=== PATIENT | female | born 1965 | race Caucasian/White ===

== ENCOUNTER 2018-01-28 11:54 | Emergency (ER) | payer MEDICAID, SELFPAY ==
[2018-01-28 11:55] VITALS: BP 141/81; PULSE 81; RESP 17; TEMP 36.4; O2SAT 95; BMI 31.7
--- NOTE | 2018-01-28 11:58 | EKG12_ITS ---
Test Reason : CP Blood Pressure : / mmHG Vent. Rate : 081 BPM Atrial Rate : 081 BPM P-R Int : 140 ms QRS Dur : 084 ms QT Int : 384 ms P-R-T Axes : -14 011 029 degrees QTc Int : 446 ms Normal sinus rhythm Normal ECG Confirmed by PAULINE GONZALEZ, MARY ([id number]), communications editor BUCK ALVARADO ([id number]) on 01/31/2018 1:57:01 PM Referred By: RIC Confirmed By:MARY CARPENTER MD
--- NOTE | 2018-01-28 11:58 | RAD_ITS ---
STUDY: X-RAY CHEST REASON FOR EXAM: Female, 52 years old. PT HAD SPINAL INJECTION THIS AM. NOW HAVING CHEST PAIN TECHNIQUE: Single AP portable view of the chest. COMPARISON: None. FINDINGS: The lungs are dark from overpenetration, limiting evaluation. Lungs are underexpanded and appear clear. There is no demonstrated pleural abnormality. Normal size heart. Normal mediastinum and uriel. Normal visualized pulmonary arteries. Normal visualized aortic arch and descending thoracic aorta. Normal visualized thoracic spine. Normal visualized ribs, clavicles, and shoulders. There is no demonstrated abnormality of the visualized soft tissue structures of the upper abdomen. RAD/Chest 1 View (Portable) IMPRESSION: No acute disease is demonstrated. Electronically Signed: Jackie Lee MD at 12:23 EDT , Service support ,
--- NOTE | 2018-01-28 11:59 | NURSING ---
NO OLD EKGS
[2018-01-28 12:02] VITALS: O2SAT 98
[2018-01-28 12:16] LABS: Absolute Lymphocyte Count 1.84 X10^3/ul (0.83-4.51); Absolute Neutrophil Count 4.6 X10^3/uL (2.0-7.7); Basophil# 0.01 X10^3/uL; Basophil% 0.1 % (0-1); Eosinophil# 0.14 X10^3/uL; Hematocrit 40.2 % (37-47); Hemoglobin 13.5 g/dl (12.0-15.0); Lymphocyte # 1.84 X10^3/ul (4.0); Lymphocyte % 26.4 % (19-41); Mean Corp Hgb Conc 33.6 g/gl (32-36); Mean Corpuscular Volume 83.2 fL (81-99); Mean Platelet Vol. 9.4 fl (6.2-12.0); Monocyte# 0.39 X10^3/uL; Monocyte% 5.6 % (0-10); Neutrophil # 4.56 X10^3/uL (2.7-7.7); Neutrophil % 65.5 % (47-70); Platelet Count 228 K/mm3 (150-450); RBC Distribution Width CV 14.3 % (11.6-14.6); Red Blood Count 4.83 M/mm3 (4.2-5.4)
[2018-01-28 12:19] LABS: POSITIVE COUNT NO; POSITIVE DIFFERENTIAL NO; POSITIVE MORPHOLOGY NO
[2018-01-28 12:29] LABS: Anion Gap 8 (5-15); BUN 13 mg/dL (7-18); BUN/Creat Ratio 20.4 RATIO (10-20); Calcium,Total 8.7 mg/dL (8.5-10.1); Chloride 104 mmol/L (98-107); Creatinine, Serum 0.64 mg/dL (0.55-1.02); EST Glomerular Filtration Rate 104 mL/min (>60); Est Glom Filt Rate - Afr Amer 125 mL/min (>60); Estimated Creatinine Clearance 91.47 ml/min; Glucose 245 mg/dL (74-106); Sodium Level 139 mmol/L (136-145)
[2018-01-28 12:54] VITALS: BP 114/77; PULSE 72; RESP 11; O2SAT 97
--- NOTE | 2018-01-28 13:15 | EKG12_ITS ---
Test Reason : REPEAT Blood Pressure : / mmHG Vent. Rate : 071 BPM Atrial Rate : 071 BPM P-R Int : 148 ms QRS Dur : 086 ms QT Int : 404 ms P-R-T Axes : 004 000 024 degrees QTc Int : 439 ms Normal sinus rhythm Normal ECG Confirmed by MARY CARPENTER MD ([id number]), features editor BUCK ALVARADO ([id number]) on 01/31/2018 1:56:46 PM Referred By: MARCO ANTONIO Confirmed By:MARY CARPENTER MD
[2018-01-28] MEDS: Aspirin 81 MG TAB.CHEW 162 MG PO (13:41)
[2018-01-28 14:00] VITALS: BP 119/65; PULSE 81; RESP 19; O2SAT 98
--- NOTE | 2018-01-28 14:54 | ED.VISSUMM ---
- ER Visit Summary Date of Service: 01/28/18 Chief Complaint: Chest pain History of Present Illness: The patient is a 52 F who presents with chest pain. She was a pain management today. She had an epidural injection. Afterward she developed severe chest tightness. She states that she felt a little short of breath and nauseated as well. No vomiting. No diaphoresis. No history of prior similar symptoms. She is diabetic but has no history of coronary artery disease. She denies hypertension although she is on hydralazine. She is not a smoker. Her sister of congestive heart failure but did not have coronary disease she never had an MD or stents. They are uncertain of why she had CHF. She does not have a history of exertional symptoms. She was given Toradol after injection but did not have any improvement so was sent to the emergency department. Physical Examination: Vital vitals stable and within normal limits Moist mucous membranes Heart regular rate and rhythm Lungs are clear Patient has anterior chest wall tenderness Abdomen soft 2+ radial pulses extremities nontender without edema Alert Test Results: EKG shows normal sinus rhythm at a rate of 81 with no acute ischemic changes. Repeat EKG unchanged. Chest x-ray shows no acute process. Laboratory studies unremarkable with normal troponin and normal repeat troponin. Emergency Department Course and Treatment: My clinical suspicion for acute cardiac ischemia is low. Her presentation is atypical. Her symptoms began after an epidural injection. She has reproducible pain. She has negative troponins ?2 and 2 normal EKGs. She was treated with Toradol and aspirin and on reevaluation report symptomatic improvement. Her heart score is 3 which places her in a low risk category. TONY is I. The patient and family are comfortable with the plan for close outpatient follow-up and do understand to return for new or worsening or recurrent symptoms. They state that they only live 5 minutes away from the hospital should she develop recurrent symptoms. Patient discharged home. Treatment Plan: [] Disposition: Discharge Impression: Chest pain This note was generated with [employer] dictation software. It may contain incorrect words, spelling, and punctuation that were not noted in review of the chart prior to signing ED Disposition - Plan for ED Patient: Chief Complaint: Chest Pain Referrals: Kim Salas, [facility] [Primary Care Provider] -
--- NOTE | 2018-01-28 14:59 | ED.DEP ---
ED Disposition - Plan for ED Patient: Chief Complaint: Chest Pain Instructions: ED Chest Pain Atypical Unkn Cause Referrals: Kim Salas NP-C [Primary Care Provider] -
[2018-01-28 15:16] VITALS: BP 116/85; PULSE 72; RESP 16; RESP 18; O2SAT 96
== END 2018-01-28 15:16 | disposition home or self-care (01) ==
PROVIDERS: Emergency Provider Emergency Medicine; PCP Nurse Practitioner Family
DX: R07.89 Other chest pain (principal); R06.00 Dyspnea, unspecified; R11.0 Nausea; E11.9 Type 2 diabetes mellitus without complications; Z79.84 Long term (current) use of oral hypoglycemic drugs; Z79.4 Long term (current) use of insulin; Z79.899 Other long term (current) drug therapy
CPT/HCPCS: 71045; 80048; 84484; 85025; 93005; 99284; A4216

== ENCOUNTER → 2018-05-21 12:51 | Outpatient (CLI) | payer MEDICAID, SELFPAY ==
[2018-05-21 13:22] LABS: Amphetamine Urine VISTA NEGATIVE (<1000 ng/mL); Barbiturate Urine VISTA NEGATIVE (< 200 ng/mL); Benzodiazepine Urine VISTA NEGATIVE (< 200 ng/mL); Cocaine Urine VISTA NEGATIVE (< 300 ng/mL); Ecstacy Urine VISTA NEGATIVE (< 500 ng/mL); Methadone Urine VISTA NEGATIVE (< 300 ng/mL); PCP Urine VISTA NEGATIVE (< 25 ng/mL); THC Urine VISTA NEGATIVE (< 50 ng/mL); Vista UDS pH Range 5
== END ==
PROVIDERS: PCP Nurse Practitioner Family; Visit Provider Anesthesiology Pain Medicine
DX: F11.20 Opioid dependence, uncomplicated (principal)
CPT/HCPCS: 80307

== ENCOUNTER → 2018-12-08 13:46 | Outpatient (CLI) | payer MEDICAID, SELFPAY ==
[2018-12-08 14:42] LABS: Amphetamine Urine VISTA NEGATIVE (<1000 ng/mL); Barbiturate Urine VISTA NEGATIVE (< 200 ng/mL); Benzodiazepine Urine VISTA NEGATIVE (< 200 ng/mL); Cocaine Urine VISTA NEGATIVE (< 300 ng/mL); Ecstacy Urine VISTA NEGATIVE (< 500 ng/mL); Methadone Urine VISTA NEGATIVE (< 300 ng/mL); PCP Urine VISTA NEGATIVE (< 25 ng/mL); THC Urine VISTA NEGATIVE (< 50 ng/mL); Vista UDS pH Range 5
== END ==
PROVIDERS: PCP Nurse Practitioner Family; Referring Provider Anesthesiology Pain Medicine; Visit Provider Anesthesiology Pain Medicine
DX: F11.20 Opioid dependence, uncomplicated (principal)
CPT/HCPCS: 80307

== ENCOUNTER → 2020-01-26 10:14 | Outpatient (CLI) | payer MEDICARE, MEDICAID, SELFPAY ==
[2020-01-26 13:08] LABS: Amphetamine Urine VISTA NEGATIVE (<1000 ng/mL); Barbiturate Urine VISTA NEGATIVE (< 200 ng/mL); Benzodiazepine Urine VISTA NEGATIVE (< 200 ng/mL); Cocaine Urine VISTA NEGATIVE (< 300 ng/mL); Ecstacy Urine VISTA NEGATIVE (< 500 ng/mL); Methadone Urine VISTA NEGATIVE (< 300 ng/mL); PCP Urine VISTA NEGATIVE (< 25 ng/mL); THC Urine VISTA NEGATIVE (< 50 ng/mL); Vista UDS pH Range 5
== END ==
PROVIDERS: PCP Nurse Practitioner Family; Referring Provider Anesthesiology Pain Medicine; Visit Provider Anesthesiology Pain Medicine
DX: F11.20 Opioid dependence, uncomplicated (principal)
CPT/HCPCS: 80307

== ENCOUNTER → 2020-09-15 10:13 | Outpatient (CLI) | payer MEDICARE, MEDICAID, SELFPAY ==
[2020-09-15 11:27] LABS: Amphetamine Urine VISTA NEGATIVE (<1000 ng/mL); Barbiturate Urine VISTA NEGATIVE (< 200 ng/mL); Benzodiazepine Urine VISTA NEGATIVE (< 200 ng/mL); Cocaine Urine VISTA NEGATIVE (< 300 ng/mL); Ecstacy Urine VISTA NEGATIVE (< 500 ng/mL); Methadone Urine VISTA NEGATIVE (< 300 ng/mL); PCP Urine VISTA NEGATIVE (< 25 ng/mL); THC Urine VISTA NEGATIVE (< 50 ng/mL); Vista UDS pH Range 5
== END ==
PROVIDERS: PCP Nurse Practitioner Family; Visit Provider Anesthesiology Pain Medicine
DX: F11.20 Opioid dependence, uncomplicated (principal)
CPT/HCPCS: 80307

== ENCOUNTER → 2021-08-02 07:10 | Outpatient (REF) | payer MEDICARE, MEDICAID, SELFPAY ==
[2021-08-02 08:21] LABS: Basophil# 0.04 X10^3/uL; Basophil% 0.7 % (0-1); Eosinophil# 0.12 X10^3/uL; Hematocrit 31.3 % (37-47); Hemoglobin 9.4 g/dL (12.0-15.0); Lymphocyte % 21.4 % (19-41); Mean Corpuscular Volume 80.1 fL (81-99); Mean Platelet Vol. 9.3 fl (6.2-12.0); Monocyte% 9.9 % (0-10); NRBC Flagged by Analyzer 0 % (0-5); Neutrophil # 3.99 X10^3/uL (2.7-7.7); Neutrophil % 65.5 % (47-70); Platelet Count 353 K/mm3 (150-450); RBC Distribution Width CV 16.8 % (11.6-14.6); RBC Distribution Width SD 48.5 fl (35.1-43.9); Red Blood Count 3.91 M/mm3 (4.2-5.4); White Blood Count 6.1 K/mm3 (4.4-11.0)
[2021-08-02 08:34] LABS: ALB/GLOB Ratio 0.5 RATIO (0.9-2.4); AST(SGOT) 16 U/L (15-37); Alanine Aminotransfer ALT/SGPT 11 U/L (13-56); Albumin, Serum 2.4 g/dL (3.2-5.0); Alkaline Phosphatase 79 U/L (45-117); Anion Gap 6 (5-15); BUN 15 mg/dL (7-18); Calcium,Total 8.8 mg/dL (8.5-10.1); Chloride 104 mmol/L (98-107); Creatinine, Serum 1.07 mg/dL (0.55-1.02); EST Glomerular Filtration Rate 56 mL/min (>60); Est Glom Filt Rate - Afr Amer 68 mL/min (>60); Glucose 142 mg/dL (74-106); Potassium 3.8 mmol/L (3.5-5.1); Protein, Total 7.4 g/dL (6.4-8.2); Sodium Level 137 mmol/L (136-145)
== END ==
LOC: OLS.SANC 07:10
PROVIDERS: PCP Nurse Practitioner Family; Visit Provider Internal Medicine
DX: E11.9 Type 2 diabetes mellitus without complications (principal); I10 Essential (primary) hypertension
CPT/HCPCS: 36415; 80053; 85025

== ENCOUNTER → 2021-08-04 05:00 | Outpatient (REF) | payer MEDICARE, MEDICAID, SELFPAY ==
[2021-08-04 08:04] LABS: Absolute Lymphocyte Count 1.27 X10^3/uL (0.83-4.51); Absolute Neutrophil Count 2.6 X10^3/uL (2.0-7.7); Basophil# 0.03 X10^3/uL; Basophil% 0.7 % (0-1); Eosinophils% 4.4 % (0-5); Hematocrit 29.6 % (37-47); Hemoglobin 8.9 g/dL (12.0-15.0); Lymphocyte # 1.27 X10^3/ul (0.83-4.51); Lymphocyte % 27.8 % (19-41); Mean Corp Hgb Conc 30.1 g/dL (32-36); Mean Corpuscular Hgb 24.6 pg (27.0-32.0); Mean Corpuscular Volume 81.8 fL (81-99); Mean Platelet Vol. 9.3 fl (6.2-12.0); Monocyte# 0.43 X10^3/uL; Monocyte% 9.4 % (0-10); NRBC Flagged by Analyzer 0 % (0-5); Neutrophil % 56.8 % (47-70); Platelet Count 246 K/mm3 (150-450); RBC Distribution Width CV 17.2 % (11.6-14.6); RBC Distribution Width SD 51.1 fl (35.1-43.9); Red Blood Count 3.62 M/mm3 (4.2-5.4); White Blood Count 4.6 K/mm3 (4.4-11.0)
[2021-08-04 08:18] LABS: Anion Gap 5 (5-15); BUN 19 mg/dL (7-18); BUN/Creat Ratio 17.1 RATIO (10-20); Calcium,Total 8.5 mg/dL (8.5-10.1); Chloride 104 mmol/L (98-107); Creatinine, Serum 1.11 mg/dL (0.55-1.02); EST Glomerular Filtration Rate 54 mL/min (>60); Est Glom Filt Rate - Afr Amer 65 mL/min (>60); Glucose 135 mg/dL (74-106); Potassium 3.8 mmol/L (3.5-5.1); Sodium Level 140 mmol/L (136-145)
== END ==
LOC: OLS.SANC 05:00
PROVIDERS: PCP Nurse Practitioner Family; Visit Provider Internal Medicine
DX: E11.9 Type 2 diabetes mellitus without complications (principal); I10 Essential (primary) hypertension; E78.5 Hyperlipidemia, unspecified
CPT/HCPCS: 36415; 80048; 85025

== ENCOUNTER → 2021-08-07 08:10 | Outpatient (REF) | payer MEDICARE, MEDICAID, SELFPAY ==
[2021-08-07 09:40] LABS: Absolute Lymphocyte Count 1.44 X10^3/uL (0.83-4.51); Absolute Neutrophil Count 3.5 X10^3/uL (2.0-7.7); Basophil# 0.04 X10^3/uL; Basophil% 0.7 % (0-1); Eosinophil# 0.41 X10^3/uL; Hematocrit 29.3 % (37-47); Hemoglobin 9.1 g/dL (12.0-15.0); Lymphocyte # 1.44 X10^3/ul (0.83-4.51); Lymphocyte % 24.6 % (19-41); Mean Corp Hgb Conc 31.1 g/dL (32-36); Mean Corpuscular Hgb 24.9 pg (27.0-32.0); Mean Corpuscular Volume 80.3 fL (81-99); Mean Platelet Vol. 9.4 fl (6.2-12.0); Monocyte# 0.45 X10^3/uL; Monocyte% 7.7 % (0-10); NRBC Flagged by Analyzer 0 % (0-5); Neutrophil # 3.48 X10^3/uL (2.7-7.7); Neutrophil % 59.5 % (47-70); Platelet Count 194 K/mm3 (150-450); RBC Distribution Width CV 17.2 % (11.6-14.6); RBC Distribution Width SD 50.6 fl (35.1-43.9); Red Blood Count 3.65 M/mm3 (4.2-5.4); White Blood Count 5.9 K/mm3 (4.4-11.0)
[2021-08-07 09:51] LABS: Anion Gap 5 (5-15); BUN 19 mg/dL (7-18); BUN/Creat Ratio 14.7 RATIO (10-20); Calcium,Total 8.5 mg/dL (8.5-10.1); Chloride 105 mmol/L (98-107); Creatinine, Serum 1.29 mg/dL (0.55-1.02); EST Glomerular Filtration Rate 45 mL/min (>60); Est Glom Filt Rate - Afr Amer 55 mL/min (>60); Glucose 187 mg/dL (74-106); Potassium 3.8 mmol/L (3.5-5.1); Sodium Level 139 mmol/L (136-145)
== END ==
LOC: OLS.SANC 08:10
PROVIDERS: PCP Nurse Practitioner Family; Visit Provider Internal Medicine
DX: E11.9 Type 2 diabetes mellitus without complications (principal); E03.9 Hypothyroidism, unspecified
CPT/HCPCS: 80048; 85025

== ENCOUNTER → 2021-08-14 05:00 | Outpatient (REF) | payer MEDICARE, MEDICAID, SELFPAY ==
[2021-08-14 08:15] LABS: Absolute Lymphocyte Count 1.11 X10^3/uL (0.83-4.51); Absolute Neutrophil Count 2.6 X10^3/uL (2.0-7.7); Basophil# 0.02 X10^3/uL; Basophil% 0.5 % (0-1); Eosinophil# 0.29 X10^3/uL; Eosinophils% 6.6 % (0-5); Hematocrit 31.8 % (37-47); Hemoglobin 9.9 g/dL (12.0-15.0); Lymphocyte # 1.11 X10^3/ul (0.83-4.51); Lymphocyte % 25.2 % (19-41); Mean Corp Hgb Conc 31.1 g/dL (32-36); Mean Corpuscular Hgb 24.8 pg (27.0-32.0); Mean Corpuscular Volume 79.7 fL (81-99); Monocyte# 0.38 X10^3/uL; Monocyte% 8.6 % (0-10); NRBC Flagged by Analyzer 0 % (0-5); Neutrophil # 2.56 X10^3/uL (2.7-7.7); Neutrophil % 58.2 % (47-70); POSITIVE COUNT YES; RBC Distribution Width CV 17.2 % (11.6-14.6); RBC Distribution Width SD 49.2 fl (35.1-43.9); Red Blood Count 3.99 M/mm3 (4.2-5.4); White Blood Count 4.4 K/mm3 (4.4-11.0)
[2021-08-14 08:22] LABS: Differential Indicated SCAN CRITERIA MET
[2021-08-14 08:30] LABS: Anion Gap 5 (5-15); BUN 16 mg/dL (7-18); BUN/Creat Ratio 15.5 RATIO (10-20); Calcium,Total 8.9 mg/dL (8.5-10.1); Chloride 104 mmol/L (98-107); Creatinine, Serum 1.03 mg/dL (0.55-1.02); EST Glomerular Filtration Rate 59 mL/min (>60); Est Glom Filt Rate - Afr Amer 71 mL/min (>60); Glucose 148 mg/dL (74-106); Sodium Level 139 mmol/L (136-145)
[2021-08-14 08:53] LABS: Platelet Estimate ADEQUATE (ADEQ)
== END ==
LOC: OLS.SANC 05:00
PROVIDERS: PCP Nurse Practitioner Family; Visit Provider Internal Medicine
DX: A41.9 Sepsis, unspecified organism (principal); E11.8 Type 2 diabetes mellitus with unspecified complications; I10 Essential (primary) hypertension
CPT/HCPCS: 36415; 80048; 85025

== ENCOUNTER → 2021-08-21 05:00 | Outpatient (REF) | payer MEDICARE, MEDICAID, SELFPAY ==
[2021-08-21 10:22] LABS: Absolute Lymphocyte Count 1.45 X10^3/uL (0.83-4.51); Absolute Neutrophil Count 3.2 X10^3/uL (2.0-7.7); Basophil# 0.03 X10^3/uL; Basophil% 0.6 % (0-1); Eosinophil# 0.21 X10^3/uL; Eosinophils% 3.9 % (0-5); Hematocrit 31.7 % (37-47); Lymphocyte # 1.45 X10^3/ul (0.83-4.51); Lymphocyte % 26.7 % (19-41); Mean Corp Hgb Conc 31.5 g/dL (32-36); Mean Corpuscular Hgb 25.7 pg (27.0-32.0); Mean Corpuscular Volume 81.5 fL (81-99); Mean Platelet Vol. 9.7 fl (6.2-12.0); Monocyte# 0.48 X10^3/uL; Monocyte% 8.8 % (0-10); NRBC Flagged by Analyzer 0 % (0-5); Neutrophil % 58.7 % (47-70); Platelet Count 246 K/mm3 (150-450); RBC Distribution Width CV 17.7 % (11.6-14.6); RBC Distribution Width SD 51.2 fl (35.1-43.9); Red Blood Count 3.89 M/mm3 (4.2-5.4); White Blood Count 5.4 K/mm3 (4.4-11.0)
[2021-08-21 10:49] LABS: Anion Gap 5 (5-15); BUN 18 mg/dL (7-18); BUN/Creat Ratio 16.8 RATIO (10-20); Calcium,Total 9.1 mg/dL (8.5-10.1); Chloride 106 mmol/L (98-107); Creatinine, Serum 1.07 mg/dL (0.55-1.02); EST Glomerular Filtration Rate 56 mL/min (>60); Est Glom Filt Rate - Afr Amer 68 mL/min (>60); Glucose 73 mg/dL (74-106); Potassium 3.9 mmol/L (3.5-5.1); Sodium Level 141 mmol/L (136-145)
== END ==
LOC: OLS.SANC 05:00
PROVIDERS: PCP Nurse Practitioner Family; Visit Provider Internal Medicine
DX: E11.9 Type 2 diabetes mellitus without complications (principal); E87.6 Hypokalemia
CPT/HCPCS: 36415; 80048; 85025

== ENCOUNTER → 2021-08-28 04:00 | Outpatient (REF) | payer MEDICARE, MEDICAID, SELFPAY ==
[2021-08-28 07:59] LABS: Absolute Lymphocyte Count 1.34 X10^3/uL (0.83-4.51); Absolute Neutrophil Count 2.5 X10^3/uL (2.0-7.7); Basophil# 0.02 X10^3/uL; Basophil% 0.4 % (0-1); Eosinophil# 0.24 X10^3/uL; Eosinophils% 5.3 % (0-5); Hematocrit 30.2 % (37-47); Hemoglobin 9.5 g/dL (12.0-15.0); Lymphocyte # 1.34 X10^3/ul (0.83-4.51); Lymphocyte % 29.3 % (19-41); Mean Corp Hgb Conc 31.5 g/dL (32-36); Mean Corpuscular Volume 82.5 fL (81-99); Mean Platelet Vol. 9.5 fl (6.2-12.0); Monocyte# 0.47 X10^3/uL; Monocyte% 10.3 % (0-10); NRBC Flagged by Analyzer 0 % (0-5); Neutrophil # 2.48 X10^3/uL (2.7-7.7); Neutrophil % 54.3 % (47-70); Platelet Count 196 K/mm3 (150-450); RBC Distribution Width CV 17.8 % (11.6-14.6); RBC Distribution Width SD 53.3 fl (35.1-43.9); Red Blood Count 3.66 M/mm3 (4.2-5.4); White Blood Count 4.6 K/mm3 (4.4-11.0)
[2021-08-28 08:23] LABS: Anion Gap 2 (5-15); BUN 26 mg/dL (7-18); BUN/Creat Ratio 23.6 RATIO (10-20); Calcium,Total 8.8 mg/dL (8.5-10.1); Chloride 106 mmol/L (98-107); EST Glomerular Filtration Rate 54 mL/min (>60); Est Glom Filt Rate - Afr Amer 66 mL/min (>60); Glucose 124 mg/dL (74-106); Potassium 4.5 mmol/L (3.5-5.1); Sodium Level 139 mmol/L (136-145)
== END ==
LOC: OLS.SANC 04:00
PROVIDERS: PCP Nurse Practitioner Family; Referring Provider Internal Medicine; Visit Provider Internal Medicine
DX: D64.9 Anemia, unspecified (principal); E11.9 Type 2 diabetes mellitus without complications; I10 Essential (primary) hypertension; E78.5 Hyperlipidemia, unspecified; E03.9 Hypothyroidism, unspecified; A41.9 Sepsis, unspecified organism; Z79.899 Other long term (current) drug therapy
CPT/HCPCS: 36415; 80048; 85025

== ENCOUNTER 2022-01-02 10:03 | Inpatient (IN) | payer MEDICARE, MEDICAID, SELFPAY ==
[2022-01-02 10:04] VITALS: BP 163/72; PULSE 90; RESP 20; TEMP 36.8; O2SAT 97; BMI 26.1
--- NOTE | 2022-01-02 10:24 | CT_ITS ---
STUDY: CT BRAIN WITHOUT CONTRAST REASON FOR EXAM: Female, 56 years old. fall RADIATION DOSAGE (If Supplied By Facility): CTDIvol = ( 44.99 ) mGy, DLP = ( 796.11 ) mGycm TECHNIQUE: Transaxial CT imaging of the brain was performed without administration of intravenous contrast material. Individualized dose optimization techniques were used for this CT. COMPARISON: No relevant priors. FINDINGS: Normal soft tissue structures. Normal calvarium. Normal size ventricles and extra-axial spaces for the patient''s age. Normal white matter tracts of the cerebral hemispheres. Normal basal ganglia and thalami. Normal variant perivascular space in the right basal ganglia region. Normal brainstem. Normal cerebellum. There is no intracranial hemorrhage. There are no findings of an acute ischemic infarction. Normal visualized paranasal sinuses. CT/Brain/Head without Contrast IMPRESSION: No acute intracranial hemorrhage or mass affect. Electronically Signed: Skyler Lu MD (Brooks) at 11:45 EDT ,
--- NOTE | 2022-01-02 10:25 | CT_ITS ---
STUDY: CT ABDOMEN AND PELVIS WITHOUT CONTRAST REASON FOR EXAM: Female, 56 years old. Fall 2 days ago, right hip pain RADIATION DOSAGE (If Supplied By Facility): CTDIvol = ( 20.10 ) mGy, DLP = ( 1367.32 ) mGycm TECHNIQUE: Transaxial images were obtained from the dome of the diaphragm to the symphysis pubis without oral contrast, and without intravenous contrast. Sagittal and coronal images were reconstructed. Individualized dose optimization techniques were used for this CT. COMPARISON: None. FINDINGS: The visualized lung bases are unremarkable. The visualized portions of the heart are within normal limits. Normal liver. Normal gallbladder and extrahepatic biliary system. There is mild splenomegaly. Normal pancreas. Normal bilateral adrenal glands. Normal right kidney. Normal left kidney. Normal visualized stomach. Normal small intestine. Fecal residue throughout the colon without colon wall thickening The appendix is visualized and appears normal. Slight amount of fascial thickening/fluid in the right lower quadrant (image 133 series 5). There is also minimal fluid in left paracolic gutter on image 103 series 5. Slight fluid in the dependent portion of pelvis. Normal abdominal aorta. Normal inferior vena cava. Normal retroperitoneum. Normal urinary bladder. Normal abdominal wall. Degenerative changes of the lumbar spine. The pelvis is intact. Neurostimulator device noted. Bilateral hips are normally aligned. Circumferential narrowing of the bilateral hips with marginal spur formation. No hip or proximal femur fracture seen. CT/Abdomen/Pelvis without Cont IMPRESSION: 1. No bowel obstruction. No hydronephrosis or urinary tract calcifications. 2. Slight amount of fluid in the bilateral paracolic gutters. 3. No demonstrated hip fracture. 4. Mild splenomegaly. Electronically Signed: Skyler Lu MD (Brooks) at 11:53 EDT ,
--- NOTE | 2022-01-02 10:27 | RAD_ITS ---
STUDY: X-RAY - RIGHT FOOT CLINICAL: Female, 56 years old. Infection of the foot, diabetes TECHNIQUE: 3 view(s) of the foot. COMPARISON: None. FINDINGS: Hind and midfoot surgical hardware. Diffuse osteopenia. Degenerative changes of the tibiotalar joint. No demonstrated fracture. Normal metatarsophalangeal joint of the great toe. Normal tibial and fibular sesamoid bones. Normal interphalangeal joint of the great toe. Normal phalanges of the great toe. Normal second through fifth metatarsophalangeal joints. Normal interphalangeal joints and phalanges of the lesser toes. Soft tissue swelling with superficial ulcer of the mid plantar foot. RAD/Foot min 3 Views IMPRESSION: 1. Plantar soft tissue swelling/lesser. No silviano bony destruction. 2. Operative changes. Electronically Signed: Skyler Lu MD (Brooks) at 11:50 EDT ,
--- NOTE | 2022-01-02 10:27 | EX.ED.DYSGE1 ---
HPI History of Present Illness Chief Complaint: Fall Informant: patient and family Onset/Context/Timing Onset: Days Narrative Narrative: Patient reportedly fell 2 days ago while on vacation with her son's family. She states she fell and landed on her right side. Her son was able to help her to the car and her daughter picked her up yesterday. Patient is complaining of pain to her right hip and left foot from the fall. She also reports striking her head. She did not lose consciousness. She states she has been checking her blood sugars. She last took her diabetes medication last evening. Her blood sugars have been running well but EMS notes today they were reading high. Patient does have a chronic wound on the bottom of her right foot that she has been seeing wound care in [facility]. [facility] Medical History Depression Diabetes HTN (hypertension) Home Medications Levemir FlexTouch U-100 Insuln 85 units SUBCUT QHS 01/28/18 [History Last Taken Unknown] albuterol sulfate [Proair Hfa] 2 puff Q4H PRN PRN 01/28/18 [History Last Taken Unknown] hydralazine 25 mg PO DAILY 01/28/18 [History Last Taken Unknown] ibuprofen [Ibu] 600 mg Q6H PRN PRN 01/28/18 [History Last Taken Unknown] metformin 1,000 mg DAILY 01/28/18 [History Last Taken Unknown] oxycodone-acetaminophen 1 tab BID PRN 01/28/18 [History Last Taken Unknown] pregabalin [Lyrica] 100 mg DAILY 01/28/18 [History Last Taken Unknown] hydroxyzine HCl 25 mg PO QHS 01/02/22 [History Last Taken Unknown] insulin lispro [Humalog Dameon KwikPen U-100] 50 unit SUBCUT TID 01/02/22 [History Last Taken Unknown] sertraline 200 mg PO DAILY 01/02/22 [History Last Taken Unknown] trazodone 150 mg PO QHS 01/02/22 [History Last Taken Unknown] Allergy/AdvReac Type Severity Reaction Status Date / Time morphine AdvReac Vomiting Verified 01/02/22 10:09 Social History Smoking Status: Never smoker ROS ROS ED Constitutional Constitutional ED: Denies chills or fever(s) Eyes Eyes: Denies change in vision ENT ENT ED: Denies sore throat Cardiovascular Cardiovascular: Denies chest pain Respiratory/Chest Respiratory/Chest: Denies cough or dyspnea Gastrointestinal Gastrointestinal: Reports abdominal pain; Denies diarrhea, nausea or vomiting Genitourinary Genitourinary ED: Denies dysuria Musculoskeletal Musculoskeletal: Reports arthralgias; Denies back pain Integumentary Reports other Details: Right foot wound ; Denies rash Neurologic Neurologic: Reports weakness; Denies headache(s) Allergic/Immunologic Allergic/Immunologic ED: Denies urticaria EXAM Physical Exam Const Vital Signs: 01/02/22 10:04 01/02/22 10:09 01/02/22 12:34 Temperature 98.3 F Temperature Source Oral Pulse Rate 90 89 Respiratory Rate 20 H 20 H Respiratory Effort Normal Non-Labored Blood Pressure 163/72 H 146/61 H Blood Pressure Mean 102 89 Pulse Ox 97 93 Oxygen Delivery Method Room Air Room Air Positive well nourished and well developed General Appearance ED: well developed HEENT Reports moist mucous membranes Eyes PERRL and EOMs intact bilaterally Neck supple Chest Wall inspection of chest normal and palpation of chest normal Resp normal respiratory effort and clear to auscultation bilaterally Cardio regular rate and regular rhythm GI Palpation: soft and tender suprapubic Extremity Extremity Narrative: Tenderness to the right hip. Mild tenderness to the left foot with edema. Open ulcerated lesion on the plantar surface of the right foot approximately 1.5 cm in diameter. Serosanguineous drainage. No surrounding cellulitis. Neuro oriented x3 Sensorium / Orientation: alert MDM MDM MDM Narrative Medical decision making narrative: Patient given fentanyl for pain along with IV fluids. Lab work obtained. X-rays of the bilateral feet along with head CT and CT abdomen pelvis obtained. I specifically asked for CT scan to include right hip. Lab Data Attestation: I reviewed the patient's lab results. Labs: Laboratory Results - last 24 hr 01/02/22 01/02/22 11:01 11:01 WBC 9.2 RBC 3.33 L Hgb 9.6 L Hct 28.4 L MCV 85.3 MCH 28.8 MCHC 33.8 RDW Std Deviation 43.2 RDW Coeff of Gabriela 13.8 Plt Count 177 MPV 11.0 Immature Gran % (Auto) 1.100 H Neut % (Auto) 83.6 H Lymph % (Auto) 5.1 L Bartholomew % (Auto) 9.9 Eos % (Auto) 0.1 Baso % (Auto) 0.2 Absolute Neuts (auto) 7.7 Absolute Lymphs (auto) 0.47 L Nucleated RBC % 0 Sodium 128 L Potassium 4.6 Chloride 99 Carbon Dioxide 14.0 L Anion Gap 15 BUN 25 H Creatinine 1.32 H Estim Creat Clear Calc 44.02 Est GFR (MDRD) Af Amer 53 L Est GFR (MDRD) Non-Af 44 L BUN/Creatinine Ratio 18.9 Glucose 388 H Calcium 8.4 L Total Bilirubin 1.00 Direct Bilirubin 0.15 AST 33 ALT 18 Alkaline Phosphatase 103 Total Protein 6.3 L Albumin 2.0 L Globulin 4.3 H Radiography Diagnostic Testing: Clinical Impression(s) from Imaging Studies Brain CT 01/02/22 10:24 IMPRESSION: No acute intracranial hemorrhage or mass affect. Electronically Signed: Skyler Lu MD (Brooks) at 11:45 EDT , Abdomen/Pelvis CT 01/02/22 10:25 IMPRESSION: 1. No bowel obstruction. No hydronephrosis or urinary tract calcifications. 2. Slight amount of fluid in the bilateral paracolic gutters. 3. No demonstrated hip fracture. 4. Mild splenomegaly. Electronically Signed: Skyler Lu MD (Brooks) at 11:53 EDT , Foot X-Ray 01/02/22 10:27 IMPRESSION: 1. Plantar soft tissue swelling/lesser. No silviano bony destruction. 2. Operative changes. Electronically Signed: Skyler Lu MD (Brooks) at 11:50 EDT , Foot X-Ray 01/02/22 11:30 IMPRESSION: No demonstrated fracture. Operative changes. Diffuse soft tissue swelling. Electronically Signed: Skyler Lu MD (Brooks) at 11:49 EDT , Treatment and Re-Evaluation Narrative: X-rays of the feet reveal chronic changes with no acute fracture per my interpretation. Radiologist interpretation reviewed. CT scan of the abdomen pelvis reveals slight fluid in the pericolic gutters but no evidence of fracture. Head CT unremarkable. Lab work significant for glucose of 388. Bicarb is low at 14. Anion gap is normal. Sodium reads low at 128, corrected sodium for glucose is 132. Patient is being given another liter IV fluid bolus. If blood sugar remains elevated following this she may be given insulin. Patient has generalized weakness and is unable to ambulate at this time. I will speak with hospitalist regarding admission for physical therapy and further treatment. Discharge Plan Triage Chief Complaint: Fall ED Provider: Lucy Azar Dx/Rx/DC Orders Clinical Impression: Generalized weakness, Fall, Hyperglycemia, Dehydration Prescriptions: No Action oxycodone-acetaminophen 1 TABLET tablet 1 tab BID PRN (Reason: Pain) RF: 0 ibuprofen [IBU] 600 MG tablet 600 mg Q6H PRN PRN (Reason: Pain) RF: 0 albuterol sulfate [ProAir HFA] 1 PUFF inhaler 2 puff Q4H PRN PRN (Reason: Sob &/Or Wheezing) RF: 0 metformin 500 MG tablet 1,000 mg DAILY RF: 0 pregabalin [Lyrica] 100 MG capsule 100 mg DAILY RF: 0 Levemir FlexTouch U-100 Insuln 100 UNITS/ML insulin pen 85 units subcut QHS RF: 0 hydralazine 25 MG tablet 25 mg PO DAILY RF: 0 trazodone 150 mg Tablet 150 mg PO QHS RF: 0 hydroxyzine HCl 25 mg Tablet 25 mg PO QHS RF: 0 insulin lispro [Humalog Dameon KwikPen U-100] 100 unit/mL Insulin Pen, Half-Unit 50 unit SUBCUT TID RF: 0 sertraline 200 mg Capsule 200 mg PO DAILY RF: 0 Primary Care Provider: Kim Salas ANALYTICAL SCIENCES DIRECTOR Referrals: Kim Salas NP, ANALYTICAL SCIENCES DIRECTOR-C [Primary Care Provider] - Disposition Disposition: Acute Care Hospital [facility]
[2022-01-02] MEDS: 0.9% Normal Saline 1,000 ML 150 ML IV (10:56)
[2022-01-02] MEDS: fentaNYL 100 MCG/2 ML Ampul 25 MCG IV (10:56)
[2022-01-02 11:21] LABS: Absolute Lymphocyte Count 0.47 X10^3/uL (0.83-4.51); Absolute Neutrophil Count 7.7 X10^3/uL (2.0-7.7); Basophil# 0.02 X10^3/uL; Basophil% 0.2 % (0-1); Eosinophil# 0.01 X10^3/uL; Eosinophils% 0.1 % (0-5); Hematocrit 28.4 % (37-47); Hemoglobin 9.6 g/dL (12.0-15.0); Lymphocyte # 0.47 X10^3/ul (0.83-4.51); Lymphocyte % 5.1 % (19-41); Mean Corp Hgb Conc 33.8 g/dL (32-36); Mean Corpuscular Hgb 28.8 pg (27.0-32.0); Mean Corpuscular Volume 85.3 fL (81-99); Monocyte# 0.91 X10^3/uL; Monocyte% 9.9 % (0-10); NRBC Flagged by Analyzer 0 % (0-5); Neutrophil % 83.6 % (47-70); POSITIVE DIFFERENTIAL YES; POSITIVE MORPHOLOGY YES; Platelet Count 177 K/mm3 (150-450); RBC Distribution Width CV 13.8 % (11.6-14.6); RBC Distribution Width SD 43.2 fl (35.1-43.9); Red Blood Count 3.33 M/mm3 (4.2-5.4); White Blood Count 9.2 K/mm3 (4.4-11.0)
--- NOTE | 2022-01-02 11:30 | RAD_ITS ---
STUDY: X-RAY - LEFT FOOT CLINICAL: Female, 56 years old. Injury, left foot pain TECHNIQUE: 3 view(s) of the foot. COMPARISON: None. FINDINGS: Hindfoot arthrodesis. Calcaneal spur. Diffuse osteopenia. Fusion hardware of the first metatarsal. Normal metatarsophalangeal joint of the great toe. Normal tibial and fibular sesamoid bones. Normal interphalangeal joint of the great toe. Normal phalanges of the great toe. Normal second through fifth metatarsophalangeal joints. Normal interphalangeal joints and phalanges of the lesser toes. Diffuse soft tissue swelling of the forefoot. RAD/Foot min 3 Views IMPRESSION: No demonstrated fracture. Operative changes. Diffuse soft tissue swelling. Electronically Signed: Skyler Lu MD (Brooks) at 11:49 EDT ,
[2022-01-02 11:33] LABS: Differential Indicated SCAN CRITERIA MET
[2022-01-02 12:02] LABS: AST(SGOT) 33 U/L (15-37); Alanine Aminotransfer ALT/SGPT 18 U/L (13-56); Alkaline Phosphatase 103 U/L (45-117); Anion Gap 15 (5-15); BUN 25 mg/dL (7-18); BUN/Creat Ratio 18.9 RATIO (10-20); Bilirubin, Direct 0.15 mg/dL (0.00-0.30); Calcium,Total 8.4 mg/dL (8.5-10.1); Chloride 99 mmol/L (98-107); Creatinine, Serum 1.32 mg/dL (0.55-1.02); EST Glomerular Filtration Rate 44 mL/min (>60); Est Glom Filt Rate - Afr Amer 53 mL/min (>60); Estimated Creatinine Clearance 44.02 ml/min; Globulin 4.3 g/dL (2.2-4.2); Glucose 388 mg/dL (74-106); Potassium 4.6 mmol/L (3.5-5.1); Protein, Total 6.3 g/dL (6.4-8.2); Sodium Level 128 mmol/L (136-145)
[2022-01-02 12:34] VITALS: BP 146/61; PULSE 89; RESP 20; O2SAT 93
[2022-01-02] MEDS: 0.9% Normal Saline 1,000 ML 999 ML IV (12:34)
[2022-01-02 13:44] VITALS: BP 154/59; PULSE 88; RESP 15; TEMP 37
[2022-01-02 14:25] VITALS: BMI 27.8
[2022-01-02 14:30] VITALS: BP 127/58; PULSE 90; RESP 18; TEMP 36.9; O2SAT 96
--- NOTE | 2022-01-02 14:48 | PCM.HP.STD ---
HPI - General General Date of Admission: 01/02/22 Date of Service: 01/02/22 Chief Complaint: Generalized debility HPI Narrative NORAH CRAIG, is a 56 F who presents the emergency room at [facility] after being brought in by family due to generalized debility. Patient states she does ambulate with a walker, triage notes state however that the patient is wheelchair-bound. Patient fell approximately 2 days ago while visiting a family member [place] and she has been unable to ambulate since that time. Patient is poorly controlled diabetic, she states her last A1c was 13.1. Family states that her diabetes is always been poorly controlled. X-rays were performed in the emergency room, right foot x-ray showed plantar soft tissue swelling, there was no bony destruction noted, there was noted to be previous operative changes in the right foot. X-rays of the left foot showed no demonstrated fracture, there are operative changes also noted along with diffuse soft tissue swelling. Abdominal and pelvic CT was performed due to complaints of hip discomfort, no demonstrated hip fracture was noted, no acute intracranial hemorrhage or mass-effect was noted on the patient's brain CT. Lab was performed, lab was remarkable for creatinine of 1.32, sodium was 128, glucose was 388, UA was not performed in the emergency room. Patient and patient's family requested admission due to acute debility, patient's family recommended short-term placement in a fci facility if possible, patient has been at the [facility] in [facility] before for inpatient rehab. Patient states that she has no objections going back there if needed. Patient will be placed into observation status on [facility], she will be seen by PT and OT, patient has an ulceration to the plantar surface of her right foot-she will need to be seen by podiatry and wound care nurse. I have elected not to place patient on IV fluids at this time, I have ordered a UA, I have placed the patient on lisinopril for blood pressure control-it appears that the patient was taking hydralazine 25 mg 1/day, this is not appropriate dosage so I have elected to take her off the hydralazine and place her on lisinopril. [facility] Medical History Depression Diabetes HTN (hypertension) Neuropathy Seizures Home Medications Levemir FlexTouch U-100 Insuln 85 units SUBCUT QHS 01/28/18 [History Last Taken Unknown] albuterol sulfate [Proair Hfa] 2 puff Q4H PRN PRN 01/28/18 [History Last Taken Unknown] hydralazine 25 mg PO DAILY 01/28/18 [History Last Taken Unknown] ibuprofen [Ibu] 600 mg Q6H PRN PRN 01/28/18 [History Last Taken Unknown] metformin 1,000 mg DAILY 01/28/18 [History Last Taken Unknown] oxycodone-acetaminophen 1 tab BID PRN 01/28/18 [History Last Taken Unknown] pregabalin [Lyrica] 100 mg DAILY 01/28/18 [History Last Taken Unknown] hydroxyzine HCl 25 mg PO QHS 01/02/22 [History Last Taken Unknown] insulin lispro [Humalog Dameon KwikPen U-100] 50 unit SUBCUT TID 01/02/22 [History Last Taken Unknown] sertraline 200 mg PO DAILY 01/02/22 [History Last Taken Unknown] trazodone 150 mg PO QHS 01/02/22 [History Last Taken Unknown] Allergy/AdvReac Type Severity Reaction Status Date / Time morphine AdvReac Vomiting Verified 01/02/22 10:09 Social History Smoking Status: Never smoker ROS Constitutional Constitutional: Denies anorexia, change in weight, fever(s), night sweats or weakness Eyes Eyes: Denies blurry vision, change in vision, discharge from eye(s) or eye pain Cardiovascular Cardiovascular: Denies chest pain, claudication, dyspnea on exertion, edema, lightheadedness or palpitations Respiratory/Chest Respiratory/Chest: Denies cough, hemoptysis, productive cough, shortness of breath at rest or shortness of breath with exertion Gastrointestinal Gastrointestinal: Denies abdominal pain, constipation, diarrhea, hematemesis, hematochezia, melena, nausea or vomiting Genitourinary Genitourinary: Denies dysuria, hematuria, urinary frequency, urinary hesitancy, urinary incontinence or urinary urgency Musculoskeletal Musculoskeletal: Reports other Details: Patient complains of bilateral foot pain-worse on the left, patient also complains of right hip discomfort when ambulating ; Denies back pain, joint pain, joint stiffness, joint swelling, myalgias or neck pain Neurologic Neurologic: Reports numbness and other Details: Patient complains of neuropathy in her feet due to type 2 diabetes ; Denies abnormal gait, abnormal speech, dizziness, focal weakness, headache(s), loss of vision, other visual disturbances, paresthesias, syncope or tingling Psychiatric Psychiatric: Denies anxiety, cognitive impairment, depression, irritability, mood swings or suicidal ideation Endocrine Endocrinology: Denies change in body appearance, cold intolerance, excessive sweating, heat intolerance, polydipsia or polyuria Hematologic/Lymphatic Hematologic/Lymphatic: Denies none, anemia, easy bleeding, easy bruising or lymphadenopathy Allergic/Immunologic Allergic/Immunologic: Denies rhinitis, urticaria, eczemia or asthma Vital Signs Vital Signs Vital Signs: 01/02/22 10:04 01/02/22 10:09 01/02/22 12:34 Temperature 98.3 F Temperature Source Oral Pulse Rate 90 89 Respiratory Rate 20 H 20 H Respiratory Effort Normal Non-Labored Blood Pressure 163/72 H 146/61 H Blood Pressure Mean 102 89 Blood Pressure Source Blood Pressure Position Blood Pressure Location Pulse Ox 97 93 Oxygen Delivery Method Room Air Room Air 01/02/22 13:44 01/02/22 14:30 Temperature 98.6 F 98.4 F Temperature Source Temporal Oral Pulse Rate 88 90 Respiratory Rate 15 18 Respiratory Effort Blood Pressure 154/59 H 127/58 H Blood Pressure Mean 90 81 Blood Pressure Source Monitor Blood Pressure Position Semi-Fowlers Blood Pressure Location Left Arm Pulse Ox 96 Oxygen Delivery Method Room Air Weight Weight: 78.063 kg Body Mass Index (BMI) 27.8 Physical Exam Const alert, oriented x3 and no apparent distress Constitutional Narrative: Patient appears older than her stated age General Appearance: cooperative, well kempt and well developed Orientation / Consciousness: awake, oriented to person, oriented to place and oriented to time HEENT normocephalic, head/scalp atraumatic, hearing grossly normal bilaterally and moist oral mucous membranes Eyes PERRL, EOMs intact bilaterally and conjunctivae normal Neck nuchal rigidity, supple, no JVD, thyroid normal and no carotid bruits General: trachea midline Resp normal respiratory effort and clear to auscultation bilaterally Auscultation: Negative for rales, rhonchi or wheezes Cardio regular rate, regular rhythm, S1 normal heart sound, S2 normal heart sound, no rub and no gallops Cardio Narrative: There is a 1/6 systolic murmur noted at the apex GI normal to inspection, nondistended, normoactive bowel sounds, soft to palpation, non-tender and non-distended Extremity Extremity Narrative: Patient has generalized edema of both lower legs, there is an eschar covered ulceration on the plantar surface of her right foot Skin Skin Narrative: Patient has an eschar covered ulceration on the plantar surface of her right foot-this is approximately 2 to 3 cm in diameter, no discharge was noted from the area General Skin Exam: no breakdown Neuro oriented x3, CN's II-XII intact bilaterally, no focal motor deficits and no sensory deficits noted Sensorium / Orientation: awake and alert Speech: speech normal Psych affect normal Results Lab / Micro Data Result Diagrams: 01/02/22 11:01 01/02/22 11:01 Labs: Laboratory Results - last 24 hr 01/02/22 11:01: WBC 9.2, RBC 3.33 L, Hgb 9.6 L, Hct 28.4 L, MCV 85.3, MCH 28.8, MCHC 33.8, RDW Std Deviation 43.2, RDW Coeff of Gabriela 13.8, Plt Count 177, MPV 11.0, Immature Gran % (Auto) 1.100 H, Neut % (Auto) 83.6 H, Lymph % (Auto) 5.1 L, [place] % (Auto) 9.9, Eos % (Auto) 0.1, Baso % (Auto) 0.2, Absolute Neuts (auto) 7.7, Absolute Lymphs (auto) 0.47 L, Nucleated RBC % 0 01/02/22 11:01: Sodium 128 L, Potassium 4.6, Chloride 99, Carbon Dioxide 14.0 L, Anion Gap 15, BUN 25 H, Creatinine 1.32 H, Estim Creat Clear Calc 44.02, Est GFR (MDRD) Af Amer 53 L, Est GFR (MDRD) Non-Af 44 L, BUN/Creatinine Ratio 18.9, Glucose 388 H, Calcium 8.4 L, Total Bilirubin 1.00, Direct Bilirubin 0.15, AST 33, ALT 18, Alkaline Phosphatase 103, Total Protein 6.3 L, Albumin 2.0 L, Globulin 4.3 H Radiology Impression Brain CT 01/02/22 10:24 IMPRESSION: No acute intracranial hemorrhage or mass affect. Electronically Signed: Skyler Lu MD (Brooks) at 11:45 EDT , Abdomen/Pelvis CT 01/02/22 10:25 IMPRESSION: 1. No bowel obstruction. No hydronephrosis or urinary tract calcifications. 2. Slight amount of fluid in the bilateral paracolic gutters. 3. No demonstrated hip fracture. 4. Mild splenomegaly. Electronically Signed: Skyler Lu MD (Brooks) at 11:53 EDT , Foot X-Ray 01/02/22 10:27 IMPRESSION: 1. Plantar soft tissue swelling/lesser. No silviano bony destruction. 2. Operative changes. Electronically Signed: Skyler Lu MD (Brooks) at 11:50 EDT , Foot X-Ray 01/02/22 11:30 IMPRESSION: No demonstrated fracture. Operative changes. Diffuse soft tissue swelling. Electronically Signed: Skyler Lu MD (Brooks) at 11:49 EDT , Assessment & Plan Assessment/Plan (1) Generalized weakness: PLAN: 1. Generalized debility-patient will be placed on observation status on MedSurg 3, she will be seen by PT and OT, she will most likely need placement in a fci facility for short-term rehab services, again the patient requests the [facility] in 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 Nutritional services will see patient. #4 diabetic neuropathy of the feet-complicates care, recovery, and prognosis #5 essential hypertension-patient will be placed on lisinopril, for some reason patient is not taking an MARCOS or an ARB and she has type 2 diabetes, I have ordered a UA to check for protein. #6 chronic depression-patient is on Zoloft and trazodone #7 chronic kidney disease stage IIIb-secondary to type 2 diabetes, complicates care, prognosis, and recovery Charges/Coding Visit Charges OBSV E&M: 75943 Initial observation care L3
[2022-01-02] MEDS: Acetaminophen 325 MG Tablet 650 MG PO (15:08)
[2022-01-02] MEDS: oxyCODONE 5 MG Tablet PO ×2 (15:09→23:14)
--- NOTE | 2022-01-02 15:10 | PCM.CONS.GEN ---
Assessment & Plan Assessment/Plan (1) Ulcer of right foot with necrosis of muscle: (2) Diabetes mellitus with diabetic polyneuropathy: (3) Other specified peripheral vascular diseases: (4) Localized edema: (5) Delayed wound healing: (6) Malnutrition: PLAN: I reviewed and discussed her case today. Debridement was performed today as noted in the clinical panel to all of the ulcer sites. Verbal consent was obtained for subcutaneous excisional debridement with a 10 blade scalpel. The pre and postdebridement measurements are as noted. This was performed to excise devitalized, fibrous, biofilm and slough. Hemostasis was controlled with direct pressure. Anesthetic was not required due to her neuropathy status. She tolerated this well. The following work up and care recommendations were made: Dressing: Change daily with Aquacel Ag, 4 x 4 gauze, Kerlix Wash: Soap and water Tissue growth optimization: There are more advanced debridement and chronic applications in which I recommend considering in the outpatient setting such as advanced placental derived wound healing products and Versajet versus ultrasound debridement to facilitate healing stimulation. Offload: Maintain nonweightbearing status to right lower extremity which she is doing with a wheelchair at this time and she is anticipated be able to use when she is transferred to the senior living. Vascular: She has palpable DP pulses. She has nonpalpable PT pulses, atrophic skin with lack of hair, and history of nonhealing ulcer. She does not recall any recent vascular studies performed and I recommend obtaining noninvasive vascular study. Edema: Ernesto wrap applied right lower extremity Infection: She is reassured no local signs of infection are noted. To monitor for development. Pain: She does not have pain due to her neuropathic status Diagnostic data: I reviewed her labs and it appears she does not have leukocytosis. Her foot x-rays were reviewed without soft tissue emphysema foreign body or osseous destruction adjacent to the ulcer site. Prior evidence of reconstruction of the foot was performed with hardware intact without evidence of loosening or failure. Given her history of fall on the right lower extremity, swelling, and neuropathic status I will also order ankle x-ray to rule out injury. Host factors: Her comorbidities are noted. Her A1c is over 13% which does not indicate she would likely be able to heal an ulcer. I recommend she works with her primary care physician, an capsule inspector and kitchen steward. I also recommend she performs routine movement breaks even if she is in a seated position to facilitate improved health. Nutritional supplementation, Ahsan was ordered to also optimize wound healing. She is already established with a wound center provider in [place]. I recommend she follows up after discharge. If she is unable to follow-up with her prior provider and wishes to follow-up locally, I recommend she follows up with the wound healing center. I answered all the patient's questions. Thank you for the consultation. Please do not hesitate to call if you have any questions. Anca Wilde DPM, [facility] [phone] HPI Consult Data Date of Consult: 01/02/22 HPI Narrative Reason for Consultation: Right foot ulcer HPI Narrative: NORAH CRAIG, is a 56 F with multiple comorbidities was admitted for inability recent fall. She was seen bedside for chronic right foot ulcer with which she reports has been on site of about 2 years ago. She reports it is draining and has been larger in the past. She relates she goes to the [facility] when she offloads with a wheelchair and occasional cast and has serial debridements. Her A1c is over 13% and she relates she is gone for nutrition counseling in the past and is trying to get set up with a new capsule inspector for better management. She denies odor or redness of the foot. She denies recent trauma. She is neuropathic and denies pain. She denies fever, chill, nausea, vomiting. She cannot report if she has claudication because she does not routinely ambulate. [facility] Medical History (Updated 01/02/22 @ 15:[address] Anca Wilde DPM) Depression Diabetes HTN (hypertension) Neuropathy Home Medications Levemir FlexTouch U-100 Insuln 85 units SUBCUT QHS 01/28/18 [History Last Taken Unknown] albuterol sulfate [Proair Hfa] 2 puff Q4H PRN PRN 01/28/18 [History Last Taken Unknown] hydralazine 25 mg PO DAILY 01/28/18 [History Last Taken Unknown] ibuprofen [Ibu] 600 mg Q6H PRN PRN 01/28/18 [History Last Taken Unknown] metformin 1,000 mg DAILY 01/28/18 [History Last Taken Unknown] oxycodone-acetaminophen 1 tab BID PRN 01/28/18 [History Last Taken Unknown] pregabalin [Lyrica] 100 mg DAILY 01/28/18 [History Last Taken Unknown] hydroxyzine HCl 25 mg PO QHS 01/02/22 [History Last Taken Unknown] insulin lispro [Humalog Dameon KwikPen U-100] 50 unit SUBCUT TID 01/02/22 [History Last Taken Unknown] sertraline 200 mg PO DAILY 01/02/22 [History Last Taken Unknown] trazodone 150 mg PO QHS 01/02/22 [History Last Taken Unknown] Allergy/AdvReac Type Severity Reaction Status Date / Time morphine AdvReac Vomiting Verified 01/02/22 10:09 Social History Smoking Status: Never smoker ROS Constitutional Constitutional: Reports fatigue; Denies chills or fever(s) Cardiovascular Cardiovascular: Denies abdominal pain, chest pain, claudication, nausea or vomiting Respiratory/Chest Respiratory/Chest: Denies cough or dyspnea Gastrointestinal Gastrointestinal: Denies constipation or diarrhea Musculoskeletal Musculoskeletal: Reports numbness and other Details: sciatica Integumentary Integumentary: Reports skin ulcer and skin swelling Neurologic Neurologic: Reports abnormal gait and paresthesias Hematologic/Lymphatic Hematologic/Lymphatic: Denies easy bleeding or easy bruising Physical Exam Const alert and oriented x3 General Appearance: cooperative HEENT normocephalic Extremity Extremity Narrative: No calf tenderness Diminished pulses bilateral PT and 2 out of 4 strong bilateral DP. Capillary fill time is less than 3 seconds to all digits bilateral foot Muscle wasting noted Plantigrade bilateral foot No pain to palpate tendon, joint or bone structures of bilateral foot or ankle Compartments are soft No skin tenting Foot pain or laxity with manipulation of the midfoot, subtalar joint or ankle No bogginess or fluctuance on palpation of the right foot General Extremity: edema and no tenderness to palpation of joints or extremities; Negative for cyanosis Skin Skin Narrative: no purulence, no streaking, no odor, no infection. There is a skin discontinuity to the plantar lateral right foot that measures 1.3 x 1.7 x 1.3 cm predebridement and 1.6 x 2.0 x 1.3 cm postdebridement. There is exposed plantar fascial tissue upon debridement this is bleeding and healthy. There is no probing to bone or joint or necrotic tissue or purulence. There is no adjacent undermining. The adjacent skin is hairless and atrophic to bilateral foot and legs. Her skin is atrophic to legs and feet bilateral General Skin Exam: Negative for erythema Neuro Neuro Narrative: lack of normal epicritic sensation via light touch is consistent with neuropathy status Psych cooperative and affect normal Lab / Micro Data Result Diagrams: 01/02/22 11:01 01/02/22 11:01 Labs: Laboratory Results - last 24 hr 01/02/22 11:01: WBC 9.2, RBC 3.33 L, Hgb 9.6 L, Hct 28.4 L, MCV 85.3, MCH 28.8, MCHC 33.8, RDW Std Deviation 43.2, RDW Coeff of Gabriela 13.8, Plt Count 177, MPV 11.0, Immature Gran % (Auto) 1.100 H, Neut % (Auto) 83.6 H, Lymph % (Auto) 5.1 L, [place] % (Auto) 9.9, Eos % (Auto) 0.1, Baso % (Auto) 0.2, Absolute Neuts (auto) 7.7, Absolute Lymphs (auto) 0.47 L, Nucleated RBC % 0 01/02/22 11:01: Sodium 128 L, Potassium 4.6, Chloride 99, Carbon Dioxide 14.0 L, Anion Gap 15, BUN 25 H, Creatinine 1.32 H, Estim Creat Clear Calc 44.02, Est GFR (MDRD) Af Amer 53 L, Est GFR (MDRD) Non-Af 44 L, BUN/Creatinine Ratio 18.9, Glucose 388 H, Calcium 8.4 L, Total Bilirubin 1.00, Direct Bilirubin 0.15, AST 33, ALT 18, Alkaline Phosphatase 103, Total Protein 6.3 L, Albumin 2.0 L, Globulin 4.3 H Radiology Impression Brain CT 01/02/22 10:24 IMPRESSION: No acute intracranial hemorrhage or mass affect. Electronically Signed: Skyler Lu MD (Brooks) at 11:45 EDT Reading Location ID and State: [facility] / [place] , Service support , Abdomen/Pelvis CT 01/02/22 10:25 IMPRESSION: 1. No bowel obstruction. No hydronephrosis or urinary tract calcifications. 2. Slight amount of fluid in the bilateral paracolic gutters. 3. No demonstrated hip fracture. 4. Mild splenomegaly. Electronically Signed: Skyler Lu MD (Brooks) at 11:53 EDT , Foot X-Ray 01/02/22 10:27 IMPRESSION: 1. Plantar soft tissue swelling/lesser. No silviano bony destruction. 2. Operative changes. Electronically Signed: Skyler Lu MD (Brooks) at 11:50 EDT , Foot X-Ray 01/02/22 11:30 IMPRESSION: No demonstrated fracture. Operative changes. Diffuse soft tissue swelling. Electronically Signed: Skyler Lu MD (Brooks) at 11:49 EDT ,
[2022-01-02] MEDS: 0.9% Saline Lock 10 ML Syringe IV (15:12)
[2022-01-02] MEDS: Lisinopril 20 MG Tablet PO (15:12)
[2022-01-02] MEDS: Insulin Lispro 100 UNIT/ML INSULN.PEN 50 UNIT SC (15:27)
--- NOTE | 2022-01-02 15:32 | NURSING ---
pt agrees to call staff the next time she feels like she needs to void so urine specimen can be obtained.
[2022-01-02 15:41] LABS: Bedside Glucose 464 mg/dL (74-106)
--- NOTE | 2022-01-02 15:42 | WOUNDNOTE ---
wound photo: right plantar foot
[2022-01-02 15:57] LABS: M R Staph aureus DNA By PCR Negative (Negative); Probe Check PASS; Specimen Processing Control PASS; Staph aureus DNA By PCR POSITIVE (Negative)
--- NOTE | 2022-01-02 16:04 | ART_ITS ---
Reason For Study: Ulcer Procedure A bilateral lower extremity continuous wave Doppler with analog waveform analysis,segmental pressures,and ankle brachial indexes without exercise. Left Segmental Pressures Left brachial= 107mmHg. Left posterior tibial artery = 108mmHg. Left dorsalis pedis artery = 108mmHg. Left digit = 75 mmHg. Right Segmental Pressures Right posterior tibial artery = 112mmHg. Right dorsalis pedis artery = 107mmHg. Right digit = 81 mmHg. Indices The right ankle brachial index by the posterior tibial artery is 1.05. The right ankle brachial index by the dorsalis pedis is 1.00. The right digital-brachial index is 0.76. The left ankle brachial index by the posterior tibial artery is 1.01. The left ankle brachial index by the dorsalis pedis is 1.01. The left digital-brachial index is 0.70. VL/Lower Ext Art Exam w/o Exercis Interpretation Summary Triphasic Doppler waveforms are noted at ankle level bilaterally. Pulse-volume recordings appear satisfactory bilaterally. Resting ankle-brachial indices are normal bilaterally . Digital-brachial indices are normal bilaterally. There is no evidence of significant arterial occlusive disease in the lower ext remities bilaterally. Ordering Physician: Anca Wilde Referring Physician: Kim Salas Performed By: Margy Pickering RDCS/RVT
--- NOTE | 2022-01-02 16:40 | RAD_ITS ---
EXAM: XR RIGHT ANKLE COMPLETE, 3 OR MORE VIEWS CLINICAL INDICATION: fall TECHNIQUE: Frontal, lateral and oblique views of the right ankle. This report was created using [employer] report generation technology. COMPARISON: None. FINDINGS: BONES/JOINTS: Surgical screws and plates in place resulting in fusion at the subtalar joints, calcaneocuboid joints and medial midtarsal joint. Plantar calcaneal spur. No acute fracture. No subluxation. Normal alignment. No sclerotic or destructive changes observed. SOFT TISSUES: Diffuse soft tissue swelling is noted. RAD/Ankle min 3 Views IMPRESSION: 1. Extensive postoperative changes of the ankle joints. 2. Soft tissue swelling. Electronically Signed: Viral Strauss MD at 16:55 EDT ,
[2022-01-02 16:48] LABS: Glucose 580 mg/dL (74-106)
[2022-01-02] MEDS: Juven (unflavored) Packet 1 PACKET PO (17:27)
[2022-01-02 18:41] LABS: Bedside Glucose 426 mg/dL (74-106)
[2022-01-02] MEDS: Ibuprofen 400 MG Tablet PO (20:03)
[2022-01-02 20:07] VITALS: BP 134/56; PULSE 92; RESP 18; TEMP 36.7; O2SAT 93
[2022-01-02] MEDS: Insulin Lispro 100 UNIT/ML INSULN.PEN 20 UNIT SC (20:09)
[2022-01-02] MEDS: hydrOXYzine PAM 25 MG Capsule PO (21:00)
[2022-01-02] MEDS: traZODone 50 MG Tablet 150 MG PO (21:00)
[2022-01-02] MEDS: Insulin Lispro 100 UNIT/ML INSULN.PEN SC (21:01)
[2022-01-02] MEDS: Insulin Glargine-YFGN 100 UNIT/ML Pen 95 UNIT SC (21:02)
[2022-01-02 21:11] LABS: Bedside Glucose 414 mg/dL (74-106)
--- NOTE | 2022-01-02 21:58 | NURSING ---
PT RESTING QUIETLY IN BED, EYES CLOSED, RESP EASY
--- NOTE | 2022-01-02 23:39 | NURSING ---
PT BLADDER SCANNED FOR 417ML - STRAIGHT CATHED FRO 425ML DARK YELLOW URINE. PT TOLERATED WELL.
[2022-01-02 23:42] LABS: Mucous, Urine 0 SEEN /hpf (<or=2+)
[2022-01-02 23:46] LABS: Color, Urine Yellow (Yellow); Glucose, Dipstick 1000 mg/dl (Normal); Leukocyte Esterase-Dipstick 25 /ul (Negative); Nitrite-Dipstick Negative (Negative); Occult Blood-Urine 250 /ul (Negative); Protein-Dipstick 100 mg/dl (Negative); Specific Gravity, Urine 1.015 (1.002-1.030); Urine Bilirubin Dipstick Negative (Negative); Urine Clarity Sl. Cloudy (Clear); Urine Urobilinogen Normal (Normal)
[2022-01-02 23:57] LABS: Bacteria 3+ /hpf (None Seen); Ketone-Dipstick 150 mg/dl (Negative); Red Blood Cells-Urine 50-100 SEEN /hpf (0-5); Squamous Epithelial Cells - UA 0-5 SEEN /hpf (5-10); White Blood Cells 0-5 SEEN /hpf (0-5); Yeast-Urine 2+ /hpf (None Seen)
[2022-01-03] VITALS (21 sets, daily range): BP systolic 77–131; BP diastolic 44–59; PULSE 86–115; RESP 15–22; TEMP 36.6–37.1; O2SAT 89–97
--- NOTE | 2022-01-03 00:01 | NURSING ---
URINALYSIS RESULTED - D JACKIE NOTIFIED OF CRITICAL KETONES
[2022-01-03] MEDS: Ibuprofen 400 MG Tablet PO (04:19)
[2022-01-03] MEDS: Nystatin Powder 15gm Bottle 1 APPLIC TOPICAL ×3 (04:20→22:42)
--- NOTE | 2022-01-03 04:26 | NURSING ---
PT PLACED ON O2 2L NC
[2022-01-03] MEDS: oxyCODONE 5 MG Tablet PO (06:20)
[2022-01-03] MEDS: Acetaminophen 325 MG Tablet 650 MG PO ×2 (06:20→15:12)
[2022-01-03 06:52] LABS: Anion Gap 9 (5-15); BUN 36 mg/dL (7-18); Calcium,Total 8.7 mg/dL (8.5-10.1); Chloride 102 mmol/L (98-107); Creatinine, Serum 1.64 mg/dL (0.55-1.02); EST Glomerular Filtration Rate 34 mL/min (>60); Est Glom Filt Rate - Afr Amer 41 mL/min (>60); Estimated Creatinine Clearance 35.43 ml/min; Glucose 302 mg/dL (74-106); Sodium Level 136 mmol/L (136-145)
--- NOTE | 2022-01-03 07:10 | PN.HOSP_ITS ---
Subjective Subjective Patient has chronic neuropathy, right leg worse than left. She has right plantar go more than 2 years, ulcer for long time neuropathy ulcer. She fell down 2 days ago in [place] on her right buttock and hip. Complain of right hip pain. CT abdomen pelvis is negative for any acute fracture of the hip but does not include all neck of femur therefore x-ray ordered Objective Data Objective Data Vital Signs: Vital Signs Temp Pulse Resp BP Pulse Ox 97.9 F 115 H 18 128/55 H 89 01/03/22 04:00 01/03/22 04:00 01/03/22 04:00 01/03/22 04:00 01/03/22 04:00 Oxygen Delivery Method Room Air Weight: 172 lb 2.896 oz Body Mass Index (BMI) 27.8 Intake & Output: Intake and Output for Last 24 Hours 01/01/22 01/02/22 01/03/22 23:59 23:59 23:59 Intake Total 1267.5 / 1507.5 360 / 360 Output Total 925 / 925 Balance 1267.5 / 582.5 -565 / -565 Lab / Micro Data Result Diagrams: 01/02/22 11:01 01/03/22 05:04 Labs: Laboratory Results - last 24 hr 01/02/22 11:01: WBC 9.2, RBC 3.33 L, Hgb 9.6 L, Hct 28.4 L, MCV 85.3, MCH 28.8, MCHC 33.8, RDW Std Deviation 43.2, RDW Coeff of Gabriela 13.8, Plt Count 177, MPV 11.0, Immature Gran % (Auto) 1.100 H, Neut % (Auto) 83.6 H, Lymph % (Auto) 5.1 L , Garza % (Auto) 9.9, Eos % (Auto) 0.1, Baso % (Auto) 0.2, Absolute Neuts (auto) 7.7, Absolute Lymphs (auto) 0.47 L, Nucleated RBC % 0 01/02/22 11:01: Sodium 128 L, Potassium 4.6, Chloride 99, Carbon Dioxide 14.0 L, Anion Gap 15, BUN 25 H, Creatinine 1.32 H, Estim Creat Clear Calc 44.02, Est GFR (MDRD) Af Amer 53 L, Est GFR (MDRD) Non-Af 44 L, BUN/Creatinine Ratio 18.9, Glucose 388 H, Calcium 8.4 L, Total Bilirubin 1.00, Direct Bilirubin 0.15, AST 33, ALT 18, Alkaline Phosphatase 103, Total Protein 6.3 L, Albumin 2.0 L, Globulin 4.3 H 01/02/22 14:35: S.aureus Protein A PCR POSITIVE H, MRSA (PCR) Negative 01/02/22 15:21: POC Glucose 464 H* 01/02/22 15:50: Glucose 580 H* 01/02/22 18:37: POC Glucose 426 H 01/02/22 20:59: POC Glucose 414 H 01/02/22 23:20: Urine Color Yellow, Urine Clarity Sl. Cloudy, Urine pH 6.0, Ur Specific [place] 1.015, Urine Protein 100 H, Urine Glucose (UA) 1000 H, Urine Ketones 150 A*, Urine Occult Blood 250 H, Urine Nitrite Negative, Urine Bilirubin Negative, Urine Urobilinogen Normal, Ur Leukocyte Esterase 25 H, Urine RBC 50-100 SEEN, Urine WBC 0-5 SEEN, Ur Squamous Epith Cells 0-5 SEEN, Urine Bacteria 3+, Urine Mucus 0 SEEN, Urine Yeast 2+ 01/03/22 05:04: Sodium 136, Potassium 3.0 L, Chloride 102, Carbon Dioxide 25.0, Anion Gap 9, BUN 36 H, Creatinine 1.64 H, Estim Creat Clear Calc 35.43, Est GFR (MDRD) Af Amer 41 L, Est GFR (MDRD) Non-Af 34 L, BUN/Creatinine Ratio 22.0 H, Glucose 302 H, Calcium 8.7 Radiography Diagnostic Testing: Radiology Impression Brain CT 01/02/22 10:24 IMPRESSION: No acute intracranial hemorrhage or mass affect. Electronically Signed: Skyler Lu MD (Brooks) at 11:45 EDT Reading Location ID and State: [facility] / [place] , Service support , Abdomen/Pelvis CT 01/02/22 10:25 IMPRESSION: 1. No bowel obstruction. No hydronephrosis or urinary tract calcifications. 2. Slight amount of fluid in the bilateral paracolic gutters. 3. No demonstrated hip fracture. 4. Mild splenomegaly. Electronically Signed: Skyler Lu MD (Brooks) at 11:53 EDT , Foot X-Ray 01/02/22 10:27 IMPRESSION: 1. Plantar soft tissue swelling/lesser. No silviano bony destruction. 2. Operative changes. Electronically Signed: Skyler Lu MD (Brooks) at 11:50 EDT , Foot X-Ray 01/02/22 11:30 IMPRESSION: No demonstrated fracture. Operative changes. Diffuse soft tissue swelling. Ankle X-Ray 01/02/22 16:40 IMPRESSION: 1. Extensive postoperative changes of the ankle joints. 2. Soft tissue swelling. Physical Exam Narrative General: Alert, Oriented x3, Cooperative looks malnourished. HEENT: Atraumatic, PERRLA, EOMI, Normocephalic Oral: No Gingival or Mucosal Lesions/ Ulcerations Neck: Supple, No JVD, Negative Carotid Bruits Lungs: Air entry diminished in bilateral lung bases. No crepitation/rhonchi Cardiovascular: Regular rate, Regular Rhythm, Normal S1, Normal S2, No murmurs Abdomen: Bowel Sounds Present, Soft, Non Tender, Non-Distended : No renal angle tenderness. No suprapubic tenderness. Extremities: Bilateral leg edema, Capillary Refill Less than 3 Seconds Skin: 2 to 3 cm ulcer on the right plantar surface status post debridement. Covered with Ernesto wrap bandage. Musculoskeletal: Debilitated. No Tenderness to Palpation of Joints or Extremities Neurological: Decreased sensation of right below-knee, loss of position sense in right leg and foot. Cranial nerves II-XII grossly intact, DTR 2+/4 muscle strength 4/5, less than left hip knee and ankle joints as compared to right Psych/Mental Status: Flat affect. Assessment & Plan Assessment/Plan (1) Generalized weakness: PLAN: 56-year-old female admitted for generalized debility, fall 2 days ago, plantar ulcer covered with discharge with uncontrolled diabetes mellitus type 2. Patient is usually wheelchair-bound but did not ambulate after fall. 1. Generalized debility-on observation. PT and OT ordered. 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 Foot x-ray does not show soft tissue emphysema, foreign body, osseous destruction adjacent to the ulcer site. Prior hardware intact without loosening or failure. Local debridement was performed by patient. Field Artillery Operations Specialist note reviewed. Palpable DP pulses. Nonpalpable, SITE AUDITOR pulses with atrophic skin, suggestive of distal peripheral artery disease. Lower extremity duplex arterial exam ordered. #3 uncontrolled type 2 diabetes-probably secondary to patient noncompliance, blood sugars will be monitored, sliding scale insulin will be used if needed, patient will remain on her home insulin dosage, I have elected to stop her metformin-I do not believe this is contributing anything to her blood sugar control. Nutritional services will see patient. 01/03: A1c 13%. Suggest uncontrolled diabetes mellitus for long time. She states she is not taking insulin when she went for [place]. Insulin dosage adjusted. 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 She does not have position sense of right great toe. Rest admission #5 essential hypertension-patient will be placed on lisinopril, for some reason patient is not taking an ERNESTO or an ARB and she has type 2 diabetes, I have ordered a UA to check for protein. #6 chronic depression-patient is on Zoloft and trazodone #7 chronic kidney disease stage IIIb-secondary to type 2 diabetes, complicates care, prognosis, and recovery Total time of the visit including total time spent in counseling or coordination of care, (more than 50% of the total time, spent in obtaining medical information from nurses and other ancillary care providers,explaining to the patient about labs, imaging, diagnosis and management), review of business objects consultant note, review of labs and imaging is 40 minutes. Charges/Coding Visit Charges OBSV E&M: 86020 Subsequent observation care L3
[2022-01-03 08:06] LABS: Bedside Glucose 295 mg/dL (74-106)
[2022-01-03] MEDS: Juven (unflavored) Packet 1 PACKET PO ×2 (08:14→17:08)
[2022-01-03] MEDS: Insulin Lispro 100 UNIT/ML INSULN.PEN 60 UNIT SC (08:15)
[2022-01-03] MEDS: Insulin Lispro 100 UNIT/ML INSULN.PEN SC ×2 (08:16→11:25)
[2022-01-03] MEDS: Lactated Ringers 1,000 ML 100 ML IV (08:25)
[2022-01-03] MEDS: Potassium Chloride Oral Tablet 20 MEQ 40 MEQ PO ×2 (08:25→11:27)
--- NOTE | 2022-01-03 08:40 | RAD_ITS ---
STUDY: X-RAY - PELVIS AND RIGHT HIP REASON FOR EXAM: Female, 56 years old. Pain of the right hip. TECHNIQUE: Floor views of the pelvis and hip. COMPARISON: None. FINDINGS: There is a non-specific bowel gas pattern. Stimulator projecting over the left pelvis. Phleboliths. Mild arthrosis of the right sacroiliac joint. Normal bilateral superior and inferior pubic rami. Moderate arthrosis of the symphysis pubis. Normal bilateral ischial tuberosities. Mild arthrosis of both hips. RAD/HIP, UNI W/ Pelvis 2-3 Views IMPRESSION: Mild osteoarthritic changes. No acute abnormality or erosive changes. Electronically Signed: Terry Hunter MD at 10:17 EDT ,
--- NOTE | 2022-01-03 10:08 | CASEMGMT ---
MASHA MESSINA Assessment: Face to Face with pt for initial transition planning/care coordination assessment. RN SIDDHARTH introduced self and role at [facility], pt voices understanding and consents to assessment. Pt is A/O x4 and answers all questions appropriately at this time. Pt lying in bed in no distress. Student nurse at bedside. Care providers, pharmacy, and demographics verified/updated. Admitting Dx: Fall, weakness, hyperglycemia PCP:Kim Salas NP Specialists:[facility] Preferred [facility]: [facility] Insurance: [facility] Dual Prescription Benefit: yes LW/HPOA: Pt denies having a LW/DPOA and denies need for info regarding AD. LNOK: Dhiraj Woods, sig other; Nidhi Dodson, dtr Living Arrangements: Pt lives with sig other in a single story house with a ramp to enter on one entrance. Pt reports she needs assist with ADL's from her dtr, specifically bathing. Pt states she has been w/c bound since her surgery 2 yrs ago. Pt denies concerns at home. Pt fell on vacation in [place]. Transportation: Pt sig other transports her to medical appts. Pt denies concerns with transportation. DME/HHC/SNF: Pt has a BGM with supplies as well as insulin and supplies. Pt reports she checks her blood sugar 5x/day before and after meals. Pt also has a FWW, shower chair and w/c. Pt reports she has had HHC in the past but is unsure of the name of the company. Pt has been to [facility] and [facility]. Pt states she would like to go back to the [facility]. She denies need for list of facilities. Notified JANELL Magallon. Pt designates her sig other or dtr as person to discuss dc planning with if needed. Pt states no further concerns/needs. CM to follow. Advised pt to ask CM if any further question/concerns/needs arise, voices understanding. Pt Goal: SNF Plan: SNF
--- NOTE | 2022-01-03 10:28 | CASEMGMT ---
MASHA CM in to discuss BOUCHER form with patient. RN CM explained BOUCHER form, patient voiced understanding. Pt signed form and filed in chart. Pt provided with a copy of signed BOUCHER form. Patient had no further questions or concerns at this time.
[2022-01-03 10:41] LABS: Bedside Glucose 208 mg/dL (74-106)
--- NOTE | 2022-01-03 10:47 | NURSING ---
pt in bed after breakfast and shivering now. pt afebrile at this time and bs checked and was 208/. pt just reports being cold will monitor.
[2022-01-03] MEDS: Pregabalin 50 MG Capsule 100 MG PO (11:24)
[2022-01-03] MEDS: Sertraline 100 MG Tablet 200 MG PO (11:24)
--- NOTE | 2022-01-03 11:25 | CASEMGMT ---
Addendum entered by Guerline Magallon 01/03/22 11:44: No PT/OT evaluations are completed yet. JANELL placed a call to [facility] and spoke with Sharon. Berta states they have beds available, willing to review referral. Fax number [phone]. JANELL faxed referral to Sharon. Original Note: Social Work Note SW updated that pt is requesting [facility] at discharge. SW to fax referral once PT/OT evaluations are completed. Plan: SNF pending acceptance and pre-cert Guerline Magallon PRINTING PLATE CLERK, CIRCULATING NURSE
--- NOTE | 2022-01-03 12:01 | CHAPLAIN ---
Type of Pastoral Visit _x__ Initial Visit ___ Follow-up Visit ___ On-call Visit ___ General Patient Visit ___ Spiritual Assessment ___ Family Conference ___ Bereavement ___ Rapid Response ___ Code Blue ___ Other (describe below) Pastoral Care Referral From _x__ Patient ___ Family ___ Nurse ___ Physician ___ Billet Worker ___ Mobile Electronics Installer ___ Other (describe below) Sacrament/Intervention _x__ Active listening ___ Anointing ___ Faith ___ Bereavement ___ Communion ___ Yanci exploration ___ ___ Life review _x__ Prayer ___ Reconciliation ___ Sacrament of Sick _x__ Supportive presence ___ Wedding ___ Other (describe below) Pastoral Comments patient expresses being tired and just need new feet; SO is at bedside with pt; pt says a prayer would be fine
--- NOTE | 2022-01-03 12:12 | WOUNDNOTE ---
wound photo: right plantar foot
--- NOTE | 2022-01-03 14:26 | NURSING ---
in to see pt as primary Rn states pt drowsy. OT checked for 299. vs checked. noted to be 85/53 after recheck. first checked on left arm while HOB elevated 67/41. pt states does feel slightly dizziness but response appropriately. hob lowered. Bp rechecked remains 75/43. Dr. Mcmahon sent coretext.
[2022-01-03 14:35] LABS: Bedside Glucose 299 mg/dL (74-106)
[2022-01-03] MEDS: Lactated Ringers 1,000 ML 999 ML IV ×2 (14:45→17:06)
--- NOTE | 2022-01-03 14:58 | CASEMGMT ---
Social Work Note SW received message from Sharon at [facility] stating they can accept pt and will need PT/OT evaluations to submit for pre-cert. JANELL reviewed chart. OT attempted to see pt but was told to see pt tomorrow as pt currently has low BP. JANELL placed a call to Sharon at [facility] and updated her that OT attempted to see pt today but was not able to. JANELL informed Sharon that this worker will fax PT/OT when available. Sharon states understanding. Plan: [facility] pending pre-cert Guerline Magallon CERTIFIED PEDORTHOTIST, APPLIED EXERCISE PHYSIOLOGIST
--- NOTE | 2022-01-03 15:09 | NURSING ---
Dr Mcmahon had been in to assess patient. bolus currently running
[2022-01-03 15:45] LABS: Lactic Acid 0.6 mmol/L (0.4-1.9)
--- NOTE | 2022-01-03 16:16 | PCM.RX.CS ---
Consult Type of Consult: New start Suspected Infection: Skin/Soft tissue Labs: Sodium 136 mmol/L (136-145) 01/03/22 05:04 Potassium 3.0 mmol/L (3.5-5.1) L 01/03/22 05:04 Chloride 102 mmol/L (98-107) 01/03/22 05:04 Carbon Dioxide 25.0 mmol/L (21.0-32.0) 01/03/22 05:04 Anion Gap 9 (5-15) 01/03/22 05:04 BUN 36 mg/dL (7-18) H 01/03/22 05:04 Creatinine 1.64 mg/dL (0.55-1.02) H 01/03/22 05:04 Est GFR (MDRD) Af Amer 41 mL/min (>60) L 01/03/22 05:04 Est GFR (MDRD) Non-Af 34 mL/min (>60) L 01/03/22 05:04 BUN/Creatinine Ratio 22.0 RATIO (10-20) H 01/03/22 05:04 Glucose 302 mg/dL (74-106) H 01/03/22 05:04 Microbiology: Microbiology 01/02/22 14:35 Wound - Right Foot Gram Stain - Final 01/02/22 14:35 Wound - Right Foot Wound Culture - Preliminary Staphylococcus aureus Streptococcus agalactiae (B) Goal Trough: 15-20 mcg/mL Pharmacy Plan for Drug Dosing: NEW START IV VANCOMYCIN Consulting Physician:Dr. Mcmahon Indication: wound infection/ sepsis Goal Trough: 15-20 SrCr: 1.64 CrCl: 35 mL/min Comments: Initial dose of 1250mg IV x1 ordered and administered 01/03/22 @1524 Vancomcyin Dose: 1000mg IV Q24h to start 01/04/22 @1500 Pending Level: 01/05/21 @1430, prior to 3rd total dose per protocol Pharmacy Service will continue to monitor and adjust dosing as required.
[2022-01-03] MEDS: Midodrine HCl 5 MG Tablet 10 MG PO (17:06)
[2022-01-03] MEDS: Insulin Lispro 100 UNIT/ML INSULN.PEN 10 UNIT SC (17:07)
[2022-01-03 17:40] LABS: Bedside Glucose 305 mg/dL (74-106)
--- NOTE | 2022-01-03 18:45 | NURSING ---
pt placed on step down monitor as nursing measure for closer monitoring of vitals/tele/cspo2
--- NOTE | 2022-01-03 19:06 | NURSING ---
lab and cps in for abg and cbc.
[2022-01-03 19:07] LABS: Hematocrit 24.4 % (37-47); Mean Corp Hgb Conc 32.8 g/dL (32-36); Mean Corpuscular Hgb 28.6 pg (27.0-32.0); Mean Corpuscular Volume 87.1 fL (81-99); Mean Platelet Vol. 10.8 fl (6.2-12.0); POSITIVE COUNT YES; POSITIVE DIFFERENTIAL YES; POSITIVE MORPHOLOGY YES; Platelet Count 129 K/mm3 (150-450); RBC Distribution Width CV 14.1 % (11.6-14.6); RBC Distribution Width SD 44.9 fl (35.1-43.9); White Blood Count 5.8 K/mm3 (4.4-11.0)
[2022-01-03 19:16] LABS: Allen Test Positive; Base Excess -2 mmol/L (-2 to +2); Blood Gas Specimen Type ART; O2 Delivery Device Cannula; PO2 58 mmHG (75-100); SITE R Radial; SO2 89 % (95-99); Total Carbon Dioxide 24 mmol/L; pCO2 39.4 mmHg (35-45); pH 7.37 (7.35-7.45)
[2022-01-03 19:43] LABS: Differential Indicated MANUAL DIFF
[2022-01-03 20:11] LABS: Bedside Glucose 262 mg/dL (74-106)
[2022-01-03 20:17] LABS: Eosinophil 1 % (0-5); Lymphocyte 8 % (19-41); Monocyte 8 % (0-10); Neutrophil-Band 21 % (0-5); Neutrophil-Segmented 62 % (47-70); Total Cells Counted 100 (MANUAL DIFF)
[2022-01-03 20:18] LABS: Platelet Estimate SLT DEC (ADEQ)
[2022-01-03 20:19] LABS: Red Cell Morphology NORM C+C NORMAL (NORM C&C)
[2022-01-03 20:21] LABS: Absolute Lymphocyte Count 0.46 X10^3/uL (0.83-4.51); Absolute Neutrophil Count 4.8 X10^3/uL (2.0-7.7)
[2022-01-03] MEDS: Lactated Ringers 1,000 ML 125 ML IV (21:02)
[2022-01-03] MEDS: 0.9% Saline Lock 10 ML Syringe IV (21:02)
[2022-01-03] MEDS: Insulin Glargine-YFGN 100 UNIT/ML Pen 90 UNIT SC (22:44)
[2022-01-03 22:51] LABS: Bedside Glucose 251 mg/dL (74-106)
[2022-01-04] VITALS (16 sets, daily range): BP systolic 95–134; BP diastolic 51–64; PULSE 85–107; RESP 12–16; TEMP 36.3–37.3; O2SAT 93–98
[2022-01-04 03:56] LABS: Bedside Glucose 237 mg/dL (74-106)
[2022-01-04] MEDS: Lactated Ringers 1,000 ML 125 ML IV (04:56)
[2022-01-04] MEDS: Nystatin Powder 15gm Bottle 1 APPLIC TOPICAL ×3 (05:00→23:00)
[2022-01-04 05:22] LABS: Hematocrit 25.7 % (37-47); Hemoglobin 8.1 g/dL (12.0-15.0); Mean Corp Hgb Conc 31.5 g/dL (32-36); Mean Corpuscular Hgb 27.9 pg (27.0-32.0); Mean Corpuscular Volume 88.6 fL (81-99); Mean Platelet Vol. 10.9 fl (6.2-12.0); POSITIVE COUNT YES; POSITIVE DIFFERENTIAL YES; POSITIVE MORPHOLOGY YES; Platelet Count 129 K/mm3 (150-450); RBC Distribution Width CV 14.2 % (11.6-14.6); RBC Distribution Width SD 46.2 fl (35.1-43.9); White Blood Count 5.7 K/mm3 (4.4-11.0)
[2022-01-04 05:38] LABS: Differential Indicated MANUAL DIFF
[2022-01-04 05:48] LABS: Anion Gap 6 (5-15); BUN 56 mg/dL (7-18); BUN/Creat Ratio 22.3 RATIO (10-20); Calcium,Total 8.1 mg/dL (8.5-10.1); Chloride 106 mmol/L (98-107); Creatinine, Serum 2.51 mg/dL (0.55-1.02); EST Glomerular Filtration Rate 21 mL/min (>60); Est Glom Filt Rate - Afr Amer 25 mL/min (>60); Estimated Creatinine Clearance 23.15 ml/min; Glucose 238 mg/dL (74-106); Potassium 4.1 mmol/L (3.5-5.1); Sodium Level 137 mmol/L (136-145)
[2022-01-04 05:50] LABS: Basophil 1 % (0-1); Eosinophil 3 % (0-5); Lymphocyte 4 % (19-41); Metamyelocyte 3 % (0-1); Monocyte 5 % (0-10); Neutrophil-Band 7 % (0-5); Neutrophil-Segmented 77 % (47-70); Total Cells Counted 100 (MANUAL DIFF)
[2022-01-04 05:51] LABS: Neutrophil # 4.98 X10^3/uL (2.7-7.7)
[2022-01-04 05:52] LABS: Absolute Lymphocyte Count 0.23 X10^3/uL (0.83-4.51); Lymphocyte # 0.23 X10^3/ul (0.83-4.51)
[2022-01-04 05:55] LABS: Platelet Estimate SLT DEC (ADEQ); Red Cell Morphology NORM C+C NORMAL (NORM C&C)
--- NOTE | 2022-01-04 07:45 | PN.HOSP_ITS ---
Subjective Subjective Patient blood pressure got better. Increase in creatinine and BUN. No tachycardia. Patient still feels very weak and fatigue. Denies dizziness, lightheadedness. Objective Data Objective Data Vital Signs: Vital Signs Temp Pulse Resp BP Pulse Ox 98.6 F 87 14 103/62 95 01/04/22 05:04 01/04/22 06:13 01/04/22 06:13 01/04/22 06:13 01/04/22 07:26 Oxygen Flow Rate (L/min) 4 Oxygen Delivery Method Nasal Cannula Weight: 172 lb 2.896 oz Body Mass Index (BMI) 27.8 Intake & Output: Intake and Output for Last 24 Hours 01/02/22 01/03/22 01/04/22 23:59 23:59 23:59 Intake Total 1267.5 / 1507.5 3863.33 / 3863.33 1037.5 / 1037.5 Output Total 1325 / 1325 125 / 125 Balance 1267.5 / 582.5 2538.33 / 2538.33 912.5 / 912.5 Lab / Micro Data Result Diagrams: 01/04/22 04:43 01/04/22 04:43 Labs: Laboratory Results - last 24 hr 01/03/22 08:02: POC Glucose 295 H 01/03/22 10:35: POC Glucose 208 H 01/03/22 14:21: POC Glucose 299 H 01/03/22 15:05: Lactic Acid 0.6 01/03/22 16:36: POC Glucose 305 H 01/03/22 18:57: WBC 5.8, RBC 2.80 L, Hgb 8.0 L, Hct 24.4 L, MCV 87.1, MCH 28.6, MCHC 32.8, RDW Std Deviation 44.9 H, RDW Coeff of Gabriela 14.1, Plt Count 129 L, MPV 10.8, Neut % (Auto) Not Reportable, Absolute Neuts (auto) 4.8, Absolute Lymphs (auto) 0.46 L, Total Counted 100, Neutrophils % (Manual) 62, Band Neutrophils % 21 H, Lymphocytes % (Manual) 8 L, Monocytes % (Manual) 8, Eosinophils % (Manual) 1, Diff Path Review January, Platelet Estimate SLT DEC, RBC Morphology NORM C+C 01/03/22 20:01: POC Glucose 262 H 01/03/22 22:41: POC Glucose 251 H 01/04/22 03:52: POC Glucose 237 H 01/04/22 04:43: WBC 5.7, RBC 2.90 L, Hgb 8.1 L, Hct 25.7 L, MCV 88.6, MCH 27.9, MCHC 31.5 L, RDW Std Deviation 46.2 H, RDW Coeff of Gabriela 14.2, Plt Count 129 L, MPV 10.9, Neut % (Auto) Not Reportable, Absolute Neuts (auto) 5.0, Absolute Lymphs (auto) 0.23 L, Total Counted 100, Neutrophils % (Manual) 77 H, Band Neutrophils % 7 H, Lymphocytes % (Manual) 4 L, Monocytes % (Manual) 5, Eosinophils % (Manual) 3, Basophils % (Manual) 1, Metamyelocytes % 3 H, Diff Path Review January, Platelet Estimate SLT DEC, RBC Morphology NORM C+C 01/04/22 04:43: Sodium 137, Potassium 4.1, Chloride 106, Carbon Dioxide 25.0, Anion Gap 6, BUN 56 H, Creatinine 2.51 H, Estim Creat Clear Calc 23.15, Est GFR (MDRD) Af Amer 25 L, Est GFR (MDRD) Non-Af 21 L, BUN/Creatinine Ratio 22.3 H, Glucose 238 H, Calcium 8.1 L Micro: Microbiology 01/03/22 15:05 Blood Culture (Wb) - Left Forearm Bacteria Detection (PCR) - Preliminary Streptococcus agalactiae (B) 01/03/22 15:05 Blood Culture (Wb) - Left Forearm Blood Culture - Preliminary 01/03/22 15:15 Blood Culture (Wb) - Left Hand Blood Culture - Preliminary 01/02/22 14:35 Wound - Right Foot Gram Stain - Final 01/02/22 14:35 Wound - Right Foot Wound Culture - Preliminary Staphylococcus aureus Streptococcus agalactiae (B) ABG Data ABG results: ABG 01/03/22 19:13 Specimen Type ART Sample Site R Radial pH 7.37 Bicarbonate Actual 23.0 Total CO2 24 Base Excess -2 O2 Saturation 89 L ABG pCO2 39.4 ABG pO2 58 L Camilo Test Positive O2 Delivery Device Cannula Liter Flow 2.0 Radiography Diagnostic Testing: Radiology Impression Hip/Pelvis X-Ray 01/03/22 08:40 IMPRESSION: Mild osteoarthritic changes. No acute abnormality or erosive changes. Electronically Signed: Terry Hunter MD at 10:17 EDT , Physical Exam Narrative General: Alert, Oriented x3, fatigue, moderate degree of malnourished. HEENT: Atraumatic, PERRLA, EOMI, Normocephalic Oral: No Gingival or Mucosal Lesions/ Ulcerations Neck: Supple, No JVD, Negative Carotid Bruits Lungs: Air entry diminished in bilateral lung bases. No crepitation/rhonchi Cardiovascular: Regular rate, Regular Rhythm, Normal S1, Normal S2, No murmurs Abdomen: Bowel Sounds Present, Soft, Non Tender, Non-Distended : No renal angle tenderness. No suprapubic tenderness. Extremities: Bilateral leg edema, Capillary Refill Less than 3 Seconds Skin: 2 - 3 cm ulcer on the right plantar surface status post debridement. Covered with Ernesto wrap bandage. Musculoskeletal: Debilitated. No Tenderness to Palpation of Joints or Extremities Neurological: Decreased sensation of right below-knee, loss of position sense in right leg and foot. Cranial nerves II-XII grossly intact, DTR 2+/4 muscle strength 4/5, less than left hip knee and ankle joints as compared to right Psych/Mental Status: Flat affect. Assessment & Plan Assessment/Plan (1) Generalized weakness: PLAN: 56-year-old female admitted for generalized debility, fall 2 days ago, plantar ulcer covered with discharge with uncontrolled diabetes mellitus type 2. Patient is usually wheelchair-bound but did not ambulate after fall. 1. Generalized debility with hypotension on 01/03/2022- 01/03: Hypotension with DAMIÁN on CKD stage IIIb most likely patient has diabetic neuropathy. DAMIÁN probably due to hypotension. BUN/creatinine increased. Medications adjusted. Vancomycin and Lyrica discontinued. Sertraline dose decreased. Nephrology consulted. Serum TSH and cortisol ordered. Patient started on midodrine 10 mg 3 times daily. UA positive for glucosuria, proteinuria and ketones. WBC 0-5 cells, RBC 5200, LE 25. on observation. PT and OT ordered. #2 neuropathic ulceration with infection, strep group B and possible MSSA at right plantar surface with necrosis of muscle 01/03: Patient evaluated by ceramic coater machine. Foot x-ray does not show soft tissue emphysema, foreign body, osseous destruction adjacent to the ulcer site. Prior hardware intact without loosening or failure. Local debridement was performed by patient. Medical Laboratory Manager note reviewed. Palpable DP pulses. Nonpalpable, BASEBALL UMPIRE FOR LITTLE LEAGUE pulses with atrophic skin, suggestive of distal peripheral artery disease. Lower extremity duplex arterial exam ordered. 01/04: Patient was started on vancomycin and Zosyn yesterday when she had hypotension. Lactic acid was normal. Patient did not had fever, leukocytosis, hypoxia or other signs of organ dysfunction except DAMIÁN on CKD which most probably because of hypotension. Exact cause of hypotension unclear but patient does not meet criteria for sepsis. I think patient might have hypotension from autonomic diabetic neuropathy. ID is consulted. #3 uncontrolled type 2 diabetes-probably secondary to patient noncompliance, blood sugars will be monitored, sliding scale insulin will be used if needed, patient will remain on her home insulin dosage, I have elected to stop her m etformin-I do not believe this is contributing anything to her blood sugar control. Nutritional services will see patient. 01/03: A1c 13%. Suggest uncontrolled diabetes mellitus for long time. She s tates she is not taking insulin when she went for [place]. Insulin dosage adjusted. 01/04: Lantus and Humalog insulin adjusted. 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 She does not have position sense of right great toe. Rest admission #5 essential hypertension-patient will be placed on lisinopril, for some reason patient is not taking an ERNESTO or an ARB and she has type 2 diabetes, I have ordered a UA to check for protein. #6 chronic depression-patient is on Zoloft and trazodone Total time of the visit including total time spent in counseling or coordination of care, (more than 50% of the total time, spent in obtaining medical information from nurses and other ancillary care providers,explaining to the patient about labs, imaging, diagnosis and management), review of product development consultant note, review of labs and imaging is 40 minutes. Charges/Coding Visit Charges Inpatient E&M: 71204 Subs Hosp L3
[2022-01-04] MEDS: Insulin Lispro 100 UNIT/ML INSULN.PEN 30 UNIT SC (08:11)
[2022-01-04] MEDS: Insulin Lispro 100 UNIT/ML INSULN.PEN SC ×2 (08:11→23:01)
[2022-01-04] MEDS: Juven (unflavored) Packet 1 PACKET PO ×2 (08:11→16:10)
[2022-01-04] MEDS: Midodrine HCl 5 MG Tablet 10 MG PO ×3 (08:12→16:10)
[2022-01-04] MEDS: Sertraline 100 MG Tablet PO (08:12)
[2022-01-04] MEDS: Doxycycline 100 MG CAPSULE PO ×2 (08:12→23:11)
[2022-01-04] MEDS: Acetaminophen 325 MG Tablet 650 MG PO ×2 (08:19→23:18)
[2022-01-04 08:21] LABS: Bedside Glucose 204 mg/dL (74-106)
--- NOTE | 2022-01-04 08:50 | RAD_ITS ---
STUDY: X-RAY CHEST REASON FOR EXAM: Female, 56 years old. Pulmonary Congestion TECHNIQUE: AP COMPARISON: 01/28/2018 FINDINGS: EKG leads project over the chest. Airspace disease in the left lung base obscuring the left hemidiaphragm. There is no demonstrated pleural abnormality. Normal size heart. Normal mediastinum and uriel. Normal visualized pulmonary arteries. There is atherosclerotic tortuosity of the aortic arch and descending thoracic aorta. No acute bony process. There is no demonstrated abnormality of the visualized soft tissue structures of the upper abdomen. RAD/Chest 1 View (Portable) IMPRESSION: Left lower lobe infiltrate suggesting pneumonia or atelectasis. Electronically Signed: Skyler Lu MD (Brooks) at 9:15 EDT ,
[2022-01-04 09:37] LABS: Thyroid Stim Hormone (TSH) 0.86 uIU/mL (0.358-3.74)
[2022-01-04] MEDS: oxyCODONE 5 MG Tablet PO ×2 (10:08→23:19)
--- NOTE | 2022-01-04 10:14 | CASEMGMT ---
Social Work Note SW in to speak with pt. SW updated pt that [facility] is able to accept pt, just need to wait for pre-cert. Pt states understanding. SW to fax PT/OT when evaluatoins are completed. Plan: [facility] pending pre-cert. Guerline Magallon COST CONTROLLER, FIELD TRAFFIC INVESTIGATOR
[2022-01-04 11:56] LABS: Bedside Glucose 122 mg/dL (74-106)
[2022-01-04 13:27] LABS: Pathologist Review Reviewed
[2022-01-04 13:30] LABS: Pathologist Review Reviewed
--- NOTE | 2022-01-04 14:15 | US_ITS ---
INDICATION: DAMIÁN EXAMINATION: US Kidney(s) complete (eg, kidneys and bladder) TECHNIQUE: Arrieta scale and color doppler images were obtained of the kidneys. COMPARISON: None. FINDINGS: RIGHT KIDNEY: Measures 12.2 cm in length.. There is no hydronephrosis. No shadowing calculus, focal lesion or perinephric collection is demonstrated. LEFT KIDNEY: Measures 11.6 cm in length.. There is no hydronephrosis. No shadowing calculus, focal lesion or perinephric collection is demonstrated. URINARY BLADDER: MUSE catheter in place. US/Kidney and Bladder IMPRESSION: Negative renal ultrasound. Electronically Signed: Bert Jordan MD at 18:00 EDT ,
--- NOTE | 2022-01-04 14:27 | CASEMGMT ---
Social Work PT and OT evals faxed to [facility] with request that precert be started at this time for admission to SNF. Plan: [facility], pending SOLO Desai
--- NOTE | 2022-01-04 14:49 | PCM.CONS.GEN ---
Assessment & Plan Assessment/Plan (1) Diabetes mellitus with diabetic polyneuropathy: (2) Ulcer of right foot with necrosis of muscle: PLAN: MRSA and GBS R foot infected DM ulcer - now complicated by DAMIÁN. Bedside I&D done by podiatry. Will order renal u/s, narrow abx to doxy/unasyn and adjust for GFR. Unvaccinated for covid, she agrees to get first dose here. Will follow, thank you. Plan on po abx at discharge. HPI Consult Data Date of Consult: 01/04/22 HPI Narrative HPI Narrative: NORAH CRAIG, is a 56 F with DM neuropathy, presented with worsening R foot ulcer, present about 2 years, worsened after fall. No fever, no new pain or drainage. Came to ED, admitted on vanc/zosyn, now on doxy/zosyn. Feeling ok but sleepy. No n/v/d. Unvaccinated for covid. Full ROS performed and neg except as noted above. [facility] Medical History Depression Diabetes HTN (hypertension) Neuropathy Home Medications Levemir FlexTouch U-100 Insuln 85 units SUBCUT QHS 01/28/18 [History Last Taken Unknown] albuterol sulfate [Proair Hfa] 2 puff Q4H PRN PRN 01/28/18 [History Last Taken Unknown] hydralazine 25 mg PO DAILY 01/28/18 [History Last Taken Unknown] ibuprofen [Ibu] 600 mg Q6H PRN PRN 01/28/18 [History Last Taken Unknown] metformin 1,000 mg DAILY 01/28/18 [History Last Taken Unknown] oxycodone-acetaminophen 1 tab BID PRN 01/28/18 [History Last Taken Unknown] pregabalin [Lyrica] 100 mg DAILY 01/28/18 [History Last Taken Unknown] hydroxyzine HCl 25 mg PO QHS 01/02/22 [History Last Taken Unknown] insulin lispro [Humalog Dameon KwikPen U-100] 50 unit SUBCUT TID 01/02/22 [History Last Taken Unknown] sertraline 200 mg PO DAILY 01/02/22 [History Last Taken Unknown] trazodone 150 mg PO QHS 01/02/22 [History Last Taken Unknown] Allergy/AdvReac Type Severity Reaction Status Date / Time morphine AdvReac Vomiting Verified 01/02/22 10:09 Social History Smoking Status: Never smoker Physical Exam Const alert and no apparent distress General Appearance: cooperative and lethargic Exam Limitations: no limitations HEENT normocephalic and head/scalp atraumatic Eyes PERRL and EOMs intact bilaterally Neck supple and No nodes Resp normal air movement and clear to auscultation bilaterally Cardio regular rate and regular rhythm GI soft to palpation, non-tender and non-distended Extremity General Extremity: edema Skin Skin Narrative: reviewed photo R foot Neuro CN's II-XII intact bilaterally Lab / Micro Data Result Diagrams: 01/04/22 04:43 01/04/22 04:43 Labs: Laboratory Results - last 24 hr 01/03/22 15:05: Lactic Acid 0.6 01/03/22 16:36: POC Glucose 305 H 01/03/22 18:57: WBC 5.8, RBC 2.80 L, Hgb 8.0 L, Hct 24.4 L, MCV 87.1, MCH 28.6, MCHC 32.8, RDW Std Deviation 44.9 H, RDW Coeff of Gabriela 14.1, Plt Count 129 L, MPV 10.8, Neut % (Auto) Not Reportable, Absolute Neuts (auto) 4.8, Absolute Lymphs (auto) 0.46 L, Total Counted 100, Neutrophils % (Manual) 62, Band Neutrophils % 21 H, Lymphocytes % (Manual) 8 L, Monocytes % (Manual) 8, Eosinophils % (Manual) 1, Diff Path Review Reviewed, Platelet Estimate SLT DEC, RBC Morphology NORM C+C 01/03/22 20:01: POC Glucose 262 H 01/03/22 22:41: POC Glucose 251 H 01/04/22 03:52: POC Glucose 237 H 01/04/22 04:43: WBC 5.7, RBC 2.90 L, Hgb 8.1 L, Hct 25.7 L, MCV 88.6, MCH 27.9, MCHC 31.5 L, RDW Std Deviation 46.2 H, RDW Coeff of Gabriela 14.2, Plt Count 129 L, MPV 10.9, Neut % (Auto) Not Reportable, Absolute Neuts (auto) 5.0, Absolute Lymphs (auto) 0.23 L, Total Counted 100, Neutrophils % (Manual) 77 H, Band Neutrophils % 7 H, Lymphocytes % (Manual) 4 L, Monocytes % (Manual) 5, Eosinophils % (Manual) 3, Basophils % (Manual) 1, Metamyelocytes % 3 H, Diff Path Review Reviewed, Platelet Estimate SLT DEC, RBC Morphology NORM C+C 01/04/22 04:43: Sodium 137, Potassium 4.1, Chloride 106, Carbon Dioxide 25.0, Anion Gap 6, BUN 56 H, Creatinine 2.51 H, Estim Creat Clear Calc 23.15, Est GFR (MDRD) Af Amer 25 L, Est GFR (MDRD) Non-Af 21 L, BUN/Creatinine Ratio 22.3 H, Glucose 238 H, Calcium 8.1 L 01/04/22 08:04: POC Glucose 204 H 01/04/22 08:50: TSH 0.86 01/04/22 08:50: Cortisol 23.50 H 01/04/22 11:46: POC Glucose 122 H Micro: Microbiology 01/02/22 23:20 Urine, Catheterized Urine Culture - Preliminary Yeast Like Organism Beta hemolytic organism 01/03/22 15:15 Blood Culture (Wb) - Left Hand Blood Culture - Preliminary Beta streptococcus 01/03/22 15:05 Blood Culture (Wb) - Left Forearm Bacteria Detection (PCR) - Final Streptococcus agalactiae (B) 01/03/22 15:05 Blood Culture (Wb) - Left Forearm Blood Culture - Preliminary 01/02/22 14:35 Wound - Right Foot Gram Stain - Final 01/02/22 14:35 Wound - Right Foot Wound Culture - Final Staphylococcus aureus Streptococcus agalactiae (B) ABG Data ABG results: ABG 01/03/22 19:13 Specimen Type ART Sample Site R Radial pH 7.37 Bicarbonate Actual 23.0 Total CO2 24 Base Excess -2 O2 Saturation 89 L ABG pCO2 39.4 ABG pO2 58 L Camilo Test Positive O2 Delivery Device Cannula Liter Flow 2.0 Radiology Impression Chest X-Ray 01/04/22 08:50 IMPRESSION: Left lower lobe infiltrate suggesting pneumonia or atelectasis. Electronically Signed: Skyler Lu MD ([place]) at 9:15 EDT ,
[2022-01-04 16:21] LABS: Bedside Glucose 121 mg/dL (74-106)
--- NOTE | 2022-01-04 16:29 | CON.PCM.RE_ITS ---
Assessment & Plan Assessment/Plan (1) DAMIÁN (acute kidney injury): PLAN: Admission creatinine was 1.3, doubled overnight. Blood pressure was on the lower side, now better. She has right foot infection, strep bacteremia. Urine is somewhat cola colored. Urine analysis shows hematuria and proteinuria. We will check a serum C3 level since she could have postinfectious glomerulonephritis in the setting of strep bacteremia. We will check urine lites. Renal ultrasound has been ordered and is pending. CT abdomen without any hydronephrosis. HPI Consult Data Date of Consult: 01/04/22 HPI Narrative HPI Narrative: NORAH CRAIG, is a 56 F who presents to the hospital with right foot infection, bacteremia. Nephrology consulted for acute renal failure. 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 History of poorly controlled diabetes. Admission creatinine was 1.3, almost doubled overnight. She has an external catheter, urine is somewhat dark brown looking. Denies any voiding issues. [facility] Medical History Depression Diabetes HTN (hypertension) Neuropathy Home Medications Levemir FlexTouch U-100 Insuln 85 units SUBCUT QHS 01/28/18 [History Last Taken Unknown] albuterol sulfate [Proair Hfa] 2 puff Q4H PRN PRN 01/28/18 [History Last Taken Unknown] hydralazine 25 mg PO DAILY 01/28/18 [History Last Taken Unknown] ibuprofen [Ibu] 600 mg Q6H PRN PRN 01/28/18 [History Last Taken Unknown] metformin 1,000 mg DAILY 01/28/18 [History Last Taken Unknown] oxycodone-acetaminophen 1 tab BID PRN 01/28/18 [History Last Taken Unknown] pregabalin [Lyrica] 100 mg DAILY 01/28/18 [History Last Taken Unknown] hydroxyzine HCl 25 mg PO QHS 01/02/22 [History Last Taken Unknown] insulin lispro [Humalog Dameon KwikPen U-100] 50 unit SUBCUT TID 01/02/22 [History Last Taken Unknown] sertraline 200 mg PO DAILY 01/02/22 [History Last Taken Unknown] trazodone 150 mg PO QHS 01/02/22 [History Last Taken Unknown] Allergy/AdvReac Type Severity Reaction Status Date / Time morphine AdvReac Vomiting Verified 01/02/22 10:09 Social History Smoking Status: Never smoker ROS ROS Narrative Negative except above Physical Exam Narrative Alert awake oriented x 3 no obvious distress no pallor no icterus no JVD s1s2 no murmurs lungs clear abdomen soft no organomegaly no edema no cyanosis Lab / Micro Data Result Diagrams: 01/04/22 04:43 01/04/22 04:43 Labs: Laboratory Results - last 24 hr 01/03/22 16:36: POC Glucose 305 H 01/03/22 18:57: WBC 5.8, RBC 2.80 L, Hgb 8.0 L, Hct 24.4 L, MCV 87.1, MCH 28.6, MCHC 32.8, RDW Std Deviation 44.9 H, RDW Coeff of Gabriela 14.1, Plt Count 129 L, MPV 10.8, Neut % (Auto) Not Reportable, Absolute Neuts (auto) 4.8, Absolute Lymphs (auto) 0.46 L, Total Counted 100, Neutrophils % (Manual) 62, Band Neutrophils % 21 H, Lymphocytes % (Manual) 8 L, Monocytes % (Manual) 8, Eosinophils % (Manual) 1, Diff Path Review Reviewed, Platelet Estimate SLT DEC, RBC Morphology NORM C+C 01/03/22 20:01: POC Glucose 262 H 01/03/22 22:41: POC Glucose 251 H 01/04/22 03:52: POC Glucose 237 H 01/04/22 04:43: WBC 5.7, RBC 2.90 L, Hgb 8.1 L, Hct 25.7 L, MCV 88.6, MCH 27.9, MCHC 31.5 L, RDW Std Deviation 46.2 H, RDW Coeff of Gabriela 14.2, Plt Count 129 L, MPV 10.9, Neut % (Auto) Not Reportable, Absolute Neuts (auto) 5.0, Absolute Lymphs (auto) 0.23 L, Total Counted 100, Neutrophils % (Manual) 77 H, Band Neutrophils % 7 H, Lymphocytes % (Manual) 4 L, Monocytes % (Manual) 5, Eosinophils % (Manual) 3, Basophils % (Manual) 1, Metamyelocytes % 3 H, Diff Path Review Reviewed, Platelet Estimate SLT DEC, RBC Morphology NORM C+C 01/04/22 04:43: Sodium 137, Potassium 4.1, Chloride 106, Carbon Dioxide 25.0, Anion Gap 6, BUN 56 H, Creatinine 2.51 H, Estim Creat Clear Calc 23.15, Est GFR (MDRD) Af Amer 25 L, Est GFR (MDRD) Non-Af 21 L, BUN/Creatinine Ratio 22.3 H, Glucose 238 H, Calcium 8.1 L 01/04/22 08:04: POC Glucose 204 H 01/04/22 08:50: TSH 0.86 01/04/22 08:50: Cortisol 23.50 H 01/04/22 11:46: POC Glucose 122 H 01/04/22 16:04: POC Glucose 121 H Micro: Microbiology 01/02/22 23:20 Urine, Catheterized Urine Culture - Preliminary Yeast Like Organism Beta hemolytic organism 01/03/22 15:15 Blood Culture (Wb) - Left Hand Blood Culture - Preliminary Beta streptococcus 01/03/22 15:05 Blood Culture (Wb) - Left Forearm Bacteria Detection (PCR) - Final Streptococcus agalactiae (B) 01/03/22 15:05 Blood Culture (Wb) - Left Forearm Blood Culture - Preliminary 01/02/22 14:35 Wound - Right Foot Gram Stain - Final 01/02/22 14:35 Wound - Right Foot Wound Culture - Final Staphylococcus aureus Streptococcus agalactiae (B) ABG Data ABG results: ABG 01/03/22 19:13 Specimen Type ART Sample Site R Radial pH 7.37 Bicarbonate Actual 23.0 Total CO2 24 Base Excess -2 O2 Saturation 89 L ABG pCO2 39.4 ABG pO2 58 L Camilo Test Positive O2 Delivery Device Cannula Liter Flow 2.0 Radiology Impression Chest X-Ray 01/04/22 08:50 IMPRESSION: Left lower lobe infiltrate suggesting pneumonia or atelectasis. Electronically Signed: Skyler Lu MD ([place]) at 9:15 EDT ,
[2022-01-04] MEDS: Insulin Glargine-YFGN 100 UNIT/ML Pen SC (23:09)
[2022-01-04] MEDS: 0.9% Saline Lock 10 ML Syringe IV (23:11)
[2022-01-04] MEDS: traZODone 50 MG Tablet PO (23:18)
[2022-01-05] VITALS (7 sets, daily range): BP systolic 115–145; BP diastolic 59–79; PULSE 74–81; RESP 13–20; TEMP 36.6–36.9; O2SAT 94–98
[2022-01-05 06:01] LABS: Bedside Glucose 203 mg/dL (74-106)
[2022-01-05] MEDS: Nystatin Powder 15gm Bottle 1 APPLIC TOPICAL ×3 (06:15→21:42)
[2022-01-05 06:28] LABS: Absolute Lymphocyte Count 0.77 X10^3/uL (0.83-4.51); Absolute Neutrophil Count 5.1 X10^3/uL (2.0-7.7); Basophil# 0.02 X10^3/uL; Basophil% 0.3 % (0-1); Eosinophil# 0.13 X10^3/uL; Eosinophils% 1.8 % (0-5); Lymphocyte # 0.77 X10^3/ul (0.83-4.51); Lymphocyte % 10.9 % (19-41); Mean Corpuscular Hgb 27.8 pg (27.0-32.0); Mean Corpuscular Volume 86.8 fL (81-99); Mean Platelet Vol. 11.3 fl (6.2-12.0); Monocyte# 0.81 X10^3/uL; Monocyte% 11.5 % (0-10); NRBC Flagged by Analyzer 0 % (0-5); Neutrophil # 5.05 X10^3/uL (2.7-7.7); Neutrophil % 71.8 % (47-70); POSITIVE MORPHOLOGY YES; Platelet Count 169 K/mm3 (150-450); RBC Distribution Width CV 14.6 % (11.6-14.6); RBC Distribution Width SD 46.7 fl (35.1-43.9); Red Blood Count 2.88 M/mm3 (4.2-5.4)
[2022-01-05 06:42] LABS: Differential Indicated SCAN CRITERIA MET
[2022-01-05 06:58] LABS: Anion Gap 6 (5-15); BUN 68 mg/dL (7-18); BUN/Creat Ratio 27.1 RATIO (10-20); Calcium,Total 8.6 mg/dL (8.5-10.1); Chloride 108 mmol/L (98-107); Creatinine, Serum 2.51 mg/dL (0.55-1.02); EST Glomerular Filtration Rate 21 mL/min (>60); Est Glom Filt Rate - Afr Amer 25 mL/min (>60); Estimated Creatinine Clearance 23.15 ml/min; Glucose 106 mg/dL (74-106); Potassium 3.8 mmol/L (3.5-5.1); Sodium Level 140 mmol/L (136-145)
[2022-01-05] MEDS: Acetaminophen 325 MG Tablet 650 MG PO ×3 (07:06→19:38)
[2022-01-05] MEDS: oxyCODONE 5 MG Tablet PO ×3 (07:07→19:38)
[2022-01-05 07:10] LABS: CPK Total, Creatine Kinase 7 U/L (26-192)
[2022-01-05 07:14] LABS: Differential Comment SCANNED
[2022-01-05] MEDS: Juven (unflavored) Packet 1 PACKET PO ×2 (08:18→16:51)
[2022-01-05] MEDS: Midodrine HCl 5 MG Tablet 10 MG PO ×3 (08:19→16:51)
--- NOTE | 2022-01-05 08:23 | PCM.PN.HOSP ---
Objective Data Objective Data Vital Signs: Vital Signs Temp Pulse Resp BP Pulse Ox 97.8 F 79 13 132/63 H 95 01/05/22 07:21 01/05/22 07:21 01/05/22 07:21 01/05/22 07:21 01/05/22 07:21 Oxygen Flow Rate (L/min) 2 Oxygen Delivery Method Nasal Cannula Weight: 172 lb 2.896 oz Body Mass Index (BMI) 27.8 Intake & Output: Intake and Output for Last 24 Hours 01/03/22 01/04/22 01/05/22 23:59 23:59 23:59 Intake Total 3863.33 / 3863.33 2299.58 / 2299.58 112 / 112 Output Total 1325 / 1325 575 / 1025 650 / 650 Balance 2538.33 / 2538.33 1724.58 / 1274.58 -538 / -538 Lab / Micro Data Result Diagrams: 01/05/22 05:00 01/05/22 05:00 Labs: Laboratory Results - last 24 hr 01/03/22 18:57: Diff Path Review Reviewed 01/04/22 04:43: Diff Path Review Reviewed 01/04/22 08:50: TSH 0.86 01/04/22 08:50: Cortisol 23.50 H 01/04/22 11:46: POC Glucose 122 H 01/04/22 16:04: POC Glucose 121 H 01/04/22 22:45: POC Glucose 203 H 01/05/22 05:00: WBC 7.0, RBC 2.88 L, Hgb 8.0 L, Hct 25.0 L, MCV 86.8, MCH 27.8, MCHC 32.0, RDW Std Deviation 46.7 H, RDW Coeff of Gabriela 14.6, Plt Count 169, MPV 11.3, Immature Gran % (Auto) 3.700 H, Neut % (Auto) 71.8 H, Lymph % (Auto) 10.9 L, [place] % (Auto) 11.5 H, Eos % (Auto) 1.8, Baso % (Auto) 0.3, Absolute Neuts (auto) 5.1, Absolute Lymphs (auto) 0.77 L, Nucleated RBC % 0, Differential Comment SCANNED 01/05/22 05:00: Sodium 140, Potassium 3.8, Chloride 108 H, Carbon Dioxide 26.0, Anion Gap 6, BUN 68 H, Creatinine 2.51 H, Estim Creat Clear Calc 23.15, Est GFR (MDRD) Af Amer 25 L, Est GFR (MDRD) Non-Af 21 L, BUN/Creatinine Ratio 27.1 H, Glucose 106, Calcium 8.6 01/05/22 05:00: Total Creatine Kinase 7 L Micro: Microbiology 01/03/22 15:15 Blood Culture (Wb) - Left Hand Blood Culture - Final Streptococcus agalactiae (B) 01/03/22 15:05 Blood Culture (Wb) - Left Forearm Bacteria Detection (PCR) - Final Streptococcus agalactiae (B) 01/03/22 15:05 Blood Culture (Wb) - Left Forearm Blood Culture - Preliminary Streptococcus agalactiae (B) 01/02/22 23:20 Urine, Catheterized Urine Culture - Preliminary Yeast Like Organism Beta hemolytic organism 01/02/22 14:35 Wound - Right Foot Gram Stain - Final 01/02/22 14:35 Wound - Right Foot Wound Culture - Final Staphylococcus aureus Streptococcus agalactiae (B) Radiography Diagnostic Testing: Radiology Impression Extremity Arterial Study 01/02/22 16:04 Interpretation Summary Triphasic Doppler waveforms are noted at ankle level bilaterally. Pulse-volume recordings appear satisfactory bilaterally. Resting ankle-brachial indices are normal bilaterally. Digital-brachial indices are normal bilaterally. There is no evidence of significant arterial occlusive disease in the lower extremities bilaterally. Ordering Physician: Anca Wilde Referring Physician: Kim Salas Performed By: Margy Pickering RDCS/RVT Chest X-Ray 01/04/22 08:50 IMPRESSION: Left lower lobe infiltrate suggesting pneumonia or atelectasis. Renal Ultrasound 01/04/22 14:15 IMPRESSION: Negative renal ultrasound. Physical Exam Narrative General: Alert, Oriented x3, fatigue, moderate degree of malnourished. HEENT: Atraumatic, PERRLA, EOMI, Normocephalic Oral: No Gingival or Mucosal Lesions/ Ulcerations Neck: Supple, No JVD, Negative Carotid Bruits Lungs: Air entry diminished in bilateral lung bases. Crepitation seems chronic over left lung base. Atelectasis Cardiovascular: Regular rate, Regular Rhythm, Normal S1, Normal S2, No murmurs Abdomen: Bowel Sounds Present, Soft, Non Tender, Non-Distended : No renal angle tenderness. No suprapubic tenderness. Extremities: Mild Bilateral leg edema, Capillary Refill Less than 3 Seconds Skin: 2 - 3 cm ulcer on the right plantar surface status post debridement. Covered with Ernesto wrap bandage. Musculoskeletal: Debilitated. No Tenderness to Palpation of Joints or Extremities Neurological: Decreased sensation of right below-knee, loss of position sense in right leg and foot. Cranial nerves II-XII grossly intact, DTR 2+/4 muscle strength 4/5, less than left hip knee and ankle joints as compared to right Psych/Mental Status: Flat affect. Assessment & Plan Assessment/Plan (1) Generalized weakness: PLAN: 56-year-old female admitted for generalized debility, fall 2 days ago, plantar ulcer covered with discharge with uncontrolled diabetes mellitus type 2. Patient is usually wheelchair-bound but did not ambulate after fall. 1. Generalized debility with hypotension on 01/03/2022- 01/03: Hypotension with DAMIÁN on CKD stage IIIb most likely patient has diabetic neuropathy. DAMIÁN probably due to hypotension. BUN/creatinine increased. Medications adjusted. Vancomycin and Lyrica discontinued. Sertraline dose decreased. Nephrology consulted. Serum TSH and cortisol ordered. Patient started on midodrine 10 mg 3 times daily. UA positive for glucosuria, proteinuria and ketones. WBC 0-5 cells, RBC 5200, LE 25. on observation. PT and OT ordered. 01/04: Creatinine is the same as yesterday 2.51. Discussed with the cold roll operator. Urine is cola colored. TSH normal. Cortisol level elevated at 23.5.Urine culture yeastlike organism more than 100,000 colonies, beta-hemolytic organism less than 1000 therefore possible postobstructive was glomerulonephritis. Renal and bladder ultrasound reported negative. No hydronephrosis, calculus focal lesion or perinephric collection. Right kidney 12.2 cm. Left kidney 11.6 cm #2 Sepsis due to neuropathic ulceration with infection, strep group B and possible MSSA at right plantar surface with necrosis of muscle, present on admission 01/03: Patient evaluated by business functional analyst. Foot x-ray does not show soft tissue emphysema, foreign body, osseous destruction adjacent to the ulcer site. Prior hardware intact without loosening or failure. Local debridement was performed by patient. Heading And Priming Tool Setter note reviewed. Palpable DP pulses. Nonpalpable, MEDICAL PRACTITIONERS pulses with atrophic skin, suggestive of distal peripheral artery disease. Lower extremity duplex shows triphasic waveform on MEDICAL PRACTITIONERS and DPA and distal brachial indices normal bilaterally. 01/04: Patient was started on vancomycin and Zosyn yesterday when she had hypotension. Lactic acid was normal. Patient did not had fever, leukocytosis, hypoxia or other signs of organ dysfunction except DAMIÁN on CKD. Blood cultures was ordered. Possibility of sepsis. ID is consulted. 01/05: MSSA and GBS right foot infected diabetic ulcer: Blood culture shows aerobic and anaerobic bottles positive for gram-positive cocci, group B strep. Wound culture positive of MSSA and strep group B. As patient had blood culture and tissue and blood culture positive of microorganism therefore sepsis diagnosis confirmed. ID consult reviewed and appreciated. #3 uncontrolled type 2 diabetes-probably secondary to patient noncompliance, blood sugars will be monitored, sliding scale insulin will be used if needed, patient will remain on her home insulin dosage, I have elected to stop her metformin-I do not believe this is contributing anything to her blood sugar control. Nutritional services will see patient. 01/03: A1c 13%. Suggest uncontrolled diabetes mellitus for long time. She states she is not taking insulin when she went for [place]. Insulin dosage adjusted. 01/04: Lantus and Humalog insulin adjusted. 01/05: Patient blood glucose varies between 120-203. 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 She does not have position sense of right great toe. Rest admission Patient also has atelectasis of left lung base. Incentive spirometry advised #5 essential hypertension-patient will be placed on lisinopril, for some reason patient is not taking an ERNESTO or an ARB and she has type 2 diabetes, I have ordered a UA to check for protein. #6 chronic depression-patient is on Zoloft and trazodone Total time of the visit including total time spent in counseling or coordination of care, (more than 50% of the total time, spent in obtaining medical information from nurses and other ancillary care providers,explaining to the patient about labs, imaging, diagnosis and management), review of education sales consultant note, review of labs and imaging is 40 minutes. Charges/Coding Visit Charges Inpatient E&M: 87681 Subs Hosp L3
[2022-01-05] MEDS: 0.9% Saline Lock 10 ML Syringe IV (08:31)
[2022-01-05] MEDS: Sertraline 100 MG Tablet PO (08:31)
[2022-01-05] MEDS: Doxycycline 100 MG CAPSULE PO ×2 (08:31→21:44)
--- NOTE | 2022-01-05 08:44 | NURSING ---
This RN is aware of vitals that were taken this morning by Faith Jimenez RN.
[2022-01-05 08:51] LABS: Bedside Glucose 114 mg/dL (74-106)
--- NOTE | 2022-01-05 10:11 | CASEMGMT ---
Addendum entered by Guerline Magallon 01/05/22 14:22: SW received call from Sharon at [facility] stating pre-cert was obtained. JANELL updated Sharon that pt is now not medically ready for discharge today. Sharon states that pt's pre-cert is good through the weekend, can admit over the weekend if medically cleared. Pt will also need a COVID test on day of discharge. JANELL updated physician. SW in to speak with pt. SW updated pt that pre-cert was obtained for [facility] and it is good for the weekend. SW updated pt that if she is medically cleared for discharge this weekend she can discharge to SNF. Pt states understanding. Patient was provided a list of SNF providers including quality and resource use data and consistent with the patient?s preferred geographic region, medical needs, and insurance network. SW placed Green Sheet, transportation forms, COVID tool on pt's chart. Pt will need COVID test on day of discharge. [facility]. Pre-cert is good through the weekend. Pt can discharge Saturday or Saturday to SNF if medically cleared. Guerline BURRELL, ETHANOL QUALITY LEADER Original Note: Social Work Note SW placed a call to [facility] and spoke with Sharon. Sharon confirms she received PT/OT and pre-cert has been submitted. Sharon states she will call this worker when pre-cert is obtained. Plan: [facility] pending pre-cert Guerline BURRELL, ETHANOL QUALITY LEADER
[2022-01-05 11:55] LABS: Bedside Glucose 165 mg/dL (74-106)
--- NOTE | 2022-01-05 12:12 | PN.RENAL_ITS ---
Subjective Subjective no new complaints. Urine output charted as 200 cc. Objective Data Objective Data Vital Signs: Vital Signs Temp Pulse Resp BP Pulse Ox 97.8 F 79 13 132/63 H 95 01/05/22 07:21 01/05/22 07:21 01/05/22 07:21 01/05/22 07:21 01/05/22 07:21 Oxygen Flow Rate (L/min) 2 Oxygen Delivery Method Nasal Cannula Weight: 78.1 kg Body Mass Index (BMI) 27.8 Intake & Output: Intake and Output for Last 24 Hours 01/03/22 01/04/22 01/05/22 23:59 23:59 23:59 Intake Total 3863.33 / 3863.33 2299.58 / 2299.58 250.5 / 250.5 Output Total 1325 / 1325 575 / 1025 650 / 650 Balance 2538.33 / 2538.33 1724.58 / 1274.58 -399.5 / -399.5 Lab / Micro Data Result Diagrams: 01/05/22 05:00 01/05/22 05:00 Labs: Laboratory Results - last 24 hr 01/03/22 18:57: Diff Path Review Reviewed 01/04/22 04:43: Diff Path Review Reviewed 01/04/22 16:04: POC Glucose 121 H 01/04/22 22:45: POC Glucose 203 H 01/05/22 05:00: WBC 7.0, RBC 2.88 L, Hgb 8.0 L, Hct 25.0 L, MCV 86.8, MCH 27.8, MCHC 32.0, RDW Std Deviation 46.7 H, RDW Coeff of Gabriela 14.6, Plt Count 169, MPV 11.3, Immature Gran % (Auto) 3.700 H, Neut % (Auto) 71.8 H, Lymph % (Auto) 10.9 L, [place] % (Auto) 11.5 H, Eos % (Auto) 1.8, Baso % (Auto) 0.3, Absolute Neuts (auto) 5.1, Absolute Lymphs (auto) 0.77 L, Nucleated RBC % 0, Differential Comment SCANNED 01/05/22 05:00: Sodium 140, Potassium 3.8, Chloride 108 H, Carbon Dioxide 26.0, Anion Gap 6, BUN 68 H, Creatinine 2.51 H, Estim Creat Clear Calc 23.15, Est GFR (MDRD) Af Amer 25 L, Est GFR (MDRD) Non-Af 21 L, BUN/Creatinine Ratio 27.1 H, Glucose 106, Calcium 8.6 01/05/22 05:00: Total Creatine Kinase 7 L 01/05/22 08:15: POC Glucose 114 H 01/05/22 11:22: POC Glucose 165 H Micro: Microbiology 01/03/22 15:15 Blood Culture (Wb) - Left Hand Blood Culture - Final Streptococcus agalactiae (B) 01/03/22 15:05 Blood Culture (Wb) - Left Forearm Bacteria Detection (PCR) - Final Streptococcus agalactiae (B) 01/03/22 15:05 Blood Culture (Wb) - Left Forearm Blood Culture - Preliminary Streptococcus agalactiae (B) 01/02/22 23:20 Urine, Catheterized Urine Culture - Preliminary Yeast Like Organism Beta hemolytic organism 01/02/22 14:35 Wound - Right Foot Gram Stain - Final 01/02/22 14:35 Wound - Right Foot Wound Culture - Final Staphylococcus aureus Streptococcus agalactiae (B) Radiography Diagnostic Testing: Radiology Impression Extremity Arterial Study 01/02/22 16:04 Interpretation Summary Triphasic Doppler waveforms are noted at ankle level bilaterally. Pulse-volume recordings appear satisfactory bilaterally. Resting ankle-brachial indices are normal bilaterally. Digital-brachial indices are normal bilaterally. There is no evidence of significant arterial occlusive disease in the lower extremities bilaterally. Ordering Physician: Anca Wilde Referring Physician: Kim Salas Performed By: Margy Pickering RDJOB/RVT Renal Ultrasound 01/04/22 14:15 IMPRESSION: Negative renal ultrasound. Electronically Signed: Bert Jordan MD at 18:00 EDT , Physical Exam Narrative Alert awake oriented x 3 no obvious distress no pallor no icterus no JVD s1s2 no murmurs lungs clear abdomen soft no organomegaly no edema no cyanosis Assessment & Plan Assessment/Plan (1) DAMIÁN (acute kidney injury): PLAN: Admission creatinine was 1.3, doubled overnight. Blood pressure was on the lower side, now better. She has right foot infection, strep bacteremia. Urine is somewhat cola colored. Urine analysis shows hematuria and proteinuria. Renal ultrasound without any hydronephrosis C3 levels are pending Urinalysis with hematuria and proteinuria CPK levels are normal Will give some more fluids today She was on vancomycin but is no longer on it Discussed with hospitalist Strep bacteremia. Infectious diseases following.
[2022-01-05] MEDS: Insulin Lispro 100 UNIT/ML INSULN.PEN SC (13:27)
[2022-01-05] MEDS: 0.9% Normal Saline 1,000 ML 100 ML IV ×2 (13:35→22:14)
--- NOTE | 2022-01-05 13:52 | PCM.PN.ID ---
Physical Exam Narrative Feeling better, making urine, no fever, no n/v. Const alert and no apparent distress General Appearance: cooperative Resp normal air movement and clear to auscultation bilaterally Cardio regular rate and regular rhythm GI soft to palpation, non-tender and non-distended Skin Skin Narrative: foot wrapped ID ID: Route of nutrition/ use of supplements: [] Nutritional Intake: [] IV Site: [] [place] Catheter: [] Assessment & Plan Assessment/Plan (1) Diabetes mellitus with diabetic polyneuropathy: (2) Ulcer of right foot with necrosis of muscle: PLAN: MRSA and GBS R foot infected DM ulcer - now complicated by DAMIÁN. Bedside I&D done by podiatry. Cr stable today. Vaccinated for covid. On doxy/unasyn. Plan on 5 more days po augmentin at discharge (if CrCl less than 30, would do 500mg bid dose) Will follow
--- NOTE | 2022-01-05 14:27 | CASEMGMT ---
Social Work Note Phone and Fax number for [place] [facility] if pt discharges this weekend. and ask for [address] [facility] nurse Guerline Magallon DIAGNOSTIC CARDIAC SONOGRAPHER, DISPUTE SPECIALIST
[2022-01-05 17:00] LABS: Bedside Glucose 100 mg/dL (74-106)
[2022-01-05 22:11] LABS: Bedside Glucose 106 mg/dL (74-106)
[2022-01-06 02:02] VITALS: BP 125/67; PULSE 77; RESP 15; TEMP 36.8; O2SAT 95
[2022-01-06] MEDS: Acetaminophen 325 MG Tablet 650 MG PO ×2 (04:39→10:45)
[2022-01-06] MEDS: oxyCODONE 5 MG Tablet PO ×2 (04:39→10:44)
[2022-01-06] MEDS: Nystatin Powder 15gm Bottle 1 APPLIC TOPICAL ×3 (04:40→22:11)
[2022-01-06] MEDS: 0.9% Normal Saline 1,000 ML 100 ML IV ×2 (06:23→17:10)
[2022-01-06 07:28] VITALS: O2SAT 95
--- NOTE | 2022-01-06 07:35 | PCM.PN.HOSP ---
Subjective Subjective Follow-up for bacteremia, sepsis and DAMIÁN on CKD Patient states he feels fatigued. Mild nosebleeding which is stopped. Urine is clear. On IV fluid normal saline. Objective Data Objective Data Vital Signs: Vital Signs Temp Pulse Resp BP Pulse Ox 98.2 F 77 15 125/67 H 95 01/06/22 02:02 01/06/22 02:02 01/06/22 02:02 01/06/22 02:02 01/06/22 07:28 Oxygen Flow Rate (L/min) 2 Oxygen Delivery Method Nasal Cannula Weight: 172 lb 2.896 oz Body Mass Index (BMI) 27.8 Intake & Output: Intake and Output for Last 24 Hours 01/04/22 01/05/22 01/06/22 23:59 23:59 23:59 Intake Total 2299.58 / 2299.58 1535.5 / 1535.5 2277 / 2277 Output Total 575 / 1025 1150 / 1150 485 / 485 Balance 1724.58 / 1274.58 385.5 / 385.5 1792 / 1792 Lab / Micro Data Result Diagrams: 01/06/22 08:04 01/06/22 08:04 Labs: Laboratory Results - last 24 hr 01/05/22 08:15: POC Glucose 114 H 01/05/22 11:22: POC Glucose 165 H 01/05/22 16:48: POC Glucose 100 01/05/22 21:42: POC Glucose 106 Micro: Microbiology 01/03/22 15:05 Blood Culture (Wb) - Left Forearm Bacteria Detection (PCR) - Final Streptococcus agalactiae (B) 01/03/22 15:05 Blood Culture (Wb) - Left Forearm Blood Culture - Final Streptococcus agalactiae (B) 01/02/22 23:20 Urine, Catheterized Urine Culture - Preliminary Yeast, not [place] albicans Beta hemolytic organism 01/03/22 15:15 Blood Culture (Wb) - Left Hand Blood Culture - Final Streptococcus agalactiae (B) 01/02/22 14:35 Wound - Right Foot Gram Stain - Final 01/02/22 14:35 Wound - Right Foot Wound Culture - Final Staphylococcus aureus Streptococcus agalactiae (B) Physical Exam Narrative General: Alert, Oriented x3, fatigue, moderate degree of malnourished. HEENT: Atraumatic, PERRLA, EOMI, Normocephalic Oral: No Gingival or Mucosal Lesions/ Ulcerations Neck: Supple, No JVD, Negative Carotid Bruits Lungs: Air entry diminished in bilateral lung bases. Crepitation seems chronic over left lung base. Atelectasis Cardiovascular: Regular rate, Regular Rhythm, Normal S1, Normal S2, No murmurs Abdomen: Bowel Sounds Present, Soft, Non Tender, Non-Distended : No renal angle tenderness. No suprapubic tenderness. Extremities: Mild Bilateral leg edema, Capillary Refill Less than 3 Seconds Skin: 2 - 3 cm ulcer on the right plantar surface status post debridement. Covered with Ernesto wrap bandage. Musculoskeletal: Debilitated. No Tenderness to Palpation of Joints or Extremities Neurological: Decreased sensation of right below-knee, loss of position sense in right leg and foot. Cranial nerves II-XII grossly intact, DTR 2+/4 muscle strength 4/5, less than left hip knee and ankle joints as compared to right Psych/Mental Status: Flat affect. Assessment & Plan Assessment/Plan (1) Generalized weakness: PLAN: 56-year-old female admitted for generalized debility, fall 2 days ago, plantar ulcer covered with discharge with uncontrolled diabetes mellitus type 2. Patient is usually wheelchair-bound but did not ambulate after fall. 1. Generalized debility with hypotension on 01/03/2022- 01/03: Hypotension with DAMIÁN on CKD stage IIIb most likely patient has diabetic neuropathy. DAMIÁN probably due to hypotension. BUN/creatinine increased. Medications adjusted. Vancomycin and Lyrica discontinued. Sertraline dose decreased. Nephrology consulted. Serum TSH and cortisol ordered. Patient started on midodrine 10 mg 3 times daily. UA positive for glucosuria, proteinuria and ketones. WBC 0-5 cells, RBC 5200, LE 25. on observation. PT and OT ordered. 01/04: Creatinine is the same as yesterday 2.51. Discussed with the cabin cleaning supervisor. Urine is cola colored. TSH normal. Cortisol level elevated at 23.5.Urine culture yeastlike organism more than 100,000 colonies, beta-hemolytic organism less than 1000 therefore possible postobstructive was glomerulonephritis. Renal and bladder ultrasound reported negative. No hydronephrosis, calculus focal lesion or perinephric collection. Right kidney 12.2 cm. Left kidney 11.6 cm 01/05: Mild improvement in creatinine. BUN high. Patient had 1 dose of vancomycin 1250 mg on 01/03. Blood pressure is normal since 01/04 afternoon. Urine is clear now overall seems improving. Minor epistaxis, controlled spontaneously. #2 Sepsis due to neuropathic ulceration with infection, strep group B and possible MSSA at right plantar surface with necrosis of muscle, present on admission 01/03: Patient evaluated by tower director. Foot x-ray does not show soft tissue emphysema, foreign body, osseous destruction adjacent to the ulcer site. Prior hardware intact without loosening or failure. Local debridement was performed by patient. Automobile Engine Assembler note reviewed. Palpable DP pulses. Nonpalpable, WATER PURIFIER pulses with atrophic skin, suggestive of distal peripheral artery disease. Lower extremity duplex shows triphasic waveform on WATER PURIFIER and DPA and distal brachial indices normal bilaterally. 01/04: Patient was started on vancomycin and Zosyn yesterday when she had hypotension. Lactic acid was normal. Patient did not had fever, leukocytosis, hypoxia or other signs of organ dysfunction except DAMIÁN on CKD. Blood cultures was ordered. Possibility of sepsis. ID is consulted. 01/05: MSSA and GBS right foot infected diabetic ulcer: Blood culture shows aerobic and anaerobic bottles positive for gram-positive cocci, group B strep. Wound culture positive of MSSA and strep group B. As patient had blood culture and tissue and blood culture positive of microorganism therefore sepsis diagnosis confirmed. ID consult reviewed and appreciated. 01/06: On IV antibiotics. ID follow-up appreciated. Plan for 5 more days p.o. Augmentin at discharge, if creatinine is less than 30 then 500 mg twice daily #3 uncontrolled type 2 diabetes-probably secondary to patient noncompliance, blood sugars will be monitored, sliding scale insulin will be used if needed, patient will remain on her home insulin dosage, I have elected to stop her metformin-I do not believe this is contributing anything to her blood sugar control. Nutritional services will see patient. 01/03: A1c 13%. Suggest uncontrolled diabetes mellitus for long time. She states she is not taking insulin when she went for [place]. Insulin dosage adjusted. 01/04: Lantus and Humalog insulin adjusted. 01/05: Patient blood glucose varies between 120-203. 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 She does not have position sense of right great toe. Rest admission Patient also has atelectasis of left lung base. Incentive spirometry advised #5 essential hypertension-patient will be placed on lisinopril, for some reason patient is not taking an ERNESTO or an ARB and she has type 2 diabetes, I have ordered a UA to check for protein. #6 chronic depression-patient is on Zoloft and trazodone Total time of the visit including total time spent in counseling or coordination of care, (more than 50% of the total time, spent in obtaining medical information from nurses and other ancillary care providers,explaining to the patient about labs, imaging, diagnosis and management), review of quality compliance consultant note, review of labs and imaging is 40 minutes. Charges/Coding Visit Charges Inpatient E&M: 01744 Subs Hosp L2
[2022-01-06 08:15] VITALS: BP 139/63; PULSE 79; RESP 18; TEMP 36.7; O2SAT 96
[2022-01-06] MEDS: Juven (unflavored) Packet 1 PACKET PO ×2 (08:26→17:10)
[2022-01-06] MEDS: Midodrine HCl 5 MG Tablet 10 MG PO ×3 (08:26→17:10)
[2022-01-06 08:28] LABS: Basophil# 0.04 X10^3/uL; Eosinophil# 0.15 X10^3/uL; Hematocrit 28.3 % (37-47); Hemoglobin 9.1 g/dL (12.0-15.0); Mean Corp Hgb Conc 32.2 g/dL (32-36); Mean Corpuscular Hgb 28.9 pg (27.0-32.0); Mean Corpuscular Volume 89.8 fL (81-99); Mean Platelet Vol. 10.5 fl (6.2-12.0); Monocyte# 0.65 X10^3/uL; NRBC Flagged by Analyzer 0 % (0-5); POSITIVE COUNT YES; POSITIVE MORPHOLOGY YES; Platelet Count 250 K/mm3 (150-450); RBC Distribution Width CV 14.7 % (11.6-14.6); Red Blood Count 3.15 M/mm3 (4.2-5.4)
[2022-01-06 08:34] LABS: Differential Indicated SCAN CRITERIA MET
[2022-01-06 08:56] LABS: Anion Gap 5 (5-15); BUN 73 mg/dL (7-18); BUN/Creat Ratio 32.6 RATIO (10-20); Calcium,Total 8.6 mg/dL (8.5-10.1); Chloride 112 mmol/L (98-107); Creatinine, Serum 2.24 mg/dL (0.55-1.02); EST Glomerular Filtration Rate 24 mL/min (>60); Est Glom Filt Rate - Afr Amer 29 mL/min (>60); Estimated Creatinine Clearance 25.94 ml/min; Glucose 87 mg/dL (74-106); Sodium Level 142 mmol/L (136-145)
[2022-01-06 09:06] LABS: Lymphocyte 7 % (19-41); Monocyte 1 % (0-10); Myelocyte 3 % (0-0); Neutrophil-Segmented 89 % (47-70); Total Cells Counted 100 (MANUAL DIFF)
[2022-01-06 09:10] LABS: Scan Smear per Review Criteria MANUAL DIFF
[2022-01-06 09:13] LABS: Absolute Neutrophil Count 9.8 X10^3/uL (2.0-7.7)
[2022-01-06 09:14] LABS: Absolute Lymphocyte Count 0.77 X10^3/uL (0.83-4.51); Lymphocyte # 0.77 X10^3/ul (0.83-4.51)
[2022-01-06 10:11] LABS: Bedside Glucose 101 mg/dL (74-106)
[2022-01-06] MEDS: Doxycycline 100 MG CAPSULE PO ×2 (10:26→22:10)
[2022-01-06] MEDS: Sertraline 100 MG Tablet PO (10:26)
[2022-01-06 11:24] LABS: Complement C3 118 mg/dL (82-167)
--- NOTE | 2022-01-06 11:32 | PCM.PN.REN ---
Subjective Subjective Following for DAMIÁN. The patient continues to feel tired. She has nausea without vomiting. The patient has poor appetite. There is no chest pain, but she complains of some shortness of breath. Objective Data Objective Data Vital Signs: Vital Signs Temp Pulse Resp BP Pulse Ox 98.1 F 79 18 139/63 H 96 01/06/22 08:15 01/06/22 08:15 01/06/22 08:15 01/06/22 08:15 01/06/22 08:15 Oxygen Flow Rate (L/min) 1 Oxygen Delivery Method Nasal Cannula Weight: 78.1 kg Body Mass Index (BMI) 27.8 Intake & Output: Intake and Output for Last 24 Hours 01/04/22 01/05/22 01/06/22 23:59 23:59 23:59 Intake Total 2299.58 / 2299.58 1535.5 / 1535.5 2389 / 2389 Output Total 575 / 1025 1150 / 1150 485 / 485 Balance 1724.58 / 1274.58 385.5 / 385.5 1904 / 1904 Lab / Micro Data Result Diagrams: 01/06/22 08:04 01/06/22 08:04 Labs: Laboratory Results - last 24 hr 01/05/22 05:00: Complement C3 118 01/05/22 11:22: POC Glucose 165 H 01/05/22 16:48: POC Glucose 100 01/05/22 21:42: POC Glucose 106 01/06/22 08:04: WBC 11.0, RBC 3.15 L, Hgb 9.1 L, Hct 28.3 L, MCV 89.8, MCH 28.9, MCHC 32.2, RDW Std Deviation 48.0 H, RDW Coeff of Gabriela 14.7 H, Plt Count 250, MPV 10.5, Immature Gran % (Auto) DENTAL APPLIANCE MECHANIC, Neut % (Auto) DENTAL APPLIANCE MECHANIC, Lymph % (Auto) DENTAL APPLIANCE MECHANIC, [place] % (Auto) DENTAL APPLIANCE MECHANIC, Eos % (Auto) DENTAL APPLIANCE MECHANIC, Baso % (Auto) DENTAL APPLIANCE MECHANIC, Absolute Neuts (auto) 9.8 H, Absolute Lymphs (auto) 0.77 L, Total Counted 100, Neutrophils % (Manual) 89 H, Lymphocytes % (Manual) 7 L, Monocytes % (Manual) 1, Myelocytes % 3 H, Nucleated RBC % 0, Diff Path Review January01/06/22 08:04: Sodium 142, Potassium 4.0, Chloride 112 H, Carbon Dioxide 25.0, Anion Gap 5, BUN 73 H, Creatinine 2.24 H, Estim Creat Clear Calc 25.94, Est GFR (MDRD) Af Amer 29 L, Est GFR (MDRD) Non-Af 24 L, BUN/Creatinine Ratio 32.6 H, Glucose 87, Calcium 8.6 01/06/22 08:22: POC Glucose 101 Micro: Microbiology 01/02/22 23:20 Urine, Catheterized Urine Culture - Final Yeast, not Phil[place] albicans Streptococcus agalactiae (B) 01/03/22 15:05 Blood Culture (Wb) - Left Forearm Bacteria Detection (PCR) - Final Streptococcus agalactiae (B) 01/03/22 15:05 Blood Culture (Wb) - Left Forearm Blood Culture - Final Streptococcus agalactiae (B) 01/03/22 15:15 Blood Culture (Wb) - Left Hand Blood Culture - Final Streptococcus agalactiae (B) 01/02/22 14:35 Wound - Right Foot Gram Stain - Final 01/02/22 14:35 Wound - Right Foot Wound Culture - Final Staphylococcus aureus Streptococcus agalactiae (B) Physical Exam Narrative General: Alert and oriented x 3, some distress from nausea. Skin: no pallor no icterus CVS: Normal s1s2, no murmurs, no JVD Lungs: Clear to auscultation bilaterally Abdomen: Soft, nontender, no guarding or rebound, no organomegaly Extremity: No edema, no cyanosis Assessment & Plan Assessment/Plan (1) DAMIÁN (acute kidney injury): PLAN: -The patient has baseline serum creatinine of around 1.10 mg/dL. -DAMIÁN is either due to prerenal azotemia, ATN or infection related glomerulonephritis. -Renal ultrasound without any hydronephrosis -C3 levels are pending. Would expect C3 to be low in the setting of infection related GN. -So far, serum creatinine has peaked at 2.51 mg/dL in the past 2 days. Serum creatinine is better today at 2.24 mg/dL. -Will continue IV fluid for now since the patient's oral intake is poor. -There is no need for hemodialysis. -Recheck renal function again tomorrow. The current medications are reviewed and are appropriately dosed for her estimated GFR. Strep bacteremia. Infectious diseases following. (2) HTN (hypertension): PLAN: - The patient had been on lisinopril which is now appropriately on hold because of DAMIÁN. -In fact, the patient is hypotensive at times. She is on midodrine. (3) Ulcer of right foot with necrosis of muscle: PLAN: - Infection by MRSA and group B strep. -Status post incision and drainage by podiatry. -Continue antimicrobial as directed by infectious disease service. (4) Diabetes mellitus with diabetic polyneuropathy: PLAN: - Glycemic control as per hospital medicine service.
[2022-01-06 12:01] LABS: Bedside Glucose 109 mg/dL (74-106)
[2022-01-06 17:11] LABS: Bedside Glucose 81 mg/dL (74-106)
[2022-01-06 17:14] VITALS: BP 175/78; PULSE 81; RESP 18; TEMP 36.6; O2SAT 97
[2022-01-06 21:53] VITALS: BP 165/71; PULSE 82; RESP 18; TEMP 36.8; O2SAT 98
[2022-01-06 22:05] LABS: Bedside Glucose 101 mg/dL (74-106)
[2022-01-07 01:59] LABS: Platelet Estimate ADEQUATE (ADEQ)
[2022-01-07 02:00] LABS: Red Cell Morphology NORM C+C NORMAL (NORM C&C)
[2022-01-07 04:17] VITALS: BP 165/79; PULSE 87; RESP 18; TEMP 37.1; O2SAT 97
[2022-01-07] MEDS: Nystatin Powder 15gm Bottle 1 APPLIC TOPICAL (04:21)
[2022-01-07] MEDS: 0.9% Normal Saline 1,000 ML 100 ML IV (04:21)
[2022-01-07 06:16] LABS: Hematocrit 28.4 % (37-47); Hemoglobin 8.7 g/dL (12.0-15.0); Mean Corp Hgb Conc 30.6 g/dL (32-36); Mean Corpuscular Hgb 27.4 pg (27.0-32.0); Mean Corpuscular Volume 89.6 fL (81-99); Mean Platelet Vol. 9.9 fl (6.2-12.0); POSITIVE COUNT YES; POSITIVE MORPHOLOGY YES; Platelet Count 302 K/mm3 (150-450); RBC Distribution Width CV 14.4 % (11.6-14.6); RBC Distribution Width SD 47.5 fl (35.1-43.9); Red Blood Count 3.17 M/mm3 (4.2-5.4); White Blood Count 11.4 K/mm3 (4.4-11.0)
[2022-01-07 06:18] LABS: Differential Indicated MANUAL DIFF
[2022-01-07 06:45] LABS: Anion Gap 10 (5-15); BUN 62 mg/dL (7-18); BUN/Creat Ratio 31.2 RATIO (10-20); Calcium,Total 8.2 mg/dL (8.5-10.1); Chloride 111 mmol/L (98-107); Creatinine, Serum 1.99 mg/dL (0.55-1.02); EST Glomerular Filtration Rate 27 mL/min (>60); Est Glom Filt Rate - Afr Amer 33 mL/min (>60); Glucose 112 mg/dL (74-106); Potassium 3.9 mmol/L (3.5-5.1); Sodium Level 142 mmol/L (136-145)
[2022-01-07 06:54] LABS: Basophil 1 % (0-1); Lymphocyte 3 % (19-41); Metamyelocyte 1 % (0-1); Monocyte 5 % (0-10); Neutrophil-Band 2 % (0-5); Neutrophil-Segmented 88 % (47-70); Total Cells Counted 100 (MANUAL DIFF)
[2022-01-07 06:55] LABS: Absolute Lymphocyte Count 0.34 X10^3/uL (0.83-4.51); Absolute Neutrophil Count 10.3 X10^3/uL (2.0-7.7); Lymphocyte # 0.34 X10^3/ul (0.83-4.51); Neutrophil # 10.34 X10^3/uL (2.7-7.7)
[2022-01-07 06:56] LABS: Platelet Estimate ADEQUATE (ADEQ); Red Cell Morphology NORM C+C NORMAL (NORM C&C)
--- NOTE | 2022-01-07 07:28 | TREXTCAR_ITS ---
Diet 01/02/22 14:15 Diet: Consistent Carb - Calorie Controlled Food consistency:: Regular Liquid Consistency:: Regular/Thin Dietary Modifications:: Cardiac / Heart Healthy Diet Comments: 1-2 oz extra lean meat/protein Q meal How many daily calories?: 1800 calorie Routine Orders/Code Status Suppository Type: Dulcolax 10mg Suppository Frequency: Daily PRN Routine Lab Work: BMP (in 2 days and follow up with Dr Sierra) Wound(s) right heel: Wound Type: Neuropathic/Diabetic Foot Ulcer round scabs on right lateral hip area: Wound Type: scabbed right plantar foot: Wound Type: Neuropathic/Diabetic Foot Ulcer Dressing Change: AntiMicrobial (Aquacel AG, etc) Therapies Weight Bearing: Weight bearing as tolerated (on right heel) Physical Therapy: Eval and Treat Occupational Therapy: Eval and Treat Speech Therapy: Eval and Treat Problem/Diagnosis (1) DAMIÁN (acute kidney injury): Status: Acute (2) HTN (hypertension): Status: Chronic (3) Ulcer of right foot with necrosis of muscle: Status: Acute (4) Diabetes mellitus with diabetic polyneuropathy: Status: Acute Allergies/Procedures Done in Hospital Allergies morphine Adverse Reaction (Verified 01/02/22 10:09) Vomiting Type of Care/Length of Stay Estimated LOS: Convalescent Care Less Than 30 days Type of Care Needed: Skilled Rehab Potential: Good Prognosis: Good Additional Orders/Day of Discharge Day of Discharge: 01/07/22 Dietary and Speech Recommendations Dietitian Recommendations/Changes: 1800 calorie/consistent-carbohydrate; cardiac diet--will add 1-2 oz protein Q meal. Continue Ahsan BID for wound healing. Diet instruction as patient willing. Discharge Plan Admission Admit Date/Time: 01/03/22 16:08 Primary Reason for Your Visit: Sepsis abd bacteremia due to foot ulcer, DAMIÁN ON CKD Attending Provider: Martin Mcmahon Primary Care Provider: Kim Salas NP Consulting Providers: Anca Wilde ; Isabela Sierra ; Blas Haile Instructions Additional Instructions / Restrictions: Change right foot dressing daily with Aquacel Ag, 4 x 4 gauze, Kerlix and Ernesto wrap. Wash with antibacterial soap and water with dressing changes. Maintain a nonweightbearing status of right lower extremity. Take nutritional supplementation to promote wound healing and work towards improving hemoglobin A1c. Discharge Orders/Prescriptions Prescriptions: New Ahsan (with collagen) 7-7-1.5 gram Powder In Packet 1 packet PO BIDCM Qty: 0 RF: 0 sennosides-docusate sodium [Stool Softener-Stimulant Laxat] 8.6-50 mg Tablet 2 tab PO BID Qty: 0 RF: 0 nystatin [Nyamyc] 100,000 unit/gram Powder 1 applic topical TID Qty: 0 RF: 0 psyllium husk [Fiber (psyllium husk)] 0.4 gram capsule 0.4 g PO BID Qty: 30 RF: 0 oxycodone 5 mg Tablet 5 mg PO Q6H PRN PRN (Reason: Pain Score 6-10) 2 Days Qty: 7 RF: 0 trazodone 50 mg Tablet 50 mg PO QHS PRN (Reason: Insomnia) Qty: 0 RF: 0 sertraline 100 mg Tablet 100 mg PO DAILY Qty: 0 RF: 0 insulin lispro [Humalog KwikPen Insulin] 100 unit/mL Insulin Pen See Protocol unit subcut ACHS Qty: 0 RF: 0 amoxicillin-pot clavulanate [Augmentin] 500-125 mg tablet 1 tab PO BID Qty: 10 RF: 0 insulin lispro [Humalog KwikPen Insulin] 100 unit/mL Insulin Pen 30 unit subcut 0800,1200,1700 Qty: 0 RF: 0 Continued albuterol sulfate [ProAir HFA] 1 PUFF inhaler 2 puff Q4H PRN PRN (Reason: Sob &/Or Wheezing) RF: 0 hydroxyzine HCl 25 mg Tablet 25 mg PO QHS RF: 0 hydralazine 25 MG tablet 25 mg PO DAILY Qty: 0 RF: 0 Changed pregabalin [Lyrica] 100 MG capsule 100 mg PO DAILY Qty: 0 RF: 0 Levemir FlexTouch U-100 Insuln 100 UNITS/ML insulin pen 90 unit subcut QHS Qty: 0 RF: 0 insulin lispro [Humalog Dameon KwikPen U-100] 100 unit/mL Insulin Pen, Half- Unit 30 unit SUBCUT TID Qty: 0 RF: 0 Held metformin 500 MG tablet 1,000 mg DAILY RF: 0 Hold Instructions: Hold for 1 week until creatinine clearance is persistently more than 30 mill per minute Discontinued oxycodone-acetaminophen 1 TABLET tablet 1 tab BID PRN (Reason: Pain) RF: 0 ibuprofen [IBU] 600 MG tablet 600 mg Q6H PRN PRN (Reason: Pain) RF: 0 trazodone 150 mg Tablet 150 mg PO QHS RF: 0 sertraline 200 mg Capsule 200 mg PO DAILY RF: 0 Referrals / Follow Up: Isabela Sierra MD [STAFF PHYSICIAN] - In 1 Week ( For acute continuous CKD) Anca Wilde DPM [STAFF PHYSICIAN] - Within 2 Weeks (Follow-up with your wound healing center provider at [facility]. If you are unable to follow- up, you are also more than welcome to follow-up at [facility]; call [phone]) Blas Haile MD [STAFF PHYSICIAN] - Within 1 Month (As needed for foot ulcer) Kim Salas NP, [facility] CAPITALIST-C [Primary Care Provider] - Within 2 Weeks Disposition Disposition (needs filled in before D/C Order can be placed): Senior Living Facility
[2022-01-07] MEDS: oxyCODONE 5 MG Tablet PO (08:11)
[2022-01-07] MEDS: Juven (unflavored) Packet 1 PACKET PO (08:13)
[2022-01-07] MEDS: Acetaminophen 325 MG Tablet 650 MG PO (08:13)
[2022-01-07 08:14] VITALS: O2SAT 91
[2022-01-07 08:36] LABS: Bedside Glucose 133 mg/dL (74-106)
[2022-01-07] MEDS: Senna/Docusate Sodium 1 Tablet 2 TABLET PO (10:10)
[2022-01-07] MEDS: Doxycycline 100 MG CAPSULE PO (10:10)
[2022-01-07] MEDS: Sertraline 100 MG Tablet PO (10:10)
[2022-01-07] MEDS: Bisacodyl 5 MG Tablet PO (10:10)
[2022-01-07 10:15] VITALS: BP 165/74; PULSE 90; RESP 18; TEMP 36.8; O2SAT 94
--- NOTE | 2022-01-07 10:49 | DS.PCM_ITS ---
Providers Date of Admission: 01/03/22 Date of Discharge: 01/07/22 Primary Care Physician: OLGA Mckeon Consultations 01/02/22 14:34 Consult: Onc/Wound/mammalogy teacher Routine Comment: Reason for Consult:: Right foot wound Consult: Podiatry Routine Consulting Provider: Anca Wilde Reason for Consult: foot wound. diabetic patient EMERGENT Consult: No MD Notified: Yes Date Notified: 01/02/22 Time Notified: 14:34 Method of Notification: Text 01/04/22 07:43 Consult: Nephrology Routine Consulting Provider: Isabela Sierra Reason for Consult: DAMIÁN ON CKD stage 3b EMERGENT Consult: No MD Notified: Yes Date Notified: 01/04/22 Time Notified: 07:43 Method of Notification: Verbal 01/04/22 07:51 Consult: Infectious Disease Routine Consulting Provider: Blas Haile Reason for Consult: Diabetic neuropathic ulcer, strep gr B, Staph EMERGENT Consult: No MD Notified: Yes Date Notified: 01/04/22 Time Notified: 07:51 Method of Notification: Text Reason For Visit: DEBILITY Diagnosis Discharge Diagnosis (1) DAMIÁN (acute kidney injury): Status: Acute Code(s): N17.9 - Acute kidney failure, unspecified (2) HTN (hypertension): Status: Chronic Code(s): I10 - Essential (primary) hypertension (3) Ulcer of right foot with necrosis of muscle: Status: Acute Code(s): L97.513 - Non-pressure chronic ulcer of other part of right foot with necrosis of muscle (4) Diabetes mellitus with diabetic polyneuropathy: Status: Acute Code(s): E11.42 - Type 2 diabetes mellitus with diabetic polyneuropathy (5) Sepsis: Status: Acute Code(s): A41.9 - Sepsis, unspecified organism Medications at Discharge Home Medications albuterol sulfate [ProAir HFA] 2 puff Q4H PRN PRN 01/28/18 metformin 1,000 mg DAILY 01/28/18 hydroxyzine HCl 25 mg PO QHS 01/02/22 Levemir FlexTouch U-100 Insuln 90 unit SUBCUT QHS #0 ml 01/07/22 amoxicillin-pot clavulanate [Augmentin] 1 tab PO BID #10 tab 01/07/22 qinis-[id number]-[id number]-bq-gaj [Ahsan (with collagen)] 1 packet PO BIDCM #0 ea 01/07/22 hydralazine 25 mg PO DAILY #0 tab 01/07/22 insulin lispro [Humalog Dameon KwikPen U-100] 30 unit SUBCUT TID #0 ml 01/07/22 insulin lispro [Humalog KwikPen Insulin] 30 unit SUBCUT 0800,1200,1700 #0 ml 01/07/22 insulin lispro [Humalog KwikPen Insulin] See Protocol SUBCUT ACHS #0 ml 01/07/22 nystatin [Nyamyc] 1 applic TOPICAL TID #0 g 01/07/22 oxycodone 5 mg PO Q6H PRN PRN 2 Days #7 tab 01/07/22 pregabalin [Lyrica] 100 mg PO DAILY #0 cap 01/07/22 psyllium husk [Fiber (psyllium husk)] 0.4 g PO BID #30 cap 01/07/22 sennosides-docusate sodium [Stool Softener-Stimulant Laxat] 2 tab PO BID #0 tab 01/07/22 sertraline 100 mg PO DAILY #0 tab 01/07/22 trazodone 50 mg PO QHS PRN #0 tab 01/07/22 Hospital Course Summary of Care Provided Hospital Course: 56-year-old female admitted for generalized debility, fall 2 days ago, plantar ulcer covered with discharge with uncontrolled diabetes mellitus type 2. Patient is usually wheelchair-bound but did not ambulate after fall. 1. Generalized debility with hypotension on 01/03/2022 with DAMIÁN on CKD stage IIIb 01/03: Hypotension with DAMIÁN on CKD stage IIIb most likely patient has diabetic neuropathy. DAMIÁN probably due to hypotension. BUN/creatinine increased. Medications adjusted. Vancomycin and Lyrica discontinued. Sertraline dose decreased. Nephrology consulted. Serum TSH and cortisol ordered. Patient started on midodrine 10 mg 3 times daily. UA positive for glucosuria, proteinuria and ketones. WBC 0-5 cells, RBC 5200, LE 25. on observation. 01/04: Creatinine is the same as yesterday 2.51. Discussed with the professor of german. Urine is cola colored. TSH normal. Cortisol level elevated at 23.5.Urine culture yeastlike organism more than 100,000 colonies, beta-hemolytic organism less than 1000 therefore possible postobstructive was glomerulonephritis. Renal and bladder ultrasound reported negative. No hydronephrosis, calculus focal lesion or perinephric collection. Right kidney 12.2 cm. Left kidney 11.6 cm 01/05: Mild improvement in creatinine. BUN high. Patient had 1 dose of vancomycin 1250 mg on 01/03. Blood pressure is normal since 01/04 afternoon. Urine is clear now overall seems improving. Minor epistaxis, controlled spontaneously. 01/07: Blood pressure on the higher side, 165/74. Midodrine and IV fluid discontinued. Patient is stable for discharge. C3 is normal therefore poststreptococcal nephritis possibility low. #2 Sepsis due to neuropathic ulceration with infection, strep group B and possible MSSA at right plantar surface with necrosis of muscle, present on admission 01/03: Patient evaluated by content designer. Foot x-ray does not show soft tissue emphysema, foreign body, osseous destruction adjacent to the ulcer site. Prior hardware intact without loosening or failure. Local debridement was performed by patient. Replanting Machine Crewman note reviewed. Palpable DP pulses. Nonpalpable, STUDENT NURSE pulses with atrophic skin, suggestive of distal peripheral artery disease. Lower extremity duplex shows triphasic waveform on STUDENT NURSE and DPA and distal brachial indices normal bilaterally. Patient was started on vancomycin and Zosyn, had 1 dose of vancomycin as she had hypotension. Lactic acid was normal. Patient did not had fever, leukocytosis, hypoxia or other signs of organ dysfunction except DAMIÁN on CKD. Blood cultures was ordered. Possibility of sepsis. ID is consulted. Vancomycin discontinued after 1 dose. Patient on doxycycline and IV Unasyn. Blood culture shows aerobic and anaerobic bottles positive for , group B strep. Wound culture positive of MSSA and strep group B. As patient had blood culture and tissue and blood culture positive of microorganism therefore sepsis diagnosis confirmed. ID consult reviewed and appreciated. 01/07: Patient is discharged on Augmentin 500 mg twice daily at discharge as per creatinine clearance for 5 days. #3 uncontrolled type 2 diabetes-probably secondary to patient noncompliance, blood sugars will be monitored, sliding scale insulin will be used if needed, patient will remain on her home insulin dosage, I have elected to stop her metformin-I do not believe this is contributing anything to her blood sugar control. Nutritional services will see patient. 01/03: A1c 13%. Suggest uncontrolled diabetes mellitus for long time. She states she is not taking insulin when she went for [place]. Insulin dosage adjusted. 01/04: Lantus and Humalog insulin adjusted. 01/05: Patient blood glucose varies between 120-203. 01/07: Patient had fluctuation in the glucose. Insulin dose adjusted #4 diabetic peripheral Polyneuropathy of the feet-complicates care, recovery, and prognosis: Left leg worse than the right leg. She does not have position sense of right great toe. Rest admission Patient also has atelectasis of left lung base. Incentive spirometry advised #5 essential hypertension-patient will be placed on lisinopril, for some reason patient is not taking an ERNESTO or an ARB and she has type 2 diabetes, I have ordered a UA to check for protein. #6 chronic depression-patient is on Zoloft and trazodone Discharge medication reconciliation done. Discharge follow-up instructions completed. Discharge process discussed with the patient and all questions were answered to patient's satisfaction. Discharged to SNF. Scripts printed. Total time spent, exact 35 minutes on discharge meds reconciliation, examination, coordination of care with nurses and ancillary staff, review of imaging and blood test and discussion with the patient on follow-up instruct ions. Physical Exam Narrative Seen and examined. Patient is mild fatigue otherwise improving. Symptoms are improved. General: Alert, Oriented x3, moderate degree of malnourished. HEENT: Atraumatic, PERRLA, EOMI, Normocephalic Oral: No Gingival or Mucosal Lesions/ Ulcerations Neck: Supple, No JVD, Negative Carotid Bruits Lungs: Air entry diminished in bilateral lung bases. Crepitation seems chronic over left lung base. Left lung base atelectasis Cardiovascular: Regular rate, Regular Rhythm, Normal S1, Normal S2, No murmurs Abdomen: Bowel Sounds Present, Soft, Non Tender, Non-Distended : Urine is clear in [place] cath. No renal angle tenderness. No suprapubic tenderness. Extremities: Mild Bilateral leg edema, Capillary Refill Less than 3 Seconds Skin: 2 - 3 cm ulcer on the right plantar surface status post debridement. Covered with Ernesto wrap bandage. Musculoskeletal: Debilitated. No Tenderness to Palpation of Joints or Extremities Neurological: Decreased sensation of right below-knee, loss of position sense in right leg and foot. Cranial nerves II-XII grossly intact, DTR 2+/4 muscle strength 4/5, less than left hip knee and ankle joints as compared to right Psych/Mental Status: Flat affect. Weight / BMI Weight Weight: 172 lb 2.896 oz Body Mass Index (BMI) 27.8 ABG / Lab / Microbiology Data Result Diagrams: 01/07/22 05:15 01/07/22 05:15 Laboratory: Laboratory Results - last 24 hr 01/05/22 05:00: Complement C3 118 01/06/22 08:04: WBC 11.0, RBC 3.15 L, Hgb 9.1 L, Hct 28.3 L, MCV 89.8, MCH 28.9, MCHC 32.2, RDW Std Deviation 48.0 H, RDW Coeff of Gabriela 14.7 H, Plt Count 250, MPV 10.5, Immature Gran % (Auto) DRYWALL TAPER HELPER, Neut % (Auto) DRYWALL TAPER HELPER, Lymph % (Auto) DRYWALL TAPER HELPER, [place] % (Auto) DRYWALL TAPER HELPER, Eos % (Auto) DRYWALL TAPER HELPER, Baso % (Auto) DRYWALL TAPER HELPER, Absolute Neuts (auto) 9.8 H, Absolute Lymphs (auto) 0.77 L, Total Counted 100, Neutrophils % (Manual) 89 H, Lymphocytes % (Manual) 7 L, Monocytes % (Manual) 1, Myelocytes % 3 H, Nucleated RBC % 0, Diff Path Review January, Platelet Estimate ADEQUATE, RBC Morphology NORM C+C 01/06/22 08:04: Sodium 142, Potassium 4.0, Chloride 112 H, Carbon Dioxide 25.0, Anion Gap 5, BUN 73 H, Creatinine 2.24 H, Estim Creat Clear Calc 25.94, Est GFR (MDRD) Af Amer 29 L, Est GFR (MDRD) Non-Af 24 L, BUN/Creatinine Ratio 32.6 H, Glucose 87, Calcium 8.6 01/06/22 08:22: POC Glucose 101 01/06/22 11:41: POC Glucose 109 H 01/06/22 17:01: POC Glucose 81 01/06/22 21:57: POC Glucose 101 01/07/22 05:15: WBC 11.4 H, RBC 3.17 L, Hgb 8.7 L, Hct 28.4 L, MCV 89.6, MCH 27.4, MCHC 30.6 L, RDW Std Deviation 47.5 H, RDW Coeff of Gabriela 14.4, Plt Count 302, MPV 9.9, Neut % (Auto) Not Reportable, Absolute Neuts (auto) 10.3 H, Absolute Lymphs (auto) 0.34 L, Total Counted 100, Neutrophils % (Manual) 88 H, Band Neutrophils % 2, Lymphocytes % (Manual) 3 L, Monocytes % (Manual) 5, Basophils % (Manual) 1, Metamyelocytes % 1, Diff Path Review May , Platelet Estimate ADEQUATE, RBC Morphology NORM C+C 01/07/22 05:15: Sodium 142, Potassium 3.9, Chloride 111 H, Carbon Dioxide 21.0, Anion Gap 10, BUN 62 H, Creatinine 1.99 H, Estim Creat Clear Calc 29.20, Est GFR (MDRD) Af Amer 33 L, Est GFR (MDRD) Non-Af 27 L, BUN/Creatinine Ratio 31.2 H, Glucose 112 H, Calcium 8.2 L Microbiology: Microbiology 01/02/22 23:20 Urine, Catheterized Urine Culture - Final Yeast, not [place] albicans Streptococcus agalactiae (B) 01/03/22 15:05 Blood Culture (Wb) - Left Forearm Bacteria Detection (PCR) - Final Streptococcus agalactiae (B) 01/03/22 15:05 Blood Culture (Wb) - Left Forearm Blood Culture - Final Streptococcus agalactiae (B) 01/03/22 15:15 Blood Culture (Wb) - Left Hand Blood Culture - Final Streptococcus agalactiae (B) 01/02/22 14:35 Wound - Right Foot Gram Stain - Final 01/02/22 14:35 Wound - Right Foot Wound Culture - Final Staphylococcus aureus Streptococcus agalactiae (B) Meaningful Use Info Meaningful Use Diagnoses (Choose all that apply): None applicable Discharge Plan Admission Admit Date/Time: 01/03/22 16:08 Primary Reason for Your Visit: Sepsis abd bacteremia due to foot ulcer, DAMIÁN ON CKD Attending Provider: Martin Mcmahon Primary Care Provider: Kim Salas NP Consulting Providers: Anca Wilde ; Isabela Sierra ; Blas Haile Instructions Additional Instructions / Restrictions: Change right foot dressing daily with Aquacel Ag, 4 x 4 gauze, Kerlix and Ernesto wrap. Wash with antibacterial soap and water with dressing changes. Maintain a nonweightbearing status of right lower extremity. Take nutritional supplementation to promote wound healing and work towards improving hemoglobin A1c. Discharge Orders/Prescriptions Prescriptions: New Ahsan (with collagen) 7-7-1.5 gram Powder In Packet 1 packet PO BIDCM Qty: 0 RF: 0 sennosides-docusate sodium [Stool Softener-Stimulant Laxat] 8.6-50 mg Tablet 2 tab PO BID Qty: 0 RF: 0 nystatin [Nyamyc] 100,000 unit/gram Powder 1 applic topical TID Qty: 0 RF: 0 psyllium husk [Fiber (psyllium husk)] 0.4 gram capsule 0.4 g PO BID Qty: 30 RF: 0 oxycodone 5 mg Tablet 5 mg PO Q6H PRN PRN (Reason: Pain Score 6-10) 2 Days Qty: 7 RF: 0 trazodone 50 mg Tablet 50 mg PO QHS PRN (Reason: Insomnia) Qty: 0 RF: 0 sertraline 100 mg Tablet 100 mg PO DAILY Qty: 0 RF: 0 insulin lispro [Humalog KwikPen Insulin] 100 unit/mL Insulin Pen See Protocol unit subcut ACHS Qty: 0 RF: 0 amoxicillin-pot clavulanate [Augmentin] 500-125 mg tablet 1 tab PO BID Qty: 10 RF: 0 insulin lispro [Humalog KwikPen Insulin] 100 unit/mL Insulin Pen 30 unit subcut 0800,1200,1700 Qty: 0 RF: 0 Continued albuterol sulfate [ProAir HFA] 1 PUFF inhaler 2 puff Q4H PRN PRN (Reason: Sob &/Or Wheezing) RF: 0 hydroxyzine HCl 25 mg Tablet 25 mg PO QHS RF: 0 hydralazine 25 MG tablet 25 mg PO DAILY Qty: 0 RF: 0 Changed pregabalin [Lyrica] 100 MG capsule 100 mg PO DAILY Qty: 0 RF: 0 Levemir FlexTouch U-100 Insuln 100 UNITS/ML insulin pen 90 unit subcut QHS Qty: 0 RF: 0 insulin lispro [Humalog Dameon KwikPen U-100] 100 unit/mL Insulin Pen, Half- Unit 30 unit SUBCUT TID Qty: 0 RF: 0 Held metformin 500 MG tablet 1,000 mg DAILY RF: 0 Hold Instructions: Hold for 1 week until creatinine clearance is persistently more than 30 mill per minute Discontinued oxycodone-acetaminophen 1 TABLET tablet 1 tab BID PRN (Reason: Pain) RF: 0 ibuprofen [IBU] 600 MG tablet 600 mg Q6H PRN PRN (Reason: Pain) RF: 0 trazodone 150 mg Tablet 150 mg PO QHS RF: 0 sertraline 200 mg Capsule 200 mg PO DAILY RF: 0 Referrals / Follow Up: Isabela Sierra MD [STAFF PHYSICIAN] - In 1 Week ( For acute continuous CKD) Anca Wilde DPM [STAFF PHYSICIAN] - Within 2 Weeks (Follow-up with your wound healing center provider at [facility]. If you are unable to follow- up, you are also more than welcome to follow-up at the [facility]; call [phone]) Blas Haile MD [STAFF PHYSICIAN] - Within 1 Month (As needed for foot ulcer) Kim Salas NP, DRYWALL TAPER HELPER-C [Primary Care Provider] - Within 2 Weeks Disposition Disposition (needs filled in before D/C Order can be placed): [facility] Charges/Coding Visit Charges Inpatient E&M: 03442 Disch Hosp
--- NOTE | 2022-01-07 11:09 | PCM.PN.REN ---
Subjective Subjective Following for DAMIÁN. Patient denies chest pain, shortness of breath, or nausea. Objective Data Objective Data Vital Signs: Vital Signs Temp Pulse Resp BP Pulse Ox 98.3 F 90 18 165/74 H 94 01/07/22 10:15 01/07/22 10:15 01/07/22 10:15 01/07/22 10:15 01/07/22 10:15 Oxygen Flow Rate (L/min) 2 Oxygen Delivery Method Room Air Weight: 78.1 kg Body Mass Index (BMI) 27.8 Intake & Output: Intake and Output for Last 24 Hours 01/05/22 01/06/22 01/07/22 23:59 23:59 23:59 Intake Total 1535.5 / 1535.5 4399.33 / 4399.33 701.67 / 701.67 Output Total 1150 / 1150 1785 / 1785 750 / 750 Balance 385.5 / 385.5 2614.33 / 2614.33 -48.33 / -48.33 Lab / Micro Data Result Diagrams: 01/07/22 05:15 01/07/22 05:15 Labs: Laboratory Results - last 24 hr 01/05/22 05:00: Complement C3 118 01/06/22 08:04: Platelet Estimate ADEQUATE, RBC Morphology NORM C+C 01/06/22 11:41: POC Glucose 109 H 01/06/22 17:01: POC Glucose 81 01/06/22 21:57: POC Glucose 101 01/07/22 05:15: WBC 11.4 H, RBC 3.17 L, Hgb 8.7 L, Hct 28.4 L, MCV 89.6, MCH 27.4, MCHC 30.6 L, RDW Std Deviation 47.5 H, RDW Coeff of Gabriela 14.4, Plt Count 302, MPV 9.9, Neut % (Auto) Not Reportable, Absolute Neuts (auto) 10.3 H, Absolute Lymphs (auto) 0.34 L, Total Counted 100, Neutrophils % (Manual) 88 H, Band Neutrophils % 2, Lymphocytes % (Manual) 3 L, Monocytes % (Manual) 5, Basophils % (Manual) 1, Metamyelocytes % 1, Diff Path Review January, Platelet Estimate ADEQUATE, RBC Morphology NORM C+C 01/07/22 05:15: Sodium 142, Potassium 3.9, Chloride 111 H, Carbon Dioxide 21.0, Anion Gap 10, BUN 62 H, Creatinine 1.99 H, Estim Creat Clear Calc 29.20, Est GFR (MDRD) Af Amer 33 L, Est GFR (MDRD) Non-Af 27 L, BUN/Creatinine Ratio 31.2 H, Glucose 112 H, Calcium 8.2 L 01/07/22 08:05: POC Glucose 133 H Micro: Microbiology 01/07/22 09:22 Nasal Secretion SARS-CoV-2 Antigen (Rapid) - Final 01/02/22 23:20 Urine, Catheterized Urine Culture - Final Yeast, not [place] albicans Streptococcus agalactiae (B) 01/03/22 15:05 Blood Culture (Wb) - Left Forearm Bacteria Detection (PCR) - Final Streptococcus agalactiae (B) 01/03/22 15:05 Blood Culture (Wb) - Left Forearm Blood Culture - Final Streptococcus agalactiae (B) 01/03/22 15:15 Blood Culture (Wb) - Left Hand Blood Culture - Final Streptococcus agalactiae (B) 01/02/22 14:35 Wound - Right Foot Gram Stain - Final 01/02/22 14:35 Wound - Right Foot Wound Culture - Final Staphylococcus aureus Streptococcus agalactiae (B) Physical Exam Narrative General: Alert and oriented x 3, some distress from nausea. Skin: no pallor no icterus CVS: Normal s1s2, no murmurs, no JVD Lungs: Clear to auscultation bilaterally Abdomen: Soft, nontender, no guarding or rebound, no organomegaly Extremity: No edema, no cyanosis Assessment & Plan Assessment/Plan (1) DAMIÁN (acute kidney injury): PLAN: -The patient has baseline serum creatinine of around 1.10 mg/dL. -DAMIÁN is most likely due to prerenal azotemia or ATN. Is less likely to be due to infection related glomerulonephritis since C3 is normal. -Renal ultrasound without any hydronephrosis -So far, serum creatinine has peaked at 2.51 mg/dL on 01/06/2022. Serum creatinine is continuing to improve. Serum creatinine is at 1.99 mg/dL today. -There is no need for hemodialysis. -Okay for discharge from nephrology standpoint. -I have both her phone number and her daughter's phone number and will arrange for follow-up in 1 to 2 weeks in our office. -Nephrology plan discussed with Dr. Mcmahon. (2) HTN (hypertension): PLAN: - The patient had been on lisinopril which is now appropriately on hold because of DAMIÁN. -BP is now on the higher side. Midodrine has been discontinued. -If blood pressure continues to be consistently above 140/90, I will start amlodipine instead of lisinopril at this point. (3) Ulcer of right foot with necrosis of muscle: PLAN: - Infection by MRSA and group B strep. -Status post incision and drainage by podiatry. -Continue antimicrobial as directed by infectious disease service. (4) Diabetes mellitus with diabetic polyneuropathy: PLAN: - Glycemic control as per hospital medicine service.
[2022-01-07] MEDS: Insulin Lispro 100 UNIT/ML INSULN.PEN SC (11:35)
[2022-01-07 11:46] LABS: Bedside Glucose 176 mg/dL (74-106)
--- NOTE | 2022-01-07 12:22 | NURSING ---
Report called to [facility] to nurse Salome
[2022-01-08 10:16] LABS: Pathologist Review Reviewed
[2022-01-08 10:18] LABS: Pathologist Review Reviewed
== END 2022-01-07 13:45 | disposition skilled nursing facility (03) | DRG 872 ==
LOC: ED 13:22 → MS3 14:17
PROVIDERS: Internal Medicine Nephrology; Admitting Provider Internal Medicine; Emergency Provider Emergency Medicine; PCP Nurse Practitioner Family; Visit Provider Internal Medicine
DX: A41.01 Sepsis due to Methicillin susceptible Staphylococcus aureus (principal); E44.1 Mild protein-calorie malnutrition; N17.9 Acute kidney failure, unspecified; L97.513 Non-pressure chronic ulcer of other part of right foot with necrosis of muscle; E11.42 Type 2 diabetes mellitus with diabetic polyneuropathy; E11.22 Type 2 diabetes mellitus with diabetic chronic kidney disease; E11.51 Type 2 diabetes mellitus with diabetic peripheral angiopathy without gangrene; I95.9 Hypotension, unspecified; E11.621 Type 2 diabetes mellitus with foot ulcer; Z79.4 Long term (current) use of insulin; E11.65 Type 2 diabetes mellitus with hyperglycemia; N18.32 Chronic kidney disease, stage 3b; I12.9 Hypertensive chronic kidney disease with stage 1 through stage 4 chronic kidney disease, or unspecified chronic kidney disease; E86.0 Dehydration; M19.071 Primary osteoarthritis, right ankle and foot; W19.XXXA Unspecified fall, initial encounter; M25.551 Pain in right hip; F32.A Depression, unspecified; Z79.899 Other long term (current) drug therapy; Z91.14 Patient's other noncompliance with medication regimen; Z91.81 History of falling; Z68.27 Body mass index [BMI] 27.0-27.9, adult; R01.1 Cardiac murmur, unspecified
CPT/HCPCS: 36415; 36600; 70450; 71045; 73502; 73610; 73630; 74176; 76770; 80048; 80076; 81001; 82533; 82550; 82803; 82947; 82962; 83605; 84443; 85025; 86160; 87040; 87070; 87077; 87086; 87088; 87149; 87186; 87205; 87426; 87640; 93923; 94667; 94668; 97110; 97162; 97166; 97530; 97535; 97802; 99285; J7030; J7050; J7120; A4216; J0295

== ENCOUNTER → 2022-01-09 | Outpatient (REF) | payer MEDICARE, MEDICAID, SELFPAY ==
[2022-01-09 08:46] LABS: Anion Gap 9 (5-15); BUN 45 mg/dL (7-18); BUN/Creat Ratio 26.2 RATIO (10-20); Calcium,Total 8.5 mg/dL (8.5-10.1); Chloride 110 mmol/L (98-107); Creatinine, Serum 1.72 mg/dL (0.55-1.02); EST Glomerular Filtration Rate 32 mL/min (>60); Est Glom Filt Rate - Afr Amer 39 mL/min (>60); Glucose 84 mg/dL (74-106); Potassium 3.2 mmol/L (3.5-5.1); Sodium Level 142 mmol/L (136-145)
== END | disposition home or self-care (01) ==
LOC: OLS.SANC 06:45
PROVIDERS: PCP Nurse Practitioner Family; Visit Provider Internal Medicine
DX: E03.9 Hypothyroidism, unspecified (principal); E11.9 Type 2 diabetes mellitus without complications
CPT/HCPCS: 36415; 80048

== ENCOUNTER → 2022-01-16 | Outpatient (REF) | payer SELFPAY ==
[2022-01-16 08:05] LABS: Hematocrit 24.3 % (37-47); Hemoglobin 7.5 g/dL (12.0-15.0); Mean Corp Hgb Conc 30.9 g/dL (32-36); Mean Corpuscular Volume 87.4 fL (81-99); Mean Platelet Vol. 9.9 fl (6.2-12.0); Platelet Count 436 K/mm3 (150-450); RBC Distribution Width CV 12.9 % (11.6-14.6); RBC Distribution Width SD 41.5 fl (35.1-43.9); Red Blood Count 2.78 M/mm3 (4.2-5.4); White Blood Count 8.6 K/mm3 (4.4-11.0)
[2022-01-16 08:18] LABS: ALB/GLOB Ratio 0.3 RATIO (0.9-2.4); AST(SGOT) 11 U/L (15-37); Alanine Aminotransfer ALT/SGPT 8 U/L (13-56); Albumin, Serum 1.6 g/dL (3.2-5.0); Alkaline Phosphatase 70 U/L (45-117); Anion Gap 7 (5-15); BUN 24 mg/dL (7-18); BUN/Creat Ratio 14.5 RATIO (10-20); Calcium,Total 8.3 mg/dL (8.5-10.1); Chloride 104 mmol/L (98-107); Creatinine, Serum 1.65 mg/dL (0.55-1.02); EST Glomerular Filtration Rate 34 mL/min (>60); Est Glom Filt Rate - Afr Amer 41 mL/min (>60); Globulin 4.8 g/dL (2.2-4.2); Glucose 145 mg/dL (74-106); Potassium 4.3 mmol/L (3.5-5.1); Protein, Total 6.4 g/dL (6.4-8.2); Sodium Level 138 mmol/L (136-145)
== END | disposition home or self-care (01) ==
LOC: OLS.SANC 05:00
PROVIDERS: PCP Nurse Practitioner Family; Visit Provider Internal Medicine
DX: I10 Essential (primary) hypertension (principal); E11.9 Type 2 diabetes mellitus without complications; E78.5 Hyperlipidemia, unspecified; E03.9 Hypothyroidism, unspecified
CPT/HCPCS: 36415; 80053; 85027

== ENCOUNTER → 2022-01-18 | Outpatient (REF) | payer SELFPAY ==
[2022-01-18 07:26] LABS: Hematocrit 23.1 % (37-47); Hemoglobin 7.3 g/dL (12.0-15.0); Mean Corp Hgb Conc 31.6 g/dL (32-36); Mean Corpuscular Hgb 27.2 pg (27.0-32.0); Mean Corpuscular Volume 86.2 fL (81-99); Mean Platelet Vol. 9.4 fl (6.2-12.0); Platelet Count 429 K/mm3 (150-450); RBC Distribution Width CV 12.8 % (11.6-14.6); RBC Distribution Width SD 39.9 fl (35.1-43.9); Red Blood Count 2.68 M/mm3 (4.2-5.4); White Blood Count 6.8 K/mm3 (4.4-11.0)
[2022-01-18 07:38] LABS: Anion Gap 4 (5-15); BUN 24 mg/dL (7-18); BUN/Creat Ratio 13.2 RATIO (10-20); Calcium,Total 8.7 mg/dL (8.5-10.1); Chloride 106 mmol/L (98-107); Creatinine, Serum 1.82 mg/dL (0.55-1.02); EST Glomerular Filtration Rate 30 mL/min (>60); Est Glom Filt Rate - Afr Amer 37 mL/min (>60); Glucose 163 mg/dL (74-106); Potassium 3.9 mmol/L (3.5-5.1); Sodium Level 140 mmol/L (136-145)
== END | disposition home or self-care (01) ==
LOC: OLS.SANC 05:00
PROVIDERS: PCP Nurse Practitioner Family; Referring Provider Internal Medicine; Visit Provider Internal Medicine
DX: E11.9 Type 2 diabetes mellitus without complications (principal)
CPT/HCPCS: 36415; 80048; 85027

== ENCOUNTER 2022-01-19 15:00 | Outpatient (REF) | payer SELFPAY | END 2022-01-19 23:59 | disposition home or self-care (01) | LOC: OLS.SANC 15:00 | PROVIDERS: PCP Nurse Practitioner Family; Visit Provider Internal Medicine | DX: D64.9 Anemia, unspecified (principal) | CPT/HCPCS: 82274 ==

== ENCOUNTER → 2022-01-22 | Outpatient (REF) | payer SELFPAY ==
[2022-01-22 09:06] LABS: Hemoglobin 7.2 g/dL (12.0-15.0); Mean Corp Hgb Conc 31.3 g/dL (32-36); Mean Corpuscular Hgb 27.2 pg (27.0-32.0); Mean Corpuscular Volume 86.8 fL (81-99); Mean Platelet Vol. 9.3 fl (6.2-12.0); Platelet Count 338 K/mm3 (150-450); RBC Distribution Width CV 13.2 % (11.6-14.6); RBC Distribution Width SD 41.1 fl (35.1-43.9); Red Blood Count 2.65 M/mm3 (4.2-5.4); White Blood Count 8.3 K/mm3 (4.4-11.0)
[2022-01-22 09:42] LABS: Vitamin B12 324 pg/mL (211-911)
[2022-01-22 10:08] LABS: Anion Gap 6 (5-15); BUN 25 mg/dL (7-18); BUN/Creat Ratio 14.2 RATIO (10-20); Chloride 102 mmol/L (98-107); Creatinine, Serum 1.76 mg/dL (0.55-1.02); EST Glomerular Filtration Rate 32 mL/min (>60); Est Glom Filt Rate - Afr Amer 38 mL/min (>60); Glucose 132 mg/dL (74-106); Iron 27 ug/dL (50-170); Iron Binding Capacity,Total 194 ug/dL (250-450); PERCENT IRON SATURATION 13.9 % (15.0-55.0); Potassium 4.2 mmol/L (3.5-5.1); Sodium Level 140 mmol/L (136-145)
== END | disposition home or self-care (01) ==
LOC: OLS.SANC 05:00
PROVIDERS: PCP Nurse Practitioner Family; Referring Provider Internal Medicine; Visit Provider Internal Medicine
DX: I10 Essential (primary) hypertension (principal); E11.9 Type 2 diabetes mellitus without complications; E78.5 Hyperlipidemia, unspecified; E03.9 Hypothyroidism, unspecified; D64.9 Anemia, unspecified
CPT/HCPCS: 36415; 80048; 82607; 82746; 83540; 83550; 85027

== ENCOUNTER → 2022-01-25 | Outpatient (REF) | payer SELFPAY ==
[2022-01-25 09:13] LABS: Hematocrit 27.4 % (37-47); Hemoglobin 8.6 g/dL (12.0-15.0); Mean Corp Hgb Conc 31.4 g/dL (32-36); Mean Corpuscular Hgb 26.9 pg (27.0-32.0); Mean Corpuscular Volume 85.6 fL (81-99); Mean Platelet Vol. 9.2 fl (6.2-12.0); Platelet Count 407 K/mm3 (150-450); RBC Distribution Width CV 13.8 % (11.6-14.6); RBC Distribution Width SD 42.7 fl (35.1-43.9); White Blood Count 16.5 K/mm3 (4.4-11.0)
[2022-01-25 09:28] LABS: Anion Gap 6 (5-15); BUN 32 mg/dL (7-18); BUN/Creat Ratio 16.6 RATIO (10-20); Calcium,Total 8.7 mg/dL (8.5-10.1); Chloride 105 mmol/L (98-107); Creatinine, Serum 1.93 mg/dL (0.55-1.02); EST Glomerular Filtration Rate 28 mL/min (>60); Est Glom Filt Rate - Afr Amer 34 mL/min (>60); Glucose 196 mg/dL (74-106); Potassium 4.6 mmol/L (3.5-5.1); Sodium Level 138 mmol/L (136-145)
== END | disposition home or self-care (01) ==
LOC: OLS.SANC 05:00
PROVIDERS: PCP Nurse Practitioner Family; Referring Provider Internal Medicine; Visit Provider Internal Medicine
DX: I10 Essential (primary) hypertension (principal); E11.9 Type 2 diabetes mellitus without complications; E03.9 Hypothyroidism, unspecified
CPT/HCPCS: 36415; 80048; 85027

== ENCOUNTER 2022-02-03 15:05 | Inpatient (IN) | payer MEDICARE, MEDICAID, SELFPAY ==
[2022-02-03] VITALS (7 sets, daily range): BP systolic 94–132; BP diastolic 61–67; PULSE 76–91; RESP 14–20; TEMP 36.2–36.9; O2SAT 88–97; BMI 28.7; BMI 27.8
[2022-02-03 15:21] LABS: Bedside Glucose > 500 mg/dL (74-106)
--- NOTE | 2022-02-03 15:27 | EDS_ITS ---
HPI History of Present Illness Chief Complaint: Hyperglycemia Informant: patient and family Onset/Context/Timing Onset: Days Worsened by: Unsure Relieved by: Unsure Associated Symptoms Associated Symptoms: Chronic foot pain, nausea, shortness of breath Narrative Narrative: Patient has a history of diabetes. Sugars have been high. Last dose of insulin was yesterday. She is not eating or drinking much. Nauseated. Chronic pain. Shortness of breath. Denies chest pain, cough, sputum. PFSH PFS Medical History Delayed wound healing Depression Diabetes Diabetes mellitus with diabetic polyneuropathy Fall Generalized weakness HTN (hypertension) Localized edema Malnutrition Neuropathy Other specified peripheral vascular diseases Ulcer of right foot with necrosis of muscle Home Medications albuterol sulfate [ProAir HFA] 2 puff Q4H PRN PRN 01/28/18 [History Last Taken Unknown] metformin 1,000 mg DAILY 01/28/18 [History Last Taken Unknown] hydroxyzine HCl 25 mg PO QHS 01/02/22 [History Last Taken Unknown] Levemir FlexTouch U-100 Insuln 90 unit SUBCUT QHS #0 ml 01/07/22 [Rx Last Taken Unknown] amoxicillin-pot clavulanate [Augmentin] 1 tab PO BID #10 tab 01/07/22 [Rx Last Taken Unknown] nqzld-robp-VvWAP-ddzrjl-co-nfx [Ahsan (with collagen)] 1 packet PO BIDCM #0 ea 01/07/22 [Rx Last Taken Unknown] hydralazine 25 mg PO DAILY #0 tab 01/07/22 [Rx Last Taken Unknown] insulin lispro [Humalog Dameon KwikPen U-100] 30 unit SUBCUT TID #0 ml 01/07/22 [Rx Last Taken Unknown] insulin lispro [Humalog KwikPen Insulin] 30 unit SUBCUT 0800,1200,1700 #0 ml 01/07/22 [Rx Last Taken Unknown] insulin lispro [Humalog KwikPen Insulin] See Protocol SUBCUT ACHS #0 ml 01/07/22 [Rx Last Taken Unknown] nystatin [Nyamyc] 1 applic TOPICAL TID #0 g 01/07/22 [Rx Last Taken Unknown] oxycodone 5 mg PO Q6H PRN PRN 2 Days #7 tab 01/07/22 [Rx Last Taken Unknown] pregabalin [Lyrica] 100 mg PO DAILY #0 cap 01/07/22 [Rx Last Taken Unknown] psyllium husk [Fiber (psyllium husk)] 0.4 g PO BID #30 cap 01/07/22 [Rx Last Taken Unknown] sennosides-docusate sodium [Stool Softener-Stimulant Laxat] 2 tab PO BID #0 tab 01/07/22 [Rx Last Taken Unknown] sertraline 100 mg PO DAILY #0 tab 01/07/22 [Rx Last Taken Unknown] trazodone 50 mg PO QHS PRN #0 tab 01/07/22 [Rx Last Taken Unknown] Allergy/AdvReac Type Severity Reaction Status Date / Time morphine AdvReac Vomiting Verified 02/03/22 15:15 Social History Smoking Status: Never smoker ROS ROS ED Constitutional Constitutional ED: Denies chills or fever(s) Eyes Eyes: Denies change in vision ENT ENT ED: Denies ear pain Cardiovascular Cardiovascular: Denies chest pain Respiratory/Chest Respiratory/Chest: Reports dyspnea; Denies cough Gastrointestinal Gastrointestinal: Reports nausea; Denies abdominal pain Genitourinary Genitourinary ED: Denies dysuria Musculoskeletal Musculoskeletal: Reports arthralgias and myalgias Integumentary Denies rash Neurologic Neurologic: Denies headache(s) Psychiatric Psychiatric: Denies depression Endocrine Endocrinology: Denies polyuria Allergic/Immunologic Allergic/Immunologic ED: Denies urticaria EXAM Physical Exam Const Vital Signs: 02/03/22 15:06 Temperature 98.4 F Temperature Source Temporal Pulse Rate 91 Respiratory Rate 18 Blood Pressure 108/61 Blood Pressure Mean 76 Pulse Ox 88 Oxygen Delivery Method Room Air Positive well nourished and well developed General Appearance ED: well developed HEENT Negative for trauma or tenderness Eyes EOMs intact bilaterally Neck supple Resp normal respiratory effort Cardio regular rate GI normal to inspection, nondistended, normoactive bowel sounds Extremity normal to inspection Psych Mood & Affect: depressed Skin no rashes or lesions noted MDM MDM MDM Narrative Medical decision making narrative: EKG showed sinus rhythm with nonspecific T wave changes. No sign of acute infarction. She was placed on a monitor. Treated with IV fluids for a glucose that read high. White count is 15. No definite source of infection at this time. No fevers. We will continue to monitor. Sodium 124, glucose 720, creatinine 4.92. Patient was treated with continued IV fluids and subcutaneous insulin. She does not have findings consistent with DKA. Chest x-ray was interpreted by the radiologist and myself and showed no acute abnormalities. Patient was discussed with the hospitalist will be admitted for further care. Impression #1 hyperglycemia Impression #2 acute kidney injury Impression #3 leukocytosis Lab Data Attestation: I reviewed the patient's lab results. Labs: Laboratory Results - last 24 hr 02/03/22 02/03/22 02/03/22 15:12 15:30 15:30 WBC 15.1 H RBC 2.33 L Hgb 6.3 L Hct 19.9 L MCV 85.4 MCH 27.0 MCHC 31.7 L RDW Std Deviation 44.3 H RDW Coeff of Gabriela 14.1 Plt Count 344 MPV 11.0 Immature Gran % (Auto) 3.000 H Neut % (Auto) 85.9 H Lymph % (Auto) 4.6 L [place] % (Auto) 6.3 Eos % (Auto) 0.1 Baso % (Auto) 0.1 Absolute Neuts (auto) 13.0 H Absolute Lymphs (auto) 0.70 L Nucleated RBC % 0 Sodium 124 L Potassium 4.5 Chloride 91 L Carbon Dioxide 21.0 Anion Gap 12 BUN 60 H Creatinine 4.92 H Estim Creat Clear Calc 11.81 Est GFR (MDRD) Af Amer 12 L Est GFR (MDRD) Non-Af 10 L BUN/Creatinine Ratio 12.2 Glucose 720 H* Calcium 8.4 L Troponin I High Sens 122 H* Acetone Level POC Glucose > 500 H* 02/03/22 15:30 WBC RBC Hgb Hct MCV MCH MCHC RDW Std Deviation RDW Coeff of Gabriela Plt Count MPV Immature Gran % (Auto) Neut % (Auto) Lymph % (Auto) [place] % (Auto) Eos % (Auto) Baso % (Auto) Absolute Neuts (auto) Absolute Lymphs (auto) Nucleated RBC % Sodium Potassium Chloride Carbon Dioxide Anion Gap BUN Creatinine Estim Creat Clear Calc Est GFR (MDRD) Af Amer Est GFR (MDRD) Non-Af BUN/Creatinine Ratio Glucose Calcium Troponin I High Sens Acetone Level NEGATIVE POC Glucose Radiography Chest X-Ray - ED: 1 View, Read by ED Physician and No Acute Disease Discharge Plan Triage Chief Complaint: Hyperglycemia ED Provider: Francisco Rizzo Dx/Rx/DC Orders Prescriptions: No Action albuterol sulfate [ProAir HFA] 1 PUFF inhaler 2 puff Q4H PRN PRN (Reason: Sob &/Or Wheezing) RF: 0 metformin 500 MG tablet 1,000 mg DAILY RF: 0 Hold Instructions: Hold for 1 week until creatinine clearance is persistently more than 30 mill per minute hydroxyzine HCl 25 mg Tablet 25 mg PO QHS RF: 0 Ahsan (with collagen) 7-7-1.5 gram Powder In Packet 1 packet PO BIDCM Qty: 0 RF: 0 sennosides-docusate sodium [Stool Softener-Stimulant Laxat] 8.6-50 mg Tablet 2 tab PO BID Qty: 0 RF: 0 nystatin [Nyamyc] 100,000 unit/gram Powder 1 applic topical TID Qty: 0 RF: 0 psyllium husk [Fiber (psyllium husk)] 0.4 gram capsule 0.4 g PO BID Qty: 30 RF: 0 hydralazine 25 MG tablet 25 mg PO DAILY Qty: 0 RF: 0 pregabalin [Lyrica] 100 MG capsule 100 mg PO DAILY Qty: 0 RF: 0 Levemir FlexTouch U-100 Insuln 100 UNITS/ML insulin pen 90 unit subcut QHS Qty: 0 RF: 0 insulin lispro [Humalog Dameon KwikPen U-100] 100 unit/mL Insulin Pen, Half- Unit 30 unit SUBCUT TID Qty: 0 RF: 0 oxycodone 5 mg Tablet 5 mg PO Q6H PRN PRN (Reason: Pain Score 6-10) 2 Days Qty: 7 RF: 0 trazodone 50 mg Tablet 50 mg PO QHS PRN (Reason: Insomnia) Qty: 0 RF: 0 sertraline 100 mg Tablet 100 mg PO DAILY Qty: 0 RF: 0 insulin lispro [Humalog KwikPen Insulin] 100 unit/mL Insulin Pen See Protocol unit subcut ACHS Qty: 0 RF: 0 amoxicillin-pot clavulanate [Augmentin] 500-125 mg tablet 1 tab PO BID Qty: 10 RF: 0 insulin lispro [Humalog KwikPen Insulin] 100 unit/mL Insulin Pen 30 unit subcut 0800,1200,1700 Qty: 0 RF: 0 Primary Care Provider: Kim Salas NP
--- NOTE | 2022-02-03 15:28 | EKG12_ITS ---
Test Reason : ALT LOC Blood Pressure : / mmHG Vent. Rate : 090 BPM Atrial Rate : 090 BPM P-R Int : 136 ms QRS Dur : 084 ms QT Int : 348 ms P-R-T Axes : 012 001 065 degrees QTc Int : 425 ms Suspect unspecified pacemaker failure Normal sinus rhythm Nonspecific T wave abnormality Abnormal ECG Confirmed by PAULINE GONZALEZ, MARY ([id number]), medical editor SAMM ERAZO ([id number]) on 02/05/2022 11:36:16 AM Referred By: JUAN A Confirmed By:MARY CARPENTER MD
--- NOTE | 2022-02-03 15:35 | RAD_ITS ---
EXAM: XR CHEST, 1 VIEW CLINICAL INDICATION: cough TECHNIQUE: Frontal view of the chest. This report was created using [employer] report generation technology. COMPARISON: 01/04/2022 FINDINGS: LUNGS AND PLEURAL SPACES: Mild bibasilar atelectasis. No pneumothorax. No effusion. HEART: Unremarkable. Cardiac silhouette not enlarged. MEDIASTINUM: Central airways and mediastinal contour are unremarkable. BONES/JOINTS: Unremarkable. SOFT TISSUES: Unremarkable. RAD/Chest 1 View (Portable) IMPRESSION: Mild bibasilar atelectasis. Electronically Signed: Viral Strauss MD at 16:27 EDT ,
[2022-02-03] MEDS: Ondansetron 4 MG/2 ML Vial IV (15:39)
[2022-02-03] MEDS: 0.9% Normal Saline 1,000 ML 2000 ML IV (15:39)
[2022-02-03 15:47] LABS: Hematocrit 19.9 % (37-47); Hemoglobin 6.3 g/dL (12.0-15.0); Mean Corp Hgb Conc 31.7 g/dL (32-36); Mean Corpuscular Volume 85.4 fL (81-99); POSITIVE MORPHOLOGY YES; Platelet Count 344 K/mm3 (150-450); RBC Distribution Width CV 14.1 % (11.6-14.6); RBC Distribution Width SD 44.3 fl (35.1-43.9); Red Blood Count 2.33 M/mm3 (4.2-5.4); White Blood Count 15.1 K/mm3 (4.4-11.0)
[2022-02-03 16:10] LABS: Anion Gap 12 (5-15); BUN 60 mg/dL (7-18); BUN/Creat Ratio 12.2 RATIO (10-20); Calcium,Total 8.4 mg/dL (8.5-10.1); Chloride 91 mmol/L (98-107); Creatinine, Serum 4.92 mg/dL (0.55-1.02); EST Glomerular Filtration Rate 10 mL/min (>60); Est Glom Filt Rate - Afr Amer 12 mL/min (>60); Estimated Creatinine Clearance 11.81 ml/min; Glucose 720 mg/dL (74-106); Potassium 4.5 mmol/L (3.5-5.1); Sodium Level 124 mmol/L (136-145); Troponin-I HS 122 pg/mL (3.0-54.0)
--- NOTE | 2022-02-03 16:27 | HP.PCM.HOS_ITS ---
HPI - General General Date of Admission: 02/03/22 Date of Service: 02/03/22 Chief Complaint: Confusion, disorientation, dehydration, high creatinine and lab abnormality, hyperglycemia HPI Narrative NORAH CRAIG, is a 56 F with multiple comorbidities as listed below, last admission in January 05 almost a month ago for diabetic neuropathic right plantar ulcer while brought to ED by EMS. Her boyfriend found her confused, not acting right therefore called EMS. EMS found her confused disoriented, slurred speech but patient was found dehydrated and generalized weak. In the ER patient can lift both arms for 10 seconds. Patient legs are chronically weak right more than left and is on wheelchair. She has history of diabetes mellitus type 2 complicated with diabetic neuropathy, nephropathy and probably retinopathy as she has chronic blurry vision. Glucose was very high more than 500 mg/dl on glucometer and 720 milligrams per deciliter in BMP. Patient is getting vigorously rehydrated and 10 units Humalog insulin given. History taken from the patient and her boyfriend, Ozzy at the bedside. Patient does not have any fever or chills. Labs reviewed and discussed in assessment plan. Chest x-ray injury reviewed does not show acute abnormality but mild bibasilar atelectasis. EMS and ED EKG individually reviewed. Twelve-l ead EKG normal sinus rhythm 90 bpm, QTC [address]-T changes. [facility] Medical History Delayed wound healing Depression Diabetes Diabetes mellitus with diabetic polyneuropathy Fall Generalized weakness HTN (hypertension) Localized edema Malnutrition Neuropathy Other specified peripheral vascular diseases Ulcer of right foot with necrosis of muscle Home Medications albuterol sulfate [ProAir HFA] 2 puff Q4H PRN PRN 01/28/18 [History Last Taken Unknown] metformin 1,000 mg DAILY 01/28/18 [History Last Taken Unknown] hydroxyzine HCl 25 mg PO QHS 01/02/22 [History Last Taken Unknown] Levemir FlexTouch U-100 Insuln 90 unit SUBCUT QHS #0 ml 01/07/22 [Rx Last Taken Unknown] ttzlf-qxfb-FoPGL-qzhvic-ib-omh [Ahsan (with collagen)] 1 packet PO BIDCM #0 ea 01/07/22 [Rx Last Taken Unknown] hydralazine 25 mg PO DAILY #0 tab 01/07/22 [Rx Last Taken Unknown] insulin lispro [Humalog Dameon KwikPen U-100] 30 unit SUBCUT TID #0 ml 01/07/22 [Rx Last Taken Unknown] insulin lispro [Humalog KwikPen Insulin] See Protocol SUBCUT ACHS #0 ml 01/07/22 [Rx Last Taken Unknown] nystatin [Nyamyc] 1 applic TOPICAL TID #0 g 01/07/22 [Rx Last Taken Unknown] oxycodone 5 mg PO Q6H PRN PRN 2 Days #7 tab 01/07/22 [Rx Last Taken Unknown] pregabalin [Lyrica] 100 mg PO DAILY #0 cap 01/07/22 [Rx Last Taken Unknown] psyllium husk [Fiber (psyllium husk)] 0.4 g PO BID #30 cap 01/07/22 [Rx Last Taken Unknown] sennosides-docusate sodium [Stool Softener-Stimulant Laxat] 2 tab PO BID #0 tab 01/07/22 [Rx Last Taken Unknown] sertraline 100 mg PO DAILY #0 tab 01/07/22 [Rx Last Taken Unknown] trazodone 50 mg PO QHS PRN #0 tab 01/07/22 [Rx Last Taken Unknown] Allergy/AdvReac Type Severity Reaction Status Date / Time morphine AdvReac Vomiting Verified 02/03/22 15:15 Social History Smoking Status: Never smoker ROS ROS Narrative Constitutional: Reports fatigue and weakness. Did not eat or drink for last 2 days. Loss of appetite. HEENT: Reports systems reviewed and no addt'l complaints, except as documented Respiratory/Chest: Denies chest pain, shortness of breath at rest or with exertion Gastrointestinal: Denies coffee ground emesis, hematemesis or vomiting Genitourinary: Decreased urine output. Denies burning urination or new urinary tract symptoms Musculoskeletal: Bilateral chronic lower extremity weakness right more than left. On wheelchair. ROM restricted Neurologic: Chronic neuropathy of both feet, right more than left, hyperalgesia. Denies seizure-like activity skin: Chronic right plantar ulcer, with a scab. Endocrinology: Diabetes mellitus type 2 with hyperglycemia. Long-term complication of diabetes mellitus type 2. Reports systems reviewed and no addt'l complaints, except as documented Hematologic/Lymphatic: Reports systems reviewed and no addt'l complaints, except as documented Rest 14 ROS are negative except as mentioned in HPI Vital Signs Vital Signs Vital Signs: 02/03/22 15:06 Temperature 98.4 F Temperature Source Temporal Pulse Rate 91 Respiratory Rate 18 Blood Pressure 108/61 Blood Pressure Mean 76 Pulse Ox 88 Oxygen Delivery Method Room Air Weight Weight: 177 lb 14.609 oz Body Mass Index (BMI) 28.7 Physical Exam Narrative Physical exam General: Awake, lethargy. Disoriented to time but oriented to place and person. Slow to respond. HEENT: Atraumatic, PERRLA, EOMI, Normocephalic Oral: Oral mucosa very dry. No Gingival or Mucosal Lesions/ Ulcerations Neck: Supple, No JVD, Negative Carotid Bruits Lungs: Air entry diminished in bilateral lung bases. No crepitation/rhonchi Cardiovascular: Regular rate, Regular Rhythm, Normal S1, Normal S2, No murmurs Abdomen: Bowel Sounds Present, Soft, Non Tender, Non-Distended : No renal angle tenderness. No suprapubic tenderness. Extremities: Bilateral chronic ankle pitting edema 2+, Capillary Refill Less than 3 Seconds Skin: Healed right plantar ulcer with a scab. Tenderness around the ulcer probably neuropathic pain Musculoskeletal: Tenderness in both lower extremity right more than left, chronic neuropathic pain. Neurological: Cranial nerves II-XII grossly intact, DTR 2+/4, hyperalgesia increase sensitivity of of touch Psych/Mental Status: Flat affect. Results Lab / Micro Data Result Diagrams: 02/03/22 15:30 02/03/22 15:30 Labs: Laboratory Results - last 24 hr 02/03/22 15:12: POC Glucose > 500 H* 02/03/22 15:30: WBC 15.1 H, RBC 2.33 L, Hgb 6.3 L, Hct 19.9 L, MCV 85.4, MCH 27.0, MCHC 31.7 L, RDW Std Deviation 44.3 H, RDW Coeff of Gabriela 14.1, Plt Count 344, MPV 11.0, Immature Gran % (Auto) 3.000 H, Neut % (Auto) 85.9 H, Lymph % (Auto) 4.6 L, [place] % (Auto) 6.3, Eos % (Auto) 0.1, Baso % (Auto) 0.1, Absolute Neuts (auto) 13.0 H, Absolute Lymphs (auto) 0.70 L, Nucleated RBC % 0 02/03/22 15:30: Sodium 124 L, Potassium 4.5, Chloride 91 L, Carbon Dioxide 21.0, Anion Gap 12, BUN 60 H, Creatinine 4.92 H, Estim Creat Clear Calc 11.81, Est GFR (MDRD) Af Amer 12 L, Est GFR (MDRD) Non-Af 10 L, BUN/Creatinine Ratio 12.2, Gl ucose 720 H*, Calcium 8.4 L, Troponin I High Sens 122 H* 02/03/22 15:30: Acetone Level NEGATIVE Assessment & Plan Assessment/Plan (1) Acute encephalopathy: PLAN: 1. Acute encephalopathy most likely metabolic encephalopathy. Due to hyperglycemia and dehydration: Patient is being admitted in PCU. Patient is very dehydrated with hyperglycemia. IV fluid normal saline 2 L bolus ordered. Continue 250 ml per hour for 2 more liter and then 100 mL/h. Monitor intake and output. Clinically stroke ruled out. 2. DAMIÁN on CKD stage 4: Her creatinine clearance by Yaa is around 35 mill per minute. Currently BUN/creatinine 60/4.92. Needs vigorous IV fluid resuscitation. [place] nephrology consult. UA is ordered for proteinuria. 3. Diabetes mellitus type 2 with uncontrolled hyperglycemia complicated with diabetic neuropathy, nephropathy, arteriopathy possible retinopathy: Patient blood sugar is high, so 120 mg/dL. Not in DKA. Anion gap 12, bicarb 21. IV fluid resuscitation. Accu-Chek before meals and at bedtime and cover with Humalog sliding scale. Patient also on Humalog insulin and Lantus insulin. Monitor Accu-Cheks and titrate accordingly. 4. Elevated troponin, possible noncardiac related to acute kidney injury: Chivo ray does not have chest pain shortness of breath, near syncope. Cycle cardiac enzymes. 2D echo ordered for Saturday a.m. 5. Healed neuropathic ulcer with scab: During previous admission, patient had neuropathic ulceration with infection, strep group B and possible MSSA at right plantar surface with necrosis of muscle. This is covered with scab. Consult podiatry for follow-up. Patient had Unasyn and doxycycline and discharged on Augmentin, comanaged with ID during previous admission. 6. Debility with chronic neuropathic pain, bilateral lower extremity weakness: Patient on baseline in wheelchair. PT and OT ordered. #5 essential hypertension-monitor BP and adjust antihypertensive medication #6 Anxiety and depression: Patient on Zoloft and trazodone. Currently hold as patient is confused and disoriented. VTE prophylaxis Heparin 5000 units twice daily, adjusted to creatinine clearance Living will/advanced directive/end of life care: Patient does not have living will or advanced directive or designated power of claims attorney for health. Her boyfriend is next to kin. After discussion of benefits/risks procedures involved with full code, DNR CC arrest and DNR CC, the patient and her boyfriend opted for full code Patient does want artificial life support including intubation, tube feed, ventilator and/chest compression, central venous catheter, vasopressor and DC shock if needed Total time spent in [id number] encounter in discussion of advanced directive 16 minutes. Charges/Coding Visit Charges Inpatient E&M: 41692 Init Hosp L3 Procedures Hospitalists Procedures: 04823 Advncd Care Plan 30 Min
[2022-02-03] MEDS: Insulin Lispro 100 UNIT/ML INSULN.PEN 10 UNIT SC (16:35)
[2022-02-03] MEDS: Aspirin 325 MG Tablet PO (16:35)
[2022-02-03 16:40] LABS: Blood Gas Specimen Type VEN; VBG BASE EXCESS -6 mmol/L (-1.0-3.5); VBG Bicarbonate 21 mmol/L (22-26); VBG PO2 59 mmHg (25-40); VBG SO2 87 % (50-70); VBG TCO2 22 mmol/L (23-33); VBG pCO2 43.7 mmHg (41-51); VBG pH 7.29 (7.32-7.42)
[2022-02-03 16:41] LABS: Differential Indicated MANUAL DIFF
[2022-02-03 16:42] LABS: Lymphocyte 3 % (19-41); Monocyte 5 % (0-10); Neutrophil-Band 3 % (0-5); Neutrophil-Segmented 87 % (47-70); Total Cells Counted 100 (MANUAL DIFF)
[2022-02-03 16:43] LABS: Anisocytosis 1+; Differential Comment SCANNED; Hypochromasia 1+; Myelocyte 2 % (0-0); Platelet Estimate ADEQUATE (ADEQ)
[2022-02-03 16:44] LABS: Absolute Neutrophil Count 13.6 X10^3/uL (2.0-7.7); Lymphocyte # 0.45 X10^3/ul (0.83-4.51); Neutrophil # 13.59 X10^3/uL (2.7-7.7)
[2022-02-03 16:45] LABS: Absolute Lymphocyte Count 0.45 X10^3/uL (0.83-4.51)
[2022-02-03 17:20] LABS: Magnesium 1.8 mg/dL (1.6-2.6); Phosphorus 4.8 mg/dL (2.5-4.9)
[2022-02-03 17:27] LABS: Mucous, Urine 0 SEEN /hpf (<or=2+); Squamous Epithelial Cells - UA 0 SEEN /hpf (5-10)
[2022-02-03] MEDS: 0.9% Normal Saline 1,000 ML 1000 ML IV (17:28)
[2022-02-03 17:48] LABS: Color, Urine Yellow (Yellow); Glucose, Dipstick 1000 mg/dl (Normal); Ketone-Dipstick 5 mg/dl (Negative); Leukocyte Esterase-Dipstick 500 /ul (Negative); Nitrite-Dipstick Negative (Negative); Occult Blood-Urine 250 /ul (Negative); Protein-Dipstick 100 mg/dl (Negative); Urine Bilirubin Dipstick Negative (Negative); Urine Clarity Turbid (Clear); Urine Urobilinogen Normal (Normal)
[2022-02-03 18:08] LABS: White Blood Cells >100 SEEN /hpf (0-5)
[2022-02-03 18:09] LABS: Bacteria 4+ /hpf (None Seen); Coarse Granular Cast 0-5 SEEN /lpf (0-5 /lpf)
[2022-02-03 18:10] LABS: Red Blood Cells-Urine 0-5 SEEN /hpf (0-5)
--- NOTE | 2022-02-03 18:10 | RAD_ITS ---
[employer]Scriptor Unformatted Report Gender: Female Age: 56 years Exam: XR Foot Min 3 Views RIGHT Comparison: January 02, 2022. History: scab/wound/infection work up BONES: Diffuse at least moderate demineralization. Postoperative changes of calcaneus, and at the lateral tarsal region and at the medial tarsals proximal to the first metatarsal-tarsal joint, similar to prior exam.Mild hypertrophic changes of bone at the undersurface of the tarsal bones on the lateral view, stable. Incidentally noted calcaneal spur again noted. SOFT TISSUES: Mild dorsal and plantar soft tissue swelling. The previously seen plantar ulcer is not as well seen but appears larger in its anterior to posterior dimension, less deep, estimated to be roughly 2 cm AP and 5 mm to, it was roughly 1.3 cm AP and 0.7 mm apparent depth on the prior exam. No deep soft tissue gas separate from the ulcer. RAD/Foot min 3 Views IMPRESSION: Wider but more shallow appearance of a plantar ulcer compared to January 02, 2022. No deep soft tissue gas or interval bone changes. Electronically Signed: Ashely Villalba MD at 23:15 EDT ,
[2022-02-03 18:13] LABS: Waxy Cast-Urine 0-5 SEEN /lpf (None Seen)
[2022-02-03 18:17] LABS: Troponin-I HS 107 pg/mL (3.0-54.0)
--- NOTE | 2022-02-03 18:39 | CON.PCM_ITS ---
Assessment & Plan Assessment/Plan (1) Sepsis: (2) Type 2 diabetes mellitus with diabetic polyneuropathy: (3) Ulcer of right foot with fat layer exposed: PLAN: I reviewed and discussed her case today. She is currently septic and confused and is unable to participate fully in the exam. Medical staff have reached out to her significant other to obtain information. Debridement was performed bedside today to the right foot with a 15 blade scalpel and forcep after verbal consent was obtained. The pre and postde bridement measurements are noted above. This was a subcutaneous excisional debridement to remove devitalized fibrous tissue, biofilm, slough, and devitalized subcutaneous tissue. Pressure was applied to maintain hemostasis. This was controlled. She tolerated this well. Hydrogel gauze and paper tape dressing was applied. It does not appear that there are local signs of infection on the foot at this time. The following work up and care recommendations were made: Dressing: Hydrogel and gauze Wash: Soap and water Tissue growth optimization: Advanced wound product application will be conside red in the outpatient setting to optimize healing. Offload: I recommend nonweightbearing to the right foot with assistive device Vascular: She had noninvasive vascular studies performed 1 month ago with normal ABIs, toe pressures, and waveforms. No arterial occlusive disease is suspected Edema: Mild edema is noted and an Ernesto wrap is recommended Infection: Her sepsis status is noted and she does have hyperglycemia and elevation white blood cell count (15.1). She does not have purulence or local signs infection on the foot. This will be monitored. Pain: Per primary team with medication ordered. To avoid direct contact on the plantar foot ulcer site. Diagnostic data: 3 views of the right foot were reviewed without any soft tissue emphysema, foreign body, acute fracture dislocation, Charcot destruction or adjacent osseous destruction and alignment to the noted plantar foot ulcer. Host factors: Her comorbidities are noted. I recommend nutritional supplementation optimize healing; Ahsan was ordered. Medical management and DVT prophylaxis per primary team is noted. Thank you for the consultation. I will continue to follow her closely while in house. Please do not hesitate to call if you have any questions. Anca Wilde DPM, [facility] [phone] HPI Consult Data Date of Consult: 02/03/22 HPI Narrative HPI Narrative: NORAH CRAIG, is a 56 F who was seen bedside in the progressive care unit for a right foot scab. She was admitted for encephalopathy and confusion and dehydration off. She is only able to intermittently participate in the exam and seems very confused. She reports the scab has been present for 2 years and is not able to explain what intervention she had done previously. She reports foot pain with direct pressure. She denies fever, chill, nausea, vomiting however reports she does not feel well. [facility] Medical History (Updated 02/03/22 @ 18:[address] Anca Wilde, DPRohan) Asthma Delayed wound healing Depression Diabetes Diabetes mellitus with diabetic polyneuropathy Fall Generalized weakness HTN (hypertension) Localized edema Malnutrition Neuropathy Other specified peripheral vascular diseases Ulcer of right foot with necrosis of muscle Home Medications albuterol sulfate [ProAir HFA] 2 puff Q4H PRN PRN 01/28/18 [History Last Taken Unknown] metformin 1,000 mg DAILY 01/28/18 [History Last Taken Unknown] hydroxyzine HCl 25 mg PO QHS 01/02/22 [History Last Taken Unknown] Levemir FlexTouch U-100 Insuln 90 unit SUBCUT QHS #0 ml 01/07/22 [Rx Last Taken Unknown] mntox-qzsi-UvALC-neupon-of-wsz [Ahsan (with collagen)] 1 packet PO BIDCM #0 ea 01/07/22 [Rx Last Taken Unknown] hydralazine 25 mg PO DAILY #0 tab 01/07/22 [Rx Last Taken Unknown] insulin lispro [Humalog Dameon KwikPen U-100] 30 unit SUBCUT TID #0 ml 01/07/22 [Rx Last Taken Unknown] insulin lispro [Humalog KwikPen Insulin] See Protocol SUBCUT ACHS #0 ml 01/07/22 [Rx Last Taken Unknown] nystatin [Nyamyc] 1 applic TOPICAL TID #0 g 01/07/22 [Rx Last Taken Unknown] oxycodone 5 mg PO Q6H PRN PRN 2 Days #7 tab 01/07/22 [Rx Last Taken Unknown] pregabalin [Lyrica] 100 mg PO DAILY #0 cap 01/07/22 [Rx Last Taken Unknown] psyllium husk [Fiber (psyllium husk)] 0.4 g PO BID #30 cap 01/07/22 [Rx Last Taken Unknown] sennosides-docusate sodium [Stool Softener-Stimulant Laxat] 2 tab PO BID #0 tab 01/07/22 [Rx Last Taken Unknown] sertraline 100 mg PO DAILY #0 tab 01/07/22 [Rx Last Taken Unknown] trazodone 50 mg PO QHS PRN #0 tab 01/07/22 [Rx Last Taken Unknown] Allergy/AdvReac Type Severity Reaction Status Date / Time morphine AdvReac Vomiting Verified 02/03/22 15:15 Social History Smoking Status: Never smoker ROS Review of Systems ROS Unobtainable: other Physical Exam Const alert and oriented x3 General Appearance: cooperative and lethargic Orientation / Consciousness: confused and disoriented HEENT normocephalic Extremity Extremity Narrative: No calf tenderness 2 out of 4 palpable DP pulses and 1 out of 4 palpable PT pulses bilateral Capillary fill time is brisk to all digits bilateral foot Her skin is hairless and atrophic bilateral Muscle wasting noted Active range of motion digits bilateral General Extremity: edema and no tenderness to palpation of joints or extremities; Negative for cyanosis Skin Skin Narrative: no purulence, no streaking, no odor, no infection locally noted at plantar lateral central right foot with eschar plug measuring 1 cm x 1 cm x 0.1 cm. Upon debridement and post debridement this measures 1.2 x 1.2 x 0.3 cm with fibrous base. There is no deep tissue exposure necrosis or adjacent bogginess or fluctuance on palpation. Compartments of the right foot remain soft to palpate. Healed cicatrix are noted from her prior reconstructive surgeries General Skin Exam: Negative for erythema Neuro Neuro Narrative: Epicritic sensation is intact to light touch to bilateral foot Psych cooperative and affect normal Lab / Micro Data Result Diagrams: 02/03/22 15:30 02/03/22 15:30 Labs: Laboratory Results - last 24 hr 02/03/22 15:12: POC Glucose > 500 H* 02/03/22 15:30: WBC 15.1 H, RBC 2.33 L, Hgb 6.3 L, Hct 19.9 L, MCV 85.4, MCH 27.0, MCHC 31.7 L, RDW Std Deviation 44.3 H, RDW Coeff of Gabriela 14.1, Plt Count 344, MPV 11.0, Immature Gran % (Auto) SENIOR INFORMATION SECURITY CONSULTANT, Neut % (Auto) SENIOR INFORMATION SECURITY CONSULTANT, Lymph % (Auto) SENIOR INFORMATION SECURITY CONSULTANT, [place] % (Auto) SENIOR INFORMATION SECURITY CONSULTANT, Eos % (Auto) SENIOR INFORMATION SECURITY CONSULTANT, Baso % (Auto) SENIOR INFORMATION SECURITY CONSULTANT, Absolute Neuts (auto) 13.6 H, Absolute Lymphs (auto) 0.45 L, Total Counted 100, Neutrophils % (Manual) 87 H , Band Neutrophils % 3, Lymphocytes % (Manual) 3 L, Monocytes % (Manual) 5, Myelocytes % 2 H, Nucleated RBC % SENIOR INFORMATION SECURITY CONSULTANT, Differential Comment SCANNED, Diff Path Review May foll, Platelet Estimate ADEQUATE, Hypochromasia 1+, Anisocytosis 1+ 02/03/22 15:30: Sodium 124 L, Potassium 4.5, Chloride 91 L, Carbon Dioxide 21.0, Anion Gap 12, BUN 60 H, Creatinine 4.92 H, Estim Creat Clear Calc 11.81, Est GFR (MDRD) Af Amer 12 L, Est GFR (MDRD) Non-Af 10 L, BUN/Creatinine Ratio 12.2, Glucose 720 H*, Calcium 8.4 L, Troponin I High Sens 122 H* 02/03/22 15:30: Acetone Level NEGATIVE 02/03/22 15:30: Phosphorus 4.8, Magnesium 1.8 02/03/22 17:19: Urine Color Yellow, Urine Clarity Turbid, Urine pH 5.0, Ur Specific [place] 1.020, Urine Protein 100 H, Urine Glucose (UA) 1000 H, Urine Ketones 5 H, Urine Occult Blood 250 H, Urine Nitrite Negative, Urine Bilirubin Negative, Urine Urobilinogen Normal, Ur Leukocyte Esterase 500 H, Urine RBC 0-5 SEEN, Urine WBC >100 SEEN, Ur Squamous Epith Cells 0 SEEN, Urine Bacteria 4+, Coarse Granular Casts 0-5 SEEN, Waxy Casts 0-5 SEEN H, Urine Mucus 0 SEEN 02/03/22 17:25: Troponin I High Sens 107 H ABG Data ABG results: ABG 02/03/22 16:35 Specimen Type BRONSON VBG pH 7.29 L VBG pO2 59 H VBG HCO3 21 L VBG Total CO2 22 L VBG O2 Sat (Calc) 87 H VBG Base Excess -6 L POC Mix VBG pCO2 Pt Tmp 43.7 Radiology Impression Chest X-Ray 02/03/22 15:35 IMPRESSION: Mild bibasilar atelectasis. Electronically Signed: Viral Strauss MD at 16:27 EDT ,
[2022-02-03] MEDS: 0.9% Normal Saline 1,000 ML 999 ML IV (18:59)
--- NOTE | 2022-02-03 19:03 | NURSING ---
Reviewed charting for Candido Cee RN
[2022-02-03 21:05] LABS: Anion Gap 10 (5-15); BUN 58 mg/dL (7-18); BUN/Creat Ratio 13.8 RATIO (10-20); Chloride 98 mmol/L (98-107); Creatinine, Serum 4.21 mg/dL (0.55-1.02); EST Glomerular Filtration Rate 12 mL/min (>60); Est Glom Filt Rate - Afr Amer 14 mL/min (>60); Glucose 609 mg/dL (74-106); Potassium 4.2 mmol/L (3.5-5.1); Sodium Level 128 mmol/L (136-145)
[2022-02-03] MEDS: 0.9% Normal Saline 1,000 ML 100 ML IV (21:22)
[2022-02-03] MEDS: Psyllium 1 PACKET PO (21:23)
[2022-02-03] MEDS: Senna/Docusate Sodium 1 Tablet 2 TABLET PO (21:23)
[2022-02-03] MEDS: Insulin Glargine-YFGN 100 UNIT/ML Pen 70 UNIT SC (21:23)
[2022-02-03] MEDS: Insulin Lispro 100 UNIT/ML INSULN.PEN SC (21:29)
[2022-02-03] MEDS: Insulin Lispro 100 UNIT/ML INSULN.PEN 20 UNIT SC (21:37)
[2022-02-03 23:26] LABS: Troponin-I HS 76 pg/mL (3.0-54.0)
[2022-02-04] VITALS (22 sets, daily range): BP systolic 72–123; BP diastolic 47–73; PULSE 75–93; RESP 12–16; TEMP 36.5–37.2; O2SAT 92–99
[2022-02-04 02:31] LABS: Bedside Glucose 344 mg/dL (74-106)
[2022-02-04] MEDS: Albuterol 2.5 MG/3 ML VIAL.NEB. INHALATION (02:49)
[2022-02-04] MEDS: Insulin Lispro 100 UNIT/ML INSULN.PEN SC ×2 (06:14→12:24)
[2022-02-04] MEDS: Insulin Lispro 100 UNIT/ML INSULN.PEN 20 UNIT SC (06:15)
[2022-02-04 06:56] LABS: Bedside Glucose 329 mg/dL (74-106)
[2022-02-04] MEDS: Ceftriaxone 1 GM/50 ML BAG IV (07:37)
[2022-02-04] MEDS: Glucerna Shake 120 ML LIQUID PO ×2 (07:37→12:25)
[2022-02-04] MEDS: Heparin Injection (Vial) 5,000 UNIT/ML VIAL 5000 UNIT SC ×2 (07:38→20:55)
[2022-02-04] MEDS: Senna/Docusate Sodium 1 Tablet 2 TABLET PO ×2 (07:38→20:55)
[2022-02-04] MEDS: Psyllium 1 PACKET PO ×2 (07:38→20:55)
[2022-02-04] MEDS: Pregabalin 50 MG Capsule 100 MG PO (07:38)
[2022-02-04] MEDS: Juven (unflavored) Packet 1 PACKET PO ×2 (07:38→17:22)
[2022-02-04 08:19] LABS: Absolute Lymphocyte Count 1.23 X10^3/uL (0.83-4.51); Absolute Neutrophil Count 12.9 X10^3/uL (2.0-7.7); Basophil# 0.03 X10^3/uL; Basophil% 0.2 % (0-1); Eosinophil# 0.14 X10^3/uL; Eosinophils% 0.9 % (0-5); Hematocrit 26.1 % (37-47); Hemoglobin 8.2 g/dL (12.0-15.0); Lymphocyte # 1.23 X10^3/ul (0.83-4.51); Lymphocyte % 7.9 % (19-41); Mean Corp Hgb Conc 31.4 g/dL (32-36); Mean Corpuscular Hgb 27.3 pg (27.0-32.0); Mean Platelet Vol. 10.5 fl (6.2-12.0); Monocyte# 0.82 X10^3/uL; Monocyte% 5.2 % (0-10); NRBC Flagged by Analyzer 0 % (0-5); Neutrophil # 12.88 X10^3/uL (2.7-7.7); Neutrophil % 82.3 % (47-70); POSITIVE MORPHOLOGY YES; Platelet Count 342 K/mm3 (150-450); RBC Distribution Width CV 14.3 % (11.6-14.6); RBC Distribution Width SD 44.6 fl (35.1-43.9); White Blood Count 15.7 K/mm3 (4.4-11.0)
[2022-02-04 08:21] LABS: Differential Indicated SCAN CRITERIA MET
[2022-02-04 08:33] LABS: Anion Gap 9 (5-15); BUN 62 mg/dL (7-18); BUN/Creat Ratio 15.3 RATIO (10-20); Calcium,Total 8.6 mg/dL (8.5-10.1); Chloride 101 mmol/L (98-107); Creatinine, Serum 4.04 mg/dL (0.55-1.02); EST Glomerular Filtration Rate 12 mL/min (>60); Est Glom Filt Rate - Afr Amer 15 mL/min (>60); Estimated Creatinine Clearance 14.38 ml/min; Glucose 274 mg/dL (74-106); Potassium 3.6 mmol/L (3.5-5.1); Sodium Level 133 mmol/L (136-145)
[2022-02-04 08:38] LABS: Differential Comment SCANNED
--- NOTE | 2022-02-04 08:46 | PN.HOSP_ITS ---
Subjective Subjective Follow-up for acute kidney injury and CKD stage IV and hyperglycemia. Patient still has generalized weakness. Lethargy mild improvement. Objective Data Objective Data Vital Signs: Vital Signs Temp Pulse Resp BP Pulse Ox 98.5 F 77 15 98/58 L 95 02/04/22 07:30 02/04/22 07:30 02/04/22 07:30 02/04/22 07:30 02/04/22 07:30 Oxygen Flow Rate (L/min) 1 Oxygen Delivery Method Room Air Weight: 176 lb 9.444 oz Body Mass Index (BMI) 27.8 Intake & Output: Intake and Output for Last 24 Hours 02/02/22 02/03/22 02/04/22 23:59 23:59 23:59 Intake Total 3000 / 3263.33 1113.33 / 1113.33 Output Total 0 / 0 0 / 0 Balance 3000 / 3263.33 1113.33 / 1113.33 Lab / Micro Data Result Diagrams: 02/04/22 08:00 02/04/22 08:00 Labs: Laboratory Results - last 24 hr 02/03/22 15:12: POC Glucose > 500 H* 02/03/22 15:30: WBC 15.1 H, RBC 2.33 L, Hgb 6.3 L, Hct 19.9 L, MCV 85.4, MCH 27.0, MCHC 31.7 L, RDW Std Deviation 44.3 H, RDW Coeff of Gabriela 14.1, Plt Count 344, MPV 11.0, Immature Gran % (Auto) SUPERVISOR FRUIT GRADING, Neut % (Auto) SUPERVISOR FRUIT GRADING, Lymph % (Auto) SUPERVISOR FRUIT GRADING, [place] % (Auto) SUPERVISOR FRUIT GRADING, Eos % (Auto) SUPERVISOR FRUIT GRADING, Baso % (Auto) SUPERVISOR FRUIT GRADING, Absolute Neuts (auto) 13.6 H, Absolute Lymphs (auto) 0.45 L, Total Counted 100, Neutrophils % (Manual) 87 H , Band Neutrophils % 3, Lymphocytes % (Manual) 3 L, Monocytes % (Manual) 5, Myelocytes % 2 H, Nucleated RBC % SUPERVISOR FRUIT GRADING, Differential Comment SCANNED, Diff Path Review May foll, Platelet Estimate ADEQUATE, Hypochromasia 1+, Anisocytosis 1+ 02/03/22 15:30: Sodium 124 L, Potassium 4.5, Chloride 91 L, Carbon Dioxide 21.0, Anion Gap 12, BUN 60 H, Creatinine 4.92 H, Estim Creat Clear Calc 11.81, Est GFR (MDRD) Af Amer 12 L, Est GFR (MDRD) Non-Af 10 L, BUN/Creatinine Ratio 12.2, Glucose 720 H*, Calcium 8.4 L, Troponin I High Sens 122 H* 02/03/22 15:30: Acetone Level NEGATIVE 02/03/22 15:30: Phosphorus 4.8, Magnesium 1.8 02/03/22 17:19: Urine Color Yellow, Urine Clarity Turbid, Urine pH 5.0, Ur Specific [place] 1.020, Urine Protein 100 H, Urine Glucose (UA) 1000 H, Urine Ketones 5 H, Urine Occult Blood 250 H, Urine Nitrite Negative, Urine Bilirubin Negative, Urine Urobilinogen Normal, Ur Leukocyte Esterase 500 H, Urine RBC 0-5 SEEN, Urine WBC >100 SEEN, Ur Squamous Epith Cells 0 SEEN, Urine Bacteria 4+, Coarse Granular Casts 0-5 SEEN, Waxy Casts 0-5 SEEN H, Urine Mucus 0 SEEN 02/03/22 17:25: Troponin I High Sens 107 H 02/03/22 20:05: Sodium 128 L, Potassium 4.2, Chloride 98, Carbon Dioxide 20.0 L, Anion Gap 10, BUN 58 H, Creatinine 4.21 H, Estim Creat Clear Calc 13.80, Est GFR (MDRD) Af Amer 14 L, Est GFR (MDRD) Non-Af 12 L, BUN/Creatinine Ratio 13.8, Glucose 609 H*, Calcium 8.0 L 02/03/22 21:10: Blood Type O POSITIVE, Antibody Screen NEGATIVE, Crossmatch See Detail 02/03/22 23:00: Troponin I High Sens 76 H 02/04/22 02:27: POC Glucose 344 H 02/04/22 06:13: POC Glucose 329 H 02/04/22 08:00: Sodium 133 L, Potassium 3.6, Chloride 101, Carbon Dioxide 23.0, Anion Gap 9, BUN 62 H, Creatinine 4.04 H, Estim Creat Clear Calc 14.38, Est GFR (MDRD) Af Amer 15 L, Est GFR (MDRD) Non-Af 12 L, BUN/Creatinine Ratio 15.3, Glucose 274 H, Calcium 8.6 02/04/22 08:00: WBC 15.7 H, RBC 3.00 L, Hgb 8.2 L, Hct 26.1 L, MCV 87.0, MCH 27.3, MCHC 31.4 L, RDW Std Deviation 44.6 H, RDW Coeff of Gabriela 14.3, Plt Count 342, MPV 10.5, Immature Gran % (Auto) 3.500 H, Neut % (Auto) 82.3 H, Lymph % (Au to) 7.9 L, [place] % (Auto) 5.2, Eos % (Auto) 0.9, Baso % (Auto) 0.2, Absolute Neuts (auto) 12.9 H, Absolute Lymphs (auto) 1.23, Nucleated RBC % 0, Differential Comment SCANNED ABG Data ABG results: ABG 02/03/22 16:35 Specimen Type BRONSON VBG pH 7.29 L VBG pO2 59 H VBG HCO3 21 L VBG Total CO2 22 L VBG O2 Sat (Calc) 87 H VBG Base Excess -6 L POC Mix VBG pCO2 Pt Tmp 43.7 Radiography Diagnostic Testing: Radiology Impression Chest X-Ray 02/03/22 15:35 IMPRESSION: Mild bibasilar atelectasis. Electronically Signed: Viral Strauss MD at 16:27 EDT , Foot X-Ray 02/03/22 18:10 IMPRESSION: Wider but more shallow appearance of a plantar ulcer compared to January 02, 2022. No deep soft tissue gas or interval bone changes. Electronically Signed: Ashely Villalba MD at 23:15 EDT , Physical Exam Narrative Sinus rhythm on ibm websphere commerce developer. Physical exam General: Awake, looks weak. Oriented x3. Improvement in mental alertness HEENT: Atraumatic, PERRLA, EOMI, Normocephalic Oral: Oral mucosa moist. No Gingival or Mucosal Lesions/ Ulcerations Neck: Supple, No JVD, Negative Carotid Bruits Lungs: Air entry diminished in bilateral lung bases. No crepitation/rhonchi Cardiovascular: Regular rate, Regular Rhythm, Normal S1, Normal S2, No murmurs Abdomen: Bowel Sounds Present, Soft, Non Tender, Non-Distended : No renal angle tenderness. No suprapubic tenderness. Extremities: Bilateral chronic ankle pitting edema 2+, Capillary Refill Less than 3 Seconds Skin: Healed right plantar ulcer with a scab. Tenderness around the ulcer probably neuropathic pain Musculoskeletal: Tenderness in both lower extremity right more than left, chronic neuropathic pain. Neurological: Cranial nerves II-XII grossly intact, DTR 2+/4, hyperalgesia increase sensitivity of of touch Psych/Mental Status: Flat affect. Assessment & Plan Assessment/Plan (1) Acute encephalopathy: PLAN: 1. Acute encephalopathy most likely metabolic encephalopathy. Due to hyperglycemia and dehydration: Patient is being admitted in PCU. Patient is very dehydrated with hyperglycemia. IV fluid normal saline 2 L bolus ordered. Continue 250 ml per hour for 2 more liter and then 100 mL/h. Monitor intake and output. Clinically stroke ruled out. 02/04: Patient was admitted with hemoglobin 6.3/20%. It improved to 8.2/26. Pat nt did not have any history of external blood loss. Patient baseline hemoglobin runs around 8.5. I think hemoglobin 6.3 was a spuriously lab although patient is has anemia of chronic disease from CKD. Patient mental alertness improved but is still mildly lethargic. Oriented x3. Patient has le ukocytosis, gradually improving, 3% bands. 2. DAMIÁN on CKD stage 4: Her creatinine clearance by Yaa is around 35 mill per minute. Currently BUN/creatinine 60/4.92. Needs vigorous IV fluid resusci tation. [place] nephrology consult. UA is ordered for proteinuria. 02/04: No significant improvement in kidney function. BUN increased from 58-62. Creatinine 4.1-4.04. Anion gap 9. Bicarb 23. UA shows proteinuria, glucosuria, LE 500, WBC more than 100 cells, squamous epithelial cells 04+ bacteria. Patient empirically on IV ceftriaxone. Patient started on bicarb oral tablets. Serum magnesium and phosphorus in normal limit. Potassium 3.6. Sodium 133 3. Diabetes mellitus type 2 with uncontrolled hyperglycemia complicated with diabetic neuropathy, nephropathy, arteriopathy possible retinopathy: Patient blood sugar is high, so 120 mg/dL. Not in DKA. Anion gap 12, bicarb 21. IV fluid resuscitation. Accu-Chek before meals and at bedtime and cover with Humalog sliding scale. Patient also on Humalog insulin and Lantus insulin. Monitor Accu-Cheks and titrate accordingly. 02/04: Patient glucose in 300s-350s. Humalog insulin and the Lantus insulin increased 4. Elevated troponin, possible noncardiac related to acute kidney injury: Patient does not have chest pain shortness of breath, near syncope. Cycle cardiac enzymes. 2D echo ordered for Saturday a.m. 02/04: Troponins improved from 10 07-. No chest pain. Noncardiac origin of troponin. 5. Healing neuropathic ulcer with scab: During previous admission, patient had neuropathic ulceration with infection, strep group B and possible MSSA at right plantar surface with necrosis of muscle. This is covered with scab. Consult podiatry for follow-up. Patient had Unasyn and doxycycline and discharged on Augmentin, comanaged with ID during previous admission. 02/04: Foot x-ray shows wider but more shallow appearance of a plantar ulcer compared to the January 02. No deep soft tissue or interval bone changes. Manager Event consult reviewed. Debridement was done bedside and devitalized fibrous tissue was removed. 6. Debility with chronic neuropathic pain, bilateral lower extremity weakness: Patient on baseline in wheelchair. PT and OT ordered. #5 essential hypertension-monitor BP and adjust antihypertensive medication #6 Anxiety and depression: Patient on Zoloft and trazodone. Currently hold as patient is confused and disoriented. VTE prophylaxis Heparin 5000 units twice daily, adjusted to creatinine clearance Living will/advanced directive/end of life care: Patient does not have living will or advanced directive or designated power of litigation attorney associate for health. Her boyfriend is next to kin. After discussion of benefits/risks procedures involved with full code, DNR CC arrest and DNR CC, the patient and her boyfriend opted for full code Patient does want artificial life support including intubation, tube feed, ventilator and/chest compression, central venous catheter, vasopressor and DC shock if needed Total time spent in [id number] encounter in discussion of advanced directive 16 minutes. Charges/Coding Visit Charges Inpatient E&M: 78380 Subs Hosp L2
[2022-02-04] MEDS: Sodium Bicarbonate 650 MG Tablet PO ×3 (09:25→20:55)
--- NOTE | 2022-02-04 11:37 | PN_ITS ---
Subjective Subjective This 56 female was seen bedside for follow-up of right foot ulcer. She was admitted for dehydration, hyperglycemia, and sepsis. She reports decreased foot pain now that she has been off of her foot. She denies fever, chills, nausea, vomiting. She relates she has recently been nonambulatory and was residing in a detention. She seems more alert today and her family is bedside. Objective Data Objective Data Vital Signs: Vital Signs Temp Pulse Resp BP Pulse Ox 98.5 F 83 15 98/58 L 95 02/04/22 07:30 02/04/22 08:45 02/04/22 07:30 02/04/22 07:30 02/04/22 07:30 Oxygen Flow Rate (L/min) 1 Oxygen Delivery Method Room Air Weight: 80.1 kg Body Mass Index (BMI) 27.8 Intake & Output: Intake and Output for Last 24 Hours 02/02/22 02/03/22 02/04/22 23:59 23:59 23:59 Intake Total 3000 / 3263.33 1113.33 / 1113.33 Output Total 0 / 0 0 / 0 Balance 3000 / 3263.33 1113.33 / 1113.33 Lab / Micro Data Result Diagrams: 02/04/22 08:00 02/04/22 08:00 Labs: Laboratory Results - last 24 hr 02/03/22 15:12: POC Glucose > 500 H* 02/03/22 15:30: WBC 15.1 H, RBC 2.33 L, Hgb 6.3 L, Hct 19.9 L, MCV 85.4, MCH 27.0, MCHC 31.7 L, RDW Std Deviation 44.3 H, RDW Coeff of Gabriela 14.1, Plt Count 344, MPV 11.0, Immature Gran % (Auto) RECORDS MANAGEMENT ANALYST, Neut % (Auto) RECORDS MANAGEMENT ANALYST, Lymph % (Auto) RECORDS MANAGEMENT ANALYST, [place] % (Auto) RECORDS MANAGEMENT ANALYST, Eos % (Auto) RECORDS MANAGEMENT ANALYST, Baso % (Auto) RECORDS MANAGEMENT ANALYST, Absolute Neuts (auto) 13.6 H, Absolute Lymphs (auto) 0.45 L, Total Counted 100, Neutrophils % (Manual) 87 H , Band Neutrophils % 3, Lymphocytes % (Manual) 3 L, Monocytes % (Manual) 5, Myelocytes % 2 H, Nucleated RBC % RECORDS MANAGEMENT ANALYST, Differential Comment SCANNED, Diff Path Review May foll, Platelet Estimate ADEQUATE, Hypochromasia 1+, Anisocytosis 1+ 02/03/22 15:30: Sodium 124 L, Potassium 4.5, Chloride 91 L, Carbon Dioxide 21.0, Anion Gap 12, BUN 60 H, Creatinine 4.92 H, Estim Creat Clear Calc 11.81, Est GFR (MDRD) Af Amer 12 L, Est GFR (MDRD) Non-Af 10 L, BUN/Creatinine Ratio 12.2, Glucose 720 H*, Calcium 8.4 L, Troponin I High Sens 122 H* 02/03/22 15:30: Acetone Level NEGATIVE 02/03/22 15:30: Phosphorus 4.8, Magnesium 1.8 02/03/22 17:19: Urine Color Yellow, Urine Clarity Turbid, Urine pH 5.0, Ur Specific [place] 1.020, Urine Protein 100 H, Urine Glucose (UA) 1000 H, Urine Ketones 5 H, Urine Occult Blood 250 H, Urine Nitrite Negative, Urine Bilirubin Negative, Urine Urobilinogen Normal, Ur Leukocyte Esterase 500 H, Urine RBC 0-5 SEEN, Urine WBC >100 SEEN, Ur Squamous Epith Cells 0 SEEN, Urine Bacteria 4+, Coarse Granular Casts 0-5 SEEN, Waxy Casts 0-5 SEEN H, Urine Mucus 0 SEEN 02/03/22 17:25: Troponin I High Sens 107 H 02/03/22 20:05: Sodium 128 L, Potassium 4.2, Chloride 98, Carbon Dioxide 20.0 L, Anion Gap 10, BUN 58 H, Creatinine 4.21 H, Estim Creat Clear Calc 13.80, Est GFR (MDRD) Af Amer 14 L, Est GFR (MDRD) Non-Af 12 L, BUN/Creatinine Ratio 13.8, Glucose 609 H*, Calcium 8.0 L 02/03/22 21:10: Blood Type O POSITIVE, Antibody Screen NEGATIVE, Crossmatch See Detail 02/03/22 23:00: Troponin I High Sens 76 H 02/04/22 02:27: POC Glucose 344 H 02/04/22 06:13: POC Glucose 329 H 02/04/22 08:00: Sodium 133 L, Potassium 3.6, Chloride 101, Carbon Dioxide 23.0, Anion Gap 9, BUN 62 H, Creatinine 4.04 H, Estim Creat Clear Calc 14.38, Est GFR (MDRD) Af Amer 15 L, Est GFR (MDRD) Non-Af 12 L, BUN/Creatinine Ratio 15.3, Glucose 274 H, Calcium 8.6 02/04/22 08:00: WBC 15.7 H, RBC 3.00 L, Hgb 8.2 L, Hct 26.1 L, MCV 87.0, MCH 27.3, MCHC 31.4 L, RDW Std Deviation 44.6 H, RDW Coeff of Gabriela 14.3, Plt Count 342, MPV 10.5, Immature Gran % (Auto) 3.500 H, Neut % (Auto) 82.3 H, Lymph % (Auto) 7.9 L, [place] % (Auto) 5.2, Eos % (Auto) 0.9, Baso % (Auto) 0.2, Absolute Neuts (auto) 12.9 H, Absolute Lymphs (auto) 1.23, Nucleated RBC % 0, Differential Comment SCANNED ABG Data ABG results: ABG 02/03/22 16:35 Specimen Type BRONSON VBG pH 7.29 L VBG pO2 59 H VBG HCO3 21 L VBG Total CO2 22 L VBG O2 Sat (Calc) 87 H VBG Base Excess -6 L POC Mix VBG pCO2 Pt Tmp 43.7 Radiography Diagnostic Testing: Radiology Impression Chest X-Ray 02/03/22 15:35 IMPRESSION: Mild bibasilar atelectasis. Electronically Signed: Viral Strauss MD at 16:27 EDT , Foot X-Ray 02/03/22 18:10 IMPRESSION: Wider but more shallow appearance of a plantar ulcer compared to January 02, 2022. No deep soft tissue gas or interval bone changes. Electronically Signed: Ashely Villalba MD at 23:15 EDT , Physical Exam Const alert and oriented x3 General Appearance: cooperative and lethargic Orientation / Consciousness: confused and disoriented HEENT normocephalic Extremity Extremity Narrative: No calf tenderness 2 out of 4 palpable DP pulses and 1 out of 4 palpable PT pulses bilateral Capillary fill time is brisk to all digits bilateral foot Her skin is hairless and atrophic bilateral Muscle wasting noted Active range of motion digits bilateral General Extremity: edema and no tenderness to palpation of joints or extremities; Negative for cyanosis Skin Skin Narrative: no purulence, no streaking, no odor, no infection locally noted at plantar lateral central right foot ulcer that measures 1.2 x 1.2 x 0.3 cm with fibrous and granular (50:50%) base. There is no deep tissue exposure necrosis or adjacent bogginess or fluctuance on palpation. Compartments of the right foot remain soft to palpate. Healed cicatrix are noted from her prior reconstructive surgeries General Skin Exam: Negative for erythema Neuro Neuro Narrative: Epicritic sensation is intact to light touch to bilateral foot Psych cooperative and affect normal Assessment & Plan Assessment/Plan (1) Sepsis: (2) Type 2 diabetes mellitus with diabetic polyneuropathy: (3) Ulcer of right foot with fat layer exposed: PLAN: I reviewed and discussed her case today. She is more alert now and there are no local signs of infection noted on her foot. Her ulcers are stable. Ulcer debridement was performed yesterday. Her vitals are stable and she is afebrile. Her white blood cell count continues in an elevated manner at 15.7. She is being treated for metabolic encephalopathy, acute kidney injury, dehydration, and elevated cardiac enzymes. Her medical management per primary hospitalist is appreciated and noted. The following work up and care recommendations were made: Dressing: Hydrogel and gauze Wash: Soap and water Tissue growth optimization: Advanced wound product application will be considered in the outpatient setting to optimize healing. Offload: I recommend nonweightbearing to the right foot with assistive device. Her recent nonambulatory status is noted. Vascular: She had noninvasive vascular studies performed 1 month ago with normal ABIs, toe pressures, and waveforms. No arterial occlusive disease is suspected Edema: Mild edema is noted and an Ernesto wrap is recommended Infection: No local infection signs are noted to the foot and additional advanced imaging or intervention is not recommended. The podiatry team will continue to follow her weekly with in house. I recommend she follows up with the wound healing center at time of discharge for comprehensive wound healing plan. Please do not hesitate to call if you have any questions. Anca Wilde DPM, [facility] [phone]
[2022-02-04] MEDS: Insulin Lispro 100 UNIT/ML INSULN.PEN 25 UNIT SC ×2 (12:25→17:22)
[2022-02-04] MEDS: 0.9% Normal Saline 1,000 ML 100 ML IV ×2 (12:26→20:54)
[2022-02-04 12:35] LABS: Bedside Glucose 210 mg/dL (74-106)
[2022-02-04 16:55] LABS: Bedside Glucose 119 mg/dL (74-106)
[2022-02-04 17:30] LABS: Bedside Glucose 148 mg/dL (74-106)
--- NOTE | 2022-02-04 18:24 | PCM.CONS.R ---
Assessment & Plan Assessment/Plan (1) DAMIÁN (acute kidney injury): PLAN: - Baseline serum creatinine prior to her admission in December 2021 was 1.10 to 1.30 mg/dL. -Suspect DAMIÁN is secondary to ischemic ATN. We did look for other causes of DAMIÁN during the last admission. -Although the patient had positive blood culture for Streptococcus not aureus, we did not think the patient had acute glomerulonephritis since C3 was normal during the last admission. Also, urinalysis did not reveal significant microscopic hematuria. -I will check urine indices. -Renal function is slightly better today. There is no need for kidney replacement therapy at this point. -Continue volume expansion with IV fluid with careful monitoring of volume status and renal function. (2) Hypotension: PLAN: - Improved. The patient presented with BP of 79/51 on 02/03/2022. -Holding antihypertensives. -The patient is being empirically treated for possible UTI with ceftriaxone. Urinalysis did show pyuria. Culture is pending (3) Type 2 diabetes mellitus with diabetic polyneuropathy: PLAN: - Glycemic control is as per hospital medicine team. (4) Acute encephalopathy: PLAN: - The patient presented with acute encephalopathy but her blood sugar was very high. -Mental status appears to be improving today. HPI Consult Data Date of Consult: 02/04/22 HPI Narrative Reason for Consultation: DAMIÁN on CKD HPI Narrative: NORAH CRAIG is a 56-year-old woman who is known to our service with her recent admission to the hospital between 01/03/2022 until 01/07/2022 with ulcer of the right foot. During that admission, the patient was seen by our service for acute kidney injury which was thought to be secondary to ATN. Prior to December 2021, serum creatinine had been around 1.10 to 1.30 mg/dL at baseline. Serum creatinine peaked at 2.51 mg/dL on 01/04/2022 with gradual improvement to 1.65 mg/dL on 01/16/2022. However, serum creatinine has gradually increased to 1.93 mg/dL on 01/25/2022. She presented to the hospital on 02/03/2022 with serum creatinine of 4.92 mg/dL. The patient presented yesterday to the ED on 02/03/2022 with confusion, slurred speech and generalized weakness. She was also found to have glucose of over 700 mg/dL. Again, serum creatinine was found to be 4.92 mg/dL yesterday. The patient remains weak and tired. She denies chest pain or shortness of breath at rest. There is no nausea, vomiting, or diarrhea. Serum creatinine is better today at 4.04 mg/dL. [facility] Medical History (Updated 02/04/22 @ 18:[address] Constantino Anthony MD) Asthma Delayed wound healing Depression Diabetes Diabetes mellitus with diabetic polyneuropathy Fall Generalized weakness HTN (hypertension) Localized edema Malnutrition Neuropathy Other specified peripheral vascular diseases Ulcer of right foot with necrosis of muscle Home Medications albuterol sulfate [ProAir HFA] 2 puff Q4H PRN PRN 01/28/18 [History Last Taken 02/02/22] metformin 1,000 mg DAILY 01/28/18 [History Last Taken 02/02/22] hydroxyzine HCl 25 mg PO QHS 01/02/22 [History Last Taken 02/02/22] Levemir FlexTouch U-100 Insuln 90 unit SUBCUT QHS #0 ml 01/07/22 [Rx Last Taken 02/02/22] loulk-irqr-HhGGW-[id number]-wj-lmf [Ahsan (with collagen)] 1 packet PO BIDCM #0 ea 01/07/22 [Rx Last Taken 02/02/22] hydralazine 25 mg PO DAILY #0 tab 01/07/22 [Rx Last Taken 02/02/22] insulin lispro [Humalog Dameon KwikPen U-100] 30 unit SUBCUT TID #0 ml 01/07/22 [Rx Last Taken 02/02/22] insulin lispro [Humalog KwikPen Insulin] See Protocol SUBCUT ACHS #0 ml 01/07/22 [Rx Last Taken 02/02/22] nystatin [Nyamyc] 1 applic TOPICAL TID #0 g 01/07/22 [Rx Last Taken 02/02/22] oxycodone 5 mg PO Q6H PRN PRN 2 Days #7 tab 01/07/22 [Rx Last Taken 02/02/22] pregabalin [Lyrica] 100 mg PO DAILY #0 cap 01/07/22 [Rx Last Taken 02/02/22] psyllium husk [Fiber (psyllium husk)] 0.4 g PO BID #30 cap 01/07/22 [Rx Last Taken 02/02/22] sennosides-docusate sodium [Stool Softener-Stimulant Laxat] 2 tab PO BID #0 tab 01/07/22 [Rx Last Taken 02/02/22] sertraline 100 mg PO DAILY #0 tab 01/07/22 [Rx Last Taken 02/02/22] trazodone 50 mg PO QHS PRN #0 tab 01/07/22 [Rx Last Taken 02/02/22] Allergy/AdvReac Type Severity Reaction Status Date / Time morphine AdvReac Vomiting Verified 02/03/22 15:15 Social History Smoking Status: Never smoker ROS ROS Narrative As per HPI, otherwise noncontributory. Physical Exam Narrative General: Ill-appearing woman who appears to be her stated age, NAD HEENT: Normocephalic, atraumatic mucous membrane moist, PERRLA, EOMI. Neck: Supple, no JVD. Heart: Normal S1, S2. No gallops, murmurs. Lungs: Clear to auscultation anteriorly. Abdomen: Obese, normal bowel sound, soft, nontender, no guarding or rebound on palpation. Extremity: No clubbing, cyanosis, or edema. Neurologic: No focal neurologic deficits. Skin: Warm and dry, no rash. Psychiatric: Flat affect. Lab / Micro Data Result Diagrams: 02/04/22 08:00 02/04/22 08:00 Labs: Laboratory Results - last 24 hr 02/03/22 17:19: Urine Color Yellow, Urine Clarity Turbid, Urine pH 5.0, Ur Specific [place] 1.020, Urine Protein 100 H, Urine Glucose (UA) 1000 H, Urine Ketones 5 H, Urine Occult Blood 250 H, Urine Nitrite Negative, Urine Bilirubin Negative, Urine Urobilinogen Normal, Ur Leukocyte Esterase 500 H, Urine RBC 0-5 SEEN, Urine WBC >100 SEEN, Ur Squamous Epith Cells 0 SEEN, Urine Bacteria 4+, Coarse Granular Casts 0-5 SEEN, Waxy Casts 0-5 SEEN H, Urine Mucus 0 SEEN 02/03/22 20:05: Sodium 128 L, Potassium 4.2, Chloride 98, Carbon Dioxide 20.0 L, Anion Gap 10, BUN 58 H, Creatinine 4.21 H, Estim Creat Clear Calc 13.80, Est GFR (MDRD) Af Amer 14 L, Est GFR (MDRD) Non-Af 12 L, BUN/Creatinine Ratio 13.8, Glucose 609 H*, Calcium 8.0 L 02/03/22 21:10: Blood Type O POSITIVE, Antibody Screen NEGATIVE, Crossmatch See Detail 02/03/22 23:00: Troponin I High Sens 76 H 02/04/22 02:27: POC Glucose 344 H 02/04/22 06:13: POC Glucose 329 H 02/04/22 08:00: Sodium 133 L, Potassium 3.6, Chloride 101, Carbon Dioxide 23.0, Anion Gap 9, BUN 62 H, Creatinine 4.04 H, Estim Creat Clear Calc 14.38, Est GFR (MDRD) Af Amer 15 L, Est GFR (MDRD) Non-Af 12 L, BUN/Creatinine Ratio 15.3, Glucose 274 H, Calcium 8.6 02/04/22 08:00: WBC 15.7 H, RBC 3.00 L, Hgb 8.2 L, Hct 26.1 L, MCV 87.0, MCH 27.3, MCHC 31.4 L, RDW Std Deviation 44.6 H, RDW Coeff of Gabriela 14.3, Plt Count 342, MPV 10.5, Immature Gran % (Auto) 3.500 H, Neut % (Auto) 82.3 H, Lymph % (Auto) 7.9 L, [place] % (Auto) 5.2, Eos % (Auto) 0.9, Baso % (Auto) 0.2, Absolute Neuts (auto) 12.9 H, Absolute Lymphs (auto) 1.23, Nucleated RBC % 0, Differential Comment SCANNED 02/04/22 12:24: POC Glucose 210 H 02/04/22 15:55: POC Glucose 119 H 02/04/22 17:21: POC Glucose 148 H Radiology Impression Foot X-Ray 02/03/22 18:10 IMPRESSION: Wider but more shallow appearance of a plantar ulcer compared to January 02, 2022. No deep soft tissue gas or interval bone changes. Electronically Signed: Ashely Villalba MD at 23:15 EDT Reading Location ID and State: [id number] / [place] Tel , Service support ,
[2022-02-04] MEDS: Insulin Glargine-YFGN 100 UNIT/ML Pen 80 UNIT SC (23:46)
[2022-02-04] MEDS: traZODone 50 MG Tablet PO (23:53)
[2022-02-04] MEDS: Acetaminophen 325 MG Tablet 650 MG PO (23:53)
[2022-02-05] VITALS (10 sets, daily range): BP systolic 118–145; BP diastolic 60–87; PULSE 84–101; RESP 16–20; TEMP 35.6–36.8; O2SAT 93–95
[2022-02-05 01:21] LABS: Bedside Glucose 204 mg/dL (74-106)
[2022-02-05 01:21] LABS: Bedside Glucose 87 mg/dL (74-106)
[2022-02-05] MEDS: oxyCODONE 5 MG Tablet PO ×2 (03:18→17:27)
[2022-02-05 05:21] LABS: Hemoglobin 7.7 g/dL (12.0-15.0); Mean Corp Hgb Conc 32.1 g/dL (32-36); Mean Corpuscular Hgb 27.6 pg (27.0-32.0); Mean Platelet Vol. 10.5 fl (6.2-12.0); POSITIVE COUNT YES; POSITIVE MORPHOLOGY YES; Platelet Count 345 K/mm3 (150-450); RBC Distribution Width CV 14.6 % (11.6-14.6); RBC Distribution Width SD 45.2 fl (35.1-43.9); Red Blood Count 2.79 M/mm3 (4.2-5.4); White Blood Count 14.1 K/mm3 (4.4-11.0)
[2022-02-05 05:33] LABS: Differential Indicated MANUAL DIFF
[2022-02-05 05:55] LABS: Anion Gap 8 (5-15); BUN 59 mg/dL (7-18); BUN/Creat Ratio 22.1 RATIO (10-20); Calcium,Total 8.3 mg/dL (8.5-10.1); Chloride 104 mmol/L (98-107); Creatinine, Serum 2.67 mg/dL (0.55-1.02); EST Glomerular Filtration Rate 20 mL/min (>60); Est Glom Filt Rate - Afr Amer 24 mL/min (>60); Estimated Creatinine Clearance 21.76 ml/min; Glucose 256 mg/dL (74-106); Potassium 3.7 mmol/L (3.5-5.1); Sodium Level 134 mmol/L (136-145)
--- NOTE | 2022-02-05 05:55 | ECHOD_ITS ---
Reason For Study: High Troponins Procedure This was a 2D Doppler, Color Flow transthoracic echocardiogram. Exam performed portable in patient room. Left Ventricle Normal LV size. Left ventricular systolic function is normal. The estimated ejection fraction is 65 %. Stage 1 diastolic dysfunction. No regional wall motion abnormalities noted. Right Ventricle Normal RV size. Normal systolic function. Atria Normal left atrium. Normal right atrium. Mitral Valve Normal mitral valve. Tricuspid Valve Normal tricuspid valve. Aortic Valve Trisinus/trileaflet aortic valve. Peak aortic valve gradient 20 mmHg. Mean aortic valve gradient 10 mmHg. Mild (1+) eccentric aortic valve insufficiency. Pulmonic Valve Normal pulmonic valve. Great Vessels Normal aortic root. The pulmonary artery is normal size. Normal inferior vena cava. Pericardium/Pleural No pericardial effusion. MMode/2D Measurements & Calculations LVIDd: 5.1 cm IVSd: 0.94 cm LVOT diam: 2.0 cm LVIDs: 3.5 cm LVPWd: 0.94 cm LVOT area: 3.3 cm2 RVDd: 3.5 cm FS: 31.7 % LA dimension: 4.4 cm LAV(MOD-bp): 53.1 ml LA A4 area: 17.1 cm2 LAV(MOD-bp) Indexed: 28.1 ml/m2 LAV(MOD-sp2): 59.7 ml LAV(MOD-sp4): 46.4 ml RA A4 area: 14.3 cm2 Time Measurements MV dec time: 0.22 sec Doppler Measurements & Calculations MV E max howard: 95.9 cm/sec Lat Peak E' Howard: 11.2 cm/sec Med Peak E' Howard: 6.7 cm/sec MV A max howard: 116.8 cm/sec E/E' lat: 8.6 E/E' med: 14.3 MV E/A: 0.82 MV V2 max: 120.4 cm/sec MV P1/2t max howard: 113.2 cm/sec Ao V2 max: 226.9 cm/sec MV max P.8 mmHg MV P1/2t: 70.0 msec Ao max P.6 mmHg MV V2 mean: 79.3 cm/sec MV dec slope: 474.1 cm/sec2 Ao V2 mean: 144.3 cm/sec MV mean P.8 mmHg Ao mean P.8 mmHg MV V2 VTI: 28.1 cm MVA(P1/2t): 3.1 cm2 Ao V2 VTI: 40.8 cm MVA(VTI): 3.0 cm2 PA(I,D): 2.1 cm2 PA(V,D): 1.9 cm2 AI max howard: 461.6 cm/sec LV V1 max: 129.8 cm/sec SV(LVOT): 84.6 ml AI max P.3 mmHg LV V1 max P.8 mmHg LV V1 mean P.5 mmHg AI dec slope: 297.2 cm/sec2 LV V1 mean: 86.5 cm/sec AI P1/2t: 454.8 msec LV V1 VTI: 26.0 cm PA V2 max: 136.8 cm/sec ECHO/Echo Complete Interpretation Summary Normal LV size. Left ventricular systolic function is normal. The estimated ejection fraction is 65 %. Mild (1+) eccentric aortic valve insufficiency. Stage 1 diastolic dysfunction. Mean aortic valve gradient 10 mmHg. Ordering Physician: Martin Mcmahon Referring Physician: Kim Salas Performed By: Iam Wilkes RCS
[2022-02-05 06:31] LABS: Eosinophil 3 % (0-5); Lymphocyte 5 % (19-41); Metamyelocyte 2 % (0-1); Monocyte 5 % (0-10); Myelocyte 3 % (0-0); Neutrophil-Band 3 % (0-5); Neutrophil-Segmented 79 % (47-70); Total Cells Counted 100 (MANUAL DIFF)
[2022-02-05 06:32] LABS: Absolute Neutrophil Count 12.3 X10^3/uL (2.0-7.7); Neutrophil # 12.28 X10^3/uL (2.7-7.7)
[2022-02-05 06:33] LABS: Absolute Lymphocyte Count 0.71 X10^3/uL (0.83-4.51); Lymphocyte # 0.71 X10^3/ul (0.83-4.51); Platelet Estimate ADEQUATE (ADEQ); Red Cell Morphology NORM C+C NORMAL (NORM C&C)
[2022-02-05] MEDS: Sodium Bicarbonate 650 MG Tablet PO ×3 (06:40→20:25)
[2022-02-05] MEDS: 0.9% Normal Saline 1,000 ML 100 ML IV (06:42)
[2022-02-05] MEDS: Insulin Lispro 100 UNIT/ML INSULN.PEN SC (08:49)
[2022-02-05] MEDS: Insulin Lispro 100 UNIT/ML INSULN.PEN 25 UNIT SC ×2 (08:50→12:04)
[2022-02-05] MEDS: Senna/Docusate Sodium 1 Tablet 2 TABLET PO ×2 (08:50→20:25)
[2022-02-05] MEDS: Heparin Injection (Vial) 5,000 UNIT/ML VIAL 5000 UNIT SC ×2 (08:51→20:23)
[2022-02-05] MEDS: Juven (unflavored) Packet 1 PACKET PO ×2 (08:51→17:28)
[2022-02-05] MEDS: Psyllium 1 PACKET PO ×2 (08:51→20:26)
[2022-02-05] MEDS: Pregabalin 50 MG Capsule 100 MG PO (08:55)
[2022-02-05] MEDS: Ceftriaxone 1 GM/50 ML BAG IV (09:12)
--- NOTE | 2022-02-05 10:50 | CASEMGMT ---
JANELL noted in patient's chart that patient's family would like [facility]. Physician also notified SW. JANELL met with patient and her daughter, Nidhi. Patient seemed confused so Nidhi answered questions. Nidhi confirmed they would like [facility]. JANELL provided a list of SNF providers including quality and resource use data and consistent with the patient?s preferred geographic region, medical needs, and insurance network. Nidhi requested a [facility] list also. JANELL provided [facility] list as well. JANELL highlighted the facilities that take patient's insurance in pink. JANELL let Nidhi know SW will send referral to [facility], but they should pick at least 2 other facilities in the event [facility] cannot take patient. JANELL called [facility] and admissions was not available so JANELL left a message requesting a return call. JANELL could not get fax to go through so JANELL e-mailed referral to [facility]. Await response. Ayleen OGDEN
--- NOTE | 2022-02-05 11:27 | PCM.PN.REN ---
Subjective Subjective somewhat better. c/o pain in RLE. boyfriend and daughter at bedside Objective Data Objective Data Vital Signs: Vital Signs Temp Pulse Resp BP Pulse Ox 98.2 F 91 18 118/87 H 94 02/05/22 09:00 02/05/22 09:00 02/05/22 09:00 02/05/22 09:00 02/05/22 09:00 Oxygen Flow Rate (L/min) 1 Oxygen Delivery Method Room Air Weight: 79.2 kg Body Mass Index (BMI) 27.8 Intake & Output: Intake and Output for Last 24 Hours 02/03/22 02/04/22 02/05/22 23:59 23:59 23:59 Intake Total 3000 / 3263.33 3416.67 / 3416.67 1030 / 1030 Output Total 0 / 0 700 / 700 600 / 600 Balance 3000 / 3263.33 2716.67 / 2716.67 430 / 430 Lab / Micro Data Result Diagrams: 02/05/22 04:48 02/05/22 04:48 Labs: Laboratory Results - last 24 hr 02/04/22 12:24: POC Glucose 210 H 02/04/22 15:55: POC Glucose 119 H 02/04/22 17:21: POC Glucose 148 H 02/04/22 20:53: POC Glucose 87 02/04/22 23:43: POC Glucose 204 H 02/05/22 04:48: WBC 14.1 H, RBC 2.79 L, Hgb 7.7 L, Hct 24.0 L, MCV 86.0, MCH 27.6, MCHC 32.1, RDW Std Deviation 45.2 H, RDW Coeff of Gabriela 14.6, Plt Count 345, MPV 10.5, Neut % (Auto) Not Reportable, Absolute Neuts (auto) 12.3 H, Absolute Lymphs (auto) 0.71 L, Total Counted 100, Neutrophils % (Manual) 79 H, Band Neutrophils % 3, Lymphocytes % (Manual) 5 L, Monocytes % (Manual) 5, Eosinophils % (Manual) 3, Metamyelocytes % 2 H, Myelocytes % 3 H, Diff Path Review May , Platelet Estimate ADEQUATE, RBC Morphology NORM C+C 02/05/22 04:48: Sodium 134 L, Potassium 3.7, Chloride 104, Carbon Dioxide 22.0, Anion Gap 8, BUN 59 H, Creatinine 2.67 H, Estim Creat Clear Calc 21.76, Est GFR (MDRD) Af Amer 24 L, Est GFR (MDRD) Non-Af 20 L, BUN/Creatinine Ratio 22.1 H, Glucose 256 H, Calcium 8.3 L Physical Exam Narrative General: Ill-appearing woman who appears to be her stated age, NAD HEENT: Normocephalic, atraumatic mucous membrane moist, PERRLA, EOMI. Neck: Supple, no JVD. Heart: Normal S1, S2. No gallops, murmurs. Lungs: Clear to auscultation anteriorly. Abdomen: Obese, normal bowel sound, soft, nontender, no guarding or rebound on palpation. Extremity: No clubbing, cyanosis, or edema. Neurologic: No focal neurologic deficits. Skin: Warm and dry, no rash. Psychiatric: Flat affect. Assessment & Plan Assessment/Plan (1) DAMIÁN (acute kidney injury): PLAN: - Baseline serum creatinine prior to her admission in December 2021 was 1.10 to 1.30 mg/dL. -Suspect DAMIÁN is secondary to ischemic ATN. We did look for other causes of DAMIÁN during the last admission. -Although the patient had positive blood culture for Streptococcus not aureus, we did not think the patient had acute glomerulonephritis since C3 was normal during the last admission. Also, urinalysis did not reveal significant microscopic hematuria. -Renal function is better today. There is no need for kidney replacement therapy at this point. -Continue volume expansion with IV fluid with careful monitoring of volume status and renal function. (2) Hypotension: PLAN: - Improved. The patient presented with BP of 79/51 on 02/03/2022. -Holding antihypertensives. -better with fluids (3) Type 2 diabetes mellitus with diabetic polyneuropathy: PLAN: - Glycemic control is as per hospital medicine team. (4) Acute encephalopathy: PLAN: - The patient presented with acute encephalopathy but her blood sugar was very high. -Mental status appears to be improving.
[2022-02-05 12:11] LABS: Bedside Glucose 149 mg/dL (74-106)
--- NOTE | 2022-02-05 13:14 | RAD_ITS ---
STUDY: X-RAY - PELVIS AND RIGHT HIP REASON FOR EXAM: Female, 56 years old. pain TECHNIQUE: 3 views of the pelvis and hip. COMPARISON: 01/03/2022 FINDINGS: There is a non-specific bowel gas pattern. Normal visualized soft tissue structures. Normal bilateral iliac wings, sacroiliac joints and visualized sacrum. Normal bilateral superior and inferior pubic rami. Normal pubic symphysis. Normal bilateral ischial tuberosities. Normal visualized femoral head. Normal acetabulum. Normal hip joint. RAD/HIP, UNI W/ Pelvis 2-3 Views IMPRESSION: Normal x-ray examination of the pelvis and hip. Electronically Signed: Rachid Guerrero MD at 15:50 EDT ,
--- NOTE | 2022-02-05 13:21 | PCM.PN.HOSP ---
Documented by User: Liudmila Moffett NP, LAUNCH OPERATOR-C 02/05/22 13:37 Subjective Subjective Patient seen and examined. Daughter at bedside. Patient states she feels fatigued. Denies other symptoms or complaints. Daughter states plan is for patient to go to SNF as she has had recurrent falls at home as well as recurrent hospital admissions. Patient is amendable to SNF. Objective Data Objective Data Vital Signs: Vital Signs Temp Pulse Resp BP Pulse Ox 98.2 F 91 18 118/87 H 94 02/05/22 09:00 02/05/22 12:00 02/05/22 09:00 02/05/22 09:00 02/05/22 09:00 Oxygen Flow Rate (L/min) 1 Oxygen Delivery Method Room Air Weight: 174 lb 9.698 oz Body Mass Index (BMI) 27.8 Intake & Output: Intake and Output for Last 24 Hours 02/03/22 02/04/22 02/05/22 23:59 23:59 23:59 Intake Total 3000 / 3263.33 3416.67 / 3416.67 1270 / 1270 Output Total 0 / 0 700 / 700 800 / 800 Balance 3000 / 3263.33 2716.67 / 2716.67 470 / 470 Lab / Micro Data Result Diagrams: 02/05/22 04:48 02/05/22 04:48 Labs: Laboratory Results - last 24 hr 02/04/22 15:55: POC Glucose 119 H 02/04/22 17:21: POC Glucose 148 H 02/04/22 20:53: POC Glucose 87 02/04/22 23:43: POC Glucose 204 H 02/05/22 04:48: WBC 14.1 H, RBC 2.79 L, Hgb 7.7 L, Hct 24.0 L, MCV 86.0, MCH 27.6, MCHC 32.1, RDW Std Deviation 45.2 H, RDW Coeff of Gabriela 14.6, Plt Count 345, MPV 10.5, Neut % (Auto) Not Reportable, Absolute Neuts (auto) 12.3 H, Absolute Lymphs (auto) 0.71 L, Total Counted 100, Neutrophils % (Manual) 79 H, Band Neutrophils % 3, Lymphocytes % (Manual) 5 L, Monocytes % (Manual) 5, Eosinophils % (Manual) 3, Metamyelocytes % 2 H, Myelocytes % 3 H, Diff Path Review May foll, Platelet Estimate ADEQUATE, RBC Morphology NORM C+C 02/05/22 04:48: Sodium 134 L, Potassium 3.7, Chloride 104, Carbon Dioxide 22.0, Anion Gap 8, BUN 59 H, Creatinine 2.67 H, Estim Creat Clear Calc 21.76, Est GFR (MDRD) Af Amer 24 L, Est GFR (MDRD) Non-Af 20 L, BUN/Creatinine Ratio 22.1 H, Glucose 256 H, Calcium 8.3 L 02/05/22 12:03: POC Glucose 149 H Physical Exam Const alert, oriented x3 and no apparent distress Orientation / Consciousness: awake, oriented to person, oriented to place and oriented to time HEENT normocephalic Mouth: dry mucous membranes Eyes PERRL, EOMs intact bilaterally and conjunctivae normal Neck no lymphadenopathy Resp clear to auscultation bilaterally Auscultation: diminished lung sounds Cardio regular rate, regular rhythm and no murmurs Peripheral Pulses: pulses 2+ throughout GI normal to inspection, nondistended, normoactive bowel sounds, non-tender and non-distended Extremity normal to inspection General Extremity: edema bilateral lower extremity Skin no rashes or lesions noted Skin Narrative: Right foot diabetic ulcer Lesions: no lesions Rashes: no rashes Trauma: no lacerations or abrasions Neuro CN's II-XII intact bilaterally, no focal motor deficits, no sensory deficits noted and deep tendon reflexes 2+ bilaterally Psych mental status grossly normal Mood & Affect: flat affect Assessment & Plan Assessment/Plan (1) DAMIÁN (acute kidney injury): PLAN: 1. Acute metabolic encephalopathy secondary to DAMIÁN and hyperglycemia, possible UTI-complicated by sedating regimen. Improved, continue to treat underlying processes. Hold sedating regimen. 2. Acute kidney injury on chronic kidney disease stage IV-nephrology following. Suspect ischemic ATN. IV fluids, trend BMP. Improving. 3. Acute on Chronic normocytic anemia-recent iron studies with iron deficiency. Stool negative for occult blood. Status post 2 units PRBC. Trend CBC. IV iron x3. 4. Possible UTI-UA with 4+ bacteria, greater than 100 WBC. Asymptomatic. IV Rocephin pending culture. 5. Type 2 diabetes mellitus, poorly [id number] with sliding scale insulin. Continue long-acting regimen. 6. Right foot diabetic ulcer-podiatry and wound RN consulted. No evidence of infection. Continue dressing changes as ordered. Bedside debridement 02/03/2022 by podiatry. 7. Mildly elevated troponin-likely demand ischemia. Enzymes did not trend. EKG without acute ST-T changes. Echocardiogram pending. 8. Failure to thrive/debility/recurrent falls-PT/OT. Wheelchair-bound at home. SNF pending acceptance. Case management/social work following. 9. Anxiety/depression-on Zoloft, trazodone. Held due to confusion. DVT prophylaxis-Heparin subcu This patient was seen by OLGA Atwood under the supervision of . Documented by User: Dr. Ashley Lee DO 02/05/22 17:04 Subjective Subjective Patient denies any specific problems other than her right lower extremity pain which starts in the hip and goes to her foot. This apparently has been chronic but the hip pain is somewhat new. She is not all the ambulatory at baseline. Her daughter is at bedside and we discussed the current line of treatment and the improvement in her renal function. Her white count is trending down. Both the daughter and the patient are agreeable with placement upon discharge. Objective Data Lab / Micro Data Result Diagrams: 02/05/22 04:48 02/05/22 04:48 Physical Exam Const alert, oriented x3, no apparent distress and well nourished Constitutional Narrative: Overweight, middle-aged white female sitting up in bed, appears much older than stated age, daughter at bedside, appears comfortable and nontoxic Exam Limitations: no limitations Nutritional Appearance: overweight HEENT head/scalp atraumatic and moist oral mucous membranes HEENT Narrative: Dentures in place, Mallampati 2-3, no thrush Head and Scalp: normocephalic Resp normal respiratory effort, no retractions, no use of accessory muscles and clear to auscultation bilaterally Auscultation: Negative for crackles, rales, rhonchi or wheezes Cardio regular rate, regular rhythm, S1 normal heart sound, S2 normal heart sound, no murmurs, no rub, no gallops, no clicks and no JVD GI normal to inspection, nondistended, normoactive bowel sounds, soft to palpation, non-tender and non-distended Extremity no clubbing, cyanosis or edema Peripheral Pulses: Yes pulses 2+ throughout Neuro oriented x3, CN's II-XII intact bilaterally, moves all extremities and no focal motor deficits Neuro Narrative: Significant generalized weakness Sensorium / Orientation: awake and alert Speech: speech normal Psych Psych Narrative: Affect is somewhat flattened mood seems to be depressed Assessment & Plan Assessment/Plan (1) DAMIÁN (acute kidney injury): (2) Hypotension: (3) Ulcer of right foot with fat layer exposed: (4) Acute encephalopathy: PLAN: Assessment: Acute metabolic encephalopathy DAMIÁN without evidence of CKD secondary to ischemic ATN Hypotension-resolved DM-2 Acute on chronic anemia secondary to iron deficiency Urinary tract infection NSTEMI type II secondary to demand ischemia Right diabetic foot wound Failure to thrive/debility Right hip pain Hypertension Diabetic neuropathy Depression Plan: -No evidence of infection in the foot--> continue wound care per podiatry -Urine looks infected and will continue antibiotics for complicated urinary tract infection -Right hip pain and x-rays were performed showing no acute abnormalities -Patient did require 2 units of blood during her hospitalization and has been found previously to be iron deficient -Globin is overall regular to be stable and will repeat CBC in a.m. -IV iron has been given during hospitalization and we will discharge her on oral iron -Renal function is improving --> Likely ischemic ATN secondary to hypotension she had a presentation which has since resolved -Baseline serum creatinine appears to be 1.1-1.3 and was 2.67 today -Discontinue IV fluids and repeat BMP in a.m. -Plan is for discharge to skilled facility pre-CERT is now pending for [facility] Charges/Coding Visit Charges Inpatient E&M: 35557 Subs Hosp L2
--- NOTE | 2022-02-05 13:22 | CASEMGMT ---
JANELL called Lottie at [facility]. They are able to accept patient. JANELL asked Lottie to please start the pre-cert. Lottie will have the business office start the pre-cert. JANELL went to notify patient and her daughter, however patient's daughter was not here and radiology was in the room with patient for x-rays. Plan: d/c to [facility] pending pre-cert. Ayleen Rodarte LAMP DECORATORZara OGDEN
[2022-02-05 16:07] LABS: Urine Sodium 47 mmol/L (Not Establ.)
[2022-02-05 17:21] LABS: Bedside Glucose 222 mg/dL (74-106)
[2022-02-05] MEDS: Acetaminophen 325 MG Tablet 650 MG PO (17:27)
[2022-02-05 17:51] LABS: Bedside Glucose 91 mg/dL (74-106)
[2022-02-05 22:11] LABS: Bedside Glucose 120 mg/dL (74-106)
[2022-02-06] VITALS (13 sets, daily range): BP systolic 137–158; BP diastolic 58–73; PULSE 81–93; RESP 18–20; TEMP 36.2–37.1; O2SAT 94–98
[2022-02-06] MEDS: oxyCODONE 5 MG Tablet PO ×4 (02:27→22:18)
[2022-02-06] MEDS: Acetaminophen 325 MG Tablet 650 MG PO ×3 (02:28→15:28)
[2022-02-06] MEDS: Sodium Bicarbonate 650 MG Tablet PO ×3 (05:06→21:04)
[2022-02-06 06:34] LABS: Hematocrit 24.3 % (37-47); Hemoglobin 7.7 g/dL (12.0-15.0); Mean Corp Hgb Conc 31.7 g/dL (32-36); Mean Corpuscular Hgb 27.3 pg (27.0-32.0); Mean Corpuscular Volume 86.2 fL (81-99); Mean Platelet Vol. 10.3 fl (6.2-12.0); POSITIVE COUNT YES; POSITIVE MORPHOLOGY YES; Platelet Count 358 K/mm3 (150-450); RBC Distribution Width CV 14.7 % (11.6-14.6); RBC Distribution Width SD 46.2 fl (35.1-43.9); Red Blood Count 2.82 M/mm3 (4.2-5.4)
[2022-02-06 06:35] LABS: Differential Indicated MANUAL DIFF
[2022-02-06 06:58] LABS: Anion Gap 8 (5-15); BUN 42 mg/dL (7-18); BUN/Creat Ratio 20.5 RATIO (10-20); Calcium,Total 8.3 mg/dL (8.5-10.1); Chloride 109 mmol/L (98-107); Creatinine, Serum 2.05 mg/dL (0.55-1.02); EST Glomerular Filtration Rate 27 mL/min (>60); Est Glom Filt Rate - Afr Amer 32 mL/min (>60); Estimated Creatinine Clearance 28.34 ml/min; Glucose 131 mg/dL (74-106); Potassium 3.6 mmol/L (3.5-5.1); Sodium Level 140 mmol/L (136-145)
[2022-02-06 07:06] LABS: Neutrophil-Segmented 89 % (47-70); Total Cells Counted 100 (MANUAL DIFF)
[2022-02-06 07:07] LABS: Eosinophil 1 % (0-5); Lymphocyte 5 % (19-41); Metamyelocyte 1 % (0-1); Monocyte 3 % (0-10); Myelocyte 1 % (0-0)
[2022-02-06 07:08] LABS: Absolute Neutrophil Count 12.7 X10^3/uL (2.0-7.7); Neutrophil # 12.74 X10^3/uL (2.7-7.7); Platelet Estimate ADEQUATE (ADEQ)
[2022-02-06 07:09] LABS: Red Cell Morphology NORM C+C NORMAL (NORM C&C)
[2022-02-06] MEDS: Insulin Lispro 100 UNIT/ML INSULN.PEN SC (08:52)
[2022-02-06] MEDS: Insulin Lispro 100 UNIT/ML INSULN.PEN 25 UNIT SC (08:53)
[2022-02-06] MEDS: Juven (unflavored) Packet 1 PACKET PO (08:54)
[2022-02-06] MEDS: Psyllium 1 PACKET PO (08:54)
[2022-02-06] MEDS: Pregabalin 50 MG Capsule 100 MG PO (09:00)
[2022-02-06] MEDS: Senna/Docusate Sodium 1 Tablet 2 TABLET PO ×2 (09:01→21:04)
[2022-02-06] MEDS: Heparin Injection (Vial) 5,000 UNIT/ML VIAL 5000 UNIT SC ×2 (09:01→21:03)
[2022-02-06] MEDS: Ceftriaxone 1 GM/50 ML BAG IV (09:06)
[2022-02-06 09:11] LABS: Bedside Glucose 173 mg/dL (74-106)
[2022-02-06 09:30] LABS: Pathologist Review Reviewed
[2022-02-06 09:33] LABS: Pathologist Review Reviewed
--- NOTE | 2022-02-06 11:36 | CT_ITS ---
We are attempting to reach an attending provider to discuss findings. An addendum with communication details will be sent when the communication is complete. STUDY: CT RIGHT HIP/FEMUR WITHOUT CONTRAST REASON FOR EXAM: Right hip pain, recent fall. TECHNIQUE: Transaxial CT imaging of the hip/femur was performed. Sagittal and coronal images were reconstructed. Individualized dose optimization techniques were used for this CT. COMPARISON: CT of the abdomen/pelvis and radiographs 02/05/2022. FINDINGS: There is intraosseous gas in the femoral head (axial images 40-48). There is no demonstrated fracture of the visualized femur. Since the recent CT of the abdomen/pelvis there is interval development of joint space loss of the right hip (coronal reconstructions 53-65) with a right hip joint effusion containing pockets of gas in the anterior and posterior hip joint (sagittal reconstructions 49-61) suggestive of septic arthritis. There is edema in the subcutis adipose space of the thigh. 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 Electronically Signed: Raffy Sanchez MD at 12:46 EDT ,
--- NOTE | 2022-02-06 11:37 | CASEMGMT ---
Readmission chart review: 01/03-01/07/22 Debility, neuropathic ulceration right plantar surface foot 02/03/22-current DAMIÁN, hyperglycemia Pt was initially brought in on 01/03/22 for weakness, foot wound. Pt was admitted to [facility] for same with c/s to podiatry and ID. Pt had bedside I &D done by podiatry during visit and pt was discharged to [facility] for rehab d/t weakness on po antibx. Pt also with DAMIÁN during that visit as well. Pt was recently discharged from SNF. Pt returned to [facility] ED on 02/03/22 for confusion, slurred speech and hyperglycemia. Pt admitted to PCU for DAMIÁN, hyperglycemia. Pt is also a poorly controlled DM. Per notes, daughter has already been looking at [facility] for pt and would like her to be discharged there this visit. [facility] SW aware and [facility] has accepted pt and precert is pending. CM to follow for any further discharge planning/needs. SStdorinda FLANAGAN CM
[2022-02-06 11:46] LABS: Bedside Glucose 79 mg/dL (74-106)
--- NOTE | 2022-02-06 12:11 | PN.HOSP_ITS ---
Documented by User: Liudmila Moffett NP, BROACHING MACHINE SET UP OPERATOR-C 02/06/22 12:21 Subjective Subjective Patient seen and examined. Reports right hip and thigh pain. Feels fatigued. Denies fever, chills. Denies urinary symptoms. Denies other symptoms or complaints. Awaiting acceptance to SNF. Objective Data Objective Data Vital Signs: Vital Signs Temp Pulse Resp BP Pulse Ox 98.0 F 81 18 137/58 H 95 02/06/22 08:50 02/06/22 11:00 02/06/22 08:50 02/06/22 08:50 02/06/22 09:11 Oxygen Flow Rate (L/min) 2 Oxygen Delivery Method Room Air Weight: 175 lb 14.862 oz Body Mass Index (BMI) 27.8 Intake & Output: Intake and Output for Last 24 Hours 02/04/22 02/05/22 02/06/22 23:59 23:59 23:59 Intake Total 3416.67 / 3416.67 2691.67 / 2891.67 660 / 660 Output Total 700 / 700 950 / 1350 1400 / 1400 Balance 2716.67 / 2716.67 1741.67 / 1541.67 -740 / -740 Lab / Micro Data Result Diagrams: 02/06/22 05:40 02/06/22 05:40 Labs: Laboratory Results - last 24 hr 02/03/22 15:30: Diff Path Review Reviewed 02/05/22 04:48: Diff Path Review Reviewed 02/05/22 08:39: POC Glucose 222 H 02/05/22 12:03: POC Glucose 149 H 02/05/22 15:49: Ur Random Sodium 47 02/05/22 15:49: Urine Creatinine 74.50 02/05/22 17:30: POC Glucose 91 02/05/22 20:20: POC Glucose 120 H 02/06/22 05:40: WBC 14.0 H, RBC 2.82 L, Hgb 7.7 L, Hct 24.3 L, MCV 86.2, MCH 27.3, MCHC 31.7 L, RDW Std Deviation 46.2 H, RDW Coeff of Gabriela 14.7 H, Plt Count 358, MPV 10.3, Neut % (Auto) Not Reportable, Absolute Neuts (auto) 12.7 H, Absolute Lymphs (auto) 0.70 L, Total Counted 100, Neutrophils % (Manual) 89 H, Lymphocytes % (Manual) 5 L, Monocytes % (Manual) 3, Eosinophils % (Manual) 1, Metamyelocytes % 1, Myelocytes % 1 H, Diff Path Review May , Platelet Estimate ADEQUATE, RBC Morphology NORM C+C 02/06/22 05:40: Sodium 140, Potassium 3.6, Chloride 109 H, Carbon Dioxide 23.0, Anion Gap 8, BUN 42 H, Creatinine 2.05 H, Estim Creat Clear Calc 28.34, Est GFR (MDRD) Af Amer 32 L, Est GFR (MDRD) Non-Af 27 L, BUN/Creatinine Ratio 20.5 H, Glucose 131 H, Calcium 8.3 L 02/06/22 08:37: POC Glucose 173 H 02/06/22 11:38: POC Glucose 79 Radiography Diagnostic Testing: Radiology Impression Echocardiogram 02/05/22 05:55 Interpretation Summary Normal LV size. Left ventricular systolic function is normal. The estimated ejection fraction is 65 %. Mild (1+) eccentric aortic valve insufficiency. Stage 1 diastolic dysfunction. Mean aortic valve gradient 10 mmHg. Ordering Physician: Martin Mcmahon Referring Physician: Kim Salas Performed By: Iam Wilkes RCS Hip/Pelvis X-Ray 02/05/22 13:14 IMPRESSION: Normal x-ray examination of the pelvis and hip. Electronically Signed: Rachid Guerrero MD at 15:50 EDT , Physical Exam Const alert, oriented x3 and no apparent distress Orientation / Consciousness: awake, oriented to person, oriented to place and oriented to time HEENT normocephalic and moist oral mucous membranes Eyes PERRL, EOMs intact bilaterally and conjunctivae normal Neck no lymphadenopathy Resp clear to auscultation bilaterally Auscultation: diminished lung sounds Cardio regular rate, regular rhythm and no murmurs Peripheral Pulses: pulses 2+ throughout GI normal to inspection, nondistended, normoactive bowel sounds, non-tender and non-distended Extremity normal to inspection Extremity Narrative: Right hip/thigh tenderness Skin no rashes or lesions noted Lesions: no lesions Rashes: no rashes Trauma: no lacerations or abrasions Neuro CN's II-XII intact bilaterally, no focal motor deficits, no sensory deficits noted and deep tendon reflexes 2+ bilaterally Psych mental status grossly normal and affect normal Assessment & Plan Assessment/Plan (1) Acute encephalopathy: (2) DAMIÁN (acute kidney injury): PLAN: 1. Acute metabolic encephalopathy secondary to DAMIÁN and hyperglycemia, UTI-complicated by sedating regimen. Improved, continue to treat underlying processes. Hold sedating regimen. 2. Acute kidney injury on chronic kidney disease stage IV-nephrology following. Suspect ischemic ATN. Improving. DC further IV fluids. Trend BMP. 3. Acute on Chronic normocytic anemia-recent iron studies with iron deficiency. Stool negative for occult blood. Status post 2 units PRBC. Trend CBC. IV iron x3. 4. Acute UTI-UA with 4+ bacteria, greater than 100 WBC. IV Rocephin pending culture. 5. Type 2 diabetes mellitus, poorly [id number] with sliding scale insulin. Reduce bedtime long-acting to 50 units. 6. Right foot diabetic ulcer-podiatry and wound RN consulted. No evidence of infection. Continue dressing changes as ordered. Bedside debridement 02/03/2022 by podiatry. 7. Mildly elevated troponin- demand ischemia. Enzymes did not trend. EKG without acute ST-T changes. Echocardiogram demonstrated an EF of 65%, mild aortic valve insufficiency, stage I diastolic dysfunction. 8. Failure to thrive/debility/recurrent falls-PT/OT. Wheelchair-bound at home. SNF pending acceptance. Case management/social work following. 9. Anxiety/depression-on Zoloft, trazodone. 10. Right hip pain-x-ray unremarkable. Due to recent traumatic fall, will obtain CT for further evaluation. As needed pain regimen. DVT prophylaxis-Heparin subcu Discharge planning: Awaiting SNF acceptance. This patient was seen by Liudmila Moffett NP-C under the supervision of . Documented by User: Dr. Ashley Lee DO 02/06/22 16:44 Subjective Subjective This patient was seen in conjunction with Liudmila Moffett NP. The following represents my independent history and physical examination. Please see below for addendum above. Patient states she is overall okay other than her persistent right hip pain. She states its been ongoing for approximately 2 weeks since he fell on that side. She has significant pain with movement both actively and passively and tenderness at the anterior lateral area just distal to the right groin. Objective Data Lab / Micro Data Result Diagrams: 02/06/22 05:40 02/06/22 05:40 Physical Exam Const alert, oriented x3, no apparent distress and well nourished Constitutional Narrative: Overweight, middle-aged white female sitting up in bed, appears much older than stated age,appears comfortable and nontoxic Orientation / Consciousness: awake, oriented to person, oriented to place and oriented to time Exam Limitations: no limitations Nutritional Appearance: overweight HEENT normocephalic, head/scalp atraumatic and moist oral mucous membranes HEENT Narrative: Mallampati is 2, dentition is fair, no thrush Head and Scalp: normocephalic Resp normal respiratory effort, no retractions, no use of accessory muscles and clear to auscultation bilaterally Auscultation: diminished lung sounds; Negative for crackles, rales, rhonchi or wheezes Cardio regular rate, regular rhythm, S1 normal heart sound, S2 normal heart sound, no murmurs, no rub, no gallops, no clicks and no JVD Peripheral Pulses: pulses 2+ throughout GI normal to inspection, nondistended, normoactive bowel sounds, soft to palpation, non-tender and non-distended Extremity normal to inspection and no clubbing, cyanosis or edema Extremity Narrative: Right hip/thigh tenderness to palpation, decreased active and passive range of motion at the right hip with significant pain being produced with both, no warmth or redness noted on exam, dressing on plantar surface of right foot with no significant drainage-pictures reviewed General Extremity: edema bilateral lower extremity Peripheral Pulses: Yes pulses 2+ throughout Skin no rashes or lesions noted Skin Narrative: Right foot diabetic ulcer Lesions: no lesions Rashes: no rashes Trauma: no lacerations or abrasions Neuro oriented x3, CN's II-XII intact bilaterally, moves all extremities, no focal motor deficits, no sensory deficits noted and deep tendon reflexes 2+ bila terally Neuro Narrative: Significant generalized weakness with significant decreased mobility in right lower extremity secondary to pain Sensorium / Orientation: awake and alert Speech: speech normal Psych mental status grossly normal Psych Narrative: Affect is somewhat flattened mood seems to be depressed however patient is more interactive today Mood & Affect: flat affect Assessment & Plan Assessment/Plan (1) DAMIÁN (acute kidney injury): (2) Osteonecrosis of right hip: (3) Septic arthritis: (4) Ulcer of right foot with fat layer exposed: PLAN: Assessment: Osteonecrosis/osteomyelitis of the right hip Septic arthritis of the right hip Acute metabolic encephalopathy-resolved DAMIÁN without evidence of CKD secondary to ischemic ATN Hypotension-resolved DM-2 Acute on chronic anemia secondary to iron deficiency Urinary tract infection NSTEMI type II secondary to demand ischemia Right diabetic foot wound Failure to thrive/debility Hypertension Diabetic neuropathy Depression Plan: -No evidence of infection in the foot--> continue wound care per podiatry -Urine looks infected and will continue antibiotics for complicated urinary tract infection -Culture is pending -Blood cultures are pending -Right hip pain and x-rays were performed showing no acute abnormalities however given persistent pain a CT of her right hip was pursued today and showed septic arthritis of the right hip with emphysematous osteomyelitis changes of the right femoral head -Case was discussed with orthopedic surgery here and they recommended transfer to a tertiary center -Transfer is currently pending -Will consult ID if it does not appear that the transfer for we will call her quickly and discuss case with interventional radiology to obtain joint aspirate -Check sed rate/CRP -Patient did have bacteremia approximately once ago and I question whether or not that was the initial nidus for her current hip infection--> organism at that time was strep agalactiae and it appears that it was a fairly sensitive organism -Patient did require 2 units of blood during her hospitalization and has been found previously to be iron deficient -Hemoglobin remained stable at 7.7 -IV iron has been given during hospitalization and we will discharge her on oral iron -Renal function continues to improve --> Likely ischemic ATN secondary to hypotension she had a presentation which has since resolved -Baseline serum creatinine appears to be 1.1-1.3 and was 2.0 today -Repeat BMP in a.m. -Plan is for discharge to skilled facility pre-CERT is now pending for [facility] Charges/Coding Visit Charges Inpatient E&M: 11164 Subs Hosp L2
[2022-02-06 12:44] LABS: Pathologist Review Reviewed
--- NOTE | 2022-02-06 13:13 | PN.RENAL_ITS ---
Subjective Subjective no new complaints Objective Data Objective Data Vital Signs: Vital Signs Temp Pulse Resp BP Pulse Ox 98.0 F 81 18 137/58 H 95 02/06/22 08:50 02/06/22 11:00 02/06/22 08:50 02/06/22 08:50 02/06/22 09:11 Oxygen Flow Rate (L/min) 2 Oxygen Delivery Method Room Air Weight: 79.8 kg Body Mass Index (BMI) 27.8 Intake & Output: Intake and Output for Last 24 Hours 02/04/22 02/05/22 02/06/22 23:59 23:59 23:59 Intake Total 3416.67 / 3416.67 2691.67 / 2891.67 660 / 660 Output Total 700 / 700 950 / 1350 1400 / 1400 Balance 2716.67 / 2716.67 1741.67 / 1541.67 -740 / -740 Lab / Micro Data Result Diagrams: 02/06/22 05:40 02/06/22 05:40 Labs: Laboratory Results - last 24 hr 02/03/22 15:30: Diff Path Review Reviewed 02/05/22 04:48: Diff Path Review Reviewed 02/05/22 08:39: POC Glucose 222 H 02/05/22 15:49: Ur Random Sodium 47 02/05/22 15:49: Urine Creatinine 74.50 02/05/22 17:30: POC Glucose 91 02/05/22 20:20: POC Glucose 120 H 02/06/22 05:40: WBC 14.0 H, RBC 2.82 L, Hgb 7.7 L, Hct 24.3 L, MCV 86.2, MCH 27.3, MCHC 31.7 L, RDW Std Deviation 46.2 H, RDW Coeff of Gabriela 14.7 H, Plt Count 358, MPV 10.3, Neut % (Auto) Not Reportable, Absolute Neuts (auto) 12.7 H, Absolute Lymphs (auto) 0.70 L, Total Counted 100, Neutrophils % (Manual) 89 H, Lymphocytes % (Manual) 5 L, Monocytes % (Manual) 3, Eosinophils % (Manual) 1, Metamyelocytes % 1, Myelocytes % 1 H, Diff Path Review Reviewed, Platelet Estimate ADEQUATE, RBC Morphology NORM C+C 02/06/22 05:40: Sodium 140, Potassium 3.6, Chloride 109 H, Carbon Dioxide 23.0, Anion Gap 8, BUN 42 H, Creatinine 2.05 H, Estim Creat Clear Calc 28.34, Est GFR (MDRD) Af Amer 32 L, Est GFR (MDRD) Non-Af 27 L, BUN/Creatinine Ratio 20.5 H, Glucose 131 H, Calcium 8.3 L 02/06/22 08:37: POC Glucose 173 H 02/06/22 11:38: POC Glucose 79 Radiography Diagnostic Testing: Radiology Impression Echocardiogram 02/05/22 05:55 Interpretation Summary Normal LV size. Left ventricular systolic function is normal. The estimated ejection fraction is 65 %. Mild (1+) eccentric aortic valve insufficiency. Stage 1 diastolic dysfunction. Mean aortic valve gradient 10 mmHg. Ordering Physician: Martin Mcmahon Referring Physician: Kim Salas Performed By: Iam Wilkes RCS Hip/Pelvis X-Ray 02/05/22 13:14 IMPRESSION: Normal x-ray examination of the pelvis and hip. 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 N.B. : The above Results were Read Back by Raffy Sanchez MD to Liudmila Moffett RN, and understanding confirmed on 02/06/2022 12:56:23 (ET). Electronically Signed: Raffy Sanchez MD at 12:46 EDT , Physical Exam Narrative General: Ill-appearing woman who appears to be her stated age, NAD HEENT: Normocephalic, atraumatic mucous membrane moist, PERRLA, EOMI. Neck: Supple, no JVD. Heart: Normal S1, S2. No gallops, murmurs. Lungs: Clear to auscultation anteriorly. Abdomen: Obese, normal bowel sound, soft, nontender, no guarding or rebound on palpation. Extremity: No clubbing, cyanosis, or edema. Neurologic: No focal neurologic deficits. Skin: Warm and dry, no rash. Psychiatric: Flat affect. Assessment & Plan Assessment/Plan (1) DAMIÁN (acute kidney injury): PLAN: - Baseline serum creatinine prior to her admission in December 2021 was 1.10 to 1.30 mg/dL. -Suspect DAMIÁN is secondary to ischemic ATN. We did look for other causes of DAMIÁN during the last admission. -Although the patient had positive blood culture for Streptococcus not aureus, we did not think the patient had acute glomerulonephritis since C3 was normal during the last admission. Also, urinalysis did not reveal significant microscopic hematuria. -Renal function is better today. (2) Hypotension: PLAN: - Improved. The patient presented with BP of 79/51 on 02/03/2022. -Holding antihypertensives. -better with fluids (3) Type 2 diabetes mellitus with diabetic polyneuropathy: PLAN: - Glycemic control is as per hospital medicine team. (4) Acute encephalopathy: PLAN: - The patient presented with acute encephalopathy but her blood sugar was very high. -Mental status appears to be improving.
--- NOTE | 2022-02-06 13:53 | CASEMGMT ---
According to the [facility] website, the following are in-network tertiary facilities: [facility], [place], [facility], [place], [facility], [facility], [place], [facility], and . Ksenia FLANAGAN CM
[2022-02-06 14:37] LABS: Erythrocyte Sedimentation Rate 54 mm/hr (0-30)
--- NOTE | 2022-02-06 15:30 | PCM.RX.CS ---
Consult Pharmacy has been consulted to manage selected antiobiotic: Vancomycin Type of Consult: New start Labs: Sodium 140 mmol/L (136-145) 02/06/22 05:40 Potassium 3.6 mmol/L (3.5-5.1) 02/06/22 05:40 Chloride 109 mmol/L (98-107) H 02/06/22 05:40 Carbon Dioxide 23.0 mmol/L (21.0-32.0) 02/06/22 05:40 Anion Gap 8 (5-15) 02/06/22 05:40 BUN 42 mg/dL (7-18) H 02/06/22 05:40 Creatinine 2.05 mg/dL (0.55-1.02) H 02/06/22 05:40 Est GFR (MDRD) Af Amer 32 mL/min (>60) L 02/06/22 05:40 Est GFR (MDRD) Non-Af 27 mL/min (>60) L 02/06/22 05:40 BUN/Creatinine Ratio 20.5 RATIO (10-20) H 02/06/22 05:40 Glucose 131 mg/dL (74-106) H 02/06/22 05:40 Weight used for dosin.8 kg Estimated Creatinine Clearance: 32 ML/MIN Goal Trough: 15-20 mcg/mL Pharmacy Plan for Drug Dosing: Give initial loading dose (25mg/kg) of 2000mg IV x1, then continue with 1000mg IV q24h. Will check a trough level before the 3rd total dose. The patient's CrCl of 32ml/min was calculated using a adjusted body weight of 67.5kg. Pharmacy Service will continue to monitor and adjust dosing as required. Follow-Up Labs: Trough Vancomycin Labs to be done on [date and time ordered]: 02/08/22 14:30
--- NOTE | 2022-02-06 15:34 | CASEMGMT ---
Patient needs to be transferred to another hospital. JANELL called [facility] and spoke with the medical secretary receptionist, Brennan. Lottie in admissions was in a meeting so JANELL left a message letting Lottie know patient will be transferred to another hospital once a bed is available. Ayleen Rodarte BUS REPAIR SUPERVISOR MELVI
[2022-02-06 16:55] LABS: Bedside Glucose 106 mg/dL (74-106)
[2022-02-06 20:17] LABS: CRP, High Sensitivity Cardiac > 190.00 mg/L
[2022-02-06] MEDS: Insulin Glargine-YFGN 100 UNIT/ML Pen 80 UNIT SC (21:02)
[2022-02-06] MEDS: traZODone 50 MG Tablet PO (21:04)
[2022-02-06 22:10] LABS: Bedside Glucose 139 mg/dL (74-106)
[2022-02-07 01:55] LABS: Hemoglobin A1c 9.1 % (3.8-5.6)
--- NOTE | 2022-02-07 02:59 | NURSING ---
[facility] on floor to pick up man pt for transfer to [facility]. Pt leaving with [facility] with all personal belongings.
--- NOTE | 2022-02-07 07:32 | DS.PCM_ITS ---
Providers Date of Admission: 02/03/22 Primary Care Physician: OLGA Mckeon Consultations 02/03/22 18:34 Consult: Nephrology Routine Consulting Provider: Constantino Anthony Reason for Consult: DAMIÁN on CKD stage 3, diabetic nepropathy EMERGENT Consult: No Notified: Yes Date Notified: 02/03/22 Time Notified: 17:26 Method of Notification: Verbal Consult: Podiatry Routine Consulting Provider: Neal House Reason for Consult: Right neuorpathic scab with pain, follow up EMERGENT Consult: No MD Notified: Yes Date Notified: 02/03/22 Time Notified: 17:26 Method of Notification: Text Reason For Visit: DAMIÁN, HYPERGLYCEMIA, ELEVATED TROP Diagnosis Discharge Diagnosis (1) DAMIÁN (acute kidney injury): Status: Acute Code(s): N17.9 - Acute kidney failure, unspecified (2) Osteonecrosis of right hip: Status: Acute Code(s): M87.9 - Osteonecrosis, unspecified (3) Septic arthritis: Status: Acute Code(s): M00.9 - Pyogenic arthritis, unspecified (4) Ulcer of right foot with fat layer exposed: Status: Acute Code(s): L97.512 - Non-pressure chronic ulcer of other part of right foot with fat layer exposed Medications at Discharge Home Medications albuterol sulfate [ProAir HFA] 2 puff Q4H PRN PRN 01/28/18 metformin 1,000 mg DAILY 01/28/18 hydroxyzine HCl 25 mg PO QHS 01/02/22 Levemir FlexTouch U-100 Insuln 90 unit SUBCUT QHS #0 ml 01/07/22 [id number] [Ahsan (with collagen)] 1 packet PO BIDCM #0 ea 01/07/22 hydralazine 25 mg PO DAILY #0 tab 01/07/22 insulin lispro [Humalog Dameon KwikPen U-100] 30 unit SUBCUT TID #0 ml 01/07/22 insulin lispro [Humalog KwikPen Insulin] See Protocol SUBCUT ACHS #0 ml 01/07/22 nystatin [Nyamyc] 1 applic TOPICAL TID #0 g 01/07/22 oxycodone 5 mg PO Q6H PRN PRN 2 Days #7 tab 01/07/22 pregabalin [Lyrica] 100 mg PO DAILY #0 cap 01/07/22 psyllium husk [Fiber (psyllium husk)] 0.4 g PO BID #30 cap 01/07/22 sennosides-docusate sodium [Stool Softener-Stimulant Laxat] 2 tab PO BID #0 tab 01/07/22 sertraline 100 mg PO DAILY #0 tab 01/07/22 trazodone 50 mg PO QHS PRN #0 tab 01/07/22 Hospital Course Operations None Procedures 2-D Echocardiogram, Blood transfusion (2 units) and - (Bedside debridement of her right foot) Summary of Care Provided Minutes Spent on Discharge: 39 Hospital Course: Mrs. Santiago is a 56-year-old white female who has multiple medical comor bidities who presented to the emergency department on 02/03/2022 with confusion, disorientation, dehydration, lab abnormalities, and hyperglycemia. She had a recent hospitalization from 01/02/2022 through 01/07/2022 at which time she was found to have a wound infection on the plantar surface of her right foot with MSSA and group B strep, group B strep UTI and group B strep bacteremia. She was followed by infectious disease during her hospitalization and was sent home on 5 more days of oral Augmentin at discharge. These doses were renally dosed at 500 mg twice daily for creatinine clearance less than 30. Upon representation she was markedly dehydrated and generalized weakness. Her glucose was greater than 500 on presentation and documented as 720 on her BMP. She was given aggressive hydration and subcu insulin in the emergency department. She was not able to give any history upon presentation and history was provided by her significant other. She had no fevers or chills and her serum creatinine was elevated to 4.92. She did have DAMIÁN with her previous hospitalization and her most recent serum creatinine on outpatient lab was found to be 1.93. She evidently has some hypotension upon admission with a blood pressure of 79/51 and her antihypertensives were held but it was felt that this was most likely to be DAMIÁN secondary to ischemic ATN. She was followed by nephrology ([facility]). Her previous foot wound was also evaluated by podiatry during her hospitalization here and they felt that blister look improved from her previous hospitalization and did not think it was the source of infection at this time. Her UA was suggestive of infection and therefore she was started on ceftriaxone. Unfortunately urine culture was not obtained prior to starting antibiotics but was obtained the following day and was pending upon discharge. Blood cultures were also obtained on 02/06/2022 and these were pending upon discharge as well. Patient's mental status slowly improved and her serum creatinine improved to 2 on 02/06/2022 which was dramatically improved since admission. Upon my initial evaluation of her on 02/05/2022 she was complaining of some right hip pain. At that time we obtained a plain film was read out as a normal x-ray of the hip and pelvis. She was maintained on her ceftriaxone and reevaluated on the a.m. of 02/06/2022 and she continued to complain of pain. She had marked pain with passive and active range of motion and was significantly limited with any movement of that right lower extremity. Given these findings I obtained a CT of her hip to rule out any further pathology including occult fracture or infection. 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 We broadened her antibiotics to vancomycin and Zosyn at that time. An echocardiogram had already been performed on 02/05/2022 and showed no valvular abnormalities, an EF of 65% with normal LV function and size, mild aortic insufficiency and stage I diastolic dysfunction. Her hemoglobin A1c was found to be 9.1. An ESR and CRP were obtained and the ESR was 54 and her CRP was 247. My suspicion is that this may be related from her previous bacteremia however intraoperative cultures of the joint will need to be obtained. We discussed the case with Dr. Maynard from orthopedic surgery and he felt it was too complicated to deal with and recommended transfer to tertiary center. The patient was transferred to [facility] and a bed became available on the evening of 02/06/2022. I was able to discuss the case with the infectious disease physician at [facility] prior to discharge. Discharge diagnoses: Osteonecrosis/osteomyelitis of the right hip Septic arthritis of the right hip Acute metabolic encephalopathy-resolved DAMIÁN without evidence of CKD secondary to ischemic ATN Hypotension-resolved DM-2 Acute on chronic anemia secondary to iron deficiency Urinary tract infection NSTEMI type II secondary to demand ischemia Right diabetic foot wound Failure to thrive/debility Hypertension Diabetic neuropathy Depression Weight / BMI Weight Weight: 79.8 kg Body Mass Index (BMI) 27.8 ABG / Lab / Microbiology Data Result Diagrams: 02/06/22 05:40 02/06/22 05:40 Laboratory: Laboratory Results - last 24 hr 02/03/22 15:30: Diff Path Review Reviewed 02/05/22 04:48: Diff Path Review Reviewed 02/06/22 05:40: Diff Path Review Reviewed 02/06/22 05:40: ESR 54 H 02/06/22 05:40: C-React Prot Ext Range 247.00 H, C-React Prot High Sens > 190.00 H 02/06/22 08:37: POC Glucose 173 H 02/06/22 11:38: POC Glucose 79 02/06/22 15:25: COVID-19 (DORIS) Not Detected 02/06/22 16:13: POC Glucose 106 02/06/22 21:01: POC Glucose 139 H 02/07/22 00:23: Hemoglobin A1c 9.1 H Radiography Diagnostic Testing: Radiology Impression Lower Extremity CT 02/06/22 11:36 IMPRESSION: 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 N.B. : The above Results were Read Back by Raffy Sanchez MD to Liudmila Moffett RN, and understanding confirmed on 02/06/2022 12:56:23 (ET). Electronically Signed: Raffy Sanchez MD at 12:46 EDT , Meaningful Use Info Meaningful Use Diagnoses (Choose all that apply): None applicable Discharge Plan Admission Admit Date/Time: 02/03/22 16:27 Attending Provider: Ashley Lee Primary Care Provider: Kim Salas NP Consulting Providers: Constantino Anthony ; Neal House ; Martin Mcmahon Instructions Additional Instructions / Restrictions: Change right foot dressing daily with hydrogel and gauze secured with paper tape. Wash with soap and water and avoid soaking activity. Maintaining nonweightbearing status to the right foot with a surgical shoe for protection. It is okay to toe weight-bear for transfers. Continue to take nutritional supplementation and control glucose levels to optimize healing. Discharge Orders/Prescriptions Prescriptions: No Action albuterol sulfate [ProAir HFA] 1 PUFF inhaler 2 puff Q4H PRN PRN (Reason: Sob &/Or Wheezing) RF: 0 metformin 500 MG tablet 1,000 mg DAILY RF: 0 Hold Instructions: Hold for 1 week until creatinine clearance is persistently more than 30 mill per minute hydroxyzine HCl 25 mg Tablet 25 mg PO QHS RF: 0 Ahsan (with collagen) 7-7-1.5 gram Powder In Packet 1 packet PO BIDCM Qty: 0 RF: 0 sennosides-docusate sodium [Stool Softener-Stimulant Laxat] 8.6-50 mg Tablet 2 tab PO BID Qty: 0 RF: 0 nystatin [Nyamyc] 100,000 unit/gram Powder 1 applic topical TID Qty: 0 RF: 0 psyllium husk [Fiber (psyllium husk)] 0.4 gram capsule 0.4 g PO BID Qty: 30 RF: 0 hydralazine 25 MG tablet 25 mg PO DAILY Qty: 0 RF: 0 pregabalin [Lyrica] 100 MG capsule 100 mg PO DAILY Qty: 0 RF: 0 Levemir FlexTouch U-100 Insuln 100 UNITS/ML insulin pen 90 unit subcut QHS Qty: 0 RF: 0 insulin lispro [Humalog Dameon KwikPen U-100] 100 unit/mL Insulin Pen, Half- Unit 30 unit SUBCUT TID Qty: 0 RF: 0 oxycodone 5 mg Tablet 5 mg PO Q6H PRN PRN (Reason: Pain Score 6-10) 2 Days Qty: 7 RF: 0 trazodone 50 mg Tablet 50 mg PO QHS PRN (Reason: Insomnia) Qty: 0 RF: 0 sertraline 100 mg Tablet 100 mg PO DAILY Qty: 0 RF: 0 insulin lispro [Humalog KwikPen Insulin] 100 unit/mL Insulin Pen See Protocol unit subcut ACHS Qty: 0 RF: 0 Referrals / Follow Up: Anca Wilde DPM [STAFF PHYSICIAN] - In 1 Week (Follow-up at [facility] center and call to schedule at [phone].) Kim Salas NP, CHILD NURSE-C [Primary Care Provider] -
== END 2022-02-07 03:05 | disposition short-term general hospital (02) | DRG 673 ==
LOC: ED 16:35 → PCU 17:01
PROVIDERS: Internal Medicine Nephrology; Nurse Practitioner Family; Admitting Provider Internal Medicine; Emergency Provider Emergency Medicine; PCP Nurse Practitioner Family; Visit Provider Internal Medicine
DX: N17.0 Acute kidney failure with tubular necrosis (principal); G93.41 Metabolic encephalopathy; I21.A1 Myocardial infarction type 2; M86.151 Other acute osteomyelitis, right femur; M00.9 Pyogenic arthritis, unspecified; M87.9 Osteonecrosis, unspecified; N39.0 Urinary tract infection, site not specified; L97.512 Non-pressure chronic ulcer of other part of right foot with fat layer exposed; D63.8 Anemia in other chronic diseases classified elsewhere; E11.42 Type 2 diabetes mellitus with diabetic polyneuropathy; E11.621 Type 2 diabetes mellitus with foot ulcer; I95.9 Hypotension, unspecified; E11.69 Type 2 diabetes mellitus with other specified complication; E11.65 Type 2 diabetes mellitus with hyperglycemia; Z79.4 Long term (current) use of insulin; E86.0 Dehydration; D50.9 Iron deficiency anemia, unspecified; I10 Essential (primary) hypertension; F41.9 Anxiety disorder, unspecified; J45.909 Unspecified asthma, uncomplicated; M25.551 Pain in right hip; M79.604 Pain in right leg; F32.A Depression, unspecified; Z79.899 Other long term (current) drug therapy; R29.6 Repeated falls; R53.81 Other malaise; R62.7 Adult failure to thrive; G89.29 Other chronic pain; E66.9 Obesity, unspecified; Z68.27 Body mass index [BMI] 27.0-27.9, adult
CPT/HCPCS: 36415; 71045; 73502; 73630; 73700; 80048; 81001; 82009; 82570; 82803; 82962; 83036; 83735; 84100; 84300; 84484; 85025; 85652; 86140; 86141; 86850; 86900; 86901; 86920; 86922; 87040; 87086; 87088; 87635; 93005; 93306; 94640; 97110; 97162; 97166; 97802; 99285; J7030; J7040; J7050; P9016; A4216; J2405; J2916; U0003; U0005

== ENCOUNTER 2022-02-27 10:15 | Inpatient (IN) | payer MEDICARE, MEDICAID, SELFPAY ==
[2022-02-27 10:42] VITALS: BP 129/77; PULSE 99; RESP 16; TEMP 36.5; O2SAT 95; BMI 25.8
[2022-02-27 11:16] LABS: Bedside Glucose 114 mg/dL (74-106)
[2022-02-27] MEDS: Nystatin Powder 15gm Bottle 1 APPLIC TOPICAL ×2 (14:20→20:53)
[2022-02-27] MEDS: Cefazolin 2 GM in 0.9% Normal Saline 100 ML IV ×2 (14:33→20:51)
[2022-02-27] MEDS: 0.9 % NaCl (Sterile) Posiflush 10 mL IV (14:34)
[2022-02-27 14:46] VITALS: BP 107/59; PULSE 101; RESP 17; TEMP 36.4; O2SAT 97
[2022-02-27] MEDS: oxyCODONE 5 MG Tablet PO (15:38)
[2022-02-27 17:11] LABS: Bedside Glucose 189 mg/dL (74-106)
[2022-02-27] MEDS: Senna/Docusate Sodium 1 Tablet 2 TABLET PO (17:52)
[2022-02-27] MEDS: Insulin Lispro 100 UNIT/ML INSULN.PEN 30 UNIT SC (17:53)
--- NOTE | 2022-02-27 18:52 | NURSING ---
Code status discussed with pt, would like to be a DNRCC-A with intubation. Dr. Louis signed order and purple wrist band applied.
--- NOTE | 2022-02-27 20:21 | PCM.HP.STD ---
HPI - General General Date of Admission: 02/27/22 HPI Narrative NORAH CRAIG, is a 56 Female who presents with followin01/02/2022 Urine culture Group B strep, yeast. 01/02/2022 Wound culture foot, MSSA, Group B Strep. 01/03/2022 Blood culture 2/2 Group B strep. 02/06/2022 Covid19 negative. 02/06/2022 Blood culture processing. 02/07/2022 Admit to [facility] with right hip septic arthritis/osteomyelitis. Uncontrolled diabetic, sugar 700's, Creatinine 4.92. Stabilize, prepare for surgery. Consult Orthopedics, Infectious Disease, Renal. 02/07/2022 Interventional Radiology aspirated right hip small amount purulent fluid. Culture growing Group B Strep. 02/09/2022 Orthopedics performed right hip irrigation debridement with insertion of antibiotic implant, right hip hemiarthroplasty. Incision wound VAC for chronic right hip septic arthritis/osteomyelitis. Wound care for sacral, bilateral foot wounds. Infectious Disease recommended Cefazolin 2gm iv q8h thru 03/23/2022, total of 6 weeks. Acute kidney injury resolved, Creatinine at baseline. Diabetes improved. Transfused 3 units PRBC total for anemia. Right hip wound VAC removed. 02/27/2022 Admit to TCU with debility, here for rehabilitation, strengthening, intravenous antibiotics, prior to discharge home with sig other. [facility] Medical History (Updated 02/27/22 @ 20:[address] Roscoe Louis MD) Anemia Asthma Delayed wound healing Depression Diabetes mellitus with diabetic polyneuropathy Fall Generalized weakness HTN (hypertension) Localized edema Malnutrition Neuropathy Other specified peripheral vascular diseases Septic hip Ulcer of right foot with necrosis of muscle Home Medications albuterol sulfate [ProAir HFA] 2 puff Q4H PRN PRN 01/28/18 [History Last Taken 02/02/22] metformin 1,000 mg PO DAILY 01/28/18 [History Last Taken 02/02/22] hydroxyzine HCl 25 mg PO QHS 01/02/22 [History Last Taken 02/02/22] oxycodone 5 mg PO Q6H PRN PRN 2 Days #7 tab 01/07/22 [Rx Last Taken 02/02/22] trazodone 50 mg PO QHS PRN #0 tab 01/07/22 [Rx Last Taken 02/02/22] Levemir FlexTouch U-100 Insuln 20 unit SUBCUT QHS 02/27/22 [History Last Taken Unknown] [id number]-[id number] [Ahsan (with collagen)] 1 packet PO BIDCM 02/27/22 [History Last Taken Unknown] aripiprazole 5 mg PO QHS 02/27/22 [History Last Taken Unknown] cefazolin 2 g IV Q8H 02/27/22 [History Last Taken Unknown] hydralazine 25 mg PO DAILY 02/27/22 [History Last Taken Unknown] insulin detemir U-100 [Levemir U-100 Insulin] 20 unit SUBCUT QHS 02/27/22 [History Last Taken Unknown] insulin lispro [Humalog Dameon KwikPen U-100] 30 unit SUBCUT TID 02/27/22 [History Last Taken Unknown] insulin lispro [Humalog KwikPen Insulin] 30 unit SUBCUT ACHS 02/27/22 [History Last Taken Unknown] nystatin [Nyamyc] 1 applic TOPICAL TID 02/27/22 [History Last Taken Unknown] pantoprazole [Protonix] 40 mg PO DAILY 02/27/22 [History Last Taken Unknown] prazosin 2 mg PO QHS 02/27/22 [History Last Taken Unknown] pregabalin [Lyrica] 100 mg PO DAILY 02/27/22 [History Last Taken Unknown] psyllium husk [Fiber (psyllium husk)] 0.4 g PO BID 02/27/22 [History Last Taken Unknown] sennosides-docusate sodium [Stool Softener-Stimulant Laxat] 2 tab PO BID 02/27/22 [History Last Taken Unknown] sertraline 100 mg PO DAILY 02/27/22 [History Last Taken Unknown] Allergy/AdvReac Type Severity Reaction Status Date / Time morphine AdvReac Vomiting Verified 02/03/22 15:15 Surgical History (Updated 02/27/22 @ 20:[address] Roscoe Louis MD) History of right hip hemiarthroplasty Social History (Updated 02/27/22 @ 20:[address] Roscoe Louis MD) household members: significant other Smoking Status: Never smoker alcohol intake: never substance use type: does not use ROS Constitutional Constitutional: Denies chills, fever(s) or weight gain ENT HEENT: Denies headache(s), nasal congestion or nasal discharge Cardiovascular Cardiovascular: Denies chest pain or palpitations Respiratory/Chest Respiratory/Chest: Denies cough, excessive phlegm production or shortness of breath with exertion Gastrointestinal Gastrointestinal: Denies abdominal pain, nausea or vomiting Genitourinary Genitourinary: Denies dysuria Musculoskeletal Musculoskeletal: Denies joint pain or joint swelling Integumentary Integumentary: Denies rash or wounds Neurologic Neurologic: Denies focal weakness, numbness or tingling Psychiatric Psychiatric: Denies anxiety, auditory hallucinations, depression, homicidal ideation or suicidal ideation Vital Signs Vital Signs Vital Signs: 02/27/22 10:42 02/27/22 14:20 02/27/22 14:46 Temperature 97.7 F L 97.6 F L Temperature Source Temporal Temporal Pulse Rate 99 101 H Pulse Rhythm Regular Pulse Strength Normal (2+) Respiratory Rate 16 17 Respiratory Effort Normal Non-Labored Respiratory Depth Normal Respiratory Pattern Normal Blood Pressure 129/77 H 107/59 L Blood Pressure Mean 94 75 Blood Pressure Source Monitor Monitor Blood Pressure Position Supine Supine Blood Pressure Location Right Arm Left Arm Pulse Ox 95 97 Oxygen Delivery Method Room Air Room Air Room Air Weight Weight: 72.62 kg Body Mass Index (BMI) 25.8 Physical Exam Const alert General Appearance: cooperative HEENT normocephalic Eyes PERRL and EOMs intact bilaterally Neck supple, no JVD and no carotid bruits Chest Chest Narrative: Right upper chest tunneled catheter. Resp normal respiratory effort, normal air movement and clear to auscultation bilaterally Cardio regular rate and regular rhythm GI normal to inspection, nondistended, normoactive bowel sounds, non-tender and non-distended Extremity normal capillary refill General Extremity: Negative for edema Skin no rashes or lesions noted General Skin Exam: no breakdown Psych affect normal Appearance: appropriate Results Lab / Micro Data Labs: Laboratory Results - last 24 hr 02/27/22 11:10: POC Glucose 114 H 02/27/22 17:06: POC Glucose 189 H Micro: Microbiology 02/27/22 14:30 Nasal Secretion SARS-CoV-2 Antigen (Rapid) - Final Assessment & Plan Assessment/Plan (1) Debility: (2) Right hip pain: (3) Osteomyelitis of right hip: (4) Acute kidney injury: (5) Bacteremia due to group B Streptococcus: (6) Diabetes mellitus: (7) Hypertension: (8) Depression: (9) Insomnia: (10) Diabetic polyneuropathy: PLAN: 56 year old female with below past medical history hospitalized for osteomyelitis right hip Group B strep bacteremia, underwent surgical debridement, antibiotic implant, right hip hemiarthroplasty 02/09/2022, admitted to TCU with debility, here for rehabilitation, strengthening, intravenous antibiotic, prior to discharge home with significant other. Debility - PT/OT. Pain - Tylenol 1000mg q6h prn pain (1-5), Oxycodone 5mg q4h prn pain (6-10). Bowel - Metamucil 1 packet po bid, senna/colace 2 tablets bid. Adult immunization - Administer pneumonia vaccine, covid19 vaccine, flu vaccine as appropriate. DVT prophylaxis - Xarelto 10mg daily thru 03/16/2022. Shortness of breath - Albuterol 2 puffs q4h prn. 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 Right hip osteomyelitis/GBS bacteremia - Cefazolin 2gm iv q8, consult Dr. Haile. Hypertension - Hydralazine 25mg daily, Prazosin 2mg qhs. Insomnia - Hydroxyzine 25mg qhs, Trazodone 50g qhs prn, stable chronic longterm use, GDR not recommended. Diabetes Mellitus II- Metformin XR 1000mg daily, Glargine 20 units qhs, Lispro 39 units tid. Tinea Corporis - Nystatin powder topical tid. GERD - Pantoprazole 40mg daily. Diabetic polyneuropathy - Lyrica 100mg daily.
[2022-02-27] MEDS: ARIPiprazole 5 MG Tablet 2.5 MG PO (20:52)
[2022-02-27] MEDS: hydrOXYzine PAM 25 MG Capsule PO (20:54)
[2022-02-27] MEDS: Prazosin HCl 1 MG Capsule 2 MG PO (20:57)
[2022-02-27] MEDS: Acetaminophen 500 MG Tablet 1000 MG PO (21:05)
[2022-02-27 21:45] LABS: Bedside Glucose 65 mg/dL (74-106)
[2022-02-27 22:15] LABS: Bedside Glucose 112 mg/dL (74-106)
[2022-02-27] MEDS: Insulin Glargine-YFGN 100 UNIT/ML Pen 20 UNIT SC (22:16)
[2022-02-28] MEDS: oxyCODONE 5 MG Tablet PO ×2 (03:45→21:45)
[2022-02-28 06:31] LABS: Bedside Glucose 159 mg/dL (74-106)
[2022-02-28] MEDS: metFORMIN (XR) 500 MG Tablet 1000 MG PO (06:42)
[2022-02-28] MEDS: Pantoprazole Sodium 40 MG Tablet PO (06:42)
[2022-02-28] MEDS: Cefazolin 2 GM in 0.9% Normal Saline 100 ML IV ×3 (06:45→21:29)
[2022-02-28 06:46] VITALS: BP 130/70; PULSE 98
[2022-02-28] MEDS: Nystatin Powder 15gm Bottle 1 APPLIC TOPICAL ×3 (06:46→21:31)
[2022-02-28] MEDS: Sertraline 100 MG Tablet PO (06:46)
[2022-02-28] MEDS: Psyllium 1 PACKET PO (06:46)
[2022-02-28] MEDS: hydrALAZINE 25 MG Tablet PO ×2 (06:46→06:48)
[2022-02-28] MEDS: Pregabalin 50 MG Capsule 100 MG PO (06:47)
[2022-02-28 06:48] VITALS: BP 130/71; PULSE 98
[2022-02-28] MEDS: Senna/Docusate Sodium 1 Tablet 2 TABLET PO ×2 (06:48→17:28)
[2022-02-28] MEDS: Insulin Lispro 100 UNIT/ML INSULN.PEN 30 UNIT SC (08:26)
--- NOTE | 2022-02-28 09:16 | PHA.CONS_ITS ---
TCU RX Drug Regimen Review Subjective: TCU Admission. 56 YOF admitted to the hospital for osteomyelitis of the right hip/group B strep bacteremia. Went to surgery 02/09/22 for debridement, antibiotic implant and right hip hemiarthroplasty. Admitted to TCU with debility for strengthening and rehabilitation. Objective: Allergies morphine Adverse Reaction (Verified 02/03/22 15:15) Vomiting Current Medications Generic Name Dose Route Start Last Admin Trade Name Freq PRN Reason Stop Dose Admin Acetaminophen 1,000 mg 02/27/22 20:43 02/27/22 21:05 Acetaminophen 500 Mg Tablet PO 1,000 mg Q6H PRN PRN Administration Pain Score 1-5 Albuterol Sulfate 2 puff 02/27/22 11:20 Albuterol Ih 8.5 Gm (Proair) Inhaler (200 Puffs) INHALATION Q4H PRN PRN Sob &/Or Wheezing Aripiprazole 2.5 mg 02/27/22 22:00 02/27/22 20:52 Aripiprazole 5 Mg Tablet PO 2.5 mg QHS DENIS Administration Calamine/Phenol 1 applic 02/28/22 18:00 Menthol/Lanolin/Calamine/Znox 113 Gm Tube TOPICAL BID DENIS Protocol Hydralazine HCl 25 mg 02/28/22 06:00 02/28/22 06:48 Hydralazine 25 Mg Tablet PO 25 mg DAILY EDNIS Administration Hydroxyzine Pamoate 25 mg 02/27/22 22:00 02/27/22 20:54 Hydroxyzine Miladis 25 Mg Capsule PO 25 mg QHS DENIS Administration Cefazolin Sodium 2 gm/ Sodium 110 mls @ 150 mls/hr 02/27/22 14:00 02/28/22 08:00 Chloride IV Infused Q8 DENIS Infusion Sodium Chloride 250 mls @ 15 mls/hr 02/27/22 12:01 02/27/22 14:35 IV 15 mls/hr .[id number] PRN Administration Saline Flush Sodium Chloride 250 mls @ 15 mls/hr 02/27/22 12:01 IV .[id number] PRN Additional IVPB Infusion Sodium Chloride 250 mls @ 15 mls/hr 02/27/22 20:32 IV .[id number] PRN Saline Flush Sodium Chloride 250 mls @ 15 mls/hr 02/27/22 20:32 IV .[id number] PRN Additional IVPB Infusion Insulin Glargine 20 unit 02/27/22 22:00 02/27/22 22:16 Insulin Glargine-Yfgn 100 Unit/Ml Pen SC 20 unit QHS DENIS Administration Insulin Human Lispro 30 unit 02/27/22 17:00 02/28/22 08:26 Insulin Lispro 100 Unit/Ml Insuln.Pen SC 30 units 0800,1200,1700 DENIS Administration Metformin HCl 1,000 mg 02/28/22 06:00 02/28/22 06:42 Metformin (Xr) 500 Mg Tablet PO 1,000 mg DAILY DENIS Administration Nystatin 1 applic 02/27/22 14:00 02/28/22 06:46 Nystatin Powder 15gm Bottle TOPICAL 1 applic TID DENIS Administration Protocol Oxycodone HCl 5 mg 02/27/22 20:44 Oxycodone 5 Mg Tablet PO Q4H PRN PRN Pain Score 6-10 Pantoprazole Sodium 40 mg 02/28/22 06:00 02/28/22 06:42 Pantoprazole Sodium 40 Mg Tablet PO 40 mg DAILY DEINS Administration Prazosin HCl 2 mg 02/27/22 22:00 02/27/22 20:57 Prazosin Hcl 1 Mg Capsule PO 2 mg QHS DENIS Administration Pregabalin 100 mg 02/28/22 06:00 02/28/22 06:47 Pregabalin 50 Mg Capsule PO 100 mg DAILY DENIS Administration Psyllium Hydrophilic Mucilloid 1 packet 02/27/22 18:00 02/28/22 06:46 Psyllium 1 Packet PO 1 packet BID DENIS Administration Rivaroxaban 10 mg 02/28/22 17:00 Rivaroxaban 10 Mg Tablet PO 03/16/22 23:55 [facility] Senna/Docusate Sodium 2 tablet 02/27/22 18:00 02/28/22 06:48 Senna/Docusate Sodium 1 Tablet PO 2 tablet BID DENIS Administration Sertraline HCl 100 mg 02/28/22 06:00 02/28/22 06:46 Sertraline 100 Mg Tablet PO 100 mg DAILY DENIS Administration Sodium Chloride 10 - 40 ml 02/27/22 12:01 02/27/22 14:34 0.9 % Nacl (Sterile) Posiflush 10 Ml IV 30 ml UD PRN Administration Port access or dressing change Sodium Chloride 10 - 40 ml 02/27/22 12:01 0.9% Saline Lock 10 Ml Syringe IV UD PRN Multilumen/Gee Flush Trazodone HCl 50 mg 02/27/22 11:20 Trazodone 50 Mg Tablet PO QHS PRN Insomnia Tuberculin PPD 0.1 ml 02/28/22 10:00 Tuberculin,Purif.Prot.Deriv. 50 Tu/Ml Vial ID 02/28/22 10:01 X1 ONE Tuberculin PPD 0.1 ml 03/07/22 10:00 Tuberculin,Purif.Prot.Deriv. 50 Tu/Ml Vial ID 03/07/22 10:01 X1 ONE Problem List (Last Reviewed 02/27/22 @ 20:[address] Roscoe Louis MD) Diabetic polyneuropathy (Acute) Insomnia (Acute) Depression (Acute) Hypertension (Chronic) Diabetes mellitus (Acute) Bacteremia due to group B Streptococcus (Acute) Acute kidney injury (Acute) Osteomyelitis of right hip (Acute) Right hip pain (Acute) Debility (Acute) Vital Signs Temp Pulse Resp BP Pulse Ox 97.6 F L 98 17 130/71 H 97 02/27/22 14:46 02/28/22 06:48 02/27/22 14:46 02/28/22 06:48 02/27/22 14:46 Oxygen Delivery Method Room Air Weight: 72.62 kg Body Mass Index (BMI) 25.8 Assessment/Plan: 1. Pain: acetaminophen 1000mg PO Q6H PRN pain 1-5 and oxycodone 5mg PO Q4H PRN pain 6-10. Resident has received 1 dose of acetaminophen for a pain score of 8 in the hip. Please continue to monitor for increased pain and PRN usage. 2. Bowel: psyllium 1 packet PO BID and senna/docusate 2T PO BID. Please continue to monitor for constipation. Resident has not had a documented bowel movement yet. 3. Right hip osteomyelitis/GBS bacteremia: cefazolin 2gm IV Q8. Infectious disease is consulted. Please continue to monitor for S/S of infection, diarrhea and renal function. 4. DVT prophylaxis: rivaroxaban 10mg PO dinner thru 03/16/22. Please continue to monitor for S/S of bleeding/DVT and hemoglobin (last 7.7 g/dL). 5. Hypertension: hydralazine 25mg PO daily and prazosin 2mg PO QHS. Please continue to monitor BP (last 130/71), dizziness and headache. 6. GERD: pantoprazole 40mg PO daily. Please continue to monitor for S/S of GERD and diarrhea. 7. Shortness of breath: albuterol inhaler 2 inhalation Q4H PRN SOB/wheezing. Please continue to monitor for SOB, wheezing and PRN usage. Assessment/Plan for indications treated with psychotropic medications: 1. Depression: sertraline 100mg PO daily and aripiprazole 2.5mg PO QHS. Please see physician note regarding GDR. Please continue to monitor for GI side effects, drowsiness and fatigue. 2. Insomnia: hydroxyzine 25mg PO QHS and trazodone 50mg PO QHS PRN insomnia. Please see physician note regarding GDR. Please continue to monitor for falls, dizziness, excessive drowsiness and PRN usage. 3. Diabetic polyneuropathy: pregabalin 100mg PO daily. Resident using for polyneuropathy, GDR not appropriate. Please continue to monitor for confusion and renal function. Medical chart and medication regimen reviewed. The following medication irregularities or issues were identified: *1. Diabetes mellitus: metformin XR 1000mg PO daily, insulin glargine 20units SC QHS and insulin lispro 30units TIDCM. Based on eGFR of 27 mL/min from 02/07/22, please consider stopping metformin as use is contraindicated in eGFR <30mL/min. Thanks. Please continue to monitor diarrhea, renal function, hemoglobin A1c (last 9.1% 02/07/22), glucose (last 159 mg/dL) and S/S of hypoglycemia. Date of Note:: 02/28/22
[2022-02-28] MEDS: Tuberculin,Purif.prot.deriv. 50 TU/ML Vial 0.1 ML ID (10:31)
[2022-02-28] MEDS: Acetaminophen 500 MG Tablet 1000 MG PO ×2 (10:32→17:33)
[2022-02-28 10:51] LABS: Bedside Glucose 69 mg/dL (74-106)
--- NOTE | 2022-02-28 12:45 | NURSING ---
Gave pt two orange juice to drink and pt only willing to eat one bite of peanut butter.
--- NOTE | 2022-02-28 12:47 | NURSING ---
Notified Dr. Louis of patients' current B.S., received order for Glucogon 1mg IM and new order to change Humalog from 30units TID to 20units TID. Will add orders.
[2022-02-28] MEDS: Glucagon 1 MG/ML Syringe IM (12:58)
[2022-02-28 13:21] LABS: Bedside Glucose 86 mg/dL (74-106)
[2022-02-28 13:56] LABS: Bedside Glucose 47 mg/dL (74-106)
[2022-02-28 13:56] LABS: Bedside Glucose 43 mg/dL (74-106)
--- NOTE | 2022-02-28 14:11 | WOUNDNOTE ---
wound photo: right plantar foot
--- NOTE | 2022-02-28 14:13 | WOUNDNOTE ---
wound photo: right lateral heel
--- NOTE | 2022-02-28 14:14 | WOUNDNOTE ---
wound photo: left medial heel
--- NOTE | 2022-02-28 14:15 | WOUNDNOTE ---
wound photo: left heel
--- NOTE | 2022-02-28 14:16 | WOUNDNOTE ---
wound photo: left buttock
--- NOTE | 2022-02-28 14:25 | CON.PCM.ID_ITS ---
Assessment & Plan Assessment/Plan (1) Bacteremia due to group B Streptococcus: (2) Osteomyelitis of right hip: PLAN: Now s/p 02/09/22 R hip hemiathroplasty at [facility]. On cefazolin with stop date 03/23/22. Likely will need half-way po abx after that point given presence of hardware. ID at [place] was Dr. Cheema. Will follow, thank you HPI Consult Data Date of Consult: 02/28/22 HPI Narrative Reason for Consultation: infection HPI Narrative: NORAH CRAIG, is a 56 F who presented 02/03 with confusion, hyperglycemia, foot infection, DAMIÁN, R hip septic arthritis/osteo, GBS bacteremia. Transferred to [facility]. 02/09 taken to OR for R hip hemiarthroplasty. Discharged to TCU on cefazolin, stop date 03/23, planned followup with ID Dr. Cheema 03/22/22. Feeling ok, no fever, no n/v/d. Reports covid booster x1. Full ROS performed and neg except as noted above. [facility] Medical History Anemia Asthma Delayed wound healing Depression Diabetes mellitus with diabetic polyneuropathy Fall Generalized weakness HTN (hypertension) Localized edema Malnutrition Neuropathy Other specified peripheral vascular diseases Septic hip Ulcer of right foot with necrosis of muscle Home Medications albuterol sulfate 90 mcg/actuation aerosol inhaler (ProAir HFA) 2 puff Q4H PRN PRN Sob &/Or Wheezing 01/28/18 [History Last Taken 02/02/22] metformin 500 mg tablet,extended release 24 hr 1,000 mg PO DAILY DM 01/28/18 [History Last Taken 02/02/22] hydroxyzine HCl 25 mg tablet 25 mg PO QHS allergies 01/02/22 [History Last Taken 02/02/22] oxycodone 5 mg tablet 5 mg PO Q6H PRN PRN Pain Score 6-10 2 days #7 tabs 01/07/22 [Rx Last Taken 02/02/22] trazodone 50 mg tablet 50 mg PO QHS PRN Insomnia #0 tabs 01/07/22 [Rx Last Taken 02/02/22] arginine 7 gram-glutam 7 gram-CaHMB 1.5 [id number]-min oral pwd pkt (Ahsan (with collagen)) 1 packet PO BIDCM Supplement 02/27/22 [History Last Taken Unknown] aripiprazole 5 mg tablet 5 mg PO QHS Check with primary doctor 02/27/22 [History Last Taken Unknown] cefazolin 2 gram solution for injection 2 g IV Q8H Antibiotic 02/27/22 [History Last Taken Unknown] hydralazine 25 mg tablet 25 mg PO DAILY BP 02/27/22 [History Last Taken Unknown] insulin detemir U-100 100 unit/mL (3 mL) subcutaneous pen (Levemir FlexTouch U- 100 Insulin) 20 unit subcut QHS Diabetes 02/27/22 [History Last Taken Unknown] insulin detemir U-100 100 unit/mL subcutaneous solution (Levemir U-100 Insulin) 20 unit subcut QHS Diabetes 02/27/22 [History Last Taken Unknown] insulin lispro 100 unit/mL subcutaneous half-unit pen (Humalog Dameon KwikPen (U-100)) 30 unit subcut TID Diabetes 02/27/22 [History Last Taken Unknown] insulin lispro 100 unit/mL subcutaneous pen (Humalog KwikPen (U-100) Insulin) 30 unit subcut ACHS Diabetes 02/27/22 [History Last Taken Unknown] nystatin 100,000 unit/gram topical powder (Nyamyc) 1 applic topical TID skin 02/27/22 [History Last Taken Unknown] pantoprazole 40 mg tablet,delayed release (Protonix) 40 mg PO DAILY GERD 02/27/22 [History Last Taken Unknown] prazosin 2 mg capsule 2 mg PO QHS Bp 02/27/22 [History Last Taken Unknown] pregabalin 100 mg capsule (Lyrica) 100 mg PO DAILY Check with primary doctor 02/27/22 [History Last Taken Unknown] psyllium husk 0.4 gram capsule (Fiber (psyllium husk)) 0.4 g PO BID Supplement 02/27/22 [History Last Taken Unknown] sennosides 8.6 mg-docusate sodium 50 mg tablet (Stool Softener-Stimulant Laxative) 2 tab PO BID Constipation 02/27/22 [History Last Taken Unknown] sertraline 100 mg tablet 100 mg PO DAILY Mood 02/27/22 [History Last Taken Unknown] Allergy/AdvReac Type Severity Reaction Status Date / Time morphine AdvReac Vomiting Verified 02/03/22 15:15 Surgical History (Updated 02/27/22 @ 20:[address] Roscoe Louis MD) History of right hip hemiarthroplasty Social History (Updated 02/27/22 @ 20:[address] Roscoe Louis MD) household members: significant other Smoking Status: Never smoker alcohol intake: never substance use type: does not use Physical Exam Const alert, oriented x3 and no apparent distress General Appearance: cooperative HEENT normocephalic and head/scalp atraumatic Eyes PERRL and EOMs intact bilaterally Neck supple and No nodes Resp normal air movement and clear to auscultation bilaterally Cardio regular rate and regular rhythm GI soft to palpation Extremity no clubbing, cyanosis or edema Skin no rashes or lesions noted Neuro CN's II-XII intact bilaterally Lab / Micro Data Labs: Laboratory Results - last 24 hr 02/27/22 17:06: POC Glucose 189 H 02/27/22 21:35: POC Glucose 65 L 02/27/22 22:13: POC Glucose 112 H 02/28/22 06:22: POC Glucose 159 H 02/28/22 10:44: POC Glucose 69 L 02/28/22 12:37: POC Glucose 43 L* 02/28/22 12:40: POC Glucose 47 L 02/28/22 13:04: POC Glucose 86 Micro: Microbiology 02/27/22 14:30 Nasal Secretion SARS-CoV-2 Antigen (Rapid) - Final
[2022-02-28 14:42] VITALS: BP 108/61; PULSE 94; RESP 16; TEMP 36.5; O2SAT 96
[2022-02-28] MEDS: 0.9 % NaCl (Sterile) Posiflush 10 mL IV (15:12)
[2022-02-28 16:11] LABS: Bedside Glucose 132 mg/dL (74-106)
[2022-02-28] MEDS: Juven (unflavored) Packet 1 PACKET PO (17:28)
[2022-02-28] MEDS: Rivaroxaban 10 MG Tablet PO (17:28)
[2022-02-28] MEDS: Menthol/Lanolin/Calamine/Znox 113 GM Tube 1 APPLIC TOPICAL (17:29)
[2022-02-28] MEDS: Magnesium Citrate 300 ML PO (18:13)
[2022-02-28] MEDS: ARIPiprazole 5 MG Tablet 2.5 MG PO (21:30)
[2022-02-28 21:31] LABS: Bedside Glucose 130 mg/dL (74-106)
[2022-02-28] MEDS: Prazosin HCl 1 MG Capsule 2 MG PO (21:31)
[2022-02-28] MEDS: hydrOXYzine PAM 25 MG Capsule PO (21:31)
[2022-02-28] MEDS: Insulin Glargine-YFGN 100 UNIT/ML Pen 20 UNIT SC (21:33)
[2022-02-28 22:57] VITALS: PULSE 98; RESP 18; O2SAT 97
[2022-03-01] MEDS: Acetaminophen 500 MG Tablet 1000 MG PO ×2 (02:03→20:23)
[2022-03-01] MEDS: Cefazolin 2 GM in 0.9% Normal Saline 100 ML IV ×3 (05:24→22:42)
[2022-03-01] MEDS: Menthol/Lanolin/Calamine/Znox 113 GM Tube 1 APPLIC TOPICAL ×2 (05:26→18:03)
[2022-03-01] MEDS: Nystatin Powder 15gm Bottle 1 APPLIC TOPICAL ×3 (05:32→22:25)
[2022-03-01] MEDS: Pantoprazole Sodium 40 MG Tablet PO (05:32)
[2022-03-01] MEDS: metFORMIN (XR) 500 MG Tablet 1000 MG PO (05:32)
[2022-03-01] MEDS: Senna/Docusate Sodium 1 Tablet 2 TABLET PO ×2 (05:32→18:05)
[2022-03-01] MEDS: Pregabalin 50 MG Capsule 100 MG PO (05:32)
[2022-03-01] MEDS: Sertraline 100 MG Tablet PO (05:33)
[2022-03-01 06:20] LABS: Bedside Glucose 167 mg/dL (74-106)
[2022-03-01 06:34] LABS: Absolute Lymphocyte Count 1.28 X10^3/uL (0.83-4.51); Absolute Neutrophil Count 3.5 X10^3/uL (2.0-7.7); Basophil# 0.01 X10^3/uL; Basophil% 0.2 % (0-1); Eosinophil# 0.14 X10^3/uL; Eosinophils% 2.6 % (0-5); Hematocrit 20.4 % (37-47); Hemoglobin 6.4 g/dL (12.0-15.0); Lymphocyte # 1.28 X10^3/ul (0.83-4.51); Lymphocyte % 23.7 % (19-41); Mean Corp Hgb Conc 31.4 g/dL (32-36); Mean Corpuscular Hgb 27.5 pg (27.0-32.0); Mean Corpuscular Volume 87.6 fL (81-99); Mean Platelet Vol. 9.7 fl (6.2-12.0); Monocyte# 0.38 X10^3/uL; NRBC Flagged by Analyzer 0 % (0-5); Neutrophil # 3.53 X10^3/uL (2.7-7.7); Neutrophil % 65.4 % (47-70); Platelet Count 225 K/mm3 (150-450); RBC Distribution Width CV 15.1 % (11.6-14.6); RBC Distribution Width SD 48.1 fl (35.1-43.9); Red Blood Count 2.33 M/mm3 (4.2-5.4); White Blood Count 5.4 K/mm3 (4.4-11.0)
[2022-03-01 07:10] LABS: Erythrocyte Sedimentation Rate 7 mm/hr (0-30)
[2022-03-01 07:15] LABS: ALB/GLOB Ratio 0.6 RATIO (0.9-2.4); AST(SGOT) 10 U/L (15-37); Alanine Aminotransfer ALT/SGPT < 6 U/L (13-56); Albumin, Serum 2.2 g/dL (3.2-5.0); Alkaline Phosphatase 81 U/L (45-117); Anion Gap 8 (5-15); BUN 23 mg/dL (7-18); Calcium,Total 7.8 mg/dL (8.5-10.1); Chloride 107 mmol/L (98-107); Creatinine, Serum 1.35 mg/dL (0.55-1.02); EST Glomerular Filtration Rate 43 mL/min (>60); Est Glom Filt Rate - Afr Amer 52 mL/min (>60); Estimated Creatinine Clearance 43.04 ml/min; Glucose 143 mg/dL (74-106); Potassium 3.2 mmol/L (3.5-5.1); Protein, Total 6.2 g/dL (6.4-8.2); Sodium Level 142 mmol/L (136-145)
[2022-03-01] MEDS: Potassium Chloride Oral Tablet 20 MEQ 40 MEQ PO (08:30)
[2022-03-01] MEDS: Potassium Chloride Oral Tablet 20 MEQ PO (08:31)
[2022-03-01] MEDS: Iron Polysaccharide Complex 150 MG CAPSULE PO (08:35)
[2022-03-01] MEDS: Bisacodyl 10 MG Suppository RC (08:35)
[2022-03-01] MEDS: 0.9 % NaCl (Sterile) Posiflush 10 mL IV ×3 (08:39→22:33)
[2022-03-01] MEDS: Insulin Lispro 100 UNIT/ML INSULN.PEN 7 UNIT SC ×3 (08:40→18:05)
[2022-03-01 10:56] LABS: Bedside Glucose 109 mg/dL (74-106)
--- NOTE | 2022-03-01 13:09 | CASEMGMT ---
Social Work Met with patient to complete initial assessment. Introduced self and role. Discussed code status and MOLST form. Pt wishes to be a full code. Notified nursing. Purple DNR bracelet cut off. Removed DNR form in chart. MOLST communicated to , placed in chart. Pt wishes to complete advanced directives during stay. SW to complete as time allows. Explained [facility] insurance with NRD 03/05 and continued stay is not guaranteed with each review. Pt has IV ATB Q8 until stop date 03/23, has wounds. The goal is for pt to return home with SO at the end of the IV ATB and wounds are healed. Pt was w/c bound prior for 2 years r/t wounds on feet. The goal is for pt to regain strength and walk again. SW to continue to follow for discharge planning. ASHANTI TrevizoW
[2022-03-01 14:10] VITALS: BP 104/57; PULSE 116; RESP 18; TEMP 36.7; O2SAT 99
[2022-03-01] MEDS: oxyCODONE 5 MG Tablet PO (14:25)
--- NOTE | 2022-03-01 15:30 | NURSING ---
patient notified of positive covid result of staff member. pt defers need to notify family of results.
[2022-03-01 16:41] LABS: Bedside Glucose 98 mg/dL (74-106)
[2022-03-01 20:24] VITALS: PULSE 94; O2SAT 95
[2022-03-01 21:16] LABS: Bedside Glucose 57 mg/dL (74-106)
[2022-03-01] MEDS: ARIPiprazole 5 MG Tablet 2.5 MG PO (22:22)
[2022-03-01] MEDS: Prazosin HCl 1 MG Capsule 2 MG PO (22:23)
[2022-03-01] MEDS: hydrOXYzine PAM 25 MG Capsule PO (22:24)
[2022-03-01 22:48] VITALS: BP 145/75; PULSE 95
[2022-03-02 00:55] LABS: Bedside Glucose 125 mg/dL (74-106)
[2022-03-02 02:06] LABS: Bedside Glucose 125 mg/dL (74-106)
--- NOTE | 2022-03-02 02:33 | NURSING ---
Blood sugar 57 at bedtime, patient awake and appropriate, wanted juice and pudding, snacks provided. On re-check sugar up to 125. Written update left for Dr. Louis.
[2022-03-02] MEDS: Acetaminophen 500 MG Tablet 1000 MG PO ×3 (03:32→21:56)
[2022-03-02 06:16] LABS: Bedside Glucose 150 mg/dL (74-106)
[2022-03-02 06:29] VITALS: BP 142/74; PULSE 98
[2022-03-02 06:30] VITALS: PULSE 98
[2022-03-02] MEDS: hydrALAZINE 25 MG Tablet PO (06:30)
[2022-03-02] MEDS: Menthol/Lanolin/Calamine/Znox 113 GM Tube 1 APPLIC TOPICAL ×2 (06:31→17:19)
[2022-03-02] MEDS: Pregabalin 50 MG Capsule 100 MG PO (06:31)
[2022-03-02] MEDS: Iron Polysaccharide Complex 150 MG CAPSULE PO (06:31)
[2022-03-02] MEDS: Nystatin Powder 15gm Bottle 1 APPLIC TOPICAL ×3 (06:32→22:00)
[2022-03-02] MEDS: Pantoprazole Sodium 40 MG Tablet PO (06:32)
[2022-03-02] MEDS: metFORMIN (XR) 500 MG Tablet 1000 MG PO (06:33)
[2022-03-02] MEDS: Sertraline 100 MG Tablet PO (06:33)
[2022-03-02] MEDS: Cefazolin 2 GM in 0.9% Normal Saline 100 ML IV ×3 (06:34→22:05)
[2022-03-02] MEDS: 0.9 % NaCl (Sterile) Posiflush 10 mL IV ×2 (06:36→21:57)
[2022-03-02] MEDS: Insulin Lispro 100 UNIT/ML INSULN.PEN 7 UNIT SC (07:42)
[2022-03-02] MEDS: Potassium Chloride Oral Tablet 20 MEQ PO (07:42)
[2022-03-02] MEDS: Juven (unflavored) Packet 1 PACKET PO (07:42)
[2022-03-02] MEDS: oxyCODONE 5 MG Tablet PO ×2 (13:35→21:56)
--- NOTE | 2022-03-02 14:30 | RAD_ITS ---
STUDY: X-RAY - ABDOMEN/PELVIS REASON FOR EXAM: Female, 56 years old. Diarrhea TECHNIQUE: Single AP view of the abdomen / pelvis. COMPARISON: Comparison is made with prior study dated 02/05/2002. FINDINGS: Normal visualized lung bases. There is an unremarkable bowel gas pattern. A left-sided InterStim device is seen. The visualized liver, spleen and kidneys are grossly normal in size and morphology. Normal soft tissue structures. Normal visualized osseous structures. RAD/Abdomen Single View IMPRESSION: No acute abnormality is seen. Electronically Signed: Vidal Lopez MD at 14:47 EDT ,
[2022-03-02 15:17] VITALS: BP 157/76; PULSE 98; RESP 18; TEMP 36.4; O2SAT 96
[2022-03-02 16:05] LABS: Bedside Glucose 181 mg/dL (74-106)
[2022-03-02] MEDS: Loperamide 2 MG Capsule PO (17:23)
--- NOTE | 2022-03-02 18:32 | NURSING ---
This nurse spoke with patient about receiving the Prevnar 13 vaccine due this shift. Patient would like to talk to daughter about the vaccine before she has it administered. Will let caustic cresylate shift superintendent nurse know. Order given for Imodium 2mg for loose stools this shift.
[2022-03-02 20:01] VITALS: PULSE 81; RESP 16; O2SAT 99
[2022-03-02 21:36] LABS: Bedside Glucose 134 mg/dL (74-106)
[2022-03-02] MEDS: ARIPiprazole 5 MG Tablet 2.5 MG PO (21:58)
[2022-03-02] MEDS: Prazosin HCl 1 MG Capsule 2 MG PO (21:59)
[2022-03-02] MEDS: hydrOXYzine PAM 25 MG Capsule PO (22:00)
[2022-03-02] MEDS: Insulin Glargine-YFGN 100 UNIT/ML Pen 20 UNIT SC (22:02)
[2022-03-03 06:36] VITALS: BP 137/74; PULSE 97
[2022-03-03] MEDS: Iron Polysaccharide Complex 150 MG CAPSULE PO (06:38)
[2022-03-03 06:39] VITALS: PULSE 97
[2022-03-03] MEDS: metFORMIN (XR) 500 MG Tablet 1000 MG PO (06:39)
[2022-03-03] MEDS: Sertraline 100 MG Tablet PO (06:39)
[2022-03-03] MEDS: hydrALAZINE 25 MG Tablet PO (06:39)
[2022-03-03] MEDS: Pantoprazole Sodium 40 MG Tablet PO (06:39)
[2022-03-03] MEDS: Cefazolin 2 GM in 0.9% Normal Saline 100 ML IV ×3 (06:41→22:28)
[2022-03-03] MEDS: Menthol/Lanolin/Calamine/Znox 113 GM Tube 1 APPLIC TOPICAL ×2 (06:41→16:22)
[2022-03-03] MEDS: Nystatin Powder 15gm Bottle 1 APPLIC TOPICAL ×3 (06:41→22:51)
[2022-03-03] MEDS: Pregabalin 50 MG Capsule 100 MG PO (06:47)
[2022-03-03] MEDS: Acetaminophen 500 MG Tablet 1000 MG PO ×3 (06:47→22:41)
[2022-03-03] MEDS: oxyCODONE 5 MG Tablet PO ×3 (06:48→22:40)
[2022-03-03 06:56] LABS: Bedside Glucose 91 mg/dL (74-106)
[2022-03-03 07:57] LABS: Hemoglobin 9.4 g/dL (12.0-15.0)
[2022-03-03 08:09] LABS: Anion Gap 9 (5-15); BUN 19 mg/dL (7-18); BUN/Creat Ratio 17.1 RATIO (10-20); Calcium,Total 8.1 mg/dL (8.5-10.1); Chloride 110 mmol/L (98-107); Creatinine, Serum 1.11 mg/dL (0.55-1.02); EST Glomerular Filtration Rate 54 mL/min (>60); Est Glom Filt Rate - Afr Amer 65 mL/min (>60); Estimated Creatinine Clearance 52.35 ml/min; Glucose 97 mg/dL (74-106); Sodium Level 144 mmol/L (136-145)
[2022-03-03] MEDS: Potassium Chloride Oral Tablet 20 MEQ PO ×2 (08:13→16:23)
[2022-03-03] MEDS: Potassium Chloride Oral Tablet 20 MEQ 40 MEQ PO (10:06)
[2022-03-03 11:16] LABS: Bedside Glucose 101 mg/dL (74-106)
[2022-03-03] MEDS: 0.9 % NaCl (Sterile) Posiflush 10 mL IV (13:57)
[2022-03-03 14:21] LABS: Bedside Glucose 113 mg/dL (74-106)
--- NOTE | 2022-03-03 15:08 | NURSING ---
Weekly labs faxed to Dr. Cheema
[2022-03-03 15:37] VITALS: BP 141/71; PULSE 98; RESP 18; TEMP 36.8; O2SAT 97
[2022-03-03 16:36] LABS: Bedside Glucose 132 mg/dL (74-106)
[2022-03-03 21:31] LABS: Bedside Glucose 119 mg/dL (74-106)
[2022-03-03] MEDS: ARIPiprazole 5 MG Tablet 2.5 MG PO (22:44)
[2022-03-03] MEDS: hydrOXYzine PAM 25 MG Capsule PO (22:44)
[2022-03-03] MEDS: Prazosin HCl 1 MG Capsule 2 MG PO (22:45)
[2022-03-03] MEDS: Insulin Glargine-YFGN 100 UNIT/ML Pen 20 UNIT SC (22:46)
[2022-03-03] MEDS: traZODone 50 MG Tablet PO (22:54)
[2022-03-04] MEDS: Senna/Docusate Sodium 1 Tablet 2 TABLET PO ×2 (05:44→16:44)
[2022-03-04 05:45] VITALS: BP 136/73; PULSE 100
[2022-03-04] MEDS: Pantoprazole Sodium 40 MG Tablet PO (05:45)
[2022-03-04] MEDS: hydrALAZINE 25 MG Tablet PO (05:45)
[2022-03-04] MEDS: Iron Polysaccharide Complex 150 MG CAPSULE PO (05:45)
[2022-03-04] MEDS: Sertraline 100 MG Tablet PO (05:45)
[2022-03-04] MEDS: oxyCODONE 5 MG Tablet PO ×3 (05:50→22:26)
[2022-03-04] MEDS: Pregabalin 50 MG Capsule 100 MG PO (05:51)
[2022-03-04] MEDS: Acetaminophen 500 MG Tablet 1000 MG PO ×2 (05:51→17:56)
[2022-03-04] MEDS: Menthol/Lanolin/Calamine/Znox 113 GM Tube 1 APPLIC TOPICAL ×2 (05:52→16:44)
[2022-03-04] MEDS: Nystatin Powder 15gm Bottle 1 APPLIC TOPICAL ×2 (05:52→14:38)
[2022-03-04] MEDS: Cefazolin 2 GM in 0.9% Normal Saline 100 ML IV ×3 (05:52→22:35)
[2022-03-04 06:26] LABS: Bedside Glucose 134 mg/dL (74-106)
[2022-03-04] MEDS: metFORMIN (XR) 500 MG Tablet 1000 MG PO (09:47)
[2022-03-04] MEDS: Potassium Chloride Oral Tablet 20 MEQ PO ×2 (09:47→16:42)
[2022-03-04 11:16] LABS: Bedside Glucose 153 mg/dL (74-106)
[2022-03-04] MEDS: 0.9 % NaCl (Sterile) Posiflush 10 mL IV ×2 (14:36→16:42)
[2022-03-04 15:25] VITALS: BP 143/72; PULSE 98; RESP 16; TEMP 36.6; O2SAT 97
[2022-03-04 16:35] LABS: Bedside Glucose 150 mg/dL (74-106)
[2022-03-04 21:46] LABS: Bedside Glucose 136 mg/dL (74-106)
[2022-03-04] MEDS: ARIPiprazole 5 MG Tablet 2.5 MG PO (22:25)
[2022-03-04] MEDS: traZODone 50 MG Tablet PO (22:26)
[2022-03-04] MEDS: Prazosin HCl 1 MG Capsule 2 MG PO (22:26)
[2022-03-04] MEDS: hydrOXYzine PAM 25 MG Capsule PO (22:26)
[2022-03-04] MEDS: Insulin Glargine-YFGN 100 UNIT/ML Pen 20 UNIT SC (22:28)
[2022-03-05] MEDS: Nystatin Powder 15gm Bottle 1 APPLIC TOPICAL ×4 (00:01→22:07)
[2022-03-05 06:21] LABS: Bedside Glucose 148 mg/dL (74-106)
[2022-03-05] MEDS: Sertraline 100 MG Tablet PO (06:47)
[2022-03-05 06:48] VITALS: BP 120/76; PULSE 108
[2022-03-05] MEDS: hydrALAZINE 25 MG Tablet PO (06:48)
[2022-03-05] MEDS: Pregabalin 50 MG Capsule 100 MG PO (06:48)
[2022-03-05] MEDS: Acetaminophen 500 MG Tablet 1000 MG PO ×2 (06:48→20:22)
[2022-03-05] MEDS: Senna/Docusate Sodium 1 Tablet 2 TABLET PO ×2 (06:48→17:22)
[2022-03-05] MEDS: oxyCODONE 5 MG Tablet PO ×3 (06:49→20:21)
[2022-03-05] MEDS: Iron Polysaccharide Complex 150 MG CAPSULE PO (06:49)
[2022-03-05] MEDS: Menthol/Lanolin/Calamine/Znox 113 GM Tube 1 APPLIC TOPICAL ×2 (06:50→17:29)
[2022-03-05] MEDS: Pantoprazole Sodium 40 MG Tablet PO (06:50)
[2022-03-05] MEDS: Cefazolin 2 GM in 0.9% Normal Saline 100 ML IV ×3 (06:53→21:52)
--- NOTE | 2022-03-05 06:55 | NURSING ---
Blood draw this am via white port. Aseptic technique maintained throughout procedure. Port flushed w/ 10 ml NS using push-pause method, withdrew 10 ml for discard, withdrew an additional 10 ml blood for specimen, blood transferred to tube via transfer device, end cap changed, flushed w/ 20 ml NS using push-pause method. Pt tolerated well. Specimen sent to lab via tube system. Phone call placed to lab and spoke w/ Aniyah, to inform specimen was sent.
[2022-03-05 07:31] LABS: Anion Gap 8 (5-15); BUN 20 mg/dL (7-18); BUN/Creat Ratio 18.3 RATIO (10-20); Calcium,Total 8.3 mg/dL (8.5-10.1); Chloride 109 mmol/L (98-107); Creatinine, Serum 1.09 mg/dL (0.55-1.02); EST Glomerular Filtration Rate 55 mL/min (>60); Est Glom Filt Rate - Afr Amer 66 mL/min (>60); Estimated Creatinine Clearance 53.31 ml/min; Glucose 149 mg/dL (74-106); Potassium 3.8 mmol/L (3.5-5.1); Sodium Level 141 mmol/L (136-145)
[2022-03-05] MEDS: metFORMIN (XR) 500 MG Tablet 1000 MG PO (08:02)
[2022-03-05] MEDS: Potassium Chloride Oral Tablet 20 MEQ PO ×2 (08:03→17:22)
[2022-03-05 11:05] LABS: Bedside Glucose 226 mg/dL (74-106)
--- NOTE | 2022-03-05 14:21 | WOUNDNOTE ---
wound photo: left heel
--- NOTE | 2022-03-05 14:22 | WOUNDNOTE ---
wound photo: left medial heel
--- NOTE | 2022-03-05 14:23 | WOUNDNOTE ---
wound photo: right plantar foot
--- NOTE | 2022-03-05 14:24 | WOUNDNOTE ---
wound photo: right lateral heel
--- NOTE | 2022-03-05 14:25 | WOUNDNOTE ---
wound photo: left buttock
[2022-03-05 16:10] LABS: Bedside Glucose 127 mg/dL (74-106)
[2022-03-05 16:16] VITALS: BP 105/66; PULSE 98; RESP 18; TEMP 36.4; O2SAT 99
[2022-03-05] MEDS: Bisacodyl 10 MG Suppository RC (18:19)
[2022-03-05 20:25] VITALS: PULSE 104; RESP 16; O2SAT 96
[2022-03-05 21:30] LABS: Bedside Glucose 141 mg/dL (74-106)
[2022-03-05] MEDS: Prazosin HCl 1 MG Capsule 2 MG PO (22:06)
[2022-03-05] MEDS: ARIPiprazole 5 MG Tablet 2.5 MG PO (22:06)
[2022-03-05] MEDS: hydrOXYzine PAM 25 MG Capsule PO (22:07)
[2022-03-05] MEDS: Insulin Glargine-YFGN 100 UNIT/ML Pen 20 UNIT SC (22:07)
[2022-03-05] MEDS: traZODone 50 MG Tablet PO (22:12)
[2022-03-05] MEDS: Loperamide 2 MG Capsule PO (22:12)
[2022-03-06] MEDS: Cefazolin 2 GM in 0.9% Normal Saline 100 ML IV ×3 (06:01→21:48)
[2022-03-06 06:06] VITALS: PULSE 99
[2022-03-06] MEDS: Pantoprazole Sodium 40 MG Tablet PO (06:06)
[2022-03-06] MEDS: Sertraline 100 MG Tablet PO (06:06)
[2022-03-06] MEDS: Iron Polysaccharide Complex 150 MG CAPSULE PO (06:06)
[2022-03-06] MEDS: Pregabalin 50 MG Capsule 100 MG PO (06:06)
[2022-03-06] MEDS: hydrALAZINE 25 MG Tablet PO (06:06)
[2022-03-06] MEDS: Nystatin Powder 15gm Bottle 1 APPLIC TOPICAL ×3 (06:07→21:59)
[2022-03-06] MEDS: Senna/Docusate Sodium 1 Tablet 2 TABLET PO (06:07)
[2022-03-06] MEDS: Menthol/Lanolin/Calamine/Znox 113 GM Tube 1 APPLIC TOPICAL ×2 (06:08→17:38)
[2022-03-06] MEDS: Acetaminophen 500 MG Tablet 1000 MG PO ×2 (06:21→17:36)
[2022-03-06 06:22] VITALS: BP 137/70; PULSE 99
[2022-03-06 06:45] LABS: Bedside Glucose 113 mg/dL (74-106)
[2022-03-06] MEDS: Potassium Chloride Oral Tablet 20 MEQ PO ×2 (08:07→17:36)
[2022-03-06] MEDS: metFORMIN (XR) 500 MG Tablet 1000 MG PO (08:07)
[2022-03-06] MEDS: oxyCODONE 5 MG Tablet PO ×2 (10:11→17:37)
[2022-03-06 10:51] LABS: Bedside Glucose 113 mg/dL (74-106)
--- NOTE | 2022-03-06 11:40 | EX.PCM.CON.S ---
Assessment & Plan Assessment/Plan (1) Decubital ulcer: PLAN: Plan We will plan to get a CT pelvis to better evaluate the depth of the ulcer as well as location of the bladder stimulator. Asked nurses to find out who placed the bladder stimulator as well-as this could become an issue if we need to do surgery and it is running through the base of the ulcer. This ulcer is unstageable due to the slough so she may benefit from surgery as we are unclear exactly how long she has had it as well however it definitely was not there on CT abdomen pelvis late December. Continue current weight offloading and wound care per wound nurse. Await CT pelvis. Prai Ramírez M.D. Pager: [phone] [facility] [address] [place] [address], [facility], [address] [place] [address] Office: [phone] HPI Consult Data Date of Consult: 03/06/22 HPI Narrative Reason for Consultation: Left decubitus ulcer HPI Narrative: NORAH CRAIG, is a 56 F who is admitted to TCU status post left hip surgery and bacteremia previously in late January at [facility]. Patient states prior to her hip surgery she did also have a decubitus ulcer. CT abdomen pelvis from 01/05/2022 did not show any obvious ulcer but did show the bladder stimulator on the left lateral buttocks. Patient states this area is painful rates a 9/10 if sitting on it and a 7/10 if she is leaning away from it. Denies any pain with standing. [facility] Medical History Anemia Asthma Delayed wound healing Depression Diabetes mellitus with diabetic polyneuropathy Fall Generalized weakness HTN (hypertension) Localized edema Malnutrition Neuropathy Other specified peripheral vascular diseases Septic hip Ulcer of right foot with necrosis of muscle Home Medications albuterol sulfate 90 mcg/actuation aerosol inhaler (ProAir HFA) 2 puff Q4H PRN PRN Sob &/Or Wheezing 01/28/18 [History Last Taken 02/02/22] metformin 500 mg tablet,extended release 24 hr 1,000 mg PO DAILY DM 01/28/18 [History Last Taken 02/02/22] hydroxyzine HCl 25 mg tablet 25 mg PO QHS allergies 01/02/22 [History Last Taken 02/02/22] oxycodone 5 mg tablet 5 mg PO Q6H PRN PRN Pain Score 6-10 2 days #7 tabs 01/07/22 [Rx Last Taken 02/02/22] trazodone 50 mg tablet 50 mg PO QHS PRN Insomnia #0 tabs 01/07/22 [Rx Last Taken 02/02/22] arginine 7 gram-glutam 7 gram-CaHMB 1.5 [id number]-[id number]-min oral pwd pkt (Ahsan (with collagen)) 1 packet PO BIDCM Supplement 02/27/22 [History Last Taken Unknown] aripiprazole 5 mg tablet 5 mg PO QHS Check with primary doctor 02/27/22 [History Last Taken Unknown] cefazolin 2 gram solution for injection 2 g IV Q8H Antibiotic 02/27/22 [History Last Taken Unknown] hydralazine 25 mg tablet 25 mg PO DAILY BP 02/27/22 [History Last Taken Unknown] insulin detemir U-100 100 unit/mL (3 mL) subcutaneous pen (Levemir FlexTouch U-100 Insulin) 20 unit subcut QHS Diabetes 02/27/22 [History Last Taken Unknown] insulin detemir U-100 100 unit/mL subcutaneous solution (Levemir U-100 Insulin) 20 unit subcut QHS Diabetes 02/27/22 [History Last Taken Unknown] insulin lispro 100 unit/mL subcutaneous half-unit pen (Humalog Dameon KwikPen (U-100)) 30 unit subcut TID Diabetes 02/27/22 [History Last Taken Unknown] insulin lispro 100 unit/mL subcutaneous pen (Humalog KwikPen (U-100) Insulin) 30 unit subcut ACHS Diabetes 02/27/22 [History Last Taken Unknown] nystatin 100,000 unit/gram topical powder (Nyamyc) 1 applic topical TID skin 02/27/22 [History Last Taken Unknown] pantoprazole 40 mg tablet,delayed release (Protonix) 40 mg PO DAILY GERD 02/27/22 [History Last Taken Unknown] prazosin 2 mg capsule 2 mg PO QHS Bp 02/27/22 [History Last Taken Unknown] pregabalin 100 mg capsule (Lyrica) 100 mg PO DAILY Check with primary doctor 02/27/22 [History Last Taken Unknown] psyllium husk 0.4 gram capsule (Fiber (psyllium husk)) 0.4 g PO BID Supplement 02/27/22 [History Last Taken Unknown] sennosides 8.6 mg-docusate sodium 50 mg tablet (Stool Softener-Stimulant Laxative) 2 tab PO BID Constipation 02/27/22 [History Last Taken Unknown] sertraline 100 mg tablet 100 mg PO DAILY Mood 02/27/22 [History Last Taken Unknown] Allergy/AdvReac Type Severity Reaction Status Date / Time morphine AdvReac Vomiting Verified 02/03/22 15:15 Surgical History (Updated 02/27/22 @ 20:[address] Roscoe Louis MD) History of right hip hemiarthroplasty Social History (Updated 02/27/22 @ 20:[address] Roscoe Louis MD) household members: significant other Smoking Status: Never smoker alcohol intake: never substance use type: does not use ROS Constitutional Constitutional: Denies anorexia or chills Eyes Eyes: Denies loss of central vision ENT HEENT: Denies dysphagia Cardiovascular Cardiovascular: Denies chest pain Respiratory/Chest Respiratory/Chest: Denies shortness of breath at rest Gastrointestinal Gastrointestinal: Denies abdominal pain, nausea or vomiting Genitourinary Genitourinary: Denies dysuria Musculoskeletal Musculoskeletal: Reports joint pain Integumentary Integumentary: Reports non-healing lesions and skin ulcer Neurologic Neurologic: Denies dizziness Psychiatric Psychiatric: Denies depression Hematologic/Lymphatic Hematologic/Lymphatic: Denies easy bleeding Physical Exam Const alert, oriented x3 and no apparent distress General Appearance: cooperative HEENT normocephalic and head/scalp atraumatic Neck General: normal visual inspection Resp normal respiratory effort Cardio Rate: regular rate GI soft to palpation, non-tender and non-distended Extremity Extremity Narrative: Bilateral feet wrapped with Kerlix due to previous pressure wounds Skin Wound Narrative: Left decubitus ulcer with slough about 7-7.5cm in size, possible superficial unable to tell for sure. Neuro Speech: speech normal Psych mental status grossly normal Lab / Micro Data Result Diagrams: 03/03/22 07:45 03/05/22 06:55 Labs: Laboratory Results - last 24 hr 03/05/22 16:03: POC Glucose 127 H 03/05/22 21:12: POC Glucose 141 H 03/06/22 06:16: POC Glucose 113 H 03/06/22 10:44: POC Glucose 113 H Micro: Microbiology 03/05/22 11:09 Nasal Secretion SARS-CoV-2 Antigen (Rapid) - Final Charges/Coding Visit Charges Inpatient E&M: 64536 Init Hosp L3
--- NOTE | 2022-03-06 11:44 | CASEMGMT ---
Social Work BIMS and PHQ-9 completed for MDS assessment. Nan Stanley, BOX BENDER RETAIL AND PROMOTIONS COORDINATOR
[2022-03-06 13:26] VITALS: BP 102/56; PULSE 103; RESP 17; TEMP 37.1; O2SAT 98
[2022-03-06 16:41] LABS: Bedside Glucose 162 mg/dL (74-106)
[2022-03-06 21:31] LABS: Bedside Glucose 123 mg/dL (74-106)
[2022-03-06] MEDS: Insulin Glargine-YFGN 100 UNIT/ML Pen 20 UNIT SC (21:48)
[2022-03-06] MEDS: 0.9 % NaCl (Sterile) Posiflush 10 mL IV (21:48)
[2022-03-06] MEDS: ARIPiprazole 5 MG Tablet 2.5 MG PO (21:49)
[2022-03-06] MEDS: hydrOXYzine PAM 25 MG Capsule PO (21:49)
[2022-03-06] MEDS: Prazosin HCl 1 MG Capsule 2 MG PO (21:50)
--- NOTE | 2022-03-06 22:09 | NURSING ---
Cathflo to purple lumen effective. Blood return noted, 2mL pulled. Lumen flushed with NS 10mL and curos cap applied. Will continue to monitor.
[2022-03-06 23:00] VITALS: PULSE 92; RESP 16
[2022-03-07] MEDS: Acetaminophen 500 MG Tablet 1000 MG PO ×2 (04:05→15:24)
[2022-03-07] MEDS: 0.9 % NaCl (Sterile) Posiflush 10 mL IV ×2 (05:00→21:47)
[2022-03-07] MEDS: Cefazolin 2 GM in 0.9% Normal Saline 100 ML IV ×3 (05:00→22:14)
[2022-03-07] MEDS: Pregabalin 50 MG Capsule 100 MG PO (05:08)
[2022-03-07] MEDS: Pantoprazole Sodium 40 MG Tablet PO (05:08)
[2022-03-07] MEDS: Sertraline 100 MG Tablet PO (05:08)
[2022-03-07] MEDS: Iron Polysaccharide Complex 150 MG CAPSULE PO (05:08)
[2022-03-07] MEDS: Senna/Docusate Sodium 1 Tablet 2 TABLET PO (05:08)
[2022-03-07 05:09] VITALS: BP 119/71; PULSE 103
[2022-03-07] MEDS: hydrALAZINE 25 MG Tablet PO (05:09)
[2022-03-07] MEDS: Menthol/Lanolin/Calamine/Znox 113 GM Tube 1 APPLIC TOPICAL ×2 (05:14→17:11)
[2022-03-07] MEDS: Nystatin Powder 15gm Bottle 1 APPLIC TOPICAL ×3 (05:15→21:49)
[2022-03-07 06:25] LABS: Bedside Glucose 165 mg/dL (74-106)
[2022-03-07 06:46] LABS: Erythrocyte Sedimentation Rate 30 mm/hr (0-30)
[2022-03-07 06:48] LABS: Absolute Lymphocyte Count 1.42 X10^3/uL (0.83-4.51); Absolute Neutrophil Count 5.2 X10^3/uL (2.0-7.7); Basophil# 0.02 X10^3/uL; Basophil% 0.3 % (0-1); Eosinophil# 0.14 X10^3/uL; Eosinophils% 1.9 % (0-5); Hematocrit 30.1 % (37-47); Hemoglobin 9.6 g/dL (12.0-15.0); Lymphocyte # 1.42 X10^3/ul (0.83-4.51); Lymphocyte % 19.1 % (19-41); Mean Corp Hgb Conc 31.9 g/dL (32-36); Mean Corpuscular Hgb 27.9 pg (27.0-32.0); Mean Corpuscular Volume 87.5 fL (81-99); Mean Platelet Vol. 9.9 fl (6.2-12.0); Monocyte# 0.57 X10^3/uL; Monocyte% 7.7 % (0-10); NRBC Flagged by Analyzer 0 % (0-5); Neutrophil % 69.8 % (47-70); Platelet Count 210 K/mm3 (150-450); RBC Distribution Width SD 47.9 fl (35.1-43.9); Red Blood Count 3.44 M/mm3 (4.2-5.4); White Blood Count 7.4 K/mm3 (4.4-11.0)
[2022-03-07 07:36] LABS: ALB/GLOB Ratio 0.6 RATIO (0.9-2.4); AST(SGOT) 7 U/L (15-37); Alanine Aminotransfer ALT/SGPT < 6 U/L (13-56); Albumin, Serum 2.3 g/dL (3.2-5.0); Alkaline Phosphatase 82 U/L (45-117); Anion Gap 9 (5-15); BUN 20 mg/dL (7-18); BUN/Creat Ratio 16.5 RATIO (10-20); Calcium,Total 8.4 mg/dL (8.5-10.1); Chloride 108 mmol/L (98-107); Creatinine, Serum 1.21 mg/dL (0.55-1.02); EST Glomerular Filtration Rate 49 mL/min (>60); Est Glom Filt Rate - Afr Amer 59 mL/min (>60); Estimated Creatinine Clearance 48.02 ml/min; Globulin 4.1 g/dL (2.2-4.2); Glucose 147 mg/dL (74-106); Potassium 3.6 mmol/L (3.5-5.1); Protein, Total 6.4 g/dL (6.4-8.2); Sodium Level 141 mmol/L (136-145)
--- NOTE | 2022-03-07 08:11 | NURSING ---
Call from Dr. Ramírez's MAINTENANCE CRAFTSMAN, Nidhi, who stated that due to the wound on left buttock being in area of bladder stimulator placement, which was placed at another facility, they feel that patient should follow up with the physician who placed the stimulator. Talked with patient, who states that Dr. Armenta in [place] placed the stimulator as well as changed the battery. CT scan also shows a fluid pocket in right hip post replacement. Nidhi also feels that patient should follow up with surgeon at [facility], where she had hip surgery regarding area. Dr. Louis updated. Staff to contact Dr. Haile, who is following patient, and update him on findings, and what direction he would like to take. Will continue to monitor.
[2022-03-07] MEDS: metFORMIN (XR) 500 MG Tablet 1000 MG PO (08:38)
[2022-03-07] MEDS: Potassium Chloride Oral Tablet 20 MEQ PO (08:38)
--- NOTE | 2022-03-07 09:13 | NURSING ---
Dr Haile called per Dr Louis's request. There is an unstageable ulcer on left buttocks (has been present prior to admission)--Dr Ramírez consulted for possible debridement and CT scan ordered/taken. There is a questionable abscess seen on right hip per report. Dr Louis unsure of next step to treatment. Patient has a bladder stimulator by left ischial--Dr Ramírez concerned may be source of infection. Dr Haile states will see patient.
[2022-03-07] MEDS: Tuberculin,Purif.prot.deriv. 50 TU/ML Vial 0.1 ML ID (10:25)
--- NOTE | 2022-03-07 10:53 | CASEMGMT ---
Social Work IDT met with patient for care plan meeting. Discussed patient's progress in PT/OT/SN. Explained [facility] insurance with NRD 03/15, EDC 03/23. IV ATB stop 03/23. Pt receiving wound care; is PWBS and having trouble maintaining. Although pt was w/c level prior r/t wounds, the goal is for the wounds to heal and pt ambulate with an assistive device to DC home. Offered [facility] for socialization as pt enjoying activities, etc. Provided information. Pt appreciative. SW to continue to follow. Nan Stanley, TAPPER HAND ASSISTANT ATHLETIC TRAINER
[2022-03-07 11:31] LABS: Bedside Glucose 98 mg/dL (74-106)
--- NOTE | 2022-03-07 12:14 | PN_ITS ---
Progress Note Reviewed patient's CT scan of the pelvis with Dr. Duran in Dr. Ramírez's absence. After reviewing, it appears that the left buttock infection is stemming from a bladder stimulator that was placed by her urologist in [place] and she also appears to have a fluid collection within the right tensor fascial mecry and the right vastus lateralis possibly an abscess. Patient is currently receiving IV antibiotics following severe sepsis due to infected right hemiarthroplasty. ID is currently evaluating the patient. Assessment & Plan Assessment/Plan (1) Decubital ulcer: PLAN: After discussion with Dr. Duran, we are recommending the patient's urologist evaluate the patient to remove the bladder stimulator. Unfortunately IV antibiotics will not improve the current status of the ulcer if the foreign body i.e. bladder stimulator has bacteria evolvement. Bladder stimulator would need to be surgically removed. (2) Infection of right prosthetic hip joint: PLAN: Recommend contacting patient's orthopedic surgeon to discuss patient being evaluated and notify of this new fluid collection. Patient was recently discharged from [facility] with an infected right hip joint. Notify the office to determine if patient would need evaluated. Infectious disease may need to be notified to discuss if antibiotic needs changed. Visit Charges Inpatient E&M: 56600 Subs Hosp L1
--- NOTE | 2022-03-07 12:49 | NURSING ---
Director Learning Services Note: Interview and Section F of MDS complete.
--- NOTE | 2022-03-07 13:56 | NURSING ---
Dr Armenta's office called in regards to bladder stimulator and proximity to unstageable wound ulcer. Dr Armenta is patients urologist who helps manage bladder stimulator. Per RN in Dr Armenta's office, he does not feel bladder stimulator is effecting the wound area and would be defered to either infectious or ortho consult for further input. Explained to Dr Armenta's RN that patient is being followed with infectious disease MD, but this MD is not a surgeon; general surgeon consulted (Dr Duran), but Dr Duran feels bladder stimulator is part of infection problem and will not operate at this time. Dr Duran was the MD who asked me to reach out to Dr Armenta's office for more input. Dr Haile notified this AM of need to follow-up in regards to ulcer and possible abscess to right hip. Awaiting his input at this time. Will update Dr Louis.
[2022-03-07] MEDS: 0.9% Saline Lock 10 ML Syringe IV (15:19)
[2022-03-07 15:20] VITALS: BP 104/68; PULSE 100; RESP 16; TEMP 36.3; O2SAT 98
--- NOTE | 2022-03-07 15:36 | NURSING ---
notified of positive staff member for covid. pt deferred this RN from notifing family member at this time.
--- NOTE | 2022-03-07 16:04 | PN.ID_ITS ---
Physical Exam Narrative Feeling ok, pain controlled, no fever, no n/v/d. Const alert and no apparent distress Resp normal air movement and clear to auscultation bilaterally Cardio regular rate and regular rhythm GI soft to palpation, non-tender and non-distended Skin Skin Narrative: reviewed photos ID ID: Route of nutrition/ use of supplements: [] Nutritional Intake: [] IV Site: [] Gillette Catheter: [] Assessment & Plan Assessment/Plan (1) Bacteremia due to group B Streptococcus: (2) Osteomyelitis of right hip: PLAN: Now s/p 02/09/22 R hip hemiathroplasty at [facility]. On cefazolin with stop date 03/23/22. Likely will need intermediate po abx after that point given presence of hardware. ID at [place] was Dr. Cheema. Now CT shows possible abscess, recommend contacting her ortho. Will follow, d/w nursing
--- NOTE | 2022-03-07 16:25 | NURSING ---
Dr Casillas's office called (orthopedic MD) to notify of CT of pelvis findings of possible abscess. awaiting return phone call from operations officer afloat.
[2022-03-07 16:41] LABS: Bedside Glucose 122 mg/dL (74-106)
[2022-03-07] MEDS: Potassium Chloride Oral Soln 20 MEQ/15 ML UDC PO (17:10)
--- NOTE | 2022-03-07 17:37 | CASEMGMT ---
Social Work Completed living will and HCPOA. Original and copy provided to pt. Copies placed on chart. Nan Stanley MSW MACHINE SETTER SUPERVISOR
[2022-03-07] MEDS: oxyCODONE 5 MG Tablet PO (19:42)
[2022-03-07 21:25] LABS: Bedside Glucose 102 mg/dL (74-106)
[2022-03-07] MEDS: Prazosin HCl 1 MG Capsule 2 MG PO (21:49)
[2022-03-07] MEDS: ARIPiprazole 5 MG Tablet 2.5 MG PO (21:49)
[2022-03-07] MEDS: hydrOXYzine PAM 25 MG Capsule PO (21:50)
[2022-03-07] MEDS: traZODone 50 MG Tablet PO (22:08)
[2022-03-07 22:09] VITALS: BP 145/80; PULSE 94
[2022-03-07] MEDS: Insulin Glargine-YFGN 100 UNIT/ML Pen 20 UNIT SC (22:10)
[2022-03-08 05:21] VITALS: BP 125/69; PULSE 99
[2022-03-08 05:22] VITALS: PULSE 99
[2022-03-08] MEDS: Sertraline 100 MG Tablet PO (05:22)
[2022-03-08] MEDS: Pantoprazole Sodium 40 MG Tablet PO (05:22)
[2022-03-08] MEDS: hydrALAZINE 25 MG Tablet PO (05:22)
[2022-03-08] MEDS: Senna/Docusate Sodium 1 Tablet 2 TABLET PO ×2 (05:22→16:39)
[2022-03-08] MEDS: Acetaminophen 500 MG Tablet 1000 MG PO ×2 (05:22→21:09)
[2022-03-08] MEDS: Iron Polysaccharide Complex 150 MG CAPSULE PO (05:22)
[2022-03-08] MEDS: Menthol/Lanolin/Calamine/Znox 113 GM Tube 1 APPLIC TOPICAL ×2 (05:23→16:47)
[2022-03-08] MEDS: oxyCODONE 5 MG Tablet PO ×3 (05:23→21:00)
[2022-03-08] MEDS: Pregabalin 50 MG Capsule 100 MG PO (05:24)
[2022-03-08] MEDS: Nystatin Powder 15gm Bottle 1 APPLIC TOPICAL ×3 (05:24→21:12)
[2022-03-08] MEDS: Cefazolin 2 GM in 0.9% Normal Saline 100 ML IV ×3 (05:32→21:04)
[2022-03-08 06:21] LABS: Bedside Glucose 122 mg/dL (74-106)
[2022-03-08] MEDS: metFORMIN (XR) 500 MG Tablet 1000 MG PO (07:55)
--- NOTE | 2022-03-08 10:01 | CON.PCM_ITS ---
Assessment & Plan Assessment/Plan (1) Decubital ulcer: (2) Urge incontinence: PLAN: Plan Proceed with combination debridement decubitus ulceration and removal of InterStim IPG and lead The procedure was discussed with the patient I will have the office make arrangements to work with Dr. Duran schedule I personally spoke with Dr. Armenta and he is in agreement with removal HPI Consult Data Date of Consult: 03/08/22 HPI Narrative Reason for Consultation: Decubitus ulceration with InterStim implant HPI Narrative: NORAH CRAIG, is a 56 F who is admitted to the TCU. I was called to evaluate the patient secondary to her long-term indwelling InterStim that no longer works, and per her never really did work. Apparently it was implanted about 9 years ago. She now gets Botox injections every 6 months for management of her urge incontinence. She has a large sacral decubitus ulceration and the general surgeon is concerned that there is necrotic tissue adjacent to the InterStim implant. The patient follows with Dr. Armenta at the [facility]. [facility] Medical History (Updated 03/08/22 @ 10:[address] Maricruz Linares MD) Anemia Asthma Delayed wound healing Depression Diabetes mellitus with diabetic polyneuropathy Fall Generalized weakness HTN (hypertension) Localized edema Malnutrition Neuropathy Other specified peripheral vascular diseases Septic hip Ulcer of right foot with necrosis of muscle Urge incontinence Home Medications albuterol sulfate 90 mcg/actuation aerosol inhaler (ProAir HFA) 2 puff Q4H PRN PRN Sob &/Or Wheezing 01/28/18 [History Last Taken 02/02/22] metformin 500 mg tablet,extended release 24 hr 1,000 mg PO DAILY DM 01/28/18 [History Last Taken 02/02/22] hydroxyzine HCl 25 mg tablet 25 mg PO QHS allergies 01/02/22 [History Last Taken 02/02/22] oxycodone 5 mg tablet 5 mg PO Q6H PRN PRN Pain Score 6-10 2 days #7 tabs 01/07/22 [Rx Last Taken 02/02/22] trazodone 50 mg tablet 50 mg PO QHS PRN Insomnia #0 tabs 01/07/22 [Rx Last Taken 02/02/22] arginine 7 gram-glutam 7 gram-CaHMB 1.5 [id number]-min oral pwd pkt (Ahsan (with collagen)) 1 packet PO BIDCM Supplement 02/27/22 [History Last Taken Unknown] aripiprazole 5 mg tablet 5 mg PO QHS Check with primary doctor 02/27/22 [History Last Taken Unknown] cefazolin 2 gram solution for injection 2 g IV Q8H Antibiotic 02/27/22 [History Last Taken Unknown] hydralazine 25 mg tablet 25 mg PO DAILY BP 02/27/22 [History Last Taken Unknown] insulin detemir U-100 100 unit/mL (3 mL) subcutaneous pen (Levemir FlexTouch U- 100 Insulin) 20 unit subcut QHS Diabetes 02/27/22 [History Last Taken Unknown] insulin detemir U-100 100 unit/mL subcutaneous solution (Levemir U-100 Insulin) 20 unit subcut QHS Diabetes 02/27/22 [History Last Taken Unknown] insulin lispro 100 unit/mL subcutaneous half-unit pen (Humalog Dameon KwikPen (U-100)) 30 unit subcut TID Diabetes 02/27/22 [History Last Taken Unknown] insulin lispro 100 unit/mL subcutaneous pen (Humalog KwikPen (U-100) Insulin) 30 unit subcut ACHS Diabetes 02/27/22 [History Last Taken Unknown] nystatin 100,000 unit/gram topical powder (Nyamyc) 1 applic topical TID skin 02/27/22 [History Last Taken Unknown] pantoprazole 40 mg tablet,delayed release (Protonix) 40 mg PO DAILY GERD 02/27/22 [History Last Taken Unknown] prazosin 2 mg capsule 2 mg PO QHS Bp 02/27/22 [History Last Taken Unknown] pregabalin 100 mg capsule (Lyrica) 100 mg PO DAILY Check with primary doctor 02/27/22 [History Last Taken Unknown] psyllium husk 0.4 gram capsule (Fiber (psyllium husk)) 0.4 g PO BID Supplement 02/27/22 [History Last Taken Unknown] sennosides 8.6 mg-docusate sodium 50 mg tablet (Stool Softener-Stimulant Laxative) 2 tab PO BID Constipation 02/27/22 [History Last Taken Unknown] sertraline 100 mg tablet 100 mg PO DAILY Mood 02/27/22 [History Last Taken Unknown] Allergy/AdvReac Type Severity Reaction Status Date / Time morphine AdvReac Vomiting Verified 02/03/22 15:15 Surgical History History of right hip hemiarthroplasty Social History household members: significant other Smoking Status: Never smoker alcohol intake: never substance use type: does not use ROS ROS Narrative She mainly complains of significant pain from her decubitus ulcer. The InterStim is not bothersome to her. She does struggle with urge incontinence that is successfully being managed with Botox. She will be following up with Dr. Armenta after discharge to continue this treatment. Constitutional Constitutional: Reports systems reviewed and no addt'l complaints, except as documented Eyes Eyes: Reports systems reviewed and no addt'l complaints, except as documented ENT HEENT: Reports systems reviewed and no addt'l complaints, except as documented Cardiovascular Cardiovascular: Reports systems reviewed and no addt'l complaints, except as documented Respiratory/Chest Respiratory/Chest: Reports systems reviewed and no addt'l complaints, except as documented Gastrointestinal Gastrointestinal: Reports systems reviewed and no addt'l complaints, except as documented Genitourinary Genitourinary: Reports systems reviewed and no addt'l complaints, except as documented Musculoskeletal Musculoskeletal: Reports systems reviewed and no addt'l complaints, except as documented Integumentary Integumentary: Reports systems reviewed and no addt'l complaints, except as documented Neurologic Neurologic: Reports systems reviewed and no addt'l complaints, except as documented Psychiatric Psychiatric: Reports systems reviewed and no addt'l complaints, except as documented Endocrine Endocrinology: Reports systems reviewed and no addt'l complaints, except as documented Hematologic/Lymphatic Hematologic/Lymphatic: Reports systems reviewed and no addt'l complaints, except as documented Allergic/Immunologic Allergic/Immunologic: Reports systems reviewed and no addt'l complaints, except as documented Physical Exam Const alert, oriented x3 and no apparent distress General Appearance: cooperative and well developed Orientation / Consciousness: awake, oriented to person, oriented to place and oriented to time HEENT normocephalic, head/scalp atraumatic, external ears normal and external nose normal Eyes General Eye: normal appearance of both eyes Neck supple General: trachea midline Chest Chest: symmetrical chest wall rise Resp normal respiratory effort, normal air movement, no retractions and no use of accessory muscles Effort and Inspection: able to speak in complete sentences Cardio regular rate GI soft to palpation no CVA tenderness Narrative: No indwelling Gillette catheter The InterStim pocket site is visible and nontender with no drainage or areas of eschar present. The lead is palpable and thin to the skin medially at the lead insertion site. The sacral decubitus ulcer is dressed. Skin skin turgor normal, no jaundice, no petechiae and no mottling Neuro oriented x3, CN's II-XII intact bilaterally and moves all extremities Psych mental status grossly normal, thought process normal, cooperative and affect normal Medical Records Data Medical Nutrition Assessment Dietitian: Malnutrition Criteria Met Start: 03/07/22 15:10 Freq: Status: Active Protocol: Document 03/07/22 15:12 CLAIRE (Rec: 03/07/22 15:13 [facility] [id number]) Nutrition Malnutrition Evidence of Malnutrition Exists Yes Malnutrition (moderate): Acute Illness/Injury Evidenced By Suboptimal Energy Intake ( Moderate),Weight Loss (Severe) Intake Problem Increased Nutrient Needs (specify) Etiology PROTEIN r/t skin breakdown Signs/Symptoms as evidenced by deep tissue injury lindsay heels, L buttock PI , R foot DM ulcer, L hip surgical incision and need for surgery consult and ahsan bid Status Active Problem Clinical Problem Acute Disease or Injury Related Malnutrition Etiology related to inadequate oral intake Signs/Symptoms as evidenced by 4.9% wt loss and ~50% intake at most meals x <5 days. Res appears to have wt loss in face since adm . Status Active Problem Altered Nutrient-Related Laboratory Values Etiology related to hx of diabetes Signs/Symptoms as evidenced by 02/07/22 A1c 9. 1 and res self report of gluc readings at home ~300-500s and res with no interest in making dietary changes to help w/ glycemic control Status Active Problem Recommendation Dietitian Recommendations/Changes Will continue 1800 priyanka Consistent CHO diet Will continue Ahsan bid to help w/ wound healing Will change 4 oz glucerna shake w/ meals to ensure pudding per res preference for increased nutrition if consumed Lab / Micro Data Result Diagrams: 03/07/22 06:24 03/07/22 06:24 Labs: Laboratory Results - last 24 hr 03/07/22 11:14: POC Glucose 98 03/07/22 16:33: POC Glucose 122 H 03/07/22 21:11: POC Glucose 102 03/08/22 06:07: POC Glucose 122 H
--- NOTE | 2022-03-08 10:49 | PN.SURG_ITS ---
Subjective Subjective Patient visited while she was up and about participating in her scheduled activity for the day. She complains of persistent discomfort on her left buttock, but otherwise does not note any new symptoms. Objective Data Objective Data Vital Signs: Vital Signs Temp Pulse Resp BP Pulse Ox 97.3 F L 99 16 125/69 H 98 03/07/22 15:20 03/08/22 05:22 03/07/22 15:20 03/08/22 05:21 03/07/22 15:20 Oxygen Delivery Method Room Air Weight: 152 lb 5 oz Body Mass Index (BMI) 25.8 Intake & Output: Intake and Output for Last 24 Hours 03/06/22 03/07/22 03/08/22 23:59 23:59 23:59 Intake Total 1050 / 1050 730 / 730 600 / 600 Balance 1050 / 1050 730 / 730 600 / 600 Medical Nutrition Assessment Dietitian: Malnutrition Criteria Met Start: 03/07/22 15:10 Freq: Status: Active Protocol: Document 03/07/22 15:12 CLAIRE (Rec: 03/07/22 15:13 CLAIRE [id number]) Nutrition Malnutrition Evidence of Malnutrition Exists Yes Malnutrition (moderate): Acute Illness/Injury Evidenced By Suboptimal Energy Intake ( Moderate),Weight Loss (Severe) Intake Problem Increased Nutrient Needs (specify) Etiology PROTEIN r/t skin breakdown Signs/Symptoms as evidenced by deep tissue injury lindsay heels, L buttock PI , R foot DM ulcer, L hip surgical incision and need for surgery consult and ahsan bid Status Active Problem Clinical Problem Acute Disease or Injury Related Malnutrition Etiology related to inadequate oral intake Signs/Symptoms as evidenced by 4.9% wt loss and ~50% intake at most meals x <5 days. Res appears to have wt loss in face since adm . Status Active Problem Altered Nutrient-Related Laboratory Values Etiology related to hx of diabetes Signs/Symptoms as evidenced by 02/07/22 A1c 9. 1 and res self report of gluc readings at home ~300-500s and res with no interest in making dietary changes to help w/ glycemic control Status Active Problem Recommendation Dietitian Recommendations/Changes Will continue 1800 priyanka Consistent CHO diet Will continue Ahsan bid to help w/ wound healing Will change 4 oz glucerna shake w/ meals to ensure pudding per res preference for increased nutrition if consumed Lab / Micro Data Result Diagrams: 03/07/22 06:24 03/07/22 06:24 Labs: Laboratory Results - last 24 hr 03/07/22 11:14: POC Glucose 98 03/07/22 16:33: POC Glucose 122 H 03/07/22 21:11: POC Glucose 102 03/08/22 06:07: POC Glucose 122 H Micro: Microbiology 03/05/22 11:09 Nasal Secretion SARS-CoV-2 Antigen (Rapid) - Final 02/27/22 14:30 Nasal Secretion SARS-CoV-2 Antigen (Rapid) - Final Physical Exam Const oriented x3 and no apparent distress Resp normal respiratory effort Assessment & Plan Assessment/Plan (1) Decubital ulcer: PLAN: Is a 56-year-old female who is recovering from right hip arthroplasty with questionable septic joint?abscess on that side who also has a unstageable dec ubitus ulcer of her left buttock. Deep to this by approximately 2 cm (per CT imaging) patient has a nonworking bladder stimulator appliance. Dr. Gonzalez of urology has been consulted for this issue and agrees with the recommendation for bladder stimulator explant and debridement of decubitus ulcer. We will plan to undertake this procedure on 03/12/2022. Therefore patient should be made n.p.o. past midnight so that she is appropriate for anesthesia. This plan has been conveyed to the TCU staff and any updates will be communicated should they arise. Charges/Coding Visit Charges Inpatient E&M: 61136 [facility] Subs L1
--- NOTE | 2022-03-08 11:28 | NURSING ---
Dr. Figueroa office called and would like CT sent to office. Called CT and they are able to send electrionically.
--- NOTE | 2022-03-08 11:30 | NURSING ---
This nurse Called Dr. Casillas's office. Dr. Casillas's office would like CT sent to them. Called CT and they will send electronically.
[2022-03-08 11:41] LABS: Bedside Glucose 124 mg/dL (74-106)
[2022-03-08] MEDS: 0.9 % NaCl (Sterile) Posiflush 10 mL IV (14:55)
[2022-03-08 15:08] VITALS: BP 129/59; PULSE 68; RESP 15; TEMP 35.7; O2SAT 91
[2022-03-08 16:01] LABS: Bedside Glucose 184 mg/dL (74-106)
[2022-03-08 21:06] LABS: Bedside Glucose 143 mg/dL (74-106)
[2022-03-08] MEDS: ARIPiprazole 5 MG Tablet 2.5 MG PO (21:10)
[2022-03-08] MEDS: Prazosin HCl 1 MG Capsule 2 MG PO (21:11)
[2022-03-08] MEDS: hydrOXYzine PAM 25 MG Capsule PO (21:12)
[2022-03-08] MEDS: Insulin Glargine-YFGN 100 UNIT/ML Pen 20 UNIT SC (21:13)
[2022-03-08 22:30] VITALS: PULSE 108; RESP 16; O2SAT 98
[2022-03-09] MEDS: Pregabalin 50 MG Capsule 100 MG PO (06:09)
[2022-03-09] MEDS: Acetaminophen 500 MG Tablet 1000 MG PO ×2 (06:12→13:33)
[2022-03-09 06:13] VITALS: BP 129/68; PULSE 98
[2022-03-09] MEDS: Iron Polysaccharide Complex 150 MG CAPSULE PO (06:13)
[2022-03-09] MEDS: Senna/Docusate Sodium 1 Tablet 2 TABLET PO (06:13)
[2022-03-09] MEDS: Sertraline 100 MG Tablet PO (06:13)
[2022-03-09] MEDS: Pantoprazole Sodium 40 MG Tablet PO (06:13)
[2022-03-09] MEDS: hydrALAZINE 25 MG Tablet PO (06:13)
[2022-03-09] MEDS: Cefazolin 2 GM in 0.9% Normal Saline 100 ML IV ×3 (06:16→21:40)
[2022-03-09] MEDS: Nystatin Powder 15gm Bottle 1 APPLIC TOPICAL ×3 (06:17→21:40)
[2022-03-09] MEDS: Menthol/Lanolin/Calamine/Znox 113 GM Tube 1 APPLIC TOPICAL ×2 (06:17→17:15)
[2022-03-09 06:20] LABS: Bedside Glucose 106 mg/dL (74-106)
[2022-03-09] MEDS: metFORMIN (XR) 500 MG Tablet 1000 MG PO (07:53)
[2022-03-09] MEDS: oxyCODONE 5 MG Tablet PO ×2 (07:56→20:11)
[2022-03-09 10:35] LABS: Bedside Glucose 112 mg/dL (74-106)
[2022-03-09] MEDS: 0.9 % NaCl (Sterile) Posiflush 10 mL IV ×3 (13:25→21:40)
[2022-03-09] MEDS: Bisacodyl 10 MG Suppository RC (13:33)
[2022-03-09 13:44] VITALS: BP 109/66; PULSE 108; RESP 15; TEMP 36.6; O2SAT 98
[2022-03-09 15:51] LABS: Bedside Glucose 136 mg/dL (74-106)
[2022-03-09 21:30] VITALS: BP 138/71; PULSE 95
[2022-03-09] MEDS: hydrOXYzine PAM 25 MG Capsule PO (21:33)
[2022-03-09] MEDS: ARIPiprazole 5 MG Tablet 2.5 MG PO (21:34)
[2022-03-09] MEDS: Prazosin HCl 1 MG Capsule 2 MG PO (21:34)
[2022-03-09] MEDS: Insulin Glargine-YFGN 100 UNIT/ML Pen 20 UNIT SC (21:35)
[2022-03-09 21:41] LABS: Bedside Glucose 107 mg/dL (74-106)
[2022-03-10] MEDS: Cefazolin 2 GM in 0.9% Normal Saline 100 ML IV ×3 (05:25→22:52)
[2022-03-10 05:26] VITALS: BP 138/70; PULSE 100
[2022-03-10] MEDS: hydrALAZINE 25 MG Tablet PO (05:26)
[2022-03-10] MEDS: Sertraline 100 MG Tablet PO (05:26)
[2022-03-10] MEDS: Pregabalin 50 MG Capsule 100 MG PO (05:26)
[2022-03-10] MEDS: Iron Polysaccharide Complex 150 MG CAPSULE PO (05:27)
[2022-03-10] MEDS: Pantoprazole Sodium 40 MG Tablet PO (05:27)
[2022-03-10] MEDS: Menthol/Lanolin/Calamine/Znox 113 GM Tube 1 APPLIC TOPICAL ×2 (05:28→16:29)
[2022-03-10] MEDS: Nystatin Powder 15gm Bottle 1 APPLIC TOPICAL ×3 (05:29→22:47)
[2022-03-10] MEDS: Acetaminophen 500 MG Tablet 1000 MG PO ×2 (05:31→22:45)
[2022-03-10 06:16] LABS: Bedside Glucose 129 mg/dL (74-106)
[2022-03-10] MEDS: metFORMIN (XR) 500 MG Tablet 1000 MG PO (08:12)
[2022-03-10] MEDS: Potassium Chloride Oral Tablet 20 MEQ PO ×2 (08:12→16:28)
[2022-03-10 10:46] LABS: Bedside Glucose 122 mg/dL (74-106)
[2022-03-10] MEDS: oxyCODONE 5 MG Tablet PO ×2 (13:23→22:45)
[2022-03-10] MEDS: 0.9 % NaCl (Sterile) Posiflush 10 mL IV (13:24)
[2022-03-10] MEDS: Senna/Docusate Sodium 1 Tablet 2 TABLET PO (16:30)
[2022-03-10 16:41] LABS: Bedside Glucose 114 mg/dL (74-106)
[2022-03-10 21:11] LABS: Bedside Glucose 144 mg/dL (74-106)
[2022-03-10 22:45] VITALS: BP 154/74; PULSE 95
[2022-03-10] MEDS: traZODone 50 MG Tablet PO (22:45)
[2022-03-10] MEDS: hydrOXYzine PAM 25 MG Capsule PO (22:46)
[2022-03-10] MEDS: Prazosin HCl 1 MG Capsule 2 MG PO (22:46)
[2022-03-10] MEDS: ARIPiprazole 5 MG Tablet 2.5 MG PO (22:48)
[2022-03-10] MEDS: Insulin Glargine-YFGN 100 UNIT/ML Pen 20 UNIT SC (22:49)
[2022-03-11] MEDS: Iron Polysaccharide Complex 150 MG CAPSULE PO (05:51)
[2022-03-11] MEDS: Acetaminophen 500 MG Tablet 1000 MG PO ×3 (05:51→23:15)
[2022-03-11 05:52] VITALS: BP 137/72; PULSE 90
[2022-03-11] MEDS: Pregabalin 50 MG Capsule 100 MG PO (05:52)
[2022-03-11] MEDS: Sertraline 100 MG Tablet PO (05:52)
[2022-03-11] MEDS: Pantoprazole Sodium 40 MG Tablet PO (05:52)
[2022-03-11] MEDS: hydrALAZINE 25 MG Tablet PO (05:52)
[2022-03-11] MEDS: oxyCODONE 5 MG Tablet PO ×3 (05:53→23:16)
[2022-03-11] MEDS: Menthol/Lanolin/Calamine/Znox 113 GM Tube 1 APPLIC TOPICAL ×2 (05:54→16:33)
[2022-03-11] MEDS: Nystatin Powder 15gm Bottle 1 APPLIC TOPICAL ×2 (05:54→16:32)
[2022-03-11] MEDS: Cefazolin 2 GM in 0.9% Normal Saline 100 ML IV ×3 (05:54→23:10)
[2022-03-11 06:16] LABS: Bedside Glucose 104 mg/dL (74-106)
[2022-03-11] MEDS: Potassium Chloride Oral Tablet 20 MEQ PO ×2 (09:06→16:34)
[2022-03-11] MEDS: metFORMIN (XR) 500 MG Tablet 1000 MG PO (09:06)
[2022-03-11 10:00] VITALS: PULSE 97; RESP 14; O2SAT 96
[2022-03-11 10:50] LABS: Bedside Glucose 124 mg/dL (74-106)
[2022-03-11] MEDS: 0.9 % NaCl (Sterile) Posiflush 10 mL IV (13:01)
[2022-03-11 16:00] VITALS: BP 108/69; PULSE 97; RESP 14; TEMP 36.8; O2SAT 96
[2022-03-11] MEDS: Loperamide 2 MG Capsule PO (16:36)
[2022-03-11 16:45] LABS: Bedside Glucose 104 mg/dL (74-106)
[2022-03-11 21:21] LABS: Bedside Glucose 128 mg/dL (74-106)
[2022-03-11] MEDS: hydrOXYzine PAM 25 MG Capsule PO (23:02)
[2022-03-11] MEDS: Prazosin HCl 1 MG Capsule 2 MG PO (23:03)
[2022-03-11] MEDS: ARIPiprazole 5 MG Tablet 2.5 MG PO (23:03)
[2022-03-11] MEDS: Insulin Glargine-YFGN 100 UNIT/ML Pen 20 UNIT SC (23:05)
[2022-03-11] MEDS: traZODone 50 MG Tablet PO (23:16)
[2022-03-11 23:19] VITALS: BP 142/75; PULSE 94
[2022-03-12 06:21] LABS: Bedside Glucose 112 mg/dL (74-106)
[2022-03-12] MEDS: Cefazolin 2 GM in 0.9% Normal Saline 100 ML IV ×3 (06:29→21:35)
[2022-03-12] MEDS: 0.9 % NaCl (Sterile) Posiflush 10 mL IV ×3 (06:34→21:38)
[2022-03-12] MEDS: Dext 5%-0.45% NS 1,000 ML 75 ML IV (07:57)
--- NOTE | 2022-03-12 08:20 | NURSING ---
Line draw completed for PT/INR and PTT after call received from labs that tests need completed. Tests listed under surgery account. Purple port cleansed w/ alcohol, flushed w/ 10 ml NS using push-pause method, withdrew 10 ml for discard, withdrew additional 10 ml for specimen, flushed w/ 20 ml NS using push/pause method. End cap not changed- none on unit. End cap cleaned w/ alcohol and connected to D5 1/2NS at 75ml/hr. Pt tolerated well.
--- NOTE | 2022-03-12 10:17 | MDS.RN ---
Information for the mds was obtained from review of the clinical record, interview of resident, staff, and direct observation of resident's care.
[2022-03-12 11:01] LABS: Bedside Glucose 115 mg/dL (74-106)
--- NOTE | 2022-03-12 12:00 | NURSING ---
Pt off unit for Surgery.
--- NOTE | 2022-03-12 12:52 | PCM.HP.BLA ---
History and Physical Date of Admission: 03/12/22 Patient brought to the preoperative holding area from the transitional care unit. She has known to me from her stay there, where my partner, Dr. Ramírez was first consulted for a decubitus wound of the left buttock. She was examined and I felt that her decubitus ulcer was likely related to an underlying bladder stimulator that is no longer functional. Through coordination with urology, Dr. Santana was contacted and graciously agreed to perform stimulator explant after running this by patient's regular urologist. Patient presents today for this procedure. She denies any developments over the weekend aside from some occasional numbness over the front part of her legs. Assessment & Plan Assessment/Plan (1) Decubital ulcer: PLAN: 56-year-old female with decubitus ulcer of left buttock presenting for incision and debridement of this area today. This is a combination case with urology bleeding offered to perform explant of patient's underlying bladder stimulator. Patient denies any questions regarding plans for today's procedure. We will plan to obtain cultures and working coordination with wound care nursing for further management of patient's wound following today's procedure. Charges/Coding Visit Charges Inpatient E&M: 05780 Init Hosp L2
--- NOTE | 2022-03-12 15:27 | DCINST_ITS ---
Discharge Instructions Diet Discharge Diet: Carb Control Diet Activity Discharge Activity: May Shower Additional Activity Instructions:: Please work to offload pressure to the left buttocks region Dressing / Incision Call your doctor if your incision/area has: Continuous Slow Oozing, Sudden Increased Bleeding, Increased Redness and Foul Smelling Discharge Follow Up Care Please Follow Up With: Asia Cheema MD Test Results: Test results from this visit will be discussed in further detail at your follow- up appointment, if applicable. Discharge Plan Admission Admit Date/Time: 02/27/22 10:15 Primary Reason for Your Visit: Debridement of left decubitus buttock ulcer Attending Provider: Roscoe Louis Chi Primary Care Provider: Kim Salas NP Consulting Providers: Blas Haile ; Pari Ramírez ; Maricruz Linares Discharge Orders/Prescriptions Prescriptions: New acetaminophen 500 mg Tablet 1,000 mg PO Q6H PRN PRN (Reason: Pain Score 1-5) Qty: 0 0RF bisacodyl 10 mg Suppository [address] DAILY PRN (Reason: Constipation) Qty: 0 0RF sodium chloride 0.9 % (flush) [BD PosiFlush Normal Saline 0.9] Syringe 10 - 40 ml IV UD PRN (Reason: Multilumen/Gee Flush) Qty: 0 0RF sodium chloride 0.9 % (flush) [BD PosiFlush Normal Saline 0.9] Syringe 10 - 40 ml IV UD PRN (Reason: Saline Flush) Qty: 0 0RF sodium chloride 0.9 % (flush) [Normal Saline Flush] Syringe 10 - 40 ml IV UD PRN (Reason: Port access or dressing change) Qty: 0 0RF potassium chloride [Klor-Con M20] 20 mEq Tablet,Er Particles/Crystals 20 meq PO BIDCM Qty: 0 0RF nystatin [Nyamyc] 100,000 unit/gram Powder 1 applic topical TID Qty: 0 0RF Protocol: *Topical Application Instructions APPLICATION INSTRUCTIONS: Apply Affected area loperamide 2 mg Capsule 2 mg PO Q4H PRN PRN (Reason: Diarrhea) Qty: 0 0RF polysaccharide iron complex [Ferrex 150] 150 mg iron Capsule 150 mg PO DAILY Qty: 0 0RF menthol-zinc oxide [Calmoseptine] 0.44-20.6 % Ointment 1 applic topical BID Qty: 0 0RF Protocol: *Topical Application Instructions APPLICATION INSTRUCTIONS: Apply to lower buttock GlucaGen Diagnostic Kit 1 mg/mL Recon Soln 1 mg IM PRN PRN (Reason: Hypoglycemia) Qty: 0 0RF Ahsan (with collagen) 7-7-1.5 gram Powder In Packet 1 packet PO BIDCM Qty: 0 0RF Continued albuterol sulfate [ProAir HFA] 1 PUFF inhaler 2 puff Q4H PRN PRN (Reason: Sob &/Or Wheezing) Label Comments: INHALE 2 PUFFS INSTRUCTED EVERY 4 HOURS NEEDED. metformin 500 MG tablet 1,000 mg PO DAILY Hold Instructions: Hold for 1 week until creatinine clearance is persistently more than 30 mill per minute Label Comments: TAKE 1 TABLET BY MOUTH TWICE DAILY WITH MEALS. hydroxyzine HCl 25 mg Tablet 25 mg PO QHS oxycodone 5 mg Tablet 5 mg PO Q6H PRN PRN (Reason: Pain Score 6-10) 2 Days Qty: 7 0RF trazodone 50 mg Tablet 50 mg PO QHS PRN (Reason: Insomnia) Qty: 0 0RF pantoprazole [Protonix] 40 mg Tablet,Delayed Release (Dr/Ec) 40 mg PO DAILY aripiprazole 5 mg Tablet 5 mg PO QHS Levemir U-100 Insulin 100 unit/mL Solution 20 unit SUBCUT QHS sennosides-docusate sodium [Stool Softener-Stimulant Laxat] 8.6-50 mg tablet 2 tab PO BID sertraline 100 mg tablet 100 mg PO DAILY hydralazine 25 MG tablet 25 mg PO DAILY insulin lispro [Humalog KwikPen Insulin] 100 unit/mL insulin pen 30 unit subcut ACHS Protocol: 5. Sliding Scale Insulin High Dosing Condition: 150-209 mg/dl = 3 units Condition: 210-259 mg/dl = 6 units Condition: 260-324 mg/dl = 9 units Condition: 325-374 mg/dl = 12 units Condition: 375-409 mg/dl = 14 units Condition: 410-449 mg/dl = 16 units Condition: Greater than 449 call physician Protocol Text: - Use for Total Daily Dose of Insulin 81-120 units - Very insulin resistant or septic patients HIGH DOSING ALGORITHM pregabalin [Lyrica] 100 MG capsule 100 mg PO DAILY Label Comments: TAKE ONE CAPSULE BY MOUTH EVERY DAY psyllium husk [Fiber (psyllium husk)] 0.4 gram capsule 0.4 g PO BID Rx Instructions: Hold for diarrhea prazosin 2 mg Capsule 2 mg PO QHS cefazolin 2 gram Recon Soln 2 g IV Q8H No Action Levemir FlexTouch U-100 Insuln 100 UNITS/ML insulin pen 20 unit subcut QHS Label Comments: INJECT 50 UNITS SUBCUTANEOUSLY DAILY AT BEDTIME. Rx Instructions: Hold if glucose less than 130 mg/dl insulin lispro [Humalog Dameon KwikPen U-100] 100 unit/mL insulin pen, half- unit 30 unit SUBCUT TID Rx Instructions: Hold if glucose less than 130 mg/dl Referrals / Follow Up: Kim Salas SUSTAINABLE DEVELOPMENT POLICY ANALYST, SUSTAINABLE DEVELOPMENT POLICY ANALYST-C [Primary Care Provider] - Disposition Disposition (needs filled in before D/C Order can be placed): [facility]
[2022-03-12 15:58] VITALS: BP 141/76; PULSE 92; RESP 18; TEMP 36.4; O2SAT 98
--- NOTE | 2022-03-12 16:08 | NURSING ---
Pt back from Surgery. Report received from Dressing to stay dry and intact until Dr. Duran does 1st Dressing change on 03/13/22. N.O. for Ancef q8hr and Dilaudid q8hr.
[2022-03-12 16:40] LABS: Bedside Glucose 138 mg/dL (74-106)
[2022-03-12] MEDS: Senna/Docusate Sodium 1 Tablet 2 TABLET PO (18:16)
[2022-03-12] MEDS: Acetaminophen 500 MG Tablet 1000 MG PO (18:18)
[2022-03-12] MEDS: oxyCODONE 5 MG Tablet PO (20:00)
[2022-03-12 20:14] VITALS: PULSE 92; RESP 16; O2SAT 97
[2022-03-12 21:27] VITALS: BP 122/63; PULSE 89
[2022-03-12] MEDS: HYDROmorphone 1 MG/ML Syringe 0.5 MG IV (21:31)
[2022-03-12 21:40] LABS: Bedside Glucose 132 mg/dL (74-106)
[2022-03-12] MEDS: Prazosin HCl 1 MG Capsule 2 MG PO (21:40)
[2022-03-12] MEDS: ARIPiprazole 5 MG Tablet 2.5 MG PO (21:40)
[2022-03-12] MEDS: hydrOXYzine PAM 25 MG Capsule PO (21:41)
[2022-03-12] MEDS: Nystatin Powder 15gm Bottle 1 APPLIC TOPICAL (21:41)
[2022-03-12] MEDS: traZODone 50 MG Tablet PO (21:43)
[2022-03-12] MEDS: Insulin Glargine-YFGN 100 UNIT/ML Pen 20 UNIT SC (21:44)
[2022-03-13] MEDS: oxyCODONE 5 MG Tablet PO ×3 (02:02→18:53)
[2022-03-13] MEDS: Acetaminophen 500 MG Tablet 1000 MG PO ×2 (02:02→18:53)
[2022-03-13] MEDS: Cefazolin 2 GM in 0.9% Normal Saline 100 ML IV ×2 (05:51→14:00)
[2022-03-13] MEDS: 0.9 % NaCl (Sterile) Posiflush 10 mL IV ×3 (05:54→22:11)
[2022-03-13 05:55] VITALS: BP 113/62; PULSE 91
[2022-03-13] MEDS: Senna/Docusate Sodium 1 Tablet 2 TABLET PO ×2 (05:55→17:16)
[2022-03-13] MEDS: Sertraline 100 MG Tablet PO (05:55)
[2022-03-13] MEDS: Iron Polysaccharide Complex 150 MG CAPSULE PO (05:55)
[2022-03-13] MEDS: hydrALAZINE 25 MG Tablet PO (05:55)
[2022-03-13] MEDS: Pantoprazole Sodium 40 MG Tablet PO (05:55)
[2022-03-13] MEDS: Pregabalin 50 MG Capsule 100 MG PO (05:55)
[2022-03-13] MEDS: Nystatin Powder 15gm Bottle 1 APPLIC TOPICAL ×3 (05:56→22:09)
[2022-03-13] MEDS: Menthol/Lanolin/Calamine/Znox 113 GM Tube 1 APPLIC TOPICAL ×2 (05:56→17:17)
[2022-03-13 06:30] LABS: Bedside Glucose 84 mg/dL (74-106)
[2022-03-13] MEDS: metFORMIN (XR) 500 MG Tablet 1000 MG PO (08:34)
--- NOTE | 2022-03-13 08:45 | WOUNDNOTE ---
wound photo: left buttock
--- NOTE | 2022-03-13 08:46 | WOUNDNOTE ---
wound photo: left heel
--- NOTE | 2022-03-13 08:48 | WOUNDNOTE ---
wound photo: left medial heel
--- NOTE | 2022-03-13 08:48 | WOUNDNOTE ---
wound photo: right plantar foot
--- NOTE | 2022-03-13 08:49 | WOUNDNOTE ---
wound photo: right lateral heel
--- NOTE | 2022-03-13 09:06 | PCM.PN.SRG ---
Subjective Subjective Patient was seen and examined during AM rounds. She reports some discomfort overnight, but states this is primarily from her right hip. Objective Data Objective Data Vital Signs: Vital Signs Temp Pulse Resp BP Pulse Ox 97.6 F L 91 16 113/62 97 03/12/22 15:58 03/13/22 05:55 03/12/22 20:14 03/13/22 05:55 03/12/22 20:14 Oxygen Delivery Method Room Air Weight: 152 lb 5 oz Body Mass Index (BMI) 25.8 Intake & Output: Intake and Output for Last 24 Hours 03/11/22 03/12/22 03/13/22 23:59 23:59 23:59 Intake Total 1290 / 1290 1000 / 1000 470 / 470 Balance 1290 / 1290 1000 / 1000 470 / 470 Medical Nutrition Assessment Dietitian: Malnutrition Criteria Met Start: 03/07/22 15:10 Freq: Status: Active Protocol: Document 03/07/22 15:12 CLAIRE (Rec: 03/07/22 15:13 SLA [id number]) Nutrition Malnutrition Evidence of Malnutrition Exists Yes Malnutrition (moderate): Acute Illness/Injury Evidenced By Suboptimal Energy Intake ( Moderate),Weight Loss (Severe) Intake Problem Increased Nutrient Needs (specify) Etiology PROTEIN r/t skin breakdown Signs/Symptoms as evidenced by deep tissue injury lindsay heels, L buttock PI , R foot DM ulcer, L hip surgical incision and need for surgery consult and ahsan bid Status Active Problem Clinical Problem Acute Disease or Injury Related Malnutrition Etiology related to inadequate oral intake Signs/Symptoms as evidenced by 4.9% wt loss and ~50% intake at most meals x <5 days. Res appears to have wt loss in face since adm . Status Active Problem Altered Nutrient-Related Laboratory Values Etiology related to hx of diabetes Signs/Symptoms as evidenced by 02/07/22 A1c 9. 1 and res self report of gluc readings at home ~300-500s and res with no interest in making dietary changes to help w/ glycemic control Status Active Problem Recommendation Dietitian Recommendations/Changes Will continue 1800 priyanka Consistent CHO diet Will continue Ahsan bid to help w/ wound healing Will change 4 oz glucerna shake w/ meals to ensure pudding per res preference for increased nutrition if consumed Lab / Micro Data Result Diagrams: 03/07/22 06:24 03/07/22 06:24 Labs: Laboratory Results - last 24 hr 03/12/22 10:50: POC Glucose 115 H 03/12/22 16:36: POC Glucose 138 H 03/12/22 16:55: Sodium Cancelled, Potassium Cancelled, Chloride Cancelled, Carbon Dioxide Cancelled, Anion Gap Cancelled, BUN Cancelled, Creatinine Cancelled, Estim Creat Clear Calc Cancelled, Est GFR (MDRD) Af Amer Cancelled, Est GFR (MDRD) Non-Af Cancelled, BUN/Creatinine Ratio Cancelled, Glucose Cancelled, Calcium Cancelled, Total Bilirubin Cancelled, AST Cancelled, ALT Cancelled, Alkaline Phosphatase Cancelled, Total Protein Cancelled, Albumin Cancelled, Globulin Cancelled, Albumin/Globulin Ratio Cancelled 03/12/22 16:55: WBC Cancelled, Diff Path Review Cancelled 03/12/22 21:33: POC Glucose 132 H 03/13/22 06:20: POC Glucose 84 Micro: Microbiology 03/12/22 17:32 Nasal Secretion SARS-CoV-2 Antigen (Rapid) - Final 03/05/22 11:09 Nasal Secretion SARS-CoV-2 Antigen (Rapid) - Final 02/27/22 14:30 Nasal Secretion SARS-CoV-2 Antigen (Rapid) - Final Physical Exam Const oriented x3 and no apparent distress Resp normal respiratory effort Back/Spine Back/Spine Narrative: Patient with left buttock/ischial decubitus wound examined after yesterday's packing was removed. The inferior portion of this wound remains viable, however, there is further evidence of fat necrosis along the superior margin. A limited excisional debridement of approximately 10 cm? of devitalized fat tissue was removed and there is further evidence of muscle necrosis in the gluteus. At this time a did not pursue more aggressive debridement as we do not have means of addressing bleeding. We will plan for a second debridement potentially later today. Assessment & Plan Assessment/Plan (1) Decubital ulcer: PLAN: 56-year-old female with decubitus ulcer of left buttock now postoperative day 1 from operative debridement. Unfortunately examination of wound reveals more devitalized subcutaneous and muscular tissue along the superior margin of the wound. Limited excisional debridement was carried out at bedside of the devitalized fat using scissors and curettage. However, not wanting to encounter bleeding, for which we are unprepared, I held off further debridement of devitalized muscle. We will plan to revisit this site?potentially later today for some more sharp debridement once we have gathered necessary supplies. Also given this finding, I have requested dressing changes with saline?moistened gauze 3 times daily and will hold off wound VAC until wound base appears more viable. Lastly, patient's nutrition should be optimized to include plenty of protein and we will follow patient's operative wound cultures to ensure that her antibiotic therapy is appropriate.
[2022-03-13 11:26] LABS: Bedside Glucose 99 mg/dL (74-106)
[2022-03-13] MEDS: HYDROmorphone 1 MG/ML Syringe 0.5 MG IV ×2 (11:46→22:10)
[2022-03-13 13:41] VITALS: BP 107/52; PULSE 94; RESP 16; TEMP 36.9; O2SAT 97
--- NOTE | 2022-03-13 15:17 | NURSING ---
pt refusing to take kdur, saurabh and metamucil d/t upset stomach when she takes. dr salgado updated, new order to DC all & check potassium in AM
[2022-03-13] MEDS: Bisacodyl 10 MG Suppository RC (15:41)
[2022-03-13 16:15] LABS: Bedside Glucose 86 mg/dL (74-106)
[2022-03-13] MEDS: Ondansetron ODT 4 MG Tablet 8 MG PO (17:16)
[2022-03-13 20:25] VITALS: PULSE 101; RESP 16; O2SAT 97
--- NOTE | 2022-03-13 20:53 | PCM.RX.CS ---
Consult Pharmacy has been consulted to manage selected antiobiotic: Vancomycin Type of Consult: New start Labs: Sodium Cancelled 03/12/22 16:55 Potassium Cancelled 03/12/22 16:55 Chloride Cancelled 03/12/22 16:55 Carbon Dioxide Cancelled 03/12/22 16:55 Anion Gap Cancelled 03/12/22 16:55 BUN Cancelled 03/12/22 16:55 Creatinine Cancelled 03/12/22 16:55 Est GFR (MDRD) Af Amer Cancelled 03/12/22 16:55 Est GFR (MDRD) Non-Af Cancelled 03/12/22 16:55 BUN/Creatinine Ratio Cancelled 03/12/22 16:55 Glucose Cancelled 03/12/22 16:55 Microbiology: Microbiology 03/12/22 17:32 Nasal Secretion SARS-CoV-2 Antigen (Rapid) - Final 03/05/22 11:09 Nasal Secretion SARS-CoV-2 Antigen (Rapid) - Final 02/27/22 14:30 Nasal Secretion SARS-CoV-2 Antigen (Rapid) - Final Goal Trough: 15-20 mcg/mL Pharmacy Plan for Drug Dosing: NEW START IV VANCOMYCIN Consulting Physician: Mic Indication: Goal Trough: 15-20 SrCr: 1.21 (from 03/07/22) CrCl: 48mls/min Comments: pt received a 1750mg x1 loading dose 03/13/22 at 1716 Vancomcyin Dose: based off of pts weight and renal function, recommend an initial dose of 500mg q12h starting 03/14/22 at 0500. trough before the 4th total dose. Per clinical pharmacology, dose is calculated to report a trough of ~15 depending on pts renal function Pending Level: 03/15/22 at 0430 Pharmacy Service will continue to monitor and adjust dosing as required. Follow-Up Labs: Trough Vancomycin - 03/15/22 at 0430
[2022-03-13 21:45] LABS: Bedside Glucose 113 mg/dL (74-106)
[2022-03-13] MEDS: Insulin Glargine-YFGN 100 UNIT/ML Pen 10 UNIT SC (22:06)
[2022-03-13] MEDS: ARIPiprazole 5 MG Tablet 2.5 MG PO (22:08)
[2022-03-13] MEDS: hydrOXYzine PAM 25 MG Capsule PO (22:09)
[2022-03-13] MEDS: Prazosin HCl 1 MG Capsule 2 MG PO (22:09)
[2022-03-13] MEDS: traZODone 50 MG Tablet PO (22:09)
[2022-03-13 22:16] VITALS: BP 117/54; PULSE 91
[2022-03-14] MEDS: Acetaminophen 500 MG Tablet 1000 MG PO ×2 (04:54→19:32)
[2022-03-14] MEDS: Pregabalin 50 MG Capsule 100 MG PO (04:54)
[2022-03-14] MEDS: oxyCODONE 5 MG Tablet PO ×3 (04:54→18:12)
[2022-03-14 04:55] VITALS: BP 111/57; PULSE 97
[2022-03-14] MEDS: hydrALAZINE 25 MG Tablet PO (04:55)
[2022-03-14] MEDS: Pantoprazole Sodium 40 MG Tablet PO (04:55)
[2022-03-14] MEDS: Iron Polysaccharide Complex 150 MG CAPSULE PO (04:55)
[2022-03-14] MEDS: Menthol/Lanolin/Calamine/Znox 113 GM Tube 1 APPLIC TOPICAL ×2 (04:56→18:13)
[2022-03-14] MEDS: Sertraline 100 MG Tablet PO (04:56)
[2022-03-14] MEDS: Senna/Docusate Sodium 1 Tablet 2 TABLET PO ×2 (04:56→18:10)
[2022-03-14] MEDS: Nystatin Powder 15gm Bottle 1 APPLIC TOPICAL ×3 (04:56→22:38)
[2022-03-14] MEDS: Vancomycin IV 500 MG/100 ML BAG 100 MG IV ×2 (05:10→18:05)
--- NOTE | 2022-03-14 05:22 | NURSING ---
Surgical site dressing changed last night around 2100 and this AM at 0500. Old dressing removed, wet to dry dressing re-applied per order. Patient tolerated well.
[2022-03-14 06:45] LABS: Bedside Glucose 95 mg/dL (74-106)
[2022-03-14 07:20] LABS: Erythrocyte Sedimentation Rate 12 mm/hr (0-30)
[2022-03-14 07:21] LABS: Absolute Lymphocyte Count 1.25 X10^3/uL (0.83-4.51); Absolute Neutrophil Count 5.5 X10^3/uL (2.0-7.7); Basophil# 0.02 X10^3/uL; Basophil% 0.3 % (0-1); Eosinophil# 0.12 X10^3/uL; Eosinophils% 1.6 % (0-5); Hematocrit 25.5 % (37-47); Hemoglobin 7.9 g/dL (12.0-15.0); Lymphocyte # 1.25 X10^3/ul (0.83-4.51); Lymphocyte % 16.1 % (19-41); Mean Corpuscular Hgb 27.6 pg (27.0-32.0); Mean Corpuscular Volume 89.2 fL (81-99); Mean Platelet Vol. 9.6 fl (6.2-12.0); Monocyte# 0.74 X10^3/uL; Monocyte% 9.6 % (0-10); NRBC Flagged by Analyzer 0 % (0-5); Neutrophil # 5.53 X10^3/uL (2.7-7.7); Neutrophil % 71.4 % (47-70); Platelet Count 189 K/mm3 (150-450); RBC Distribution Width CV 14.8 % (11.6-14.6); RBC Distribution Width SD 47.8 fl (35.1-43.9); Red Blood Count 2.86 M/mm3 (4.2-5.4); White Blood Count 7.7 K/mm3 (4.4-11.0)
[2022-03-14 07:36] LABS: ALB/GLOB Ratio 0.5 RATIO (0.9-2.4); AST(SGOT) 9 U/L (15-37); Alanine Aminotransfer ALT/SGPT < 6 U/L (13-56); Alkaline Phosphatase 76 U/L (45-117); Anion Gap 10 (5-15); BUN 14 mg/dL (7-18); BUN/Creat Ratio 12.8 RATIO (10-20); Calcium,Total 8.1 mg/dL (8.5-10.1); Chloride 109 mmol/L (98-107); Creatinine, Serum 1.09 mg/dL (0.55-1.02); EST Glomerular Filtration Rate 55 mL/min (>60); Est Glom Filt Rate - Afr Amer 66 mL/min (>60); Estimated Creatinine Clearance 53.31 ml/min; Glucose 91 mg/dL (74-106); Potassium 3.3 mmol/L (3.5-5.1); Sodium Level 141 mmol/L (136-145)
--- NOTE | 2022-03-14 07:53 | NURSING ---
Labs Faxed to Dr. Cheema
--- NOTE | 2022-03-14 08:40 | PN.SURG_ITS ---
Subjective Subjective Patient seen and examined during AM rounds. She is found sitting upright in bed. She states that she is feeling somewhat better than yesterday. She remarks of some lightheadedness yesterday, but states she is feeling better on that account today as well. Objective Data Objective Data Vital Signs: Vital Signs Temp Pulse Resp BP Pulse Ox 98.4 F 97 16 111/57 L 97 03/13/22 13:41 03/14/22 04:55 03/13/22 20:25 03/14/22 04:55 03/13/22 20:25 Oxygen Delivery Method Room Air Weight: 152 lb 5 oz Body Mass Index (BMI) 25.8 Intake & Output: Intake and Output for Last 24 Hours 03/12/22 03/13/22 03/14/22 23:59 23:59 23:59 Intake Total 1000 / 1000 1845 / 1895 150 / 150 Output Total 300 / 300 Balance 1000 / 1000 1545 / 1595 150 / 150 Medical Nutrition Assessment Dietitian: Malnutrition Criteria Met Start: 03/07/22 15:10 Freq: Status: Active Protocol: Document 03/07/22 15:12 SLA (Rec: 03/07/22 15:13 SLA [id number]) Nutrition Malnutrition Evidence of Malnutrition Exists Yes Malnutrition (moderate): Acute Illness/Injury Evidenced By Suboptimal Energy Intake ( Moderate),Weight Loss (Severe) Intake Problem Increased Nutrient Needs (specify) Etiology PROTEIN r/t skin breakdown Signs/Symptoms as evidenced by deep tissue injury lindsay heels, L buttock PI , R foot DM ulcer, L hip surgical incision and need for surgery consult and ahsan bid Status Active Problem Clinical Problem Acute Disease or Injury Related Malnutrition Etiology related to inadequate oral intake Signs/Symptoms as evidenced by 4.9% wt loss and ~50% intake at most meals x <5 days. Res appears to have wt loss in face since adm . Status Active Problem Altered Nutrient-Related Laboratory Values Etiology related to hx of diabetes Signs/Symptoms as evidenced by 02/07/22 A1c 9. 1 and res self report of gluc readings at home ~300-500s and res with no interest in making dietary changes to help w/ glycemic control Status Active Problem Recommendation Dietitian Recommendations/Changes Will continue 1800 priyanka Consistent CHO diet Will continue Ahsan bid to help w/ wound healing Will change 4 oz glucerna shake w/ meals to ensure pudding per res preference for increased nutrition if consumed Lab / Micro Data Result Diagrams: 03/14/22 07:00 03/14/22 07:00 Labs: Laboratory Results - last 24 hr 03/13/22 11:13: POC Glucose 99 03/13/22 16:06: POC Glucose 86 03/13/22 21:37: POC Glucose 113 H 03/14/22 06:37: POC Glucose 95 03/14/22 07:00: WBC 7.7, RBC 2.86 L, Hgb 7.9 L, Hct 25.5 L, MCV 89.2, MCH 27.6, MCHC 31.0 L, RDW Std Deviation 47.8 H, RDW Coeff of Gabriela 14.8 H, Plt Count 189, MPV 9.6, Immature Gran % (Auto) 1.000 H, Neut % (Auto) 71.4 H, Lymph % (Auto) 16.1 L, Mariposa % (Auto) 9.6, Eos % (Auto) 1.6, Baso % (Auto) 0.3, Absolute Neuts (auto) 5.5, Absolute Lymphs (auto) 1.25, Nucleated RBC % 0, ESR 12 03/14/22 07:00: Sodium 141, Potassium 3.3 L, Chloride 109 H, Carbon Dioxide 22.0, Anion Gap 10, BUN 14, Creatinine 1.09 H, Estim Creat Clear Calc 53.31, Est GFR (MDRD) Af Amer 66, Est GFR (MDRD) Non-Af 55 L, BUN/Creatinine Ratio 12.8, Glucose 91, Calcium 8.1 L, Total Bilirubin 0.20, AST 9 L, ALT < 6 L, Alkaline Phosphatase 76, C-React Prot Ext Range 51.30 H, Total Protein 6.0 L, Albumin 2.0 L, Globulin 4.0, Albumin/Globulin Ratio 0.5 L Micro: Microbiology 03/12/22 17:32 Nasal Secretion SARS-CoV-2 Antigen (Rapid) - Final 03/05/22 11:09 Nasal Secretion SARS-CoV-2 Antigen (Rapid) - Final 02/27/22 14:30 Nasal Secretion SARS-CoV-2 Antigen (Rapid) - Final Physical Exam Const oriented x3 and no apparent distress Resp normal respiratory effort Back/Spine Back/Spine Narrative: Left buttock/ischial decubitus wound examined. Wound base exhibits an improved appearance following minor excisional debridements yesterday. There is still an area of approximately 15 cm? in the upper medial quadrant of the wound that exhibits some devitalized tissue. Patient seems to have more tenderness with the wound today. No silviano purulence is encountered. Assessment & Plan Assessment/Plan (1) Decubital ulcer: PLAN: 56-year-old female with decubitus ulcer of left buttock now postoperative day 2 from operative debridement. Overall the wound exhibits an improved appearance following minor debridements at bedside yesterday. There is still a small area of devitalized tissue that I would like to perform a limited curettage on today. Patient's operative cultures are resulting as consistent with gram-negative rods. This was communicated to infectious disease and they have recommended broadening patient's antimicrobial spectrum with IV vancomycin and Zosyn. This change was made yesterday. Patient remains afebrile. Wound is still not stable to begin negative pressure wound VAC therapy so we will continue with 3 times daily dressing changes. Lastly, patient's nutrition should continue to optimized to include plenty of protein and she should be encouraged to offload the wound area as much as possible. Charges/Coding Visit Charges Inpatient E&M: 32878 Init Hosp L2
[2022-03-14] MEDS: metFORMIN (XR) 500 MG Tablet 1000 MG PO (08:46)
[2022-03-14 10:56] LABS: Bedside Glucose 117 mg/dL (74-106)
--- NOTE | 2022-03-14 13:13 | PCM.PN.ID ---
Physical Exam Narrative Sleeping this afternoon, no fevr Const no apparent distress Resp normal air movement and clear to auscultation bilaterally Cardio regular rate and regular rhythm GI soft to palpation, non-tender and non-distended Skin Skin Narrative: no new rash ID ID: Route of nutrition/ use of supplements: [] Nutritional Intake: [] IV Site: [] [place] Catheter: [] Assessment & Plan Assessment/Plan (1) Bacteremia due to group B Streptococcus: (2) Osteomyelitis of right hip: PLAN: Now s/p 02/09/22 R hip hemiathroplasty at [facility]. Transferred here on cefazolin with stop date 03/23/22. Likely will need fdc po abx after that point given presence of hardware. ID at [facility] was Dr. Cheema. Now CT shows possible abscess, recommend contacting her ortho for review if not done already. Taken to OR 03/[address] Linares for bladder stimulator removal and by Dr. Duran for debridement of necrotic buttock ulcer. Bone was not involved. Surg cx with proteus, suspected pseudomonas, and GNR. Now abx broadened to vanc/zosyn while cxs pending. Will follow
[2022-03-14] MEDS: DAKIN'S SOL HALF STRENGTH (=0.25%) 1 APPLIC TOPICAL ×2 (15:09→15:10)
--- NOTE | 2022-03-14 15:41 | WOUNDNOTE ---
wound photo: left buttock
[2022-03-14 16:00] VITALS: BP 110/55; PULSE 96; RESP 16; O2SAT 98
[2022-03-14 16:00] LABS: Bedside Glucose 159 mg/dL (74-106)
[2022-03-14] MEDS: 0.9 % NaCl (Sterile) Posiflush 10 mL IV ×3 (18:06→22:18)
[2022-03-14] MEDS: Potassium Chloride Oral Soln 20 MEQ/15 ML UDC 10 MEQ PO (18:08)
[2022-03-14 21:31] LABS: Bedside Glucose 119 mg/dL (74-106)
[2022-03-14] MEDS: HYDROmorphone 1 MG/ML Syringe 0.5 MG IV (22:18)
[2022-03-14] MEDS: traZODone 50 MG Tablet PO (22:34)
[2022-03-14] MEDS: hydrOXYzine PAM 25 MG Capsule PO (22:34)
[2022-03-14] MEDS: ARIPiprazole 5 MG Tablet 2.5 MG PO (22:35)
[2022-03-14] MEDS: Prazosin HCl 1 MG Capsule 2 MG PO (22:35)
[2022-03-14] MEDS: Insulin Glargine-YFGN 100 UNIT/ML Pen 10 UNIT SC (22:35)
--- NOTE | 2022-03-14 23:36 | NURSING ---
Patient requests 4 side rails to be up, educated on side rail policy, patient continues to request all 4 side rails up stating I want them up, they make me feel safer and I can move around easier. Patient A&Ox3, able to voice wants and needs. Side rails placed per pt. preference. Call light in reach.
[2022-03-15] MEDS: 0.9 % NaCl (Sterile) Posiflush 10 mL IV ×4 (04:10→23:52)
[2022-03-15] MEDS: DAKIN'S SOL HALF STRENGTH (=0.25%) 1 APPLIC TOPICAL ×2 (04:49→13:48)
[2022-03-15] MEDS: oxyCODONE 5 MG Tablet PO ×2 (04:58→13:49)
[2022-03-15] MEDS: Pregabalin 50 MG Capsule 100 MG PO (04:58)
[2022-03-15 05:00] VITALS: BP 106/57; PULSE 86
[2022-03-15] MEDS: Iron Polysaccharide Complex 150 MG CAPSULE PO (05:00)
[2022-03-15] MEDS: hydrALAZINE 25 MG Tablet PO (05:00)
[2022-03-15] MEDS: Sertraline 100 MG Tablet PO (05:01)
[2022-03-15] MEDS: Pantoprazole Sodium 40 MG Tablet PO (05:01)
[2022-03-15] MEDS: Nystatin Powder 15gm Bottle 1 APPLIC TOPICAL ×3 (05:01→21:02)
[2022-03-15] MEDS: Menthol/Lanolin/Calamine/Znox 113 GM Tube 1 APPLIC TOPICAL ×2 (05:02→17:14)
[2022-03-15 05:05] LABS: Vancomycin, Trough Level 22.1 ug/mL (5.0-15.0)
--- NOTE | 2022-03-15 05:17 | PCM.RX.CS ---
Consult Type of Consult: Follow-up Suspected Infection: Osteomyelitis Labs: Sodium 141 mmol/L (136-145) 03/14/22 07:00 Potassium 3.3 mmol/L (3.5-5.1) L 03/14/22 07:00 Chloride 109 mmol/L (98-107) H 03/14/22 07:00 Carbon Dioxide 22.0 mmol/L (21.0-32.0) 03/14/22 07:00 Anion Gap 10 (5-15) 03/14/22 07:00 BUN 14 mg/dL (7-18) 03/14/22 07:00 Creatinine 1.09 mg/dL (0.55-1.02) H 03/14/22 07:00 Est GFR (MDRD) Af Amer 66 mL/min (>60) 03/14/22 07:00 Est GFR (MDRD) Non-Af 55 mL/min (>60) L 03/14/22 07:00 BUN/Creatinine Ratio 12.8 RATIO (10-20) 03/14/22 07:00 Glucose 91 mg/dL (74-106) 03/14/22 07:00 Vancomycin Trough 22.1 ug/mL (5.0-15.0) H 03/15/22 04:22 Microbiology: Microbiology 03/12/22 17:32 Nasal Secretion SARS-CoV-2 Antigen (Rapid) - Final 03/05/22 11:09 Nasal Secretion SARS-CoV-2 Antigen (Rapid) - Final 02/27/22 14:30 Nasal Secretion SARS-CoV-2 Antigen (Rapid) - Final Goal Trough: 15-20 mcg/mL Pharmacy Plan for Drug Dosing: VANCOMYCIN LEVEL RECEIVED Current Vancomycin Dose: 500mg Q12H Number of Doses Received: 2 Vancomycin Level: 22.1 Hours Since Last Dose: 10.25 Renal Function: N/A Renal Function Trend: N/A Lab/Micro: pending Vancomycin Plan/Comments: HOLD Vancomycin due to SUPRAtherapeutic drug level Pending Level: Random Vancomycin level @ 1630 03/15/22 Pharmacy Service will continue to monitor and adjust dosing as required. Labs to be done on [date and time ordered]: Random Vancomycin level @ 1630 03/15/22
--- NOTE | 2022-03-15 05:18 | NURSING ---
VANC HELD PER PHARMACIST, PER PHARMACIST WILL DO RANDOM VANC TROUGH LATER TODAY.
[2022-03-15 06:41] LABS: Bedside Glucose 97 mg/dL (74-106)
[2022-03-15] MEDS: Potassium Chloride Oral Soln 20 MEQ/15 ML UDC 10 MEQ PO ×2 (09:11→17:12)
[2022-03-15] MEDS: metFORMIN (XR) 500 MG Tablet 1000 MG PO (09:11)
[2022-03-15 11:16] LABS: Bedside Glucose 138 mg/dL (74-106)
--- NOTE | 2022-03-15 11:34 | NURSING ---
Attempted to contact Dr. Casillas's office, waiting for return call.
--- NOTE | 2022-03-15 11:52 | PCM.PN.SRG ---
Subjective Subjective Patient seen and examined during AM rounds. She is found sitting in the dining at making cookies with the other residents of the transitional care unit. She reports awakening earlier this morning to saturation of her dressing, but is otherwise without complaint from her wound. Objective Data Objective Data Vital Signs: Vital Signs Temp Pulse Resp BP Pulse Ox O2 Del Method 98.4 F 86 16 106/57 L 98 Room Air 03/13/22 13:41 03/15/22 05:00 03/14/22 16:00 03/15/22 05:00 03/14/22 16:00 03/14/22 16:00 Oxygen Delivery Method Room Air Weight: 152 lb 5 oz Body Mass Index (BMI) 25.8 Intake & Output: Intake and Output for Last 24 Hours 03/13/22 03/14/22 03/15/22 23:59 23:59 23:59 Intake Total 1845 / 1895 710 / 710 170 / 170 Output Total 300 / 300 Balance 1545 / 1595 710 / 710 170 / 170 Medical Nutrition Assessment Dietitian: Malnutrition Criteria Met Start: 03/07/22 15:10 Freq: Status: Active Protocol: Document 03/14/22 15:09 CLAIRE (Rec: 03/14/22 15:09 [facility] [id number]) Nutrition Malnutrition Evidence of Malnutrition Exists Yes Malnutrition (moderate): Acute Illness/Injury Evidenced By Suboptimal Energy Intake ( Moderate),Weight Loss (Severe) Intake Problem Increased Nutrient Needs (specify) Etiology PROTEIN r/t skin breakdown Signs/Symptoms as evidenced by deep tissue injury lindsay heels, L buttock PI , R foot DM ulcer, L hip surgical incision and need for surgery consult and wound nurse Status Active Problem Clinical Problem Acute Disease or Injury Related Malnutrition Etiology related to inadequate oral intake Signs/Symptoms as evidenced by 4.9% wt loss and ~50% intake at most meals x <5 days. Res appears to have wt loss in face since adm . Status Active Problem Altered Nutrient-Related Laboratory Values Etiology related to hx of diabetes Signs/Symptoms as evidenced by 02/07/22 A1c 9. 1 and res self report of gluc readings at home ~300-500s and res with no interest in making dietary changes to help w/ glycemic control Status Active Problem Recommendation Dietitian Recommendations/Changes Will change diet to liberal Regular w/ kerry CIB and 1 scoop beneprotein w/ B, chocolate ensure pudding w/ L and banana w/ peanut butter w/ D for increased protein if consumed. Lab / Micro Data Result Diagrams: 03/14/22 07:00 03/14/22 07:00 Labs: Laboratory Results - last 24 hr 03/14/22 15:56: POC Glucose 159 H 03/14/22 21:28: POC Glucose 119 H 03/15/22 04:22: Vancomycin Trough 22.1 H 03/15/22 06:18: POC Glucose 97 03/15/22 11:06: POC Glucose 138 H Micro: Microbiology 03/12/22 17:32 Nasal Secretion SARS-CoV-2 Antigen (Rapid) - Final 03/05/22 11:09 Nasal Secretion SARS-CoV-2 Antigen (Rapid) - Final 02/27/22 14:30 Nasal Secretion SARS-CoV-2 Antigen (Rapid) - Final Physical Exam Const oriented x3 and no apparent distress Resp normal respiratory effort Back/Spine Back/Spine Narrative: Left buttock/ischial decubitus wound examined. Wound base exhibits a further improved appearance following minor excisional debridements yesterday. Overall there is an appearance of a thin biofilm in the superior portion of the wound. A nonexcisional debridement was performed with a small curettage simply removing this biofilm and replacing the Dakin's soaked packing. Assessment & Plan Assessment/Plan (1) Decubital ulcer: PLAN: 56-year-old female with decubitus ulcer of left buttock now postoperative day 3 from operative debridement. Overall the wound, again, exhibits an improved appearance following minor debridements at bedside yesterday. I performed a limited curettage of the overlying biofilm in the wound and the majority of the wound is now sensate with a viable base. Patient's operative cultures show growth of Pseudomonas aeruginosa. Infectious disease continues to follow and recommends IV vancomycin and Zosyn. Patient remains afebrile. Wound is still not stable to begin negative pressure wound VAC therapy so we will continue with 3 times daily dressing changes using Dakin soaked gauzes. I am hopeful we will be able to apply negative pressure therapy early next week following the holiday. Lastly, patient's nutrition should continue to optimized (continue to recommend Ahsan to the patient) to include plenty of protein and she should be encouraged to offload the wound area as much as possible. Charges/Coding Visit Charges Inpatient E&M: 93205 SNF Init L2
--- NOTE | 2022-03-15 15:14 | NURSING ---
Attempted to notify family of covid positive pt on unit, no answer.
--- NOTE | 2022-03-15 15:45 | NURSING ---
Attempted to contact Dr. Casillas's office, again, waiting for return call.
[2022-03-15 16:00] VITALS: BP 122/64; PULSE 88; RESP 16; TEMP 35.9; O2SAT 97
--- NOTE | 2022-03-15 16:13 | NURSING ---
Spoke with [place] in [place] who stated a CT was sent via electronic mail last week. Charlene in Dr. Negro's office stated they are unable to view electronically. [place] in [place] stated they will mail a copy of the report with dise to Dr. Negro. Charlene also provided the direct number for Dr. Negro's office [phone]
[2022-03-15 16:20] LABS: Bedside Glucose 119 mg/dL (74-106)
[2022-03-15] MEDS: Senna/Docusate Sodium 1 Tablet 2 TABLET PO (17:12)
[2022-03-15 17:21] LABS: Vancomycin, Random Level 17.4 ug/mL (0.0-15.0)
--- NOTE | 2022-03-15 19:37 | PCM.RX.CS ---
Consult Pharmacy has been consulted to manage selected antiobiotic: Vancomycin Type of Consult: Follow-up Prior Doses of Antibiotics Received/Current Regimen: Medications Discontinued Medications Vancomycin HCl () 500 mg in 100 mls @ 100 mls/hr IV Q12H DENIS Last Admin: 03/15/22 05:17 Dose: Not Given Labs: Sodium 141 mmol/L (136-145) 03/14/22 07:00 Potassium 3.3 mmol/L (3.5-5.1) L 03/14/22 07:00 Chloride 109 mmol/L (98-107) H 03/14/22 07:00 Carbon Dioxide 22.0 mmol/L (21.0-32.0) 03/14/22 07:00 Anion Gap 10 (5-15) 03/14/22 07:00 BUN 14 mg/dL (7-18) 03/14/22 07:00 Creatinine 1.09 mg/dL (0.55-1.02) H 03/14/22 07:00 Est GFR (MDRD) Af Amer 66 mL/min (>60) 03/14/22 07:00 Est GFR (MDRD) Non-Af 55 mL/min (>60) L 03/14/22 07:00 BUN/Creatinine Ratio 12.8 RATIO (10-20) 03/14/22 07:00 Glucose 91 mg/dL (74-106) 03/14/22 07:00 Vancomycin Trough 22.1 ug/mL (5.0-15.0) H 03/15/22 04:22 Random Vancomycin 17.4 ug/mL (0.0-15.0) H 03/15/22 16:24 Microbiology: Microbiology 03/12/22 17:32 Nasal Secretion SARS-CoV-2 Antigen (Rapid) - Final 03/05/22 11:09 Nasal Secretion SARS-CoV-2 Antigen (Rapid) - Final 02/27/22 14:30 Nasal Secretion SARS-CoV-2 Antigen (Rapid) - Final Goal Trough: 15-20 mcg/mL Pharmacy Plan for Drug Dosing: Vanc was held for 24 hours but considering the large loading dose and frequency of maintenance dose, it would make sense, for now, for 500mg IV q24h but may need adjusted. Follow up after 2 doses in 48 hours. Pharmacy Service will continue to monitor and adjust dosing as required. Follow-Up Labs: Trough Vancomycin - 7/2 @ 2030
[2022-03-15 20:00] VITALS: PULSE 98; RESP 16; O2SAT 98
[2022-03-15] MEDS: HYDROmorphone 1 MG/ML Syringe 0.5 MG IV (20:33)
[2022-03-15] MEDS: Vancomycin IV 500 MG/100 ML BAG 100 MG IV (20:39)
[2022-03-15] MEDS: ARIPiprazole 5 MG Tablet 2.5 MG PO (21:00)
[2022-03-15] MEDS: Prazosin HCl 1 MG Capsule 2 MG PO (21:01)
[2022-03-15] MEDS: hydrOXYzine PAM 25 MG Capsule PO (21:03)
[2022-03-15] MEDS: Insulin Glargine-YFGN 100 UNIT/ML Pen 10 UNIT SC (21:04)
[2022-03-15 21:15] LABS: Bedside Glucose 216 mg/dL (74-106)
[2022-03-15 21:17] VITALS: BP 120/58; PULSE 95; RESP 16; O2SAT 98
--- NOTE | 2022-03-15 21:18 | NURSING ---
declines dressing change to left buttock at this time, states It has already been changed twice today and they just changed it not long ago, dressing assessed observed dry and intact at this time. Bilat heel dressings changed per order, PRN Dilaudid administered as ordered per pt. request for 03/25 pain to left buttock. No distress observed or reported. A&Ox3, able to voice needs. Denies requests. IV Vanc and IV Zosyn continue as ordered, no adverse effects observed or reported, no rash/no GI distress. Central line dual lumen remains without s/sx infection, dressing dry and intact dated 03/15/22. Call light in reach.
[2022-03-15 21:25] LABS: Bedside Glucose 177 mg/dL (74-106)
[2022-03-16] MEDS: 0.9 % NaCl (Sterile) Posiflush 10 mL IV ×3 (02:56→12:58)
[2022-03-16] MEDS: Loperamide 2 MG Capsule PO ×3 (02:56→12:57)
[2022-03-16] MEDS: oxyCODONE 5 MG Tablet PO ×3 (02:56→18:59)
--- NOTE | 2022-03-16 03:25 | NURSING ---
ASSISTANT TO THE DIRECTOR reports patient incontinent of stool at this time, dressing changed at this time as ordered PRN compromised. Tolerated well. PRN Oxy administered per request for pain management. PRN Imodium administered per pt. request. Positioned for comfort. Denies further requests. Call light in reach.
[2022-03-16] MEDS: Pregabalin 50 MG Capsule 100 MG PO (05:27)
[2022-03-16 05:45] VITALS: BP 123/68; PULSE 95
[2022-03-16] MEDS: Iron Polysaccharide Complex 150 MG CAPSULE PO (05:45)
[2022-03-16] MEDS: Pantoprazole Sodium 40 MG Tablet PO (05:45)
[2022-03-16] MEDS: hydrALAZINE 25 MG Tablet PO (05:45)
[2022-03-16] MEDS: Nystatin Powder 15gm Bottle 1 APPLIC TOPICAL ×3 (05:45→21:47)
[2022-03-16] MEDS: Acetaminophen 500 MG Tablet 1000 MG PO ×3 (05:45→18:59)
[2022-03-16] MEDS: Sertraline 100 MG Tablet PO (05:46)
[2022-03-16] MEDS: Menthol/Lanolin/Calamine/Znox 113 GM Tube 1 APPLIC TOPICAL ×2 (05:46→17:34)
[2022-03-16 06:11] LABS: Anion Gap 9 (5-15); BUN 11 mg/dL (7-18); BUN/Creat Ratio 9.9 RATIO (10-20); Calcium,Total 8.2 mg/dL (8.5-10.1); Chloride 110 mmol/L (98-107); Creatinine, Serum 1.11 mg/dL (0.55-1.02); EST Glomerular Filtration Rate 54 mL/min (>60); Est Glom Filt Rate - Afr Amer 65 mL/min (>60); Estimated Creatinine Clearance 52.35 ml/min; Glucose 103 mg/dL (74-106); Potassium 3.4 mmol/L (3.5-5.1); Sodium Level 143 mmol/L (136-145)
[2022-03-16 06:20] LABS: Bedside Glucose 128 mg/dL (74-106)
[2022-03-16] MEDS: metFORMIN (XR) 500 MG Tablet 1000 MG PO (07:52)
[2022-03-16] MEDS: Potassium Chloride Oral Soln 20 MEQ/15 ML UDC 10 MEQ PO (07:52)
--- NOTE | 2022-03-16 09:03 | PCM.PN.SRG ---
Subjective Subjective Patient was seen and examined during AM rounds. She denied any discomfort from her backside. Objective Data Objective Data Vital Signs: Vital Signs Temp Pulse Resp BP Pulse Ox O2 Del Method 96.6 F L 95 16 123/68 H 98 Room Air 03/15/22 16:00 03/16/22 05:45 03/15/22 21:17 03/16/22 05:45 03/15/22 21:17 03/15/22 21:17 Oxygen Delivery Method Room Air Weight: 152 lb 5 oz Body Mass Index (BMI) 25.8 Intake & Output: Intake and Output for Last 24 Hours 03/14/22 03/15/22 03/16/22 23:59 23:59 23:59 Intake Total 710 / 710 751 / 751 129.5 / 129.5 Balance 710 / 710 751 / 751 129.5 / 129.5 Medical Nutrition Assessment Dietitian: Malnutrition Criteria Met Start: 03/07/22 15:10 Freq: Status: Active Protocol: Document 03/14/22 15:09 CLAIRE (Rec: 03/14/22 15:09 SLA [id number]) Nutrition Malnutrition Evidence of Malnutrition Exists Yes Malnutrition (moderate): Acute Illness/Injury Evidenced By Suboptimal Energy Intake ( Moderate),Weight Loss (Severe) Intake Problem Increased Nutrient Needs (specify) Etiology PROTEIN r/t skin breakdown Signs/Symptoms as evidenced by deep tissue injury lindsay heels, L buttock PI , R foot DM ulcer, L hip surgical incision and need for surgery consult and wound nurse Status Active Problem Clinical Problem Acute Disease or Injury Related Malnutrition Etiology related to inadequate oral intake Signs/Symptoms as evidenced by 4.9% wt loss and ~50% intake at most meals x <5 days. Res appears to have wt loss in face since adm . Status Active Problem Altered Nutrient-Related Laboratory Values Etiology related to hx of diabetes Signs/Symptoms as evidenced by 02/07/22 A1c 9. 1 and res self report of gluc readings at home ~300-500s and res with no interest in making dietary changes to help w/ glycemic control Status Active Problem Recommendation Dietitian Recommendations/Changes Will change diet to liberal Regular w/ kerry CIB and 1 scoop beneprotein w/ B, chocolate ensure pudding w/ L and banana w/ peanut butter w/ D for increased protein if consumed. Lab / Micro Data Result Diagrams: 03/14/22 07:00 07/01/22 05:30 Labs: Laboratory Results - last 24 hr 03/15/22 11:06: POC Glucose 138 H 03/15/22 16:15: POC Glucose 119 H 03/15/22 16:24: Random Vancomycin 17.4 H 03/15/22 20:29: POC Glucose 216 H 03/15/22 21:21: POC Glucose 177 H 03/16/22 05:30: Sodium 143, Potassium 3.4 L, Chloride 110 H, Carbon Dioxide 24.0, Anion Gap 9, BUN 11, Creatinine 1.11 H, Estim Creat Clear Calc 52.35, Est GFR (MDRD) Af Amer 65, Est GFR (MDRD) Non-Af 54 L, BUN/Creatinine Ratio 9.9 L, Glucose 103, Calcium 8.2 L 03/16/22 06:06: POC Glucose 128 H Micro: Microbiology 03/12/22 17:32 Nasal Secretion SARS-CoV-2 Antigen (Rapid) - Final 03/05/22 11:09 Nasal Secretion SARS-CoV-2 Antigen (Rapid) - Final 02/27/22 14:30 Nasal Secretion SARS-CoV-2 Antigen (Rapid) - Final Physical Exam Const oriented x3 and no apparent distress Resp normal respiratory effort Back/Spine Back/Spine Narrative: Left buttock/ischial decubitus wound examined. Wound base exhibits a further improved appearance. Still appearance of a thin biofilm in the superior portion of the wound. A nonexcisional debridement was performed with a small curettage simply removing this biofilm and replacing the saline soaked Kerlix. Assessment & Plan Assessment/Plan (1) Decubital ulcer: PLAN: 56-year-old female with decubitus ulcer of left buttock now postoperative day 4 from operative debridement. Overall the wound, again, exhibits an improved appearance following minor debridements at bedside yesterday. I performed a limited curettage of the overlying biofilm in the wound and the majority of the wound is now sensate with a viable base. Patient's operative cultures show growth of Pseudomonas aeruginosa and Proteus. Infectious disease continues to follow and has transitioned antibiotics today. Patient remains afebrile. Wound is still not stable to begin negative pressure wound VAC therapy so we will continue with 2 times daily dressing changes using Dakin soaked gauzes for 1 of these 2 dressings (saline moistened gauze for the other). I am hopeful we will be able to apply negative pressure therapy early next week following the holiday. Lastly, patient's nutrition should continue to optimized (continue to recommend Ahsan to the patient) to include plenty of protein and she should be encouraged to offload the wound area as much as possible.
[2022-03-16] MEDS: DAKIN'S SOL HALF STRENGTH (=0.25%) 1 APPLIC TOPICAL (09:45)
[2022-03-16 10:27] VITALS: PULSE 89; RESP 18; O2SAT 97
[2022-03-16 11:26] LABS: Bedside Glucose 103 mg/dL (74-106)
--- NOTE | 2022-03-16 12:59 | PN.ID_ITS ---
Physical Exam Narrative Feeling ok, pain controlled, no fever, no n/v/d. Const alert and no apparent distress Resp normal air movement and clear to auscultation bilaterally Cardio regular rate and regular rhythm GI soft to palpation, non-tender and non-distended Skin Skin Narrative: no new rash ID ID: Route of nutrition/ use of supplements: [] Nutritional Intake: [] IV Site: [] [place] Catheter: [] Assessment & Plan Assessment/Plan (1) Bacteremia due to group B Streptococcus: (2) Osteomyelitis of right hip: PLAN: Now s/p 02/09/22 R hip [facility]athroplasty at [facility]. Transferred here on cefazolin with stop date 03/23/22. Likely will need [facility] po abx after that point given presence of hardware. ID at [facility] was Dr. Cheema. Now CT shows possible abscess, recommend contacting her ortho for review if not done already. Taken to OR 03/[address] Linares for bladder stimulator removal and by Dr. Duran for debridement of necrotic buttock ulcer. Bone was not involved. Surg cx with proteus, pseudomonas x2. Will stop vanc, cont zosyn, plan on treating until 03/23, then [facility] po keflex 500mg tid. Will follow
[2022-03-16 14:49] VITALS: BP 108/56; PULSE 89; RESP 18; TEMP 36.8; O2SAT 97
[2022-03-16 16:10] LABS: Bedside Glucose 132 mg/dL (74-106)
--- NOTE | 2022-03-16 16:20 | CASEMGMT ---
Social Work SW met with pt to discuss discharge plan. SW reminded pt that insurance review is 03/21 with expected d/c date of 03/23. SW inquired with pt if support system would bee able to provided needed care including dressing changes and functional assistance that is needed. Pt stating she really wants to go home and not to an ECF. SW requested pt talk to support system over the weekend to determine their level of availability to assist pt at home or if pt will need ECF. Pt agreeable to this. List of SNF providers including quality and resource use data provided to pt for review. SW will follow up next week for further d/c planning. SOLO Browne
--- NOTE | 2022-03-16 17:36 | NURSING ---
Patient refused evening dose of potassium. This nurse explained the importance of medication, but patient stated it makes me sick to my stomach. I'll take my chances Will try to administer dose after dinner.
--- NOTE | 2022-03-16 19:00 | NURSING ---
This nurse made another attempt to get patient to take potassium. Patient educated on risks of not taking dose and she agreed to take it. Potassium given at this time.
[2022-03-16 21:16] LABS: Bedside Glucose 133 mg/dL (74-106)
[2022-03-16] MEDS: Insulin Glargine-YFGN 100 UNIT/ML Pen 10 UNIT SC (21:44)
[2022-03-16] MEDS: ARIPiprazole 5 MG Tablet 2.5 MG PO (21:46)
[2022-03-16] MEDS: Prazosin HCl 1 MG Capsule 2 MG PO (21:47)
[2022-03-16] MEDS: hydrOXYzine PAM 25 MG Capsule PO (21:47)
[2022-03-16 21:49] VITALS: BP 132/70; PULSE 78
[2022-03-16] MEDS: traZODone 50 MG Tablet PO (21:50)
[2022-03-16] MEDS: HYDROmorphone 1 MG/ML Syringe 0.5 MG IV (21:52)
[2022-03-17] MEDS: oxyCODONE 5 MG Tablet PO ×3 (01:56→13:46)
[2022-03-17] MEDS: 0.9 % NaCl (Sterile) Posiflush 10 mL IV (01:57)
[2022-03-17] MEDS: DAKIN'S SOL HALF STRENGTH (=0.25%) 1 APPLIC TOPICAL ×3 (01:58→20:44)
[2022-03-17 06:31] LABS: Bedside Glucose 88 mg/dL (74-106)
[2022-03-17] MEDS: Sertraline 100 MG Tablet PO (06:44)
[2022-03-17 06:45] VITALS: BP 136/64; PULSE 86
[2022-03-17] MEDS: Iron Polysaccharide Complex 150 MG CAPSULE PO (06:45)
[2022-03-17] MEDS: Pantoprazole Sodium 40 MG Tablet PO (06:45)
[2022-03-17] MEDS: hydrALAZINE 25 MG Tablet PO (06:45)
[2022-03-17] MEDS: Nystatin Powder 15gm Bottle 1 APPLIC TOPICAL ×3 (06:46→20:44)
[2022-03-17] MEDS: Menthol/Lanolin/Calamine/Znox 113 GM Tube 1 APPLIC TOPICAL ×2 (06:46→17:07)
[2022-03-17] MEDS: Pregabalin 50 MG Capsule 100 MG PO (06:46)
[2022-03-17] MEDS: Acetaminophen 500 MG Tablet 1000 MG PO ×2 (06:47→13:46)
[2022-03-17] MEDS: metFORMIN (XR) 500 MG Tablet 1000 MG PO (08:33)
[2022-03-17 11:15] LABS: Bedside Glucose 149 mg/dL (74-106)
[2022-03-17 16:00] VITALS: BP 124/64; PULSE 80; RESP 14; TEMP 36.6; O2SAT 99
[2022-03-17 16:15] LABS: Bedside Glucose 130 mg/dL (74-106)
[2022-03-17] MEDS: Insulin Glargine-YFGN 100 UNIT/ML Pen 10 UNIT SC (20:43)
[2022-03-17] MEDS: Prazosin HCl 1 MG Capsule 2 MG PO (20:45)
[2022-03-17] MEDS: ARIPiprazole 5 MG Tablet 2.5 MG PO (20:46)
[2022-03-17] MEDS: HYDROmorphone 1 MG/ML Syringe 0.5 MG IV (20:47)
[2022-03-17] MEDS: Loperamide 2 MG Capsule PO (20:48)
[2022-03-17] MEDS: hydrOXYzine PAM 25 MG Capsule PO (20:58)
[2022-03-17] MEDS: traZODone 50 MG Tablet PO (20:58)
[2022-03-17 21:40] LABS: Bedside Glucose 120 mg/dL (74-106)
[2022-03-17 23:43] VITALS: RESP 12
[2022-03-18] MEDS: Pregabalin 50 MG Capsule 100 MG PO (05:06)
[2022-03-18] MEDS: Nystatin Powder 15gm Bottle 1 APPLIC TOPICAL ×3 (05:07→21:41)
[2022-03-18] MEDS: Menthol/Lanolin/Calamine/Znox 113 GM Tube 1 APPLIC TOPICAL ×2 (05:07→17:46)
[2022-03-18 05:08] VITALS: PULSE 72
[2022-03-18] MEDS: Pantoprazole Sodium 40 MG Tablet PO (05:08)
[2022-03-18] MEDS: Iron Polysaccharide Complex 150 MG CAPSULE PO (05:08)
[2022-03-18] MEDS: Sertraline 100 MG Tablet PO (05:08)
[2022-03-18] MEDS: hydrALAZINE 25 MG Tablet PO (05:08)
[2022-03-18] MEDS: Loperamide 2 MG Capsule PO ×2 (06:03→14:15)
[2022-03-18 06:41] LABS: Bedside Glucose 96 mg/dL (74-106)
[2022-03-18] MEDS: Acetaminophen 500 MG Tablet 1000 MG PO ×2 (07:37→14:14)
[2022-03-18] MEDS: oxyCODONE 5 MG Tablet PO ×2 (07:38→14:15)
[2022-03-18] MEDS: metFORMIN (XR) 500 MG Tablet 1000 MG PO (07:39)
[2022-03-18] MEDS: DAKIN'S SOL HALF STRENGTH (=0.25%) 1 APPLIC TOPICAL (09:44)
[2022-03-18 11:00] LABS: Bedside Glucose 92 mg/dL (74-106)
--- NOTE | 2022-03-18 12:50 | PN.SURG_ITS ---
Subjective Subjective patient with minimal complaints Objective Data Objective Data Vital Signs: Vital Signs Temp Pulse Resp BP Pulse Ox O2 Del Method 97.8 F 72 12 124/64 H 99 Room Air 03/17/22 16:00 03/18/22 05:08 03/17/22 23:43 03/17/22 16:00 03/17/22 16:00 03/18/22 10:00 Oxygen Delivery Method Room Air Weight: 69.088 kg Body Mass Index (BMI) 25.8 Intake & Output: Intake and Output for Last 24 Hours 03/16/22 03/17/22 03/18/22 23:59 23:59 23:59 Intake Total 349.5 / 349.5 1934.75 / 1934.75 680 / 680 Balance 349.5 / 349.5 1934.75 / 1933.75 680 / 680 Medical Nutrition Assessment Dietitian: Malnutrition Criteria Met Start: 03/07/22 15:10 Freq: Status: Active Protocol: Document 03/14/22 15:09 CLAIRE (Rec: 03/14/22 15:09 [facility] [id number]) Nutrition Malnutrition Evidence of Malnutrition Exists Yes Malnutrition (moderate): Acute Illness/Injury Evidenced By Suboptimal Energy Intake ( Moderate),Weight Loss (Severe) Intake Problem Increased Nutrient Needs (specify) Etiology PROTEIN r/t skin breakdown Signs/Symptoms as evidenced by deep tissue injury lindsay heels, L buttock PI , R foot DM ulcer, L hip surgical incision and need for surgery consult and wound nurse Status Active Problem Clinical Problem Acute Disease or Injury Related Malnutrition Etiology related to inadequate oral intake Signs/Symptoms as evidenced by 4.9% wt loss and ~50% intake at most meals x <5 days. Res appears to have wt loss in face since adm . Status Active Problem Altered Nutrient-Related Laboratory Values Etiology related to hx of diabetes Signs/Symptoms as evidenced by 02/07/22 A1c 9. 1 and res self report of gluc readings at home ~300-500s and res with no interest in making dietary changes to help w/ glycemic control Status Active Problem Recommendation Dietitian Recommendations/Changes Will change diet to liberal Regular w/ kerry CIB and 1 scoop beneprotein w/ B, chocolate ensure pudding w/ L and banana w/ peanut butter w/ D for increased protein if consumed. Lab / Micro Data Attestation: I reviewed the patient's lab results. Result Diagrams: 03/14/22 07:00 03/16/22 05:30 Labs: Laboratory Results - last 24 hr 03/17/22 16:12: POC Glucose 130 H 03/17/22 20:41: POC Glucose 120 H 03/18/22 06:11: POC Glucose 96 03/18/22 10:57: POC Glucose 92 Micro: Microbiology 03/12/22 17:32 Nasal Secretion SARS-CoV-2 Antigen (Rapid) - Final 03/05/22 11:09 Nasal Secretion SARS-CoV-2 Antigen (Rapid) - Final 02/27/22 14:30 Nasal Secretion SARS-CoV-2 Antigen (Rapid) - Final Physical Exam Const alert and oriented x3 Resp normal respiratory effort Effort and Inspection: able to speak in complete sentences GI normal to inspection, nondistended, normoactive bowel sounds Back/Spine Back/Spine Narrative: wound - granulating somewhat - minimal drainage noted Assessment & Plan Assessment/Plan (1) Decubital ulcer: PLAN: continue present therapy
[2022-03-18 16:00] VITALS: BP 123/65; PULSE 83; RESP 18; TEMP 37.4; O2SAT 98
[2022-03-18 16:25] LABS: Bedside Glucose 121 mg/dL (74-106)
[2022-03-18] MEDS: traZODone 50 MG Tablet PO (21:19)
[2022-03-18] MEDS: ARIPiprazole 5 MG Tablet 2.5 MG PO (21:24)
[2022-03-18 21:25] LABS: Bedside Glucose 126 mg/dL (74-106)
[2022-03-18] MEDS: hydrOXYzine PAM 25 MG Capsule PO (21:25)
[2022-03-18] MEDS: Prazosin HCl 1 MG Capsule 2 MG PO (21:26)
[2022-03-18] MEDS: 0.9 % NaCl (Sterile) Posiflush 10 mL IV (21:27)
[2022-03-18] MEDS: HYDROmorphone 1 MG/ML Syringe 0.5 MG IV (21:29)
[2022-03-18] MEDS: Insulin Glargine-YFGN 100 UNIT/ML Pen 10 UNIT SC (21:40)
[2022-03-19] MEDS: oxyCODONE 5 MG Tablet PO ×2 (05:03→09:18)
[2022-03-19] MEDS: Pregabalin 50 MG Capsule 100 MG PO (05:03)
[2022-03-19] MEDS: DAKIN'S SOL HALF STRENGTH (=0.25%) 1 APPLIC TOPICAL ×3 (05:06→21:43)
[2022-03-19] MEDS: Menthol/Lanolin/Calamine/Znox 113 GM Tube 1 APPLIC TOPICAL ×2 (05:07→16:02)
[2022-03-19] MEDS: Nystatin Powder 15gm Bottle 1 APPLIC TOPICAL ×3 (05:07→21:56)
[2022-03-19 05:09] VITALS: BP 134/69; PULSE 79
[2022-03-19] MEDS: hydrALAZINE 25 MG Tablet PO (05:09)
[2022-03-19] MEDS: Pantoprazole Sodium 40 MG Tablet PO (05:09)
[2022-03-19] MEDS: Sertraline 100 MG Tablet PO (05:09)
[2022-03-19] MEDS: Iron Polysaccharide Complex 150 MG CAPSULE PO (05:10)
[2022-03-19 06:26] LABS: Bedside Glucose 89 mg/dL (74-106)
[2022-03-19] MEDS: metFORMIN (XR) 500 MG Tablet 1000 MG PO (09:10)
[2022-03-19] MEDS: Acetaminophen 500 MG Tablet 1000 MG PO (09:19)
[2022-03-19 11:30] LABS: Bedside Glucose 108 mg/dL (74-106)
[2022-03-19] MEDS: 0.9 % NaCl (Sterile) Posiflush 10 mL IV (12:54)
[2022-03-19 15:05] VITALS: BP 131/64; PULSE 79; RESP 16; TEMP 36.2; O2SAT 95
[2022-03-19 16:36] LABS: Bedside Glucose 130 mg/dL (74-106)
[2022-03-19 21:41] LABS: Bedside Glucose 122 mg/dL (74-106)
[2022-03-19] MEDS: HYDROmorphone 1 MG/ML Syringe 0.5 MG IV (21:50)
[2022-03-19] MEDS: traZODone 50 MG Tablet PO (21:52)
[2022-03-19] MEDS: hydrOXYzine PAM 25 MG Capsule PO (21:56)
[2022-03-19] MEDS: ARIPiprazole 5 MG Tablet 2.5 MG PO (21:57)
[2022-03-19] MEDS: Prazosin HCl 1 MG Capsule 2 MG PO (21:57)
[2022-03-19] MEDS: Insulin Glargine-YFGN 100 UNIT/ML Pen 10 UNIT SC (21:58)
[2022-03-19 23:09] VITALS: PULSE 90; RESP 16; O2SAT 98
[2022-03-20] MEDS: Acetaminophen 500 MG Tablet 1000 MG PO ×3 (03:34→20:48)
[2022-03-20] MEDS: Menthol/Lanolin/Calamine/Znox 113 GM Tube 1 APPLIC TOPICAL ×2 (05:12→17:21)
[2022-03-20] MEDS: Nystatin Powder 15gm Bottle 1 APPLIC TOPICAL ×3 (05:12→20:51)
[2022-03-20] MEDS: Pregabalin 50 MG Capsule 100 MG PO (05:12)
[2022-03-20] MEDS: Pantoprazole Sodium 40 MG Tablet PO (05:13)
[2022-03-20] MEDS: Iron Polysaccharide Complex 150 MG CAPSULE PO (05:13)
[2022-03-20] MEDS: Sertraline 100 MG Tablet PO (05:13)
[2022-03-20 05:14] VITALS: BP 130/67; PULSE 87
[2022-03-20] MEDS: hydrALAZINE 25 MG Tablet PO (05:14)
[2022-03-20 06:26] LABS: Bedside Glucose 105 mg/dL (74-106)
[2022-03-20] MEDS: HYDROmorphone 1 MG/ML Syringe 0.5 MG IV (08:30)
[2022-03-20] MEDS: 0.9% Saline Lock 10 ML Syringe IV ×2 (08:31→13:19)
[2022-03-20] MEDS: Potassium Chloride Oral Soln 20 MEQ/15 ML UDC 10 MEQ PO (08:35)
[2022-03-20] MEDS: metFORMIN (XR) 500 MG Tablet 1000 MG PO (08:36)
[2022-03-20] MEDS: DAKIN'S SOL HALF STRENGTH (=0.25%) 1 APPLIC TOPICAL (08:53)
[2022-03-20 11:06] LABS: Bedside Glucose 112 mg/dL (74-106)
--- NOTE | 2022-03-20 11:13 | NURSING ---
Spoke with Lucy in Dr. Cheema's office, notified them the pt stated she no longer wants to continue seeing Dr. Cheema, since Dr. Haile is following her and he comes to the hopsital to see her. Dr Cheema agreeable to this and stated Dr. Haile can continue to manage all antibiotics.
--- NOTE | 2022-03-20 11:34 | WOUNDNOTE ---
wound photo: left upper buttock
--- NOTE | 2022-03-20 11:35 | WOUNDNOTE ---
wound photo: right plantar foot
--- NOTE | 2022-03-20 11:36 | WOUNDNOTE ---
wound photo: right heel
--- NOTE | 2022-03-20 11:36 | WOUNDNOTE ---
wound photo: left heel
--- NOTE | 2022-03-20 12:37 | PN.SURG_ITS ---
Subjective Subjective Patient seen and examined during AM rounds. She reports an uneventful course over the weekend. Objective Data Objective Data Vital Signs: Vital Signs Temp Pulse Resp BP Pulse Ox O2 Del Method 97.2 F L 87 16 130/67 H 98 Room Air 03/19/22 15:05 03/20/22 05:14 03/19/22 23:09 03/20/22 05:14 03/19/22 23:09 03/20/22 10:00 Oxygen Delivery Method Room Air Weight: 152 lb 5 oz Body Mass Index (BMI) 25.8 Intake & Output: Intake and Output for Last 24 Hours 03/18/22 03/19/22 03/20/22 23:59 23:59 23:59 Intake Total 1570 / 1570 660 / 660 255.75 / 255.75 Balance 1570 / 1570 660 / 660 255.75 / 255.75 Medical Nutrition Assessment Dietitian: Malnutrition Criteria Met Start: 03/07/22 15:10 Freq: Status: Active Protocol: Document 03/14/22 15:09 CLAIRE (Rec: 03/14/22 15:09 [facility] [id number]) Nutrition Malnutrition Evidence of Malnutrition Exists Yes Malnutrition (moderate): Acute Illness/Injury Evidenced By Suboptimal Energy Intake ( Moderate),Weight Loss (Severe) Intake Problem Increased Nutrient Needs (specify) Etiology PROTEIN r/t skin breakdown Signs/Symptoms as evidenced by deep tissue injury lindsay heels, L buttock PI , R foot DM ulcer, L hip surgical incision and need for surgery consult and wound nurse Status Active Problem Clinical Problem Acute Disease or Injury Related Malnutrition Etiology related to inadequate oral intake Signs/Symptoms as evidenced by 4.9% wt loss and ~50% intake at most meals x <5 days. Res appears to have wt loss in face since adm . Status Active Problem Altered Nutrient-Related Laboratory Values Etiology related to hx of diabetes Signs/Symptoms as evidenced by 02/07/22 A1c 9. 1 and res self report of gluc readings at home ~300-500s and res with no interest in making dietary changes to help w/ glycemic control Status Active Problem Recommendation Dietitian Recommendations/Changes Will change diet to liberal Regular w/ kerry CIB and 1 scoop beneprotein w/ B, chocolate ensure pudding w/ L and banana w/ peanut butter w/ D for increased protein if consumed. Lab / Micro Data Result Diagrams: 03/14/22 07:00 03/16/22 05:30 Labs: Laboratory Results - last 24 hr 03/19/22 16:19: POC Glucose 130 H 03/19/22 21:37: POC Glucose 122 H 03/20/22 06:03: POC Glucose 105 03/20/22 10:56: POC Glucose 112 H Micro: Microbiology 03/19/22 05:10 Nasal Secretion SARS-CoV-2 Antigen (Rapid) - Final 03/12/22 17:32 Nasal Secretion SARS-CoV-2 Antigen (Rapid) - Final 03/05/22 11:09 Nasal Secretion SARS-CoV-2 Antigen (Rapid) - Final 02/27/22 14:30 Nasal Secretion SARS-CoV-2 Antigen (Rapid) - Final Physical Exam Const oriented x3 Resp normal respiratory effort Back/Spine Back/Spine Narrative: Left buttock/ischial decubitus wound examined. There was some graying muscle and fat necrosis in the superior medial aspect of the wound. A excisional debridement of approximately 4 cm? devitalized muscle and fat was performed with scissors and small curettage Assessment & Plan Assessment/Plan (1) Decubital ulcer: PLAN: 56-year-old female with decubitus ulcer of left buttock now postoperative from operative debridement on 03/12/2022. Overall the wound appears stable with some improvements in granulation inferior laterally and a minimal amount of muscle and fat necrosis superiorly medially. Patient's operative cultures show growth of Pseudomonas aeruginosa and Proteus. Infectious disease continues to follow and has transitioned antibiotics. Patient remains afebrile. Given the wound stability a wound VAC is to be applied daily. We will initially begin with VAC changes every other day so as to afford more surveillance of the wound base. Patient reportedly looking to transition half-way facilities at the end of the week?we will continue discussions with case management. Charges/Coding Visit Charges Inpatient E&M: 99556 SNF Subs L2
[2022-03-20] MEDS: oxyCODONE 5 MG Tablet PO ×2 (13:18→20:48)
[2022-03-20 14:12] VITALS: BP 125/63; PULSE 68; RESP 16; TEMP 36.3; O2SAT 98
[2022-03-20] MEDS: Ondansetron ODT 4 MG Tablet 8 MG PO (15:10)
[2022-03-20 17:00] LABS: Bedside Glucose 108 mg/dL (74-106)
--- NOTE | 2022-03-20 17:27 | CASEMGMT ---
Social Work Spoke with pt to follow up on DC plans. Wound vac placed today. Dr. Duran to follow up on 03/22. The goal is for the wound vac to be changed starting next week and into DC on . IV ATB done on 03/23. Discussed DC plans. HHC will be ordered for SN to complete wound vac changes. Pt stated dtr is concerned about pt returning home and suggested SNF. Pt wants to try it at home and has SO to assist. Offered medical alert resources if pt is alone at home. Pt agreed. Resources provided. Explained HHC can have SW involved to assist if is not successful and needs a SNF. Explained pt can admit to SNF from community at any time. Pt would like to try DC home first with HHC. IDT recommending DC 03/27 to ensure wound vac is and IV ATB are successful. Pt agreed. Will update insurance 03/21 of plan. SW to continue to follow. Nan Stanley, [facility] [facility] [facility]
[2022-03-20] MEDS: 0.9 % NaCl (Sterile) Posiflush 10 mL IV (20:41)
[2022-03-20] MEDS: traZODone 50 MG Tablet PO (20:48)
[2022-03-20] MEDS: Loperamide 2 MG Capsule PO (20:48)
[2022-03-20] MEDS: ARIPiprazole 5 MG Tablet 2.5 MG PO (20:49)
[2022-03-20] MEDS: hydrOXYzine PAM 25 MG Capsule PO (20:49)
[2022-03-20] MEDS: Prazosin HCl 1 MG Capsule 2 MG PO (20:52)
[2022-03-20 21:15] LABS: Bedside Glucose 177 mg/dL (74-106)
[2022-03-20] MEDS: Insulin Glargine-YFGN 100 UNIT/ML Pen 10 UNIT SC (21:25)
[2022-03-21] MEDS: 0.9 % NaCl (Sterile) Posiflush 10 mL IV ×3 (04:28→20:48)
[2022-03-21 04:33] VITALS: BP 137/62; PULSE 84
[2022-03-21] MEDS: Acetaminophen 500 MG Tablet 1000 MG PO ×2 (04:33→16:38)
[2022-03-21] MEDS: oxyCODONE 5 MG Tablet PO ×4 (04:33→20:41)
[2022-03-21 04:34] VITALS: PULSE 84
[2022-03-21] MEDS: Pantoprazole Sodium 40 MG Tablet PO (04:34)
[2022-03-21] MEDS: Pregabalin 50 MG Capsule 100 MG PO (04:34)
[2022-03-21] MEDS: hydrALAZINE 25 MG Tablet PO (04:34)
[2022-03-21] MEDS: Iron Polysaccharide Complex 150 MG CAPSULE PO (04:34)
[2022-03-21] MEDS: Sertraline 100 MG Tablet PO (04:34)
[2022-03-21] MEDS: Nystatin Powder 15gm Bottle 1 APPLIC TOPICAL ×3 (04:40→20:42)
[2022-03-21 06:25] LABS: Bedside Glucose 123 mg/dL (74-106)
--- NOTE | 2022-03-21 07:23 | NURSING ---
Labs drawn from central line. Flushed line with 10cc NS, removed 10cc waste then james 10cc sample for lab. Flushed line with 20cc NS, end cap changed.
[2022-03-21 07:26] LABS: Erythrocyte Sedimentation Rate 17 mm/hr (0-30)
[2022-03-21 07:29] LABS: Absolute Lymphocyte Count 1.46 X10^3/uL (0.83-4.51); Absolute Neutrophil Count 4.2 X10^3/uL (2.0-7.7); Basophil# 0.02 X10^3/uL; Basophil% 0.3 % (0-1); Eosinophil# 0.19 X10^3/uL; Eosinophils% 2.9 % (0-5); Hematocrit 23.4 % (37-47); Hemoglobin 7.5 g/dL (12.0-15.0); Lymphocyte # 1.46 X10^3/ul (0.83-4.51); Mean Corp Hgb Conc 32.1 g/dL (32-36); Mean Corpuscular Hgb 28.1 pg (27.0-32.0); Mean Corpuscular Volume 87.6 fL (81-99); Mean Platelet Vol. 9.1 fl (6.2-12.0); Monocyte% 7.5 % (0-10); NRBC Flagged by Analyzer 0 % (0-5); Neutrophil # 4.24 X10^3/uL (2.7-7.7); Neutrophil % 63.8 % (47-70); Platelet Count 248 K/mm3 (150-450); RBC Distribution Width CV 14.6 % (11.6-14.6); RBC Distribution Width SD 47.1 fl (35.1-43.9); Red Blood Count 2.67 M/mm3 (4.2-5.4); White Blood Count 6.6 K/mm3 (4.4-11.0)
[2022-03-21 08:12] LABS: ALB/GLOB Ratio 0.5 RATIO (0.9-2.4); AST(SGOT) 7 U/L (15-37); Alanine Aminotransfer ALT/SGPT < 6 U/L (13-56); Alkaline Phosphatase 69 U/L (45-117); Anion Gap 6 (5-15); BUN 9 mg/dL (7-18); BUN/Creat Ratio 9.1 RATIO (10-20); Chloride 113 mmol/L (98-107); Creatinine, Serum 0.99 mg/dL (0.55-1.02); EST Glomerular Filtration Rate 61 mL/min (>60); Est Glom Filt Rate - Afr Amer 74 mL/min (>60); Estimated Creatinine Clearance 58.69 ml/min; Globulin 3.7 g/dL (2.2-4.2); Glucose 121 mg/dL (74-106); Potassium 3.2 mmol/L (3.5-5.1); Protein, Total 5.7 g/dL (6.4-8.2); Sodium Level 145 mmol/L (136-145)
[2022-03-21] MEDS: Potassium Chloride Oral Soln 20 MEQ/15 ML UDC 10 MEQ PO (08:20)
[2022-03-21] MEDS: metFORMIN (XR) 500 MG Tablet 1000 MG PO (08:20)
--- NOTE | 2022-03-21 10:18 | CASEMGMT ---
Addendum entered by Nan Stanley 03/21/22 15:03: [facility] is not in network with pt. Will speak with pt on new [facility]. Addendum entered by Nan Stanley 03/21/22 13:18: Pt prefers [facility]. Referral made. Original Note: Social Work Received outcome from insurance update. NRD 03/23 and anticipate [facility] for LCD 03/26, DC 03/27, as IDT/pt planned. Updated pt. Pt agreeable. Provided resources for medical alerts and handrails/grab bars/ramps. No other DME needs at DC. Provided [facility] list of providers including quality and resource use data and consistent with the patient?s preferred geographic region, medical needs, and insurance network. Pt to review and notify SW of preference. Plan: DC home with SO 03/27, [facility] PT/OT/SN/CHAPIN/SW ASHANTI Trevizo
[2022-03-21 12:16] LABS: Bedside Glucose 121 mg/dL (74-106)
[2022-03-21] MEDS: Loperamide 2 MG Capsule PO (13:51)
--- NOTE | 2022-03-21 14:05 | WOUNDNOTE ---
Home VAC paperwork faxed to [facility]. awaiting approval. Possible discharge home 03/27/22. wound to be reassessed tomorrow with Dr Duran for VAC change.
--- NOTE | 2022-03-21 14:54 | DS.PCM_ITS ---
Providers Date of Admission: 02/27/22 Primary Care Physician: Kim Salas, [employer] OPERATOR-C Consultations 02/27/22 11:54 Consult: Onc/Wound/metal wire technician Routine Comment: 02/27/22 20:43 Consult: Infectious Disease Routine Consulting Provider: Blas Haile Reason for Consult: Right hip osteomyelitis s/p surgery, GBBS bacteremia. EMERGENT Consult: No MD Notified: Yes Date Notified: 02/28/22 Time Notified: 11:00 Method of Notification: Verbal 03/05/22 16:50 Consult: General Surgery Routine Consulting Provider: Pari Ramírez Reason for Consult: Left buttock wound, debridement. EMERGENT Consult: No MD Notified: Yes Date Notified: 03/06/22 Time Notified: 10:15 Method of Notification: Verbal 03/07/22 14:54 Consult: Urology Routine Consulting Provider: Maricruz Linares Reason for Consult: infection; bladder stimulator EMERGENT Consult: No MD Notified: Yes Date Notified: 03/07/22 Time Notified: 14:54 Method of Notification: Verbal Comments:: Dr Duran spoke with Dr Linares--will see 03/08 Reason For Visit: R HIP SEPTIC ARTHRITIS Diagnosis Discharge Diagnosis (1) Decubital ulcer: Status: Acute Code(s): L89.90 - Pressure ulcer of unspecified site, unspecified stage Plan 56 year old female with below past medical history hospitalized for osteomyelitis right hip Group B strep bacteremia, underwent surgical debridement, antibiotic implant, right hip hemiarthroplasty 02/09/2022, admitted to TCU with debility, here for rehabilitation, strengthening, intravenous antibiotic, prior to discharge home with significant other. * Debility - PT/OT. * Pain - Tylenol 1000mg q6h prn pain (1-5), Oxycodone 5mg q4h prn pain (6-10). * Bowel - Metamucil 1 packet po bid, senna/colace 2 tablets bid. * Adult immunization - Administer pneumonia vaccine, covid19 vaccine, flu vac cine as appropriate. * DVT prophylaxis - Xarelto 10mg daily thru 03/16/2022. * Shortness of breath - Albuterol 2 puffs q4h prn. * Depression - Sertraline 100mg daily, Abilify 2.5mg qhs, stable chronic chcf use, GDR not recommended. * Right hip osteomyelitis/GBS bacteremia - Cefazolin 2gm iv q8, consult Dr. Haile. * Hypertension - Hydralazine 25mg daily, Prazosin 2mg qhs. * Insomnia - Hydroxyzine 25mg qhs, Trazodone 50g qhs prn, stable chronic buttermaker continuous churn use, GDR not recommended. * Diabetes Mellitus II- Metformin XR 1000mg daily, Glargine 20 units qhs, Lispro 39 units tid. * Tinea Corporis - Nystatin powder topical tid. * GERD - Pantoprazole 40mg daily. * Diabetic polyneuropathy - Lyrica 100mg daily. Medications at Discharge Home Medications albuterol sulfate 90 mcg/actuation aerosol inhaler (ProAir HFA) 2 puff Q4H PRN PRN Sob &/Or Wheezing 01/28/18 metformin 500 mg tablet,extended release 24 hr 1,000 mg PO DAILY DM 01/28/18 hydroxyzine HCl 25 mg tablet 25 mg PO QHS allergies 01/02/22 trazodone 50 mg tablet 50 mg PO QHS PRN Insomnia #0 tabs 01/07/22 aripiprazole 5 mg tablet 5 mg PO QHS Check with primary doctor 02/27/22 hydralazine 25 mg tablet 25 mg PO DAILY BP 02/27/22 pantoprazole 40 mg tablet,delayed release (Protonix) 40 mg PO DAILY GERD 02/27/22 prazosin 2 mg capsule 2 mg PO QHS Bp 02/27/22 pregabalin 100 mg capsule (Lyrica) 100 mg PO DAILY Check with primary doctor 02/27/22 psyllium husk 0.4 gram capsule (Fiber (psyllium husk)) 0.4 g PO BID Supplement 02/27/22 sertraline 100 mg tablet 100 mg PO DAILY Mood 02/27/22 acetaminophen 500 mg tablet 1,000 mg PO Q6H PRN PRN Pain Score 1-5 #0 tabs 0 03/12/22 arginine 7 gram-glutam 7 gram-CaHMB 1.5 [id number]-[id number]-min oral pwd pkt (Ahsan (with collagen)) 1 packet PO BIDCM #0 ea 03/12/22 bisacodyl 10 mg rectal suppository 10 mg PA DAILY PRN Constipation #0 ea 03/12/22 glucagon 1 mg/mL solution for injection (GlucaGen Diagnostic Kit) 1 mg IM PRN P RN Hypoglycemia #0 ea 03/12/22 loperamide 2 mg capsule 2 mg PO Q4H PRN PRN Diarrhea #0 caps 03/12/22 menthol 0.44 %-zinc oxide 20.6 % topical ointment (Calmoseptine) 1 applic topical BID #0 grams 03/12/22 nystatin 100,000 unit/gram topical powder (Nyamyc) 1 applic topical TID #0 grams 03/12/22 polysaccharide iron complex 150 mg iron capsule (Ferrex) 150 mg PO DAILY #0 caps 03/12/22 potassium chloride 20 mEq tablet,extended release(part/cryst) (Klor-Con M) 20 meq PO BIDCM #0 tabs 03/12/22 sodium chloride 0.9 % (flush) (BD PosiFlush Normal Saline 0.9) 10 - 40 ml IV UD PRN Multilumen/Gee Flush #0 mL 03/12/22 sodium chloride 0.9 % (flush) (BD PosiFlush Normal Saline 0.9) 10 - 40 ml IV UD PRN Saline Flush #0 mL 03/12/22 sodium chloride 0.9 % (flush) (Normal Saline Flush) 10 - 40 ml IV UD PRN Port access or dressing change #0 mL 03/12/22 cephalexin 500 mg capsule 500 mg PO TID #90 caps 03/21/22 insulin detemir U-100 100 unit/mL subcutaneous solution (Levemir U-100 Insulin) 10 unit (0.1 mL) subcut QHS Diabetes 30 days #3 mL 03/21/22 oxycodone 5 mg tablet 5 mg PO Q6H PRN PRN Pain Score 6-10 3 days #12 tabs 03/21/22 Hospital Course Operations - (Explant bladder stimulator, I+D left buttock ulcer.) Procedures None Summary of Care Provided Minutes Spent on Discharge: 35 Hospital Course: ?56 year old female with below past medical history hospitalized for osteomyelitis right hip Group B strep bacteremia, underwent surgical debridement, antibiotic implant, right hip hemiarthroplasty 02/09/2022, admitted to TCU with debility, here for rehabilitation, strengthening, intravenous antibiotic, prior to discharge home with significant other. 03/12/2022 Dr. Linares performed explant interstim lead and battery. 03/12/2022 Dr. Duran performed incisional and excisional debridement of left buttock ulcer. Dr. Haile recommends Keflex 500mg tid chcf. Discharge home with significant other 03/27/2022, [facility] PT/OT/SN/CHAPIN/SW. Medical Records Data Medical Nutrition Assessment Dietitian: Malnutrition Criteria Met Start: 03/07/22 15:10 Freq: Status: Active Protocol: Document 03/14/22 15:09 [facility] (Rec: 03/14/22 15:09 [facility] [id number]) Nutrition Malnutrition Evidence of Malnutrition Exists Yes Malnutrition (moderate): Acute Illness/Injury Evidenced By Suboptimal Energy Intake ( Moderate),Weight Loss (Severe) Intake Problem Increased Nutrient Needs (specify) Etiology PROTEIN r/t skin breakdown Signs/Symptoms as evidenced by deep tissue injury lindsay heels, L buttock PI , R foot DM ulcer, L hip surgical incision and need for surgery consult and wound nurse Status Active Problem Clinical Problem Acute Disease or Injury Related Malnutrition Etiology related to inadequate oral intake Signs/Symptoms as evidenced by 4.9% wt loss and ~50% intake at most meals x <5 days. Res appears to have wt loss in face since adm . Status Active Problem Altered Nutrient-Related Laboratory Values Etiology related to hx of diabetes Signs/Symptoms as evidenced by 02/07/22 A1c 9. 1 and res self report of gluc readings at home ~300-500s and res with no interest in making dietary changes to help w/ glycemic control Status Active Problem Recommendation Dietitian Recommendations/Changes Will change diet to liberal Regular w/ kerry CIB and 1 scoop beneprotein w/ B, chocolate ensure pudding w/ L and banana w/ peanut butter w/ D for increased protein if consumed. Weight / BMI Weight Weight: 71.866 kg Body Mass Index (BMI) 25.8 ABG / Lab / Microbiology Data Result Diagrams: 03/21/22 06:50 03/21/22 06:50 Laboratory: Laboratory Results - last 24 hr 03/20/22 16:22: POC Glucose 108 H 03/20/22 21:09: POC Glucose 177 H 03/21/22 06:04: POC Glucose 123 H 03/21/22 06:50: WBC 6.6, RBC 2.67 L, Hgb 7.5 L, Hct 23.4 L, MCV 87.6, MCH 28.1, MCHC 32.1, RDW Std Deviation 47.1 H, RDW Coeff of Gabriela 14.6, Plt Count 248, MPV 9.1, Immature Gran % (Auto) 3.500 H, Neut % (Auto) 63.8, Lymph % (Auto) 22.0, Whitfield % (Auto) 7.5, Eos % (Auto) 2.9, Baso % (Auto) 0.3, Absolute Neuts (auto) 4.2, Absolute Lymphs (auto) 1.46, Nucleated RBC % 0, ESR 17 03/21/22 06:50: Sodium 145, Potassium 3.2 L, Chloride 113 H, Carbon Dioxide 26.0, Anion Gap 6, BUN 9, Creatinine 0.99, Estim Creat Clear Calc 58.69, Est GFR (MDRD) Af Amer 74, Est GFR (MDRD) Non-Af 61, BUN/Creatinine Ratio 9.1 L, Glucose 121 H, Calcium 8.0 L, Total Bilirubin 0.20, AST 7 L, ALT < 6 L, Alkaline Phosphatase 69, C-React Prot Ext Range 15.50 H, Total Protein 5.7 L, Albumin 2.0 L, Globulin 3.7, Albumin/Globulin Ratio 0.5 L 03/21/22 10:54: POC Glucose 121 H Microbiology: Microbiology 03/19/22 05:10 Nasal Secretion SARS-CoV-2 Antigen (Rapid) - Final 03/12/22 17:32 Nasal Secretion SARS-CoV-2 Antigen (Rapid) - Final 03/05/22 11:09 Nasal Secretion SARS-CoV-2 Antigen (Rapid) - Final 02/27/22 14:30 Nasal Secretion SARS-CoV-2 Antigen (Rapid) - Final D/C Instructions Discharge Diet: Carb Control Diet Discharge Activity: Return to Normal Activity, May Shower and Use Walker Weight Bearing Status: Weight bearing as tolerated Additional Activity Instructions: Please work to offload pressure to the left buttocks region Call your doctor if your incision/area has: Continuous Slow Oozing, Sudden Increased Bleeding, Increased Redness and Foul Smelling Discharge Call your doctor if you observe: Fever of 101 or Higher, Inability to urinate, Inability to have a bowel movement, Shortness of breath, Dizziness, Fainting spells, Swelling in the ankles, Chest pain and Uncontrolled pain Additional Instructions: Discharge home with significant other 03/27/2022, [facility] PT/OT/SN/CHAPIN/SW. Please Follow Up With: Blas Haile MD When: 4 weeks. Meaningful Use Info Meaningful Use Diagnoses (Choose all that apply): None applicable Discharge Plan Admission Admit Date/Time: 02/27/22 10:15 Primary Reason for Your Visit: Debridement of left decubitus buttock ulcer, debility. Attending Provider: Roscoe Louis Chi Primary Care Provider: Kim Salas NP Consulting Providers: Blas Haile ; Pari Ramírez ; Maricruz Linares Instructions Additional Instructions / Restrictions: Discharge home with significant other 03/27/2022, [facility] PT/OT/SN/CHAPIN/SW. Discharge Orders/Prescriptions Prescriptions: New acetaminophen 500 mg Tablet 1,000 mg PO Q6H PRN PRN (Reason: Pain Score 1-5) Qty: 0 0RF bisacodyl 10 mg Suppository 10 mg PA DAILY PRN (Reason: Constipation) Qty: 0 0RF sodium chloride 0.9 % (flush) [BD PosiFlush Normal Saline 0.9] Syringe 10 - 40 ml IV UD PRN (Reason: Multilumen/Gee Flush) Qty: 0 0RF sodium chloride 0.9 % (flush) [BD PosiFlush Normal Saline 0.9] Syringe 10 - 40 ml IV UD PRN (Reason: Saline Flush) Qty: 0 0RF sodium chloride 0.9 % (flush) [Normal Saline Flush] Syringe 10 - 40 ml IV UD PRN (Reason: Port access or dressing change) Qty: 0 0RF potassium chloride [Klor-Con M20] 20 mEq Tablet,Er Particles/Crystals 20 meq PO BIDCM Qty: 0 0RF nystatin [Nyamyc] 100,000 unit/gram Powder 1 applic topical TID Qty: 0 0RF Protocol: *Topical Application Instructions APPLICATION INSTRUCTIONS: Apply Affected area loperamide 2 mg Capsule 2 mg PO Q4H PRN PRN (Reason: Diarrhea) Qty: 0 0RF polysaccharide iron complex [Ferrex 150] 150 mg iron Capsule 150 mg PO DAILY Qty: 0 0RF menthol-zinc oxide [Calmoseptine] 0.44-20.6 % Ointment 1 applic topical BID Qty: 0 0RF Protocol: *Topical Application Instructions APPLICATION INSTRUCTIONS: Apply to lower buttock GlucaGen Diagnostic Kit 1 mg/mL Recon Soln 1 mg IM PRN PRN (Reason: Hypoglycemia) Qty: 0 0RF Ahsan (with collagen) 7-7-1.5 gram Powder In Packet 1 packet PO BIDCM Qty: 0 0RF cephalexin 500 mg capsule 500 mg PO TID Qty: 90 0RF Continued albuterol sulfate [ProAir HFA] 1 PUFF inhaler 2 puff Q4H PRN PRN (Reason: Sob &/Or Wheezing) Label Comments: INHALE 2 PUFFS INSTRUCTED EVERY 4 HOURS NEEDED. metformin 500 MG tablet 1,000 mg PO DAILY Hold Instructions: Hold for 1 week until creatinine clearance is persistently more than 30 mill per minute Label Comments: TAKE 1 TABLET BY MOUTH TWICE DAILY WITH MEALS. hydroxyzine HCl 25 mg Tablet 25 mg PO QHS trazodone 50 mg Tablet 50 mg PO QHS PRN (Reason: Insomnia) Qty: 0 0RF pantoprazole [Protonix] 40 mg Tablet,Delayed Release (Dr/Ec) 40 mg PO DAILY aripiprazole 5 mg Tablet 5 mg PO QHS sertraline 100 mg tablet 100 mg PO DAILY hydralazine 25 MG tablet 25 mg PO DAILY pregabalin [Lyrica] 100 MG capsule 100 mg PO DAILY Label Comments: TAKE ONE CAPSULE BY MOUTH EVERY DAY psyllium husk [Fiber (psyllium husk)] 0.4 gram capsule 0.4 g PO BID Rx Instructions: Hold for diarrhea prazosin 2 mg Capsule 2 mg PO QHS oxycodone 5 mg Tablet 5 mg PO Q6H PRN PRN (Reason: Pain Score 6-10) 3 Days Qty: 12 0RF Changed Levemir U-100 Insulin 100 unit/mL Solution 10 unit SUBCUT QHS 30 Days Qty: 3 0RF Discontinued sennosides-docusate sodium [Stool Softener-Stimulant Laxat] 8.6-50 mg tablet 2 tab PO BID insulin lispro [Humalog KwikPen Insulin] 100 unit/mL insulin pen 30 unit subcut ACHS Protocol: 5. Sliding Scale Insulin High Dosing Condition: 150-209 mg/dl = 3 units Condition: 210-259 mg/dl = 6 units Condition: 260-324 mg/dl = 9 units Condition: 325-374 mg/dl = 12 units Condition: 375-409 mg/dl = 14 units Condition: 410-449 mg/dl = 16 units Condition: Greater than 449 call physician Protocol Text: - Use for Total Daily Dose of Insulin 81-120 units - Very insulin resistant or septic patients HIGH DOSING ALGORITHM Levemir FlexTouch U-100 Insuln 100 UNITS/ML insulin pen 20 unit subcut QHS Label Comments: INJECT 50 UNITS SUBCUTANEOUSLY DAILY AT BEDTIME. Rx Instructions: Hold if glucose less than 130 mg/dl insulin lispro [Humalog Dameon KwikPen U-100] 100 unit/mL insulin pen, half- unit 30 unit SUBCUT TID Rx Instructions: Hold if glucose less than 130 mg/dl cefazolin 2 gram Recon Soln 2 g IV Q8H Referrals / Follow Up: Kim Salas NP, [employer]NER OPERATOR-C [Primary Care Provider] - Disposition Disposition (needs filled in before D/C Order can be placed): Home Health Service
[2022-03-21 15:54] VITALS: BP 125/60; PULSE 89; RESP 18; TEMP 36.8; O2SAT 94
[2022-03-21 16:05] LABS: Bedside Glucose 120 mg/dL (74-106)
[2022-03-21] MEDS: Menthol/Lanolin/Calamine/Znox 113 GM Tube 1 APPLIC TOPICAL (16:34)
--- NOTE | 2022-03-21 18:40 | PCA ---
[facility] offered to help patient with HS care. Stated that they have ADLs in the AM with therapy and they wish to wait until morning.
[2022-03-21 20:15] VITALS: PULSE 75; RESP 16; O2SAT 97
[2022-03-21] MEDS: traZODone 50 MG Tablet PO (20:41)
[2022-03-21] MEDS: ARIPiprazole 5 MG Tablet 2.5 MG PO (20:41)
[2022-03-21] MEDS: Prazosin HCl 1 MG Capsule 2 MG PO (20:42)
[2022-03-21] MEDS: hydrOXYzine PAM 25 MG Capsule PO (20:46)
[2022-03-21 20:47] VITALS: BP 138/66; PULSE 82
[2022-03-21 21:26] LABS: Bedside Glucose 182 mg/dL (74-106)
[2022-03-21] MEDS: Insulin Glargine-YFGN 100 UNIT/ML Pen 10 UNIT SC (21:59)
--- NOTE | 2022-03-21 23:55 | NURSING ---
Helped patient off bedpan around 193, noted wound vac dressing was hanging loose and urine had leaked onto exposed black foam. Wound vac dressing changed. Black foam removed, white foam left in place, wound irrigated with NS, filled wound with new black foam and covered with drape. Bridged foam over to left side, attached to suction, seal holding @150. Patient tolerated well. Discussed with patient importance of getting up to BSC/toilet as bedpan is causing issues with dressing staying intact.
[2022-03-22] MEDS: 0.9 % NaCl (Sterile) Posiflush 10 mL IV ×2 (04:49→21:52)
[2022-03-22] MEDS: Acetaminophen 500 MG Tablet 1000 MG PO ×2 (04:56→17:34)
[2022-03-22] MEDS: Pantoprazole Sodium 40 MG Tablet PO (04:56)
[2022-03-22] MEDS: oxyCODONE 5 MG Tablet PO ×4 (04:56→21:51)
[2022-03-22 04:57] VITALS: BP 150/73; PULSE 80
[2022-03-22] MEDS: hydrALAZINE 25 MG Tablet PO (04:57)
[2022-03-22] MEDS: Sertraline 100 MG Tablet PO (04:57)
[2022-03-22] MEDS: Senna/Docusate Sodium 1 Tablet 2 TABLET PO (04:57)
[2022-03-22] MEDS: Iron Polysaccharide Complex 150 MG CAPSULE PO (04:57)
[2022-03-22] MEDS: Nystatin Powder 15gm Bottle 1 APPLIC TOPICAL ×3 (04:58→21:52)
[2022-03-22] MEDS: Pregabalin 50 MG Capsule 100 MG PO (05:03)
[2022-03-22 06:35] LABS: Bedside Glucose 247 mg/dL (74-106)
[2022-03-22] MEDS: metFORMIN (XR) 500 MG Tablet 1000 MG PO (08:39)
[2022-03-22] MEDS: Loperamide 2 MG Capsule PO (09:39)
--- NOTE | 2022-03-22 10:28 | CASEMGMT ---
Addendum entered by Nan Satnley 03/23/22 11:02: [facility] cannot accept d/t staffing. [facility] can accept. Updated pt. Pt agreeable. Addendum entered by Nan Stanley 03/22/22 15:11: [facility] cannot accept. Updated pt. Pt agreed to have referrals sent to any HH agencies. SW referred to [facility] - out of network. Referred to [facility], [facility]. Original Note: Social Work Spoke with pt about [facility] not being in network and next [facility] preference. Pt requesting [facility]. Referral made. Will await outcome. ASHANTI TrevizoW
[2022-03-22 11:40] LABS: Bedside Glucose 110 mg/dL (74-106)
--- NOTE | 2022-03-22 12:50 | PCM.PN.SRG ---
Subjective Subjective Patient seen and examined during AM rounds. Her VAC was discontinued prior to my arrival to the room. Patient denies any discomfort, but does remark of ongoing numbness to the inner aspect of her left lower extremity. She details this stating that she first noticed this numbness after her right hip surgery, but the sensation has been progressive. Objective Data Objective Data Vital Signs: Vital Signs Temp Pulse Resp BP Pulse Ox O2 Del Method 98.3 F 80 16 150/73 H 97 Room Air 03/21/22 15:54 03/22/22 04:57 03/21/22 20:15 03/22/22 04:57 03/21/22 20:15 03/22/22 08:50 Oxygen Delivery Method Room Air Weight: 158 lb 7 oz Body Mass Index (BMI) 25.8 Intake & Output: Intake and Output for Last 24 Hours 03/20/22 03/21/22 03/22/22 23:59 23:59 23:59 Intake Total 425.75 / 425.75 1120 / 1120 386 / 386 Balance 425.75 / 425.75 1120 / 1120 386 / 386 Medical Nutrition Assessment Dietitian: Malnutrition Criteria Met Start: 03/07/22 15:10 Freq: Status: Active Protocol: Document 03/21/22 16:20 [facility]LA (Rec: 03/21/22 16:20 [facility]LA [id number]) Nutrition Malnutrition Evidence of Malnutrition Exists No Malnutrition (moderate): Acute Illness/Injury Intake Problem Inadequate Oral Intake Etiology related to inability to consume adequate energy/ protein intake to meet est nutritional needs Signs/Symptoms as evidenced by 8.4% wt loss x ~ 6wks Status Active Problem Increased Nutrient Needs (specify) Etiology PROTEIN r/t skin breakdown Signs/Symptoms as evidenced by deep tissue injury lindsay heels, L buttock PI w/ wound vac, R foot DM ulcer , L hip surgical incision and need for surgery consult and wound nurse Status Active Problem Clinical Problem Acute Disease or Injury Related Malnutrition Status Inactive Problem Altered Nutrient-Related Laboratory Values Etiology related to hx of diabetes Signs/Symptoms as evidenced by 02/07/22 A1c 9. 1 and res self report of gluc readings at home ~300-500s and res with no interest in making dietary changes to help w/ glycemic control Status Active Problem Recommendation Dietitian Recommendations/Changes Will continue liberal Regular diet w/ hot chocolate made with milk, and 1 scoop beneprotein w/ B, chocolate pudding w/ L and banana w/ peanut butter w/ D for increased protein if consumed. Provide fortified foods at all meals. Monitor need for therapeutic diet (CHO restriction) once po intake consistently >75% and/ or if bld gluc >200. Lab / Micro Data Result Diagrams: 03/21/22 06:50 03/21/22 06:50 Labs: Laboratory Results - last 24 hr 03/21/22 15:44: POC Glucose 120 H 03/21/22 21:07: POC Glucose 182 H 03/22/22 05:58: POC Glucose 247 H 03/22/22 11:08: POC Glucose 110 H Micro: Microbiology 03/19/22 05:10 Nasal Secretion SARS-CoV-2 Antigen (Rapid) - Final 03/12/22 17:32 Nasal Secretion SARS-CoV-2 Antigen (Rapid) - Final 03/05/22 11:09 Nasal Secretion SARS-CoV-2 Antigen (Rapid) - Final 02/27/22 14:30 Nasal Secretion SARS-CoV-2 Antigen (Rapid) - Final Physical Exam Const oriented x3 Resp normal respiratory effort Back/Spine Back/Spine Narrative: Left buttock/ischial decubitus wound examined. There was some graying muscle and fat necrosis in the superior aspect of the wound. A excisional debridement of approximately 2 cm? devitalized muscle and fat was performed with a medium curette Assessment & Plan Assessment/Plan (1) Decubital ulcer: PLAN: 56-year-old female with decubitus ulcer of left buttock now postoperative from operative debridement on 03/12/2022. Overall the wound appears stable with some improvements in granulation inferior laterally and a minimal amount of muscle and fat necrosis superiorly. We will plan to continue negative pressure wound VAC therapy with sponge changes every other day. I will plan to reassess early next week. Patient's operative cultures show growth of Pseudomonas aeruginosa and Proteus. Infectious disease continues to follow and has transitioned antibiotics. Patient remains afebrile. Patient currently slated for TCU discharge early next week and home health arrangements have been made for VAC changes. I would also like to have the patient established with the wound care center so that she could be evaluated there weekly.
--- NOTE | 2022-03-22 13:41 | WOUNDNOTE ---
[facility] to get patient a follow up appt after discharge. the soonest they could get the patient in was 04/05/22 at 9am. will talk with nursing and be sure the appt date and time are on the discharge paperwork when patient is discharged home.
--- NOTE | 2022-03-22 14:05 | WOUNDNOTE ---
Bilateral heel pressure injuries are now nearly healed. 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 no signs of infection noted. no redness noted. patient has been keeping heels elevated up on pillows. will monitor closely.
--- NOTE | 2022-03-22 14:15 | RAD_ITS ---
STUDY: X-RAY - ABDOMEN/PELVIS REASON FOR EXAM: Female, 56 years old. 3 day history of diarrhea and abdominal pain. TECHNIQUE: Single AP view of the abdomen / pelvis. COMPARISON: Comparison is made with prior study of 03/02/2022. FINDINGS: Normal visualized lung bases. There is a moderate amount of colonic fecal material. An electrode is seen overlying the left upper hemipelvis. This may represent an InterStim device. Normal soft tissue structures. Status post right hip replacement. Joint space narrowing of the left hip joint. RAD/Abdomen Single View IMPRESSION: Moderate amount of fecal material is seen in the colon. Electronically Signed: Vidal Lopez MD at 15:13 EDT ,
--- NOTE | 2022-03-22 14:17 | NURSING ---
PT REPORTS LOOSE STOOLS AND STOMACH UPSET CONTINUED. STATES HAS HAD FOR SEVERAL DAYS, HAS BEEN RECEIVING IMMODIUM, KUB DONE IN RECENT PAST. DR LOTT NOTIFIED-NEW ORDER RECEIVED FOR KUB AND CHECK STOOL FOR C-DIFF
[2022-03-22] MEDS: Ondansetron ODT 4 MG Tablet 8 MG PO (14:20)
[2022-03-22 14:23] VITALS: BP 117/66; PULSE 84; RESP 16; TEMP 36.9; O2SAT 99
[2022-03-22 16:45] LABS: Bedside Glucose 124 mg/dL (74-106)
[2022-03-22] MEDS: Menthol/Lanolin/Calamine/Znox 113 GM Tube 1 APPLIC TOPICAL (17:30)
[2022-03-22 21:30] VITALS: BP 140/74; PULSE 88
--- NOTE | 2022-03-22 21:39 | NURSING ---
Patient reports scratching at left buttock, requested this nurse observe area, redness with small open area 0.5cm x 0.5cm x 0.1cm D observed, patient educated not to scratch at skin, patient states all right, no drainage observed, denies pain, no distress observed or reported, wound vac in place and functioning properly, patient admits to peeling wound vac drape edges, patient encouraged not to peel wound vac drape, verbalizes understanding, call light in reach.
[2022-03-22 21:50] LABS: Bedside Glucose 127 mg/dL (74-106)
[2022-03-22] MEDS: traZODone 50 MG Tablet PO (21:51)
[2022-03-22] MEDS: hydrOXYzine PAM 25 MG Capsule PO (22:00)
[2022-03-22] MEDS: Prazosin HCl 1 MG Capsule 2 MG PO (22:03)
[2022-03-22] MEDS: ARIPiprazole 5 MG Tablet 2.5 MG PO (22:03)
[2022-03-22] MEDS: Insulin Glargine-YFGN 100 UNIT/ML Pen 10 UNIT SC (22:05)
[2022-03-23] MEDS: 0.9 % NaCl (Sterile) Posiflush 10 mL IV ×4 (03:09→20:48)
[2022-03-23] MEDS: oxyCODONE 5 MG Tablet PO (03:17)
[2022-03-23] MEDS: Pregabalin 50 MG Capsule 100 MG PO (06:30)
[2022-03-23] MEDS: Acetaminophen 500 MG Tablet 1000 MG PO (06:30)
[2022-03-23 06:35] LABS: Bedside Glucose 110 mg/dL (74-106)
[2022-03-23 06:37] VITALS: BP 129/59; PULSE 90
[2022-03-23] MEDS: Sertraline 100 MG Tablet PO (06:37)
[2022-03-23] MEDS: Menthol/Lanolin/Calamine/Znox 113 GM Tube 1 APPLIC TOPICAL ×2 (06:37→17:43)
[2022-03-23] MEDS: Pantoprazole Sodium 40 MG Tablet PO (06:37)
[2022-03-23] MEDS: Iron Polysaccharide Complex 150 MG CAPSULE PO (06:37)
[2022-03-23] MEDS: hydrALAZINE 25 MG Tablet PO (06:37)
[2022-03-23] MEDS: Nystatin Powder 15gm Bottle 1 APPLIC TOPICAL ×3 (06:38→20:51)
[2022-03-23] MEDS: metFORMIN (XR) 500 MG Tablet 1000 MG PO (08:11)
--- NOTE | 2022-03-23 08:12 | NURSING ---
This nurse educated patient on the importance of taking potassium. Patient still refusing.
--- NOTE | 2022-03-23 08:54 | WOUNDNOTE ---
Wound VAC alarming leak. Nurse present in room stated it had just started alarming. Pt had been scratching at the drape and there is a loose area near the cleft. this was patches with VAC drape. good seal noted at 150mmHg low continuous suction.
--- NOTE | 2022-03-23 08:55 | WOUNDNOTE ---
Nursing aware wound VAC dressing needs to be changed tomorrow 03/24/22 and then will get on a -- schedule from there.
--- NOTE | 2022-03-23 09:20 | NURSING ---
This nurse spoke with Dr. Bridges about when to stop Zosyn and terminal makeup operator Keflex order. Zosyn to stop today and Keflex 500mg three times a day to start tomorrow.
--- NOTE | 2022-03-23 11:15 | NURSING ---
Addendum entered by Deborah Ortega 03/23/22 11:18: no new orders, pt will f/u with surgeon on 04/06/22 at 1am Original Note: Dr Duran here and aware of central line needing removed, will be removed on Saturday. pt discharging on Saturday. He also spoke with pt hip surgeon nurse in [place], Dr Casillas and they are aware of the fluid collection/abscess from CT that was sent.
[2022-03-23 11:20] LABS: Bedside Glucose 93 mg/dL (74-106)
--- NOTE | 2022-03-23 11:33 | PCM.PN.SRG ---
Subjective Subjective Patient seen and examined briefly this morning. She is found sitting up out of bed in a chair. I was asked to evaluate patient for possible discontinuation of her tunneled central line that had previously been used for antibiotics. Objective Data Objective Data Vital Signs: Vital Signs Temp Pulse Resp BP Pulse Ox O2 Del Method 98.5 F 90 16 129/59 H 99 Room Air 03/22/22 14:23 03/23/22 06:37 03/22/22 14:23 03/23/22 06:37 03/22/22 14:23 03/22/22 14:23 Oxygen Delivery Method Room Air Weight: 158 lb 7 oz Body Mass Index (BMI) 25.8 Intake & Output: Intake and Output for Last 24 Hours 03/21/22 03/22/22 03/23/22 23:59 23:59 23:59 Intake Total 1120 / 1120 556.00 / 556.00 290 / 290 Balance 1120 / 1120 556.00 / 556.00 290 / 290 Medical Nutrition Assessment Dietitian: Malnutrition Criteria Met Start: 03/07/22 15:10 Freq: Status: Active Protocol: Document 03/21/22 16:20 [facility] (Rec: 03/21/22 16:20 [facility] [id number]) Nutrition Malnutrition Evidence of Malnutrition Exists No Malnutrition (moderate): Acute Illness/Injury Intake Problem Inadequate Oral Intake Etiology related to inability to consume adequate energy/ protein intake to meet est nutritional needs Signs/Symptoms as evidenced by 8.4% wt loss x ~ 6wks Status Active Problem Increased Nutrient Needs (specify) Etiology PROTEIN r/t skin breakdown Signs/Symptoms as evidenced by deep tissue injury lindsay heels, L buttock PI w/ wound vac, R foot DM ulcer , L hip surgical incision and need for surgery consult and wound nurse Status Active Problem Clinical Problem Acute Disease or Injury Related Malnutrition Status Inactive Problem Altered Nutrient-Related Laboratory Values Etiology related to hx of diabetes Signs/Symptoms as evidenced by 02/07/22 A1c 9. 1 and res self report of gluc readings at home ~300-500s and res with no interest in making dietary changes to help w/ glycemic control Status Active Problem Recommendation Dietitian Recommendations/Changes Will continue liberal Regular diet w/ hot chocolate made with milk, and 1 scoop beneprotein w/ B, chocolate pudding w/ L and banana w/ peanut butter w/ D for increased protein if consumed. Provide fortified foods at all meals. Monitor need for therapeutic diet (CHO restriction) once po intake consistently >75% and/ or if bld gluc >200. Lab / Micro Data Result Diagrams: 03/21/22 06:50 03/21/22 06:50 Labs: Laboratory Results - last 24 hr 03/22/22 11:08: POC Glucose 110 H 03/22/22 16:15: POC Glucose 124 H 03/22/22 21:22: POC Glucose 127 H 03/23/22 06:15: POC Glucose 110 H 03/23/22 11:03: POC Glucose 93 Micro: Microbiology 03/19/22 05:10 Nasal Secretion SARS-CoV-2 Antigen (Rapid) - Final 03/12/22 17:32 Nasal Secretion SARS-CoV-2 Antigen (Rapid) - Final 03/05/22 11:09 Nasal Secretion SARS-CoV-2 Antigen (Rapid) - Final 02/27/22 14:30 Nasal Secretion SARS-CoV-2 Antigen (Rapid) - Final Radiography Diagnostic Testing: Radiology Impression KUB X-Ray 03/22/22 14:15 IMPRESSION: Moderate amount of fecal material is seen in the colon. Electronically Signed: Vidal Lopez MD at 15:13 EDT , Physical Exam Const oriented x3 Chest Chest Narrative: Patient with tunneled right internal jugular PICC line. No signs of inflammation or infection about the line. Resp normal respiratory effort Back/Spine Back/Spine Narrative: Her wound VAC is in place with minimal leak for the VAC seal. There is drainage of thin serous fluid. Assessment & Plan Assessment/Plan (1) Decubital ulcer: PLAN: 56-year-old female with decubitus ulcer of left buttock now postoperative from operative debridement on 03/12/2022. Wound currently with wound VAC in place and excellent seal per seal check on the machine. There is a moderate amount of serous drainage from the wound. We will plan to reassess the wound early next week. Patient currently slated for TCU discharge early next week and home health arrangements have been made for VAC changes. I would also like to have the patient established with the wound care center so that she could be evaluated there weekly. (2) Encounter for central line care: PLAN: Patient with a right, tunneled internal jugular PICC line in place for prolonged IV antibiotic therapy. According to infectious disease, patient's course of IV antibiotic therapy is now complete. However, in discussions with TCU nursing there is no alternative IV access at this time. Further, given that the patient does not have any apparent risk factors for a complicated removal, I would advocate for an outpatient procedure to remove this line. This impression has been communicated Dr. Louis, who agrees to request outpatient follow-up once patient is discharged from TCU. (3) Fluid collection at surgical site: PLAN: Patient with fluid noted around her right hip prosthesis on CT imaging performed 03/06/2022 to evaluate patient's decubitus ulcer. Both TCU nursing and myself have now spoken to patient's orthopedic surgeons office to relate this update. A follow-up appointment was made today for Ms. Santiago on 04/06/2022.
--- NOTE | 2022-03-23 12:39 | NURSING ---
Attempted to collect stool sample, but stool was contaminated with urine. This nurse put hat in bedside commode and educated the patient on the need to get only the stool. Patient understands and will let us know when she has another bowel movement.
[2022-03-23 16:00] VITALS: BP 136/58; PULSE 98; RESP 18; TEMP 36.7; O2SAT 97
[2022-03-23 16:11] LABS: Bedside Glucose 136 mg/dL (74-106)
[2022-03-23] MEDS: traZODone 50 MG Tablet PO (20:50)
[2022-03-23] MEDS: Insulin Glargine-YFGN 100 UNIT/ML Pen 10 UNIT SC (20:58)
[2022-03-23] MEDS: ARIPiprazole 5 MG Tablet 2.5 MG PO (21:03)
[2022-03-23] MEDS: Prazosin HCl 1 MG Capsule 2 MG PO (21:04)
[2022-03-23] MEDS: hydrOXYzine PAM 25 MG Capsule PO (21:04)
[2022-03-23 21:23] VITALS: PULSE 90; RESP 16; O2SAT 99
[2022-03-23 21:25] LABS: Bedside Glucose 129 mg/dL (74-106)
[2022-03-24] MEDS: 0.9 % NaCl (Sterile) Posiflush 10 mL IV (01:55)
[2022-03-24] MEDS: oxyCODONE 5 MG Tablet PO ×3 (01:56→22:07)
[2022-03-24] MEDS: Pantoprazole Sodium 40 MG Tablet PO (05:42)
[2022-03-24] MEDS: Cephalexin 500 MG Capsule PO ×3 (05:42→22:09)
[2022-03-24] MEDS: Pregabalin 50 MG Capsule 100 MG PO (05:42)
[2022-03-24] MEDS: Sertraline 100 MG Tablet PO (05:42)
[2022-03-24] MEDS: Iron Polysaccharide Complex 150 MG CAPSULE PO (05:42)
[2022-03-24] MEDS: Nystatin Powder 15gm Bottle 1 APPLIC TOPICAL ×3 (05:43→22:10)
[2022-03-24] MEDS: Menthol/Lanolin/Calamine/Znox 113 GM Tube 1 APPLIC TOPICAL ×2 (05:43→17:29)
[2022-03-24 05:44] VITALS: BP 145/68; PULSE 92
[2022-03-24] MEDS: hydrALAZINE 25 MG Tablet PO (05:44)
[2022-03-24] MEDS: Acetaminophen 500 MG Tablet 1000 MG PO ×2 (05:47→22:08)
[2022-03-24 06:31] LABS: Bedside Glucose 114 mg/dL (74-106)
[2022-03-24] MEDS: metFORMIN (XR) 500 MG Tablet 1000 MG PO (09:34)
[2022-03-24] MEDS: Loperamide 2 MG Capsule PO (09:35)
[2022-03-24 11:21] LABS: Bedside Glucose 120 mg/dL (74-106)
[2022-03-24 15:19] VITALS: BP 130/61; PULSE 95; RESP 18; TEMP 36.7; O2SAT 97
[2022-03-24 16:30] LABS: Bedside Glucose 128 mg/dL (74-106)
[2022-03-24 21:55] LABS: Bedside Glucose 148 mg/dL (74-106)
[2022-03-24 22:07] VITALS: BP 145/63; PULSE 84
[2022-03-24] MEDS: traZODone 50 MG Tablet PO (22:08)
[2022-03-24] MEDS: Prazosin HCl 1 MG Capsule 2 MG PO (22:08)
[2022-03-24] MEDS: ARIPiprazole 5 MG Tablet 2.5 MG PO (22:09)
[2022-03-24] MEDS: hydrOXYzine PAM 25 MG Capsule PO (22:10)
[2022-03-24] MEDS: Insulin Glargine-YFGN 100 UNIT/ML Pen 10 UNIT SC (22:11)
[2022-03-25 06:20] VITALS: BP 148/66; PULSE 74
[2022-03-25] MEDS: oxyCODONE 5 MG Tablet PO ×3 (06:21→22:44)
[2022-03-25 06:22] VITALS: PULSE 74
[2022-03-25] MEDS: Pregabalin 50 MG Capsule 100 MG PO (06:22)
[2022-03-25] MEDS: Iron Polysaccharide Complex 150 MG CAPSULE PO (06:22)
[2022-03-25] MEDS: Sertraline 100 MG Tablet PO (06:22)
[2022-03-25] MEDS: hydrALAZINE 25 MG Tablet PO (06:22)
[2022-03-25] MEDS: Pantoprazole Sodium 40 MG Tablet PO (06:23)
[2022-03-25] MEDS: Cephalexin 500 MG Capsule PO ×3 (06:23→22:50)
[2022-03-25] MEDS: Acetaminophen 500 MG Tablet 1000 MG PO ×2 (06:23→22:48)
[2022-03-25] MEDS: Nystatin Powder 15gm Bottle 1 APPLIC TOPICAL ×2 (06:24→13:45)
[2022-03-25] MEDS: 0.9 % NaCl (Sterile) Posiflush 10 mL IV ×2 (06:26→22:53)
[2022-03-25 06:30] LABS: Bedside Glucose 134 mg/dL (74-106)
[2022-03-25] MEDS: metFORMIN (XR) 500 MG Tablet 1000 MG PO (08:29)
[2022-03-25 11:26] LABS: Bedside Glucose 149 mg/dL (74-106)
[2022-03-25 15:03] VITALS: BP 127/66; PULSE 81; RESP 14; TEMP 37; O2SAT 95
[2022-03-25 16:20] LABS: Bedside Glucose 151 mg/dL (74-106)
[2022-03-25] MEDS: Menthol/Lanolin/Calamine/Znox 113 GM Tube 1 APPLIC TOPICAL (17:31)
[2022-03-25 21:26] LABS: Bedside Glucose 202 mg/dL (74-106)
[2022-03-25 22:39] VITALS: BP 152/52; PULSE 89
[2022-03-25 22:40] VITALS: PULSE 78; RESP 15; O2SAT 94
[2022-03-25] MEDS: traZODone 50 MG Tablet PO (22:48)
[2022-03-25] MEDS: Prazosin HCl 1 MG Capsule 2 MG PO (22:49)
[2022-03-25] MEDS: hydrOXYzine PAM 25 MG Capsule PO (22:50)
[2022-03-25] MEDS: ARIPiprazole 5 MG Tablet 2.5 MG PO (22:51)
[2022-03-25] MEDS: Insulin Glargine-YFGN 100 UNIT/ML Pen 10 UNIT SC (22:54)
[2022-03-26] MEDS: Acetaminophen 500 MG Tablet 1000 MG PO ×2 (05:51→16:22)
[2022-03-26] MEDS: Sertraline 100 MG Tablet PO (05:51)
[2022-03-26] MEDS: oxyCODONE 5 MG Tablet PO ×3 (05:52→22:11)
[2022-03-26] MEDS: Pantoprazole Sodium 40 MG Tablet PO (05:52)
[2022-03-26] MEDS: Iron Polysaccharide Complex 150 MG CAPSULE PO (05:52)
[2022-03-26] MEDS: Pregabalin 50 MG Capsule 100 MG PO (05:52)
[2022-03-26] MEDS: Cephalexin 500 MG Capsule PO ×3 (05:52→22:12)
[2022-03-26 05:53] VITALS: BP 147/71; PULSE 81
[2022-03-26] MEDS: hydrALAZINE 25 MG Tablet PO (05:53)
[2022-03-26] MEDS: Nystatin Powder 15gm Bottle 1 APPLIC TOPICAL ×3 (05:54→22:13)
[2022-03-26 06:46] LABS: Bedside Glucose 175 mg/dL (74-106)
[2022-03-26] MEDS: metFORMIN (XR) 500 MG Tablet 1000 MG PO (08:33)
[2022-03-26] MEDS: Potassium Chloride Oral Soln 20 MEQ/15 ML UDC 10 MEQ PO ×2 (08:33→16:18)
[2022-03-26] MEDS: Furosemide 40 MG Tablet PO (10:24)
[2022-03-26 11:10] LABS: Bedside Glucose 136 mg/dL (74-106)
[2022-03-26 13:00] VITALS: PULSE 98; RESP 16; O2SAT 95
--- NOTE | 2022-03-26 13:15 | PCM.PN.SRG ---
Subjective Subjective Patient seen and examined during AM rounds. She denies any acute complaints. She is eager to be discharged home. Objective Data Objective Data Vital Signs: Vital Signs Temp Pulse Resp BP Pulse Ox O2 Del Method 98.6 F 81 15 147/71 H 94 Room Air 03/25/22 15:03 03/26/22 05:53 03/25/22 22:40 03/26/22 05:53 03/25/22 22:40 03/25/22 22:40 Oxygen Delivery Method Room Air Weight: 158 lb 7 oz Body Mass Index (BMI) 25.8 Intake & Output: Intake and Output for Last 24 Hours 03/24/22 03/25/22 03/26/22 23:59 23:59 23:59 Intake Total 674 / 674 600 / 600 240 / 240 Balance 674 / 674 600 / 600 240 / 240 Medical Nutrition Assessment Dietitian: Malnutrition Criteria Met Start: 03/07/22 15:10 Freq: Status: Active Protocol: Document 03/21/22 16:20 [facility] (Rec: 03/21/22 16:20 [facility] [id number]) Nutrition Malnutrition Evidence of Malnutrition Exists No Malnutrition (moderate): Acute Illness/Injury Intake Problem Inadequate Oral Intake Etiology related to inability to consume adequate energy/ protein intake to meet est nutritional needs Signs/Symptoms as evidenced by 8.4% wt loss x ~ 6wks Status Active Problem Increased Nutrient Needs (specify) Etiology PROTEIN r/t skin breakdown Signs/Symptoms as evidenced by deep tissue injury lindsay heels, L buttock PI w/ wound vac, R foot DM ulcer , L hip surgical incision and need for surgery consult and wound nurse Status Active Problem Clinical Problem Acute Disease or Injury Related Malnutrition Status Inactive Problem Altered Nutrient-Related Laboratory Values Etiology related to hx of diabetes Signs/Symptoms as evidenced by 02/07/22 A1c 9. 1 and res self report of gluc readings at home ~300-500s and res with no interest in making dietary changes to help w/ glycemic control Status Active Problem Recommendation Dietitian Recommendations/Changes Will continue liberal Regular diet w/ hot chocolate made with milk, and 1 scoop beneprotein w/ B, chocolate pudding w/ L and banana w/ peanut butter w/ D for increased protein if consumed. Provide fortified foods at all meals. Monitor need for therapeutic diet (CHO restriction) once po intake consistently >75% and/ or if bld gluc >200. Lab / Micro Data Result Diagrams: 03/21/22 06:50 03/21/22 06:50 Labs: Laboratory Results - last 24 hr 03/25/22 15:58: POC Glucose 151 H 03/25/22 21:01: POC Glucose 202 H 03/26/22 06:28: POC Glucose 175 H 03/26/22 10:47: POC Glucose 136 H Micro: Microbiology 03/23/22 16:14 Stool C. difficile DNA Amplification - Final 03/19/22 05:10 Nasal Secretion SARS-CoV-2 Antigen (Rapid) - Final 03/12/22 17:32 Nasal Secretion SARS-CoV-2 Antigen (Rapid) - Final 03/05/22 11:09 Nasal Secretion SARS-CoV-2 Antigen (Rapid) - Final 02/27/22 14:30 Nasal Secretion SARS-CoV-2 Antigen (Rapid) - Final Physical Exam Const oriented x3 Resp normal respiratory effort Back/Spine Back/Spine Narrative: Left buttock/ischial decubitus wound examined. There was some fibrinous exudate along the wound bed, but the majority of the tissue appeared viable. Again, an excisional debridement of approximately 2 cm? devitalized muscle and fat was performed with a medium curette Assessment & Plan Assessment/Plan (1) Decubital ulcer: PLAN: 56-year-old female with decubitus ulcer of left buttock now postoperative from operative debridement on 03/12/2022. Wound currently with wound VAC in place and excellent seal per seal check on the machine. Actual wound was reassessed after the VAC dressing was taken down and it is overall well?appearing. There is a small amount of fibrinous exudate along the wound base and a very small area of necrotic muscle in the superior aspect that were curettaged before the VAC dressing was replaced. Patient due to be discharged from TCU later this week. Home health arrangements have already been made. Patient also has been referred to wound care center. I will plan to follow-up patient's wound as an outpatient at a joint appointment for discontinuation of her central line (see below). (2) Encounter for central line care: PLAN: Patient with a right, tunneled internal jugular PICC line in place for prolonged IV antibiotic therapy. According to infectious disease, patient's course of IV antibiotic therapy is now complete. However, in discussions with TCU nursing there is no alternative IV access at this time. Further, given that the patient does not have any apparent risk factors for a complicated removal, I would advocate for an outpatient procedure to remove this line. This impression has been communicated Dr. Louis, who agrees to request outpatient follow-up once patient is discharged from TCU. (3) Fluid collection at surgical site: PLAN: Patient with fluid noted around her right hip prosthesis on CT imaging performed 03/06/2022 to evaluate patient's decubitus ulcer. Both TCU nursing and myself have now spoken to patient's orthopedic surgeons office to relate this update. A follow-up appointment was made for Ms. Santiago on 04/06/2022. Charges/Coding Visit Charges Inpatient E&M: 82287 [facility] Subs L2
[2022-03-26 15:41] VITALS: BP 106/52; PULSE 98; RESP 16; TEMP 36.4; O2SAT 95
[2022-03-26 16:11] LABS: Bedside Glucose 136 mg/dL (74-106)
[2022-03-26] MEDS: Menthol/Lanolin/Calamine/Znox 113 GM Tube 1 APPLIC TOPICAL (16:19)
[2022-03-26 21:35] LABS: Bedside Glucose 145 mg/dL (74-106)
[2022-03-26] MEDS: ARIPiprazole 5 MG Tablet 2.5 MG PO (22:11)
[2022-03-26] MEDS: traZODone 50 MG Tablet PO (22:12)
[2022-03-26] MEDS: hydrOXYzine PAM 25 MG Capsule PO (22:12)
[2022-03-26] MEDS: Prazosin HCl 1 MG Capsule 2 MG PO (22:12)
[2022-03-26] MEDS: Insulin Glargine-YFGN 100 UNIT/ML Pen 10 UNIT SC (22:14)
[2022-03-26 22:20] VITALS: BP 139/70; PULSE 89
[2022-03-27] MEDS: oxyCODONE 5 MG Tablet PO ×2 (05:52→12:43)
[2022-03-27] MEDS: Acetaminophen 500 MG Tablet 1000 MG PO ×2 (05:52→12:42)
[2022-03-27 05:53] VITALS: BP 142/70; PULSE 86
[2022-03-27] MEDS: Pantoprazole Sodium 40 MG Tablet PO (05:53)
[2022-03-27] MEDS: 0.9 % NaCl (Sterile) Posiflush 10 mL IV (05:53)
[2022-03-27] MEDS: hydrALAZINE 25 MG Tablet PO (05:53)
[2022-03-27] MEDS: Iron Polysaccharide Complex 150 MG CAPSULE PO (05:53)
[2022-03-27] MEDS: Pregabalin 50 MG Capsule 100 MG PO (05:53)
[2022-03-27] MEDS: Sertraline 100 MG Tablet PO (05:53)
[2022-03-27] MEDS: Cephalexin 500 MG Capsule PO ×2 (05:53→13:23)
[2022-03-27] MEDS: Nystatin Powder 15gm Bottle 1 APPLIC TOPICAL ×2 (05:54→13:23)
[2022-03-27 06:30] LABS: Bedside Glucose 145 mg/dL (74-106)
[2022-03-27] MEDS: metFORMIN (XR) 500 MG Tablet 1000 MG PO (08:15)
[2022-03-27 10:00] VITALS: PULSE 78; RESP 14; O2SAT 95
--- NOTE | 2022-03-27 10:02 | PCM.PN.SRG ---
Subjective Subjective Patient seen and examined during AM rounds. She is resting comfortably in bed and denies any concerns. She states she is eager for discharge later today which she estimates will happen this afternoon. Objective Data Objective Data Vital Signs: Vital Signs Temp Pulse Resp BP Pulse Ox O2 Del Method 97.6 F L 86 16 142/70 H 95 Room Air 03/26/22 15:41 03/27/22 05:53 03/26/22 15:41 03/27/22 05:53 03/26/22 15:41 03/26/22 15:41 Oxygen Delivery Method Room Air Weight: 158 lb 7 oz Body Mass Index (BMI) 25.8 Intake & Output: Intake and Output for Last 24 Hours 03/25/22 03/26/22 03/27/22 23:59 23:59 23:59 Intake Total 600 / 600 480 / 480 240 / 240 Balance 600 / 600 480 / 480 240 / 240 Medical Nutrition Assessment Dietitian: Malnutrition Criteria Met Start: 03/07/22 15:10 Freq: Status: Active Protocol: Document 03/21/22 16:20 [facility] (Rec: 03/21/22 16:20 [facility] [id number]) Nutrition Malnutrition Evidence of Malnutrition Exists No Malnutrition (moderate): Acute Illness/Injury Intake Problem Inadequate Oral Intake Etiology related to inability to consume adequate energy/ protein intake to meet est nutritional needs Signs/Symptoms as evidenced by 8.4% wt loss x ~ 6wks Status Active Problem Increased Nutrient Needs (specify) Etiology PROTEIN r/t skin breakdown Signs/Symptoms as evidenced by deep tissue injury lindsay heels, L buttock PI w/ wound vac, R foot DM ulcer , L hip surgical incision and need for surgery consult and wound nurse Status Active Problem Clinical Problem Acute Disease or Injury Related Malnutrition Status Inactive Problem Altered Nutrient-Related Laboratory Values Etiology related to hx of diabetes Signs/Symptoms as evidenced by 02/07/22 A1c 9. 1 and res self report of gluc readings at home ~300-500s and res with no interest in making dietary changes to help w/ glycemic control Status Active Problem Recommendation Dietitian Recommendations/Changes Will continue liberal Regular diet w/ hot chocolate made with milk, and 1 scoop beneprotein w/ B, chocolate pudding w/ L and banana w/ peanut butter w/ D for increased protein if consumed. Provide fortified foods at all meals. Monitor need for therapeutic diet (CHO restriction) once po intake consistently >75% and/ or if bld gluc >200. Lab / Micro Data Result Diagrams: 03/21/22 06:50 03/21/22 06:50 Labs: Laboratory Results - last 24 hr 03/26/22 10:47: POC Glucose 136 H 03/26/22 15:50: POC Glucose 136 H 03/26/22 21:17: POC Glucose 145 H 03/27/22 06:11: POC Glucose 145 H Micro: Microbiology 03/26/22 12:45 Nasal Secretion SARS-CoV-2 Antigen (Rapid) - Final 03/23/22 16:14 Stool C. difficile DNA Amplification - Final 03/19/22 05:10 Nasal Secretion SARS-CoV-2 Antigen (Rapid) - Final 03/12/22 17:32 Nasal Secretion SARS-CoV-2 Antigen (Rapid) - Final 03/05/22 11:09 Nasal Secretion SARS-CoV-2 Antigen (Rapid) - Final 02/27/22 14:30 Nasal Secretion SARS-CoV-2 Antigen (Rapid) - Final Physical Exam Const oriented x3 Resp normal respiratory effort Back/Spine Back/Spine Narrative: Left buttock/ischial decubitus wound examined. Patient's wound VAC is in place with a visibly adequate seal and a seal check on the VAC confirms minimal air leak. Output is serosanguineous in the canister Assessment & Plan Assessment/Plan (1) Decubital ulcer: PLAN: 56-year-old female with decubitus ulcer of left buttock now postoperative from operative debridement on 03/12/2022. Wound currently with wound VAC in place and excellent seal per seal check on the machine. Patient advised on how to respond should the VAC alarm with an inadequate seal. We also confirmed an outpatient management plans. Patient denies any further questions. Patient due to be discharged from TCU later today. Home health arrangements have already been made. Patient also has been referred to wound care center. I will plan to follow-up patient's wound as an outpatient at a joint appointment for discontinuation of her central line (see below). (2) Encounter for central line care: PLAN: Patient with a right, tunneled internal jugular PICC line in place for prolonged IV antibiotic therapy. According to infectious disease, patient's course of IV antibiotic therapy is now complete. I will plan to remove this line during a outpatient clinic appointment later this week (currently scheduled for 03/29/2022) (3) Fluid collection at surgical site: PLAN: Patient with fluid noted around her right hip prosthesis on CT imaging performed 03/06/2022 to evaluate patient's decubitus ulcer. Both TCU nursing and myself have now spoken to patient's orthopedic surgeons office to relate this update. A follow-up appointment was made for Ms. Santiago on 04/06/2022. Charges/Coding Visit Charges Inpatient E&M: [address] [facility] Subs L1
--- NOTE | 2022-03-27 10:17 | PCM.PN.ID ---
Physical Exam Narrative Feeling ok, discharge planned, no fever, no n/v/d. Const alert and no apparent distress Resp normal air movement and clear to auscultation bilaterally Cardio regular rate and regular rhythm GI soft to palpation, non-tender and non-distended Skin Skin Narrative: wound vac in place ID ID: Route of nutrition/ use of supplements: [] Nutritional Intake: [] IV Site: [] [place] Catheter: [] Assessment & Plan Assessment/Plan (1) Bacteremia due to group B Streptococcus: (2) Osteomyelitis of right hip: PLAN: Now s/p 02/09/22 R hip hemiathroplasty at [facility]. Transferred here on cefazolin with stop date 03/23/22. Likely will need snf po abx after that point given presence of hardware. ID at [place] was Dr. Cheema. Now CT shows possible abscess, recommend contacting her ortho for review if not done already. Taken to OR 03/[address] Linares for bladder stimulator removal and by Dr. Duran for debridement of necrotic buttock ulcer. Bone was not involved. Surg cx with proteus, pseudomonas x2. Completed course of zosyn. On snf po keflex 500mg tid for at least one year. ID followup in 2 months. Ok for picc removal. Will follow
[2022-03-27 11:01] LABS: Bedside Glucose 113 mg/dL (74-106)
[2022-03-27 13:49] VITALS: BP 127/60; PULSE 97; RESP 18; TEMP 36.2; O2SAT 94
== END 2022-03-27 14:58 | disposition home health service (06) | DRG 501 ==
PROVIDERS: Internal Medicine Infectious Disease; Admitting Provider Family Medicine Geriatric Medicine; PCP Nurse Practitioner Family; Visit Provider Family Medicine Geriatric Medicine
DX: Z47.1 Aftercare following joint replacement surgery (principal); M00.851 Arthritis due to other bacteria, right hip; R78.81 Bacteremia; M86.651 Other chronic osteomyelitis, right thigh; L89.320 Pressure ulcer of left buttock, unstageable; E11.649 Type 2 diabetes mellitus with hypoglycemia without coma; L89.616 Pressure-induced deep tissue damage of right heel; E11.42 Type 2 diabetes mellitus with diabetic polyneuropathy; B35.4 Tinea corporis; L89.626 Pressure-induced deep tissue damage of left heel; E11.51 Type 2 diabetes mellitus with diabetic peripheral angiopathy without gangrene; Z79.4 Long term (current) use of insulin; E11.621 Type 2 diabetes mellitus with foot ulcer; L97.513 Non-pressure chronic ulcer of other part of right foot with necrosis of muscle; I10 Essential (primary) hypertension; J45.909 Unspecified asthma, uncomplicated; K21.9 Gastro-esophageal reflux disease without esophagitis; B95.1 Streptococcus, group B, as the cause of diseases classified elsewhere; F32.A Depression, unspecified; Z96.641 Presence of right artificial hip joint; Z79.899 Other long term (current) drug therapy; G47.00 Insomnia, unspecified; N39.41 Urge incontinence; Z23 Encounter for immunization; B96.5 Pseudomonas (aeruginosa) (mallei) (pseudomallei) as the cause of diseases classified elsewhere
CPT/HCPCS: 0064A; 36415; 74018; 80048; 80053; 80202; 82962; 85014; 85018; 85025; 85652; 86140; 86850; 86900; 86901; 86920; 86922; 87426; 87493; 87811; 91306; 92610; 97110; 97116; 97162; 97166; 97530; 97535; 97802; G0009; J7040; J7050; 90670; A4216; J1610; J7799

== ENCOUNTER → 2022-03-02 | Outpatient (CLI) | payer MEDICARE, MEDICAID, SELFPAY ==
[2022-03-02] VITALS (7 sets, daily range): BP systolic 105–138; BP diastolic 57–68; PULSE 92–104; RESP 14–16; TEMP 36.1–36.7; O2SAT 98–99
[2022-03-02] MEDS: 0.9% NaCl Peripheral Flush Adult/Peds IV ×3 (08:24→12:53)
[2022-03-02] MEDS: Furosemide 20 MG/2 ML VIAL IV (10:41)
== END | disposition home or self-care (01) ==
LOC: MEDOUTP 07:59
PROVIDERS: PCP Nurse Practitioner Family; Referring Provider Family Medicine Geriatric Medicine; Visit Provider Family Medicine Geriatric Medicine
DX: D64.89 Other specified anemias (principal)
CPT/HCPCS: 36430; 86850; 86900; 86901; 86920; 86922; J7030; P9016; A4216; J1940

== ENCOUNTER → 2022-03-06 | Outpatient (CLI) | payer MEDICARE, MEDICAID, SELFPAY ==
--- NOTE | 2022-03-06 13:52 | CT_ITS ---
STUDY: CT PELVIS WITHOUT CONTRAST REASON FOR EXAM: Female, 56 years old. ULCER EVAL RADIATION DOSAGE (If Supplied By Facility): CTDIvol = ( 13.98 ) mGy, DLP = ( 397.96 ) mGycm TECHNIQUE: Transaxial imaging of the pelvis was performed without oral contrast, and without intravenous administration of contrast material. Individualized dose optimization techniques were used for this CT. COMPARISON: None. FINDINGS: Normal urinary bladder. Normal visualized small intestine. Normal visualized colon. There is no pelvic fluid. There is no pelvic mass lesion or lymphadenopathy. Normal visualized pelvic arteries. Normal abdominal wall. Status post right hip hemiarthroplasty. 1 x 3 cm fluid collection with gas bubbles between the right tensor fascia mercy and the right vastus lateralis consistent with a postoperative fluid collection, possibly small abscess. CT/Pelvis without IV Contrast IMPRESSION: Status post right hip hemiarthroplasty with a small fluid collection between the right tensor fascial mercy and the right vastus lateralis, possibly an abscess. Electronically Signed: Rachid Guerrero MD at 15:45 EDT ,
== END | disposition home or self-care (01) ==
LOC: CT 13:52
PROVIDERS: PCP Nurse Practitioner Family; Referring Provider Family Medicine Geriatric Medicine; Visit Provider Family Medicine Geriatric Medicine
DX: L89.90 Pressure ulcer of unspecified site, unspecified stage (principal)
CPT/HCPCS: 72192

== ENCOUNTER 2022-03-12 12:13 | Day surgery (SDC) | payer MEDICARE, MEDICAID, SELFPAY ==
[2022-03-09 18:46] LABS: International Normalized Ratio 1.2; Prothrombin Time (Protime)PT. 15.1 SECONDS (11.7-14.9)
[2022-03-09 18:47] LABS: Partial Thromboplast Time 31.2 Seconds (24.1-36.2)
[2022-03-12] VITALS (10 sets, daily range): BP systolic 104–143; BP diastolic 45–70; PULSE 80–89; RESP 16; TEMP 36.6–37.1; O2SAT 95–98; BMI 24.5
[2022-03-12 12:46] LABS: Bedside Glucose 133 mg/dL (74-106)
--- NOTE | 2022-03-12 13:08 | OP.PCM_ITS ---
Report of Operation Date of Procedure: 03/12/22 Pre-Operative Diagnosis: Urge incontinence, nonfunctioning InterStim, decubitus ulceration Post-Operative Diagnosis: Same Surgery/Procedure Performed:: Explant InterStim lead and battery Description of Surgical Findings:: The abscess pocket was not involving the IPG pocket. Surgeon: Maricruz Linares Type of Anesthesia: MAC Description of Procedure: The patient is a 56-year-old female with an InterStim for the last 9 years that is nonfunctioning. She is currently getting Botox injections for management of her urge incontinence. She is struggling with a large decubitus ulceration which is adjacent to the battery and there is concern for necrosis in this area. Informed consent was obtained for removal of the InterStim and lead. Patient was taken to the operating room and placed in a prone position on the operating room table. She was appropriately secured to the table and padded in dependent areas. Anesthesia monitored the head, neck, airway, IV access and vital signs throughout the case. Once anesthesia was appropriate ministered, the patient was prepped and draped in usual sterile fashion. The area overlying the IPG and lead insertion site were infiltrated with local anesthetic. Incisions were made over each site and sharp dissection continued until the IPG was located and brought into the operative field. The lead was grasped with a hemostat and the lead was cut and the IPG was removed from the operative field. At this time the lead was grasped at the lead insertion site. Continuous traction was applied using hemostats and the lead frayed and the tines remained in situ. There was no evidence of infection at the site. Both pocket sites were irrigated. The de cision was made to close the site separately since there did not appear to be any connection to the decubitus wound. These were closed with 3-0 interrupted Vicryl followed by 4-0 subcuticular suturing with Steri-Strips and a separate OpSite was placed. The case was then turned over to Dr. Duran. No complications were observed. Complications None Admit VTE Documentation VTE Present on Admission: Yes VTE Mechan Device Prophylaxis: SCD's
--- NOTE | 2022-03-12 13:12 | PCM.HP.STD ---
HPI - General HPI Narrative NORAH CRAIG, is a 56 F who presents for surgical explant of an IPG and lead from an InterStim secondary to a severe decubitus ulceration in combination with general surgery. Informed consent was obtained. [facility] Medical History Anemia Asthma Delayed wound healing Depression Diabetes mellitus with diabetic polyneuropathy Easy bruising Fall Generalized weakness History of echocardiogram HTN (hypertension) Insulin dependent diabetes mellitus Localized edema Malnutrition Neuropathy Non-smoker Other specified peripheral vascular diseases Septic hip Ulcer of right foot with necrosis of muscle Urge incontinence Uses wheelchair Walker as ambulation aid Wears dentures Home Medications albuterol sulfate 90 mcg/actuation aerosol inhaler (ProAir HFA) 2 puff Q4H PRN PRN Sob &/Or Wheezing 01/28/18 [History Last Taken 02/02/22] metformin 500 mg tablet,extended release 24 hr 1,000 mg PO DAILY DM 01/28/18 [History Last Taken 02/02/22] hydroxyzine HCl 25 mg tablet 25 mg PO QHS allergies 01/02/22 [History Last Taken 02/02/22] oxycodone 5 mg tablet 5 mg PO Q6H PRN PRN Pain Score 6-10 2 days #7 tabs 01/07/22 [Rx Last Taken 02/02/22] trazodone 50 mg tablet 50 mg PO QHS PRN Insomnia #0 tabs 01/07/22 [Rx Last Taken 02/02/22] aripiprazole 5 mg tablet 5 mg PO QHS Check with primary doctor 02/27/22 [History Last Taken Unknown] cefazolin 2 gram solution for injection 2 g IV Q8H Antibiotic 02/27/22 [History Last Taken Unknown] hydralazine 25 mg tablet 25 mg PO DAILY BP 02/27/22 [History Last Taken Unknown] insulin detemir U-100 100 unit/mL (3 mL) subcutaneous pen (Levemir FlexTouch U-100 Insulin) 20 unit subcut QHS Diabetes 02/27/22 [History Last Taken Unknown] insulin detemir U-100 100 unit/mL subcutaneous solution (Levemir U-100 Insulin) 20 unit subcut QHS Diabetes 02/27/22 [History Last Taken Unknown] insulin lispro 100 unit/mL subcutaneous half-unit pen (Humalog Dameon KwikPen (U-100)) 30 unit subcut TID Diabetes 02/27/22 [History Last Taken Unknown] insulin lispro 100 unit/mL subcutaneous pen (Humalog KwikPen (U-100) Insulin) 30 unit subcut ACHS Diabetes 02/27/22 [History Last Taken Unknown] pantoprazole 40 mg tablet,delayed release (Protonix) 40 mg PO DAILY GERD 02/27/22 [History Last Taken Unknown] prazosin 2 mg capsule 2 mg PO QHS Bp 02/27/22 [History Last Taken Unknown] pregabalin 100 mg capsule (Lyrica) 100 mg PO DAILY Check with primary doctor 02/27/22 [History Last Taken Unknown] psyllium husk 0.4 gram capsule (Fiber (psyllium husk)) 0.4 g PO BID Supplement 02/27/22 [History Last Taken Unknown] sennosides 8.6 mg-docusate sodium 50 mg tablet (Stool Softener-Stimulant Laxative) 2 tab PO BID Constipation 02/27/22 [History Last Taken Unknown] sertraline 100 mg tablet 100 mg PO DAILY Mood 02/27/22 [History Last Taken Unknown] Allergy/AdvReac Type Severity Reaction Status Date / Time morphine AdvReac Vomiting Verified 03/12/22 12:32 Surgical History (Updated 03/09/22 @ 15:32 by Sophie Valente) History of bladder surgery History of hysterectomy History of right hip hemiarthroplasty History of surgery on lower extremity Social History household members: significant other Smoking Status: Never smoker alcohol intake: never substance use type: does not use ROS Constitutional Constitutional: Reports systems reviewed and no addt'l complaints, except as documented Eyes Eyes: Reports systems reviewed and no addt'l complaints, except as documented ENT HEENT: Reports systems reviewed and no addt'l complaints, except as documented Cardiovascular Cardiovascular: Reports systems reviewed and no addt'l complaints, except as documented Respiratory/Chest Respiratory/Chest: Reports systems reviewed and no addt'l complaints, except as documented Gastrointestinal Gastrointestinal: Reports systems reviewed and no addt'l complaints, except as documented Genitourinary Genitourinary: Reports urinary incontinence Musculoskeletal Musculoskeletal: Reports systems reviewed and no addt'l complaints, except as documented Integumentary Integumentary: Reports as per HPI Neurologic Neurologic: Reports systems reviewed and no addt'l complaints, except as documented Psychiatric Psychiatric: Reports systems reviewed and no addt'l complaints, except as documented Endocrine Endocrinology: Reports systems reviewed and no addt'l complaints, except as documented Hematologic/Lymphatic Hematologic/Lymphatic: Reports systems reviewed and no addt'l complaints, except as documented Allergic/Immunologic Allergic/Immunologic: Reports systems reviewed and no addt'l complaints, except as documented Vital Signs Vital Signs Vital Signs: 03/12/22 12:34 03/12/22 12:34 Temperature 98.0 F Temperature Source Temporal Pulse Rate 87 Respiratory Rate 16 Respiratory Pattern Normal Blood Pressure 136/70 H Blood Pressure Mean 92 Blood Pressure Source Monitor Blood Pressure Position Semi-Fowlers Blood Pressure Location Left Arm Pulse Ox 96 Oxygen Delivery Method Room Air Weight Weight: 68.946 kg Body Mass Index (BMI) 24.5 Physical Exam Const alert, oriented x3 and no apparent distress General Appearance: cooperative and comfortable HEENT normocephalic, head/scalp atraumatic, external ears normal and external nose normal Eyes General Eye: normal appearance of both eyes Neck supple General: trachea midline Lymph Lymphatic: no lymphedema noted Chest inspection of chest normal Resp normal respiratory effort, normal air movement, no retractions and no use of accessory muscles Effort and Inspection: able to speak in complete sentences Cardio regular rate GI soft to palpation and non-tender no CVA tenderness Narrative: The IPG pocket is adjacent to the dressing on her sacral decubitus ulcer. The pocket itself does not appear to be infected with no eschar, drainage or opening at this time. The InterStim lead is very thin to her skin and the lead insertion site and is palpable. These areas are not tender at the present time. Back/Spine no CVA tenderness Neuro oriented x3 Psych mental status grossly normal Results Lab / Micro Data Labs: Laboratory Results - last 24 hr 03/12/22 12:30: POC Glucose 133 H Assessment & Plan Assessment/Plan (1) Decubital ulcer: (2) Urge incontinence: PLAN: Plan Proceed with explant of InterStim IPG and lead. Informed consent has been obtained. I have spoken with the patient's urologist as well.
--- NOTE | 2022-03-12 13:30 | ABS_PTH ---
PATIENT: NORAH CRAIG [place] [facility] [place][id number] AGE/SX: 56/F ROOM: RE03/12/[address]: Dr. Toan Duran MD : [id number] BED: DIS: 03/12/2022 SPEC #: [id number] RECD: 03/12/22 15:33 STATUS: CHICHI REPaolo #: [id number] TERRELL: 03/12/22 13:[address]: Toan Duran DEPT: SURGICAL PATHOLOGY RECD BY: Whitney Velazquez ENTERED: 03/13/22 07:07 SP TYPE: Abscess OTHR DR: MD Kim Melendez, GUEST SPECIALIST-C Tissues: Sacral region Procedures: Surgery Specimen Level III Comments: @ Ordering doctor for SUIII edited from to @ by BLADE at 03/13/22 07 @ Submitting doctor edited from to @ by BLADE at 03/13/2207 HEADER OPERATION: Explant of bladder stimulator PRE-OP DIAGNOSIS: Decubital ulcer TISSUE SUBMITTED: Left sacral abscess tissue MICROSCOPIC DIAGNOSIS Left sacral abscess tissue: Fragments of adipose tissue with acute and chronic inflammation and abscess formation. PEPE:heather 03/14/2022 MICROSCOPIC DESCRIPTION Slides are reviewed. GROSS DESCRIPTION Received in fixative is one container labeled with the patient's name and designated left sacral abscess tissue. The specimen consists of three variable sized pieces of adipose tissue measuring in aggregate 3 x 3 x 2 cm. Sections do not reveal any mass lesion. Frickertron Checker sections are submitted in two cassettes. / PEPE:heather 03/13/2022 TC:2 CPT: 64722
[2022-03-12] MEDS: Cefazolin 2 GM in 0.9% Normal Saline 100 ML IV (13:40)
[2022-03-12] MEDS: Lidocaine 1% /Epi 1:100 (20ml) 20 ML Vial (14:30)
[2022-03-12] MEDS: DAKIN'S SOL HALF STRENGTH (=0.25%) 1 APPLIC TOPICAL (14:31)
--- NOTE | 2022-03-12 14:51 | PCM.OPRPT ---
Report of Operation Date of Procedure: 03/12/22 Pre-Operative Diagnosis: Unstageable decubitus ulcer of left buttock Post-Operative Diagnosis: Stage IV decubitus ulcer of left buttock Surgery/Procedure Performed:: Incision and excisional debridement of left buttock ulcer Description of Surgical Findings:: ? Eschar of left buttock sharply debrided back to bleeding subcutaneous and muscle tissue ? Final wound measurements: 8 cm wide X 6.5 cm tall X 2 cm deep. Significant areas of underminin:00?4 cm, 10:00?4.5 cm, 12:00?3.5 cm ? Purulence versus liquefactive necrosis of subcutaneous tissue along the superior aspect of the wound Surgeon: Toan Duran instructor tap dancing: Theresa Rhoades Type of Anesthesia: MAC/Supplemental Anesthesiologist: Jonathan Overton Specimen's removed: ? Swab for wound culture ? Tissue culture ? Tissue for permanent Estimated Blood Loss (mL): 25 Description of Procedure: After completion of Dr. Santana's explant of bladder stimulator (see separate documentation for these complete details) I performed an incision and excisional debridement of patient's decubitus ulcer. I began the procedure with a formal timeout to confirm my portion of the procedure and the patient. Then the ulcer area was infiltrated laterally with 20 mL 1% lidocaine plain. Using sharp dissection, the eschar portion of the wound was circumscribed. This was then deepened down to and through the subcutaneous layer with electrocautery. At the superior aspect of the patient's wound I found purulence versus liquefactive necrosis of the subcutaneous layer. This area was cultured and I proceeded with excisional debridement of all nonviable tissue back to bleeding subcutaneous tissue and, deeply, the fascia of the gluteus. Hemostasis was obtained as we went with the use of electrocautery. Specimens were sent for tissue culture and permanent section of the tissue. Final wound dimensions are given above. After confirming hemostasis, the wound was packed with Dakin soaked Kerlix gauze. An abdominal pad was applied for improved absorbency and this ensemble was taped into place. Patient was then gradually awoken from anesthesia and taken to PACU for ongoing recovery. Complications None Admit VTE Documentation VTE Present on Admission: Yes VTE Mechan Device Prophylaxis: SCD's Procedures Integumentary [id number]: 31214 Remove hip pressure sore
[2022-03-12 15:10] LABS: Bedside Glucose 175 mg/dL (74-106)
== END 2022-03-12 16:08 | disposition home or self-care (01) ==
LOC: SDC 12:14 → AC 12:14
PROVIDERS: Anesthesiology; Urology; PCP Nurse Practitioner Family; Referring Provider Surgery; Visit Provider Surgery
PROC: (CPT 64595; 2022-03-12 13:15)
DX: Z45.42 Encounter for adjustment and management of neurostimulator (principal); L89.324 Pressure ulcer of left buttock, stage 4; E11.51 Type 2 diabetes mellitus with diabetic peripheral angiopathy without gangrene; E11.42 Type 2 diabetes mellitus with diabetic polyneuropathy; Z79.4 Long term (current) use of insulin; J45.909 Unspecified asthma, uncomplicated; F32.A Depression, unspecified; I10 Essential (primary) hypertension; Z79.899 Other long term (current) drug therapy; N39.41 Urge incontinence
CPT/HCPCS: 64595; 64585; 11043; 00400; 82962; 85610; 85730; 87070; 87075; 87077; 87102; 87186; 87205; 87206; 88304; J7120; J2405

== ENCOUNTER → 2022-05-25 | Outpatient (CLI) | payer MEDICARE, MEDICAID, SELFPAY ==
[2022-05-25 12:22] LABS: Amphetamine Urine VISTA NEGATIVE (<1000 ng/mL); Barbiturate Urine VISTA NEGATIVE (< 200 ng/mL); Benzodiazepine Urine VISTA NEGATIVE (< 200 ng/mL); Cocaine Urine VISTA NEGATIVE (< 300 ng/mL); Ecstacy Urine VISTA POSITIVE (< 500 ng/mL); Methadone Urine VISTA NEGATIVE (< 300 ng/mL); PCP Urine VISTA NEGATIVE (< 25 ng/mL); THC Urine VISTA NEGATIVE (< 50 ng/mL); Vista UDS pH Range 5
== END | disposition home or self-care (01) ==
LOC: LAB 11:10
PROVIDERS: PCP Nurse Practitioner Family; Referring Provider Anesthesiology Pain Medicine; Visit Provider Anesthesiology Pain Medicine
DX: F11.20 Opioid dependence, uncomplicated (principal)
CPT/HCPCS: 80307

== ENCOUNTER 2022-07-01 14:16 | Emergency (ER) | payer MEDICAID, SELFPAY ==
[2022-07-01 14:17] VITALS: BP 165/71; PULSE 96; RESP 14; TEMP 36.3; O2SAT 100; BMI 23.8
[2022-07-01 14:59] VITALS: BP 165/71; PULSE 67; RESP 14; TEMP 36.3; O2SAT 100
--- NOTE | 2022-07-01 15:19 | EX.ED.DYSGE1 ---
HPI History of Present Illness Chief Complaint: Wound Informant: patient Onset/Context/Timing Onset: Days (3) Context: Gradual Onset Timing: Continuous Quality: Sharp, aching, burning Location: Left buttock Worsened by: Nothing Relieved by: Nothing Narrative Narrative: Patient presents with chronic wound to her left posterior buttock. Patient states that over the last 3 days she has started noticing some foul-smelling drainage. Patient states her pain has been increasing. Patient states that she follows with Dr. Duran for this. Patient states that he told her that if it starts to have any foul-smelling drainage that she needs to come to the emergency department immediately. Patient denies any fevers or chills. Patient denies any nausea or vomiting. [facility] Medical History Anemia Asthma Delayed wound healing Depression Diabetes mellitus with diabetic polyneuropathy Easy bruising Fall Generalized weakness History of echocardiogram HTN (hypertension) Insulin dependent diabetes mellitus Localized edema Malnutrition MRSA (methicillin resistant Staphylococcus aureus) Neuropathy Non-smoker Other specified peripheral vascular diseases Septic hip Ulcer of right foot with necrosis of muscle Urge incontinence Uses wheelchair Walker as ambulation aid Wears dentures Home Medications albuterol sulfate 90 mcg/actuation aerosol inhaler (ProAir HFA) 2 puff Q4H PRN PRN Sob &/Or Wheezing 01/28/18 [History Last Taken 02/02/22] metformin 500 mg tablet,extended release 24 hr 1,000 mg PO DAILY DM 01/28/18 [History Last Taken 02/02/22] hydroxyzine HCl 25 mg tablet 25 mg PO QHS allergies 01/02/22 [History Last Taken 02/02/22] trazodone 50 mg tablet 50 mg PO QHS PRN Insomnia #0 tabs 01/07/22 [Rx Last Taken 02/02/22] aripiprazole 5 mg tablet 5 mg PO QHS Check with primary doctor 02/27/22 [History Last Taken Unknown] hydralazine 25 mg tablet 25 mg PO DAILY BP 02/27/22 [History Last Taken Unknown] pantoprazole 40 mg tablet,delayed release (Protonix) 40 mg PO DAILY GERD 02/27/22 [History Last Taken Unknown] prazosin 2 mg capsule 2 mg PO QHS Bp 02/27/22 [History Last Taken Unknown] pregabalin 100 mg capsule (Lyrica) 100 mg PO DAILY Check with primary doctor 02/27/22 [History Last Taken Unknown] psyllium husk 0.4 gram capsule (Fiber (psyllium husk)) 0.4 g PO BID Supplement 02/27/22 [History Last Taken Unknown] sertraline 100 mg tablet 100 mg PO DAILY Mood 02/27/22 [History Last Taken Unknown] acetaminophen 500 mg tablet 1,000 mg PO Q6H PRN PRN Pain Score 1-5 #0 tabs 03/12/22 [Rx Last Taken Unknown] arginine 7 gram-glutam 7 gram-CaHMB 1.5 [id number] oral pwd pkt (Ahsan (with collagen)) 1 packet PO BIDCM #0 ea 03/12/22 [Rx Last Taken Unknown] bisacodyl 10 mg rectal suppository 10 mg NM DAILY PRN Constipation #0 ea 03/12/22 [Rx Last Taken Unknown] glucagon 1 mg/mL solution for injection (GlucaGen Diagnostic Kit) 1 mg IM PRN PRN Hypoglycemia #0 ea 03/12/22 [Rx Last Taken Unknown] loperamide 2 mg capsule 2 mg PO Q4H PRN PRN Diarrhea #0 caps 03/12/22 [Rx Last Taken Unknown] menthol 0.44 %-zinc oxide 20.6 % topical ointment (Calmoseptine) 1 applic topical BID #0 grams 03/12/22 [Rx Last Taken Unknown] nystatin 100,000 unit/gram topical powder (Nyamyc) 1 applic topical TID #0 grams 03/12/22 [Rx Last Taken Unknown] polysaccharide iron complex 150 mg iron capsule (Ferrex) 150 mg PO DAILY #0 caps 03/12/22 [Rx Last Taken Unknown] potassium chloride 20 mEq tablet,extended release(part/cryst) (Klor-Con M) 20 meq PO BIDCM #0 tabs 03/12/22 [Rx Last Taken Unknown] sodium chloride 0.9 % (flush) (BD PosiFlush Normal Saline 0.9 % injection syringe) 10 - 40 ml IV UD PRN Multilumen/Gee Flush #0 mL 03/12/22 [Rx Last Taken Unknown] sodium chloride 0.9 % (flush) (BD PosiFlush Normal Saline 0.9 % injection syringe) 10 - 40 ml IV UD PRN Saline Flush #0 mL 03/12/22 [Rx Last Taken Unknown] sodium chloride 0.9 % (flush) (Normal Saline Flush 0.9 % injection syringe) 10 - 40 ml IV UD PRN Port access or dressing change #0 mL 03/12/22 [Rx Last Taken Unknown] cephalexin 500 mg capsule 500 mg PO TID #90 caps 03/21/22 [Rx Last Taken Unknown] insulin detemir U-100 100 unit/mL subcutaneous solution (Levemir U-100 Insulin) 10 unit (0.1 mL) subcut QHS Diabetes 30 days #3 mL 03/21/22 [Rx Last Taken Unknown] oxycodone 5 mg tablet 5 mg PO Q6H PRN PRN Pain Score 6-10 3 days #12 tabs 03/21/22 [Rx Last Taken Unknown] cephalexin 500 mg capsule 500 mg PO Q6 #40 CAPSULES 07/01/22 [Rx Last Taken Unknown] Allergy/AdvReac Type Severity Reaction Status Date / Time morphine AdvReac Vomiting Verified 07/01/22 14:17 Surgical History History of bladder surgery History of hysterectomy History of right hip hemiarthroplasty History of surgery on lower extremity Social History household members: significant other Smoking Status: Never smoker alcohol intake: never substance use type: does not use ROS ROS ED Constitutional Constitutional ED: Denies chills or fever(s) Eyes Eyes: Denies blurry vision or change in vision ENT ENT ED: Denies rhinorrhea or sore throat Cardiovascular Cardiovascular: Denies chest pain or palpitations Respiratory/Chest Respiratory/Chest: Denies cough or dyspnea Gastrointestinal Gastrointestinal: Denies nausea or vomiting Genitourinary Genitourinary ED: Denies dysuria or hematuria Musculoskeletal Musculoskeletal: Denies back pain or neck pain Integumentary Denies abscess or rash Neurologic Neurologic: Denies headache(s) or weakness Allergic/Immunologic Allergic/Immunologic ED: Denies mouth swelling or urticaria EXAM Physical Exam Const Vital Signs: 07/01/22 14:17 07/01/22 14:59 Temperature 97.4 F L 97.4 F L Temperature Source Temporal Temporal Pulse Rate 96 67 Respiratory Rate 14 14 Blood Pressure 165/71 H 165/71 H Blood Pressure Mean 102 102 Pulse Ox 100 100 Oxygen Delivery Method Room Air Room Air Positive well nourished and well developed General Appearance ED: well developed and NAD HEENT Reports moist mucous membranes Neck supple and no JVD Neuro oriented x3, CN's II-XII intact bilaterally and no sensory deficits noted Sensorium / Orientation: alert Motor Exam: strength 5/5 throughout Psych mental status grossly normal Skin Skin Narrative: There is an open wound over the left gluteal area. It is approximately 3 cm in diameter. There is no surrounding erythema. There is no warmth. There is no purulent discharge or drainage noted. MDM MDM MDM Narrative Medical decision making narrative: Due to the patient's concern for infection, wound cultures will be obtained. Basic labs will be obtained. Patient will be given a dose of Ancef here. CBC shows a mild anemia with a hemoglobin of 8.9 and hematocrit 25.9. This was actually improved from previous result. Basic metabolic profile showed a BUN of 38 and creatinine of 1.55. These are consistent with prior results. Glucose was 226. Patient is feeling better on reevaluation. Patient was advised of her findings. Patient will be given a prescription for a short course of Keflex. Patient was instructed to follow-up with Dr. Duran in 3 to 5 days. Patient understood and was agreeable with the plan. All questions were answered. Lab Data Attestation: I reviewed the patient's lab results. Labs: Laboratory Results - last 24 hr 07/01/22 07/01/22 16:10 16:10 WBC 5.9 RBC 3.16 L Hgb 8.9 L Hct 25.9 L MCV 82.0 MCH 28.2 MCHC 34.4 RDW Std Deviation 42.3 RDW Coeff of Gabriela 14.4 Plt Count 282 MPV 9.2 Immature Gran % (Auto) 0.800 Neut % (Auto) 56.1 Lymph % (Auto) 32.0 Larimer % (Auto) 7.9 Eos % (Auto) 3.0 Baso % (Auto) 0.2 Absolute Neuts (auto) 3.3 Absolute Lymphs (auto) 1.90 Nucleated RBC % 0 Sodium 140 Potassium 4.0 Chloride 108 H Carbon Dioxide 24.0 Anion Gap 8 BUN 38 H Creatinine 1.55 H Estim Creat Clear Calc 34.16 Est GFR (MDRD) Af Amer 44 L Est GFR (MDRD) Non-Af 37 L BUN/Creatinine Ratio 24.5 H Glucose 226 H Calcium 8.5 Discharge Plan Triage Chief Complaint: Wound ED Provider: Martin Cárdenas Dx/Rx/DC Orders Clinical Impression: Decubital ulcer Instructions: ED Wound Care Prescriptions: New cephalexin [cephalexin] 500 mg capsule 500 mg PO Q6 Qty: 40 0RF No Action albuterol sulfate [ProAir HFA] 1 PUFF inhaler 2 puff Q4H PRN PRN (Reason: Sob &/Or Wheezing) Label Comments: INHALE 2 PUFFS INSTRUCTED EVERY 4 HOURS NEEDED. metformin 500 MG tablet 1,000 mg PO DAILY Hold Instructions: Hold for 1 week until creatinine clearance is persistently more than 30 mill per minute Label Comments: TAKE 1 TABLET BY MOUTH TWICE DAILY WITH MEALS. hydroxyzine HCl 25 mg Tablet 25 mg PO QHS trazodone 50 mg Tablet 50 mg PO QHS PRN (Reason: Insomnia) Qty: 0 0RF pantoprazole [Protonix] 40 mg Tablet,Delayed Release (Dr/Ec) 40 mg PO DAILY aripiprazole 5 mg Tablet 5 mg PO QHS sertraline 100 mg tablet 100 mg PO DAILY hydralazine 25 MG tablet 25 mg PO DAILY pregabalin [Lyrica] 100 MG capsule 100 mg PO DAILY Label Comments: TAKE ONE CAPSULE BY MOUTH EVERY DAY psyllium husk [Fiber (psyllium husk)] 0.4 gram capsule 0.4 g PO BID Rx Instructions: Hold for diarrhea prazosin 2 mg Capsule 2 mg PO QHS acetaminophen 500 mg Tablet 1,000 mg PO Q6H PRN PRN (Reason: Pain Score 1-5) Qty: 0 0RF bisacodyl 10 mg Suppository 10 mg NM DAILY PRN (Reason: Constipation) Qty: 0 0RF sodium chloride 0.9 % (flush) [BD PosiFlush Normal Saline 0.9] Syringe 10 - 40 ml IV UD PRN (Reason: Multilumen/Gee Flush) Qty: 0 0RF sodium chloride 0.9 % (flush) [BD PosiFlush Normal Saline 0.9] Syringe 10 - 40 ml IV UD PRN (Reason: Saline Flush) Qty: 0 0RF sodium chloride 0.9 % (flush) [Normal Saline Flush] Syringe 10 - 40 ml IV UD PRN (Reason: Port access or dressing change) Qty: 0 0RF potassium chloride [Klor-Con M20] 20 mEq Tablet,Er Particles/Crystals 20 meq PO BIDCM Qty: 0 0RF nystatin [Nyamyc] 100,000 unit/gram Powder 1 applic topical TID Qty: 0 0RF Protocol: *Topical Application Instructions APPLICATION INSTRUCTIONS: Apply Affected area loperamide 2 mg Capsule 2 mg PO Q4H PRN PRN (Reason: Diarrhea) Qty: 0 0RF polysaccharide iron complex [Ferrex 150] 150 mg iron Capsule 150 mg PO DAILY Qty: 0 0RF menthol-zinc oxide [Calmoseptine] 0.44-20.6 % Ointment 1 applic topical BID Qty: 0 0RF Protocol: *Topical Application Instructions APPLICATION INSTRUCTIONS: Apply to lower buttock GlucaGen Diagnostic Kit 1 mg/mL Recon Soln 1 mg IM PRN PRN (Reason: Hypoglycemia) Qty: 0 0RF Ahsan (with collagen) 7-7-1.5 gram Powder In Packet 1 packet PO BIDCM Qty: 0 0RF oxycodone 5 mg Tablet 5 mg PO Q6H PRN PRN (Reason: Pain Score 6-10) 3 Days Qty: 12 0RF Levemir U-100 Insulin 100 unit/mL Solution 10 unit SUBCUT QHS 30 Days Qty: 3 0RF cephalexin 500 mg capsule 500 mg PO TID Qty: 90 0RF Primary Care Provider: Kim Salas NP Referrals: Toan Duran MD [Med Staff - Active Staff] - 3-5 Days Kim Salas NP, FOOD SERVICE SUPERVISOR-C [Primary Care Provider] - Activity Restrictions/Additional Instructions: Call the wound care center tomorrow to schedule a follow-up appointment. Disposition Disposition: Home, Self Care
[2022-07-01] MEDS: Cefazolin 1 GM/50 ML BAG IV (16:12)
[2022-07-01 16:15] LABS: Absolute Neutrophil Count 3.3 X10^3/uL (2.0-7.7); Basophil# 0.01 X10^3/uL; Basophil% 0.2 % (0-1); Eosinophil# 0.18 X10^3/uL; Hematocrit 25.9 % (37-47); Hemoglobin 8.9 g/dL (12.0-15.0); Mean Corp Hgb Conc 34.4 g/dL (32-36); Mean Corpuscular Hgb 28.2 pg (27.0-32.0); Mean Platelet Vol. 9.2 fl (6.2-12.0); Monocyte# 0.47 X10^3/uL; Monocyte% 7.9 % (0-10); NRBC Flagged by Analyzer 0 % (0-5); Neutrophil # 3.33 X10^3/uL (2.7-7.7); Neutrophil % 56.1 % (47-70); Platelet Count 282 K/mm3 (150-450); RBC Distribution Width CV 14.4 % (11.6-14.6); RBC Distribution Width SD 42.3 fl (35.1-43.9); Red Blood Count 3.16 M/mm3 (4.2-5.4); White Blood Count 5.9 K/mm3 (4.4-11.0)
[2022-07-01 16:30] LABS: Anion Gap 8 (5-15); BUN 38 mg/dL (7-18); BUN/Creat Ratio 24.5 RATIO (10-20); Calcium,Total 8.5 mg/dL (8.5-10.1); Chloride 108 mmol/L (98-107); Creatinine, Serum 1.55 mg/dL (0.55-1.02); EST Glomerular Filtration Rate 37 mL/min (>60); Est Glom Filt Rate - Afr Amer 44 mL/min (>60); Estimated Creatinine Clearance 34.16 ml/min; Glucose 226 mg/dL (74-106); Sodium Level 140 mmol/L (136-145)
[2022-07-01 17:16] VITALS: BP 134/64; PULSE 78; RESP 16; TEMP 37.2; O2SAT 99
== END 2022-07-01 17:18 | disposition home or self-care (01) ==
PROVIDERS: Emergency Provider Emergency Medicine; PCP Nurse Practitioner Family; Visit Provider Emergency Medicine
DX: L89.329 Pressure ulcer of left buttock, unspecified stage (principal); E11.42 Type 2 diabetes mellitus with diabetic polyneuropathy; I10 Essential (primary) hypertension
CPT/HCPCS: 80048; 85025; 87070; 87077; 87186; 87205; 96365; 99282; A4216

== ENCOUNTER 2022-08-21 06:23 | Day surgery (SDC) | payer MEDICARE, MEDICAID, SELFPAY ==
--- NOTE | 2022-08-21 | UL_PTH ---
PATIENT: NORAH [place]RAIG [place] [facility] [id number] AGE/SX: 57/F ROOM: RE08/21/[address]: Dr. Toan Duran MD : 1965 BED: DIS: 08/21/2022 SPEC #: [id number] RECD: 08/21/22 13:07 STATUS: CHICHI TUAN #: [id number] TERRELL: 08/21/22 00:[address]: Toan Duran DEPT: SURGICAL PATHOLOGY RECD BY: Bear Dasilva ENTERED: 08/21/22 13:08 SP TYPE: ULCER OTHR DR: Kim Salas, JD-Hany Tissues: ULCER Procedures: Surgery Specimen Level III HEADER OPERATION: Delayed primary closure buttock wound PRE-OP DIAGNOSIS: Chronic decubital ulcer TISSUE SUBMITTED: Left buttock wound MICROSCOPIC DIAGNOSIS Skin and soft tissue of left buttocks, excision: Ulceration with granulation and chronic inflammation. Skin with hyperkeratosis. AM:heather 08/22/2022 MICROSCOPIC DESCRIPTION Slides are reviewed. GROSS DESCRIPTION Received in fixative is one container labeled with the patient's name and designated left buttock wound. The specimen consists of multiple pieces of nguyen, indurated tissue that in aggregate measure 3.5 x 3 x 1 cm. The specimen is totally submitted in two cassettes. / SJ:heather 08/21/2022 TC:5 CPT: 45930
[2022-08-21] MEDS: Lactated Ringers 1,000 ML 15 ML IV (06:50)
[2022-08-21 07:11] VITALS: BP 154/76; PULSE 78; RESP 19; TEMP 36.5; O2SAT 100; BMI 26.4
--- NOTE | 2022-08-21 07:29 | HP.PCM_ITS ---
History and Physical Date of Service:? 08/08/22 MR#: [id number] Acct: [id number] Name:? NORAH CRAIG Rep #: [id number] : 1965 ? ? Provider: Dr. Toan Duran MD Age/Sex:? 57/F ? ? Location: [facility] Status: Signed Intake Intake Visit Reasons:?wound check/odor/purulent? drainage Chief Complaint: Wound Check Is patient in pain?: Yes Allergies morphine Adverse Reaction (Verified 08/08/22 09:52) Vomiting Medications albuterol sulfate 90 mcg/actuation aerosol inhaler (ProAir HFA) 2 puff Q4H PRN PRN Sob &/Or Wheezing 01/28/18 [History Confirmed 08/08/22] metformin 500 mg tablet,extended release 24 hr 1,000 mg PO DAILY DM 01/28/18 [History Confirmed 08/08/22] hydroxyzine HCl 25 mg tablet 25 mg PO QHS allergies 01/02/22 [History Confirmed 08/08/22] trazodone 50 mg tablet 50 mg PO QHS PRN Insomnia #0 tabs 01/07/22 [Rx Confirmed 08/08/22] aripiprazole 5 mg tablet 5 mg PO QHS Check with primary doctor 02/27/22 [History Confirmed 08/08/22] hydralazine 25 mg tablet 25 mg PO DAILY BP 02/27/22 [History Confirmed 08/08/22] pantoprazole 40 mg tablet,delayed release (Protonix) 40 mg PO DAILY GERD 02/27/22 [History Confirmed 08/08/22] prazosin 2 mg capsule 2 mg PO QHS Bp 02/27/22 [History Confirmed 08/08/22] pregabalin 100 mg capsule (Lyrica) 100 mg PO DAILY Check with primary doctor 02/27/22 [History Confirmed 08/08/22] psyllium husk 0.4 gram capsule (Fiber (psyllium husk)) 0.4 g PO BID Supplement 02/27/22 [History Confirmed 08/08/22] sertraline 100 mg tablet 100 mg PO DAILY Mood 02/27/22 [History Confirmed 08/08/22] acetaminophen 500 mg tablet 1,000 mg PO Q6H PRN PRN Pain Score 1-5 #0 tabs 03/12/22 [Rx Confirmed 08/08/22] arginine 7 gram-glutam 7 gram-CaHMB 1.5 [id number]-min oral pwd pkt (Ahsan (with collagen)) 1 packet PO BIDCM #0 ea 03/12/22 [Rx Confirmed 08/08/22] bisacodyl 10 mg rectal suppository 10 mg GA DAILY PRN Constipation #0 ea 03/12/22 [Rx Confirmed 08/08/22] glucagon 1 mg/mL solution for injection (GlucaGen Diagnostic Kit) 1 mg IM PRN PRN Hypoglycemia #0 ea 03/12/22 [Rx Confirmed 08/08/22] loperamide 2 mg capsule 2 mg PO Q4H PRN PRN Diarrhea #0 caps 03/12/22 [Rx Confirmed 08/08/22] menthol 0.44 %-zinc oxide 20.6 % topical ointment (Calmoseptine) 1 applic topical BID #0 grams 03/12/22 [Rx Confirmed 08/08/22] nystatin 100,000 unit/gram topical powder (Nyamyc) 1 applic topical TID #0 grams 03/12/22 [Rx Confirmed 08/08/22] polysaccharide iron complex 150 mg iron capsule (Ferrex) 150 mg PO DAILY #0 caps 03/12/22 [Rx Confirmed 08/08/22] potassium chloride 20 mEq tablet,extended release(part/cryst) (Klor-Con M) 20 meq PO BIDCM #0 tabs 03/12/22 [Rx Confirmed 08/08/22] sodium chloride 0.9 % (flush) (BD PosiFlush Normal Saline 0.9 % injection syrin ge) 10 - 40 ml IV UD PRN Multilumen/Gee Flush #0 mL 03/12/22 [Rx Confirmed 08/08/22] sodium chloride 0.9 % (flush) (BD PosiFlush Normal Saline 0.9 % injection syringe) 10 - 40 ml IV UD PRN Saline Flush #0 mL 03/12/22 [Rx Confirmed 08/08/22] sodium chloride 0.9 % (flush) (Normal Saline Flush 0.9 % injection syringe) 10 - 40 ml IV UD PRN Port access or dressing change #0 mL 03/12/22 [Rx Confirmed 08/08/22] cephalexin 500 mg capsule 500 mg PO TID #90 caps 07/06/22 [Rx Confirmed 08/08/22] insulin detemir U-100 100 unit/mL subcutaneous solution (Levemir U-100 Insulin) 10 unit (0.1 mL) subcut QHS Diabetes 30 days #3 mL 03/21/22 [Rx Confirmed 08/08/22] oxycodone 5 mg tablet 5 mg PO Q6H PRN PRN Pain Score 6-10 3 days #12 tabs 03/21/22 [Rx Confirmed 08/08/22] cephalexin 500 mg capsule 500 mg PO Q6 #40 CAPSULES 07/01/22 [Rx Confirmed 08/08/22] PFSH Medical History? Anemia Asthma Delayed wound healing Depression Diabetes mellitus with diabetic polyneuropathy Easy bruising Fall Generalized weakness History of echocardiogram HTN (hypertension) Insulin dependent diabetes mellitus Localized edema Malnutrition MRSA (methicillin resistant Staphylococcus aureus) Neuropathy Non-smoker Other specified peripheral vascular diseases Septic hip Ulcer of right foot with necrosis of muscle Urge incontinence Uses wheelchair Walker as ambulation aid Wears dentures Surgical History? History of bladder surgery History of hysterectomy History of right hip hemiarthroplasty History of surgery on lower extremity Social History? household members:? significant other Smoking Status:? Never smoker alcohol intake:? never substance use type:? does not use HPI HPI HPI: This is a 57-year-old female who presents for a follow-up wound check visit of a left ischial wound status post I&D 03/12/2022.?Her last visit was 08/02/2022 at which point her wound was noted to be stable/healing in appearance.? She presents today due to concerns from home health that there are certain features of drainage that suggest the wound may now be infected.? For her part, Ms. Craig complains that the wound is been hurting more for the past 4 days.? She notes that she has her usual chills but no fevers.? She also reports that her sugars have been pretty good and by this details to say she is observed the range of 120s to 140s with her glucose checks.? She reports her next endocrinology visit is 09/11/2022.? She states that her wound VAC usage is fairly stable for what it has been previously and the longest it has been kept in place is 1 day.? She reports that it loses its seal on the upper aspect of the dressing. ROS General General: No weight change, appetite, fatigue, colon cancer, breast cancer or weakness HEENT HEENT: No difficulty swallowing, eye injury, eye surgery, swollen glands or hoarseness Endo Endocrine: Yes thyroid cancer; No thyroid disease, diabetes mellitus, Hair loss, heat intolerance or cold intolerance Skin Skin: No rash or changing moles Musc Musculoskeletal: Yes arthritis and gout; No back problems, rheumatoid arthritis or joint pain Cardio Cardiovascular: No murmur, pacemaker, heart disease, atrial fibrillation, high blood pressure, heart attack, heart stent, palpitations, shortness of breat with exertion or chest pain Psych Psychiatric: No depression, anxiety or hearing voices Resp Respiratory: No shortness of breath, No sleep apnea, No cough, No COPD, No asthma, No emphysema and No wheezing Gastro Gastrointestinal: No abdominal pain, No nausea or vomiting, No diarrhea, No constipation, No blood in stool, No acid reflux, No hemorrhoids, No ulcers, No gallbladder problem and No black,tarry stools Jeremias Hematologic: No blood thinners, No blood disorders, No bleeding, No anemia and No blood clots Neuro Neurologic: No system reviewed and no additional complaints, except as documented, No as per HPI, No abnormal gait, No abnormal hearing, No abnormal movements, No abnormal speech, No behavioral changes, No burning sensations, No confusion, No convulsions, No disequilibrium, No dizziness, No localized weakness, No frequent falls, No headache(s), No lack of coordination, No loss of vision, No memory loss, No numbness, No other visual disturbances, No radicular pain, No restless legs, No sensory deficit, No syncope, No tingling, No tremor(s), No weakness and No other Exam Const General: cooperative and no acute distress Orientation: alert, awake and oriented x3 Skin Other: Left ischial wound- contains scant serous fluid and some fibrinous exudate but no purulence.? Wound base is covered with healthy granulation tissue.? No signs of infection.? Wound dimensions today were: Width: 2.0 (2.0)cm X length: 2.0(2.0)cm X depth 1.0(1)cm with 5(4.3)cm undermining cephalad, no undermining laterally, and 1(2.0)cm of undermining medially Assessment and Plan Assessment and Plan (1) Decubital ulcer: ?Status:?Chronic ?Comment: Patient is a 57-year-old female who presents for interval wound check out of concerns from home health that the wound may now be infected.? Patient has no clinical signs of infection and in fact reports that her blood sugars?which have previously been of some concern?have been under tighter control.? As reflected in the objective measurements of the exam section of this note the wound has undergone further healing and reduction in size.? Still, Ms. Craig wishes to discuss delayed primary closure as she is tired of the ongoing wound care that has been required since February of this year.? Given that her blood sugars have been under better control and there is a noninfected appearance of the wound, I believe this is a reasonable consideration to make.? Given the contracture of the wound there is some immobility of the tissues, however, the bridging distance is rather short at a maximal dimension of 2 cm.? Therefore I believe limited flap mobility would be required with an S shaped incision about the current opening to bring about primary closure without undue tension.? This has been described the patient as well as the postoperative expectations of completely offloading the area and the requisite wound care.? To this latter point, patient will still have some subcutaneous space that I would like to slowly close with the use of wicking at her procedure.? She confirms that her daughter should be able to assist her with backing out these casey post procedure.? For the interim, patient's wound VAC was replaced with a offset suction to minimize pressure over her wound.? We did achieve an excellent seal with minimal leak.? Patient has been challenged to try to maintain this VAC dressing for 48 hours. ?Plan: ? Delayed primary closure of chronic left buttock wound under anesthesia telemetry scheduled for 08/21/2022 ? Ongoing wound care with negative pressure wound VAC therapy ? We will plan to cancel patient's scheduled follow-up visit for next week 08/13/2022 I have examined the patient and the H&P has been reviewed. There are no clinical changes since date of exam. Patient confirms that her blood sugars have remained under good control and she has not had any change to the drainage of her wound. We reviewed the expectations of the procedure, confirmed our procedure consents, and reviewed post procedure restrictions. She denied any further questions therefore we will proceed to the operating room now for delayed primary closure of chronic left buttock wound as discussed above.
[2022-08-21] MEDS: Cefazolin 2 GM in 0.9% Normal Saline 100 ML IV (08:06)
[2022-08-21] MEDS: Bupivacaine 0.25% 30 ML Vial (08:35)
--- NOTE | 2022-08-21 09:29 | OP.PCM_ITS ---
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 Stable appearance of wound with healthy granulation tissue base. ? Cephalad undermining for an extent of 6 cm ? Curvilinear closure 10 cm with Em drain exit site 5.5 cm cephalad to this primary closure Surgeon: Toan Duran fishing boat mate: Michelle Ling Type of Anesthesia: General/Supplemental Anesthesiologist: Silvio Vance Specimen's removed: tissue from margin of left buttock wound Drains: 0.25 inch Em Estimated Blood Loss (mL): 25 Description of Procedure: After appropriate identification in the preoperative holding area and confirmation of consents, patient was taken to the operating room where she underwent induction with general anesthesia and administration of preoperative antibiotics. She was then positioned prone on the operating room table taking care to pad all pressure points. Her left buttock wound was then prepped and draped in the usual sterile fashion. A formal timeout followed to confirm both patient and the procedure. Procedure was begun by instilling a local block of quarter percent Marcaine in the periwound soft tissue. I marked out a curvilinear incision that would allow cephalad excursion of the patient's wound to permit primary closure without undue tension. This curvilinear incision was made with a scalpel and deepened through the subcutaneous tissue with electrocautery securing hemostasis as we went. I then observed patient's wound undermining which extended for 6 cm in a cephalad direction. I thoroughly curettaged this tract to reincite the inflammatory process there and performed a counterincision at the superior aspect of the tract to accommodate 1/4 inch Em drain. This drain was threaded into this tract and secured on both ends using 2-0 nylon suture. The chronic wound edges were sharply excised back to healthy tissue and I then raised slight subcutaneous flaps superiorly and inferiorly (primarily at the latter as this permitted greater laxity). Deeper soft tissue was approximated in a [id number] fashion with 2-0 Vicryl sutures to plicate this tissue together and eliminate both space and tension on the primary closure. This primary closure was made at widely spaced intervals using 2-0 Prolene in a modified vertical mattress technique. Once satisfied with the closure, I verified hemostasis and then wicked the suture intervals using 4 small pieces of Telfa nonadherent gauze. Wadded up 4 x 4's were placed atop the primary closure as well as the patient's Em drain to provide an absorptive dressing. Abdominal pads x2 were placed atop this for further security of this dressing and were taped in place. Patient was then awoken from anesthetic without event and transferred to PACU for ongoing recovery. Complications None Admit VTE Documentation VTE Mechan Device Prophylaxis: SCD's
--- NOTE | 2022-08-21 09:34 | DCINST_ITS ---
Discharge Instructions Diet Discharge Diet: No restrictions and Carb Control Diet Activity Discharge Activity: May Shower (On second day after surgery) May shower in (days): 2 Additional Activity Instructions:: Avoid direct pressure to area?including sitting for first week after surgery. Dressing / Incision Call your doctor if your incision/area has: Continuous Slow Oozing, Sudden Increased Bleeding, Increased Pain/ Swelling, Increased Redness, Foul Smelling Discharge and Swelling at the incision site Call your doctor if you observe: Fever of 101 or Higher Change Dressing in: 1 day (Or if it becomes saturated) Cleanse incision/area with: Soap & Water and Keep Dressing Clean & Dry Additional Dressing/Incision Instructions:: Remove casey in 1 day postop Follow Up Care Please Follow Up With: Toan Duran MD When: 1 week postop Test Results: Test results from this visit will be discussed in further detail at your follow- up appointment, if applicable. Discharge Plan Admission Primary Reason for Your Visit: Chronic left buttock wound Attending Provider: Toan Duran Primary Care Provider: Kim Salas [employer] Discharge Orders/Prescriptions Prescriptions: Continued metformin 500 MG tablet 1,000 mg PO DAILY Hold Instructions: Hold for 1 week until creatinine clearance is persistently more than 30 mill per minute Label Comments: TAKE 1 TABLET BY MOUTH TWICE DAILY WITH MEALS. hydroxyzine HCl 25 mg Tablet 25 mg PO QHS pantoprazole [Protonix] 40 mg Tablet,Delayed Release (Dr/Ec) 40 mg PO DAILY aripiprazole 5 mg Tablet 5 mg PO QHS sertraline 100 mg tablet 100 mg PO DAILY hydralazine 25 MG tablet 25 mg PO DAILY pregabalin [Lyrica] 100 MG capsule 100 mg PO DAILY Label Comments: TAKE ONE CAPSULE BY MOUTH EVERY DAY psyllium husk [Fiber (psyllium husk)] 0.4 gram capsule 0.4 g PO BID Rx Instructions: Hold for diarrhea prazosin 2 mg Capsule 2 mg PO QHS bisacodyl 10 mg Suppository 10 mg [place] DAILY PRN (Reason: Constipation) Qty: 0 0RF potassium chloride [Klor-Con M20] 20 mEq Tablet,Er Particles/Crystals 20 meq PO BIDCM Qty: 0 0RF nystatin [Nyamyc] 100,000 unit/gram Powder 1 applic topical TID Qty: 0 0RF Protocol: *Topical Application Instructions APPLICATION INSTRUCTIONS: Apply Affected area polysaccharide iron complex [Ferrex 150] 150 mg iron Capsule 150 mg PO DAILY Qty: 0 0RF oxycodone 5 mg Tablet 5 mg PO Q6H PRN PRN (Reason: Pain Score 6-10) 3 Days Qty: 12 0RF Levemir U-100 Insulin 100 unit/mL Solution 10 unit SUBCUT QHS 30 Days Qty: 3 0RF ibuprofen 600 mg Tablet 600 mg PO Q6H PRN (Reason: pin) trazodone 50 mg tablet 150 mg PO QHS PRN (Reason: Insomnia) Referrals / Follow Up: Kim Salas NP, [employer] [Primary Care Provider] - Disposition Disposition (needs filled in before D/C Order can be placed): Home, Self Care
[2022-08-21 09:40] VITALS: BP 150/73; BP 154/76; PULSE 90; RESP 16; TEMP 36.9; O2SAT 97
[2022-08-21 09:45] VITALS: BP 143/62; BP 154/76; PULSE 91; RESP 16; O2SAT 97
[2022-08-21 10:00] VITALS: BP 128/66; BP 154/76; PULSE 82; RESP 16; O2SAT 96
[2022-08-21 10:10] LABS: Bedside Glucose 195 mg/dL (74-106)
[2022-08-21 10:11] LABS: Bedside Glucose 186 mg/dL (74-106)
[2022-08-21 10:15] VITALS: BP 131/63; BP 154/76; PULSE 78; RESP 16; TEMP 36.8; O2SAT 96
[2022-08-21 11:07] VITALS: BP 121/62; BP 154/76; PULSE 86; RESP 16; TEMP 36.6; O2SAT 95
== END 2022-08-21 11:13 | disposition home or self-care (01) ==
LOC: SDC 06:23 → AC 06:24
PROVIDERS: PCP Nurse Practitioner Family; Referring Provider Surgery; Visit Provider Surgery
PROC: (CPT 38500; principal; 2022-08-21 07:45)
DX: L89.329 Pressure ulcer of left buttock, unspecified stage (principal); E11.42 Type 2 diabetes mellitus with diabetic polyneuropathy; Z79.4 Long term (current) use of insulin; I10 Essential (primary) hypertension; F32.A Depression, unspecified; Z79.899 Other long term (current) drug therapy
CPT/HCPCS: 13160; 00300; 82962; 88304; J7120; J2405

== ENCOUNTER → 2022-12-05 | Outpatient (CLI) | payer MEDICARE, MEDICAID, SELFPAY ==
[2022-12-05 13:54] LABS: Amphetamine Urine VISTA NEGATIVE (<1000 ng/mL); Barbiturate Urine VISTA NEGATIVE (< 200 ng/mL); Benzodiazepine Urine VISTA NEGATIVE (< 200 ng/mL); Cocaine Urine VISTA NEGATIVE (< 300 ng/mL); Ecstacy Urine VISTA POSITIVE (< 500 ng/mL); Methadone Urine VISTA NEGATIVE (< 300 ng/mL); PCP Urine VISTA NEGATIVE (< 25 ng/mL); THC Urine VISTA NEGATIVE (< 50 ng/mL); Vista UDS pH Range 5
== END | disposition home or self-care (01) ==
LOC: LAB 13:12
PROVIDERS: PCP Nurse Practitioner Family; Referring Provider Anesthesiology Pain Medicine; Visit Provider Anesthesiology Pain Medicine
DX: F11.20 Opioid dependence, uncomplicated (principal)
CPT/HCPCS: 80307

== ENCOUNTER → 2023-01-28 | Outpatient (REF) | payer MEDICARE, MEDICAID, SELFPAY ==
[2023-01-28 08:59] LABS: Basophil# 0.01 X10^3/uL; Basophil% 0.2 % (0-1); Eosinophil# 0.24 X10^3/uL; Eosinophils% 4.8 % (0-5); Hematocrit 26.5 % (37-47); Hemoglobin 8.9 g/dL (12.0-15.0); Lymphocyte % 29.7 % (19-41); Mean Corp Hgb Conc 33.6 g/dL (32-36); Mean Corpuscular Hgb 29.1 pg (27.0-32.0); Mean Corpuscular Volume 86.6 fL (81-99); Mean Platelet Vol. 10.1 fl (6.2-12.0); Monocyte# 0.28 X10^3/uL; Monocyte% 5.5 % (0-10); NRBC Flagged by Analyzer 0 % (0-5); Neutrophil # 2.99 X10^3/uL (2.7-7.7); Neutrophil % 59.2 % (47-70); Platelet Count 188 K/mm3 (150-450); RBC Distribution Width CV 14.3 % (11.6-14.6); RBC Distribution Width SD 44.2 fl (35.1-43.9); Red Blood Count 3.06 M/mm3 (4.2-5.4); White Blood Count 5.1 K/mm3 (4.4-11.0)
[2023-01-28 09:17] LABS: ALB/GLOB Ratio 0.8 RATIO (0.9-2.4); AST(SGOT) 13 U/L (15-37); Alanine Aminotransfer ALT/SGPT 8 U/L (13-56); Albumin, Serum 3.1 g/dL (3.2-5.0); Alkaline Phosphatase 61 U/L (45-117); Anion Gap 8 (5-15); BUN 16 mg/dL (7-18); BUN/Creat Ratio 11.1 RATIO (10-20); Calcium,Total 8.4 mg/dL (8.5-10.1); Chloride 109 mmol/L (98-107); Creatinine, Serum 1.44 mg/dL (0.55-1.02); EST Glomerular Filtration Rate 40 mL/min (>60); Est Glom Filt Rate - Afr Amer 48 mL/min (>60); Globulin 3.9 g/dL (2.2-4.2); Glucose 126 mg/dL (74-106); Potassium 3.3 mmol/L (3.5-5.1); Sodium Level 143 mmol/L (136-145)
== END ==
LOC: OLS.SANC 07:05
PROVIDERS: PCP Nurse Practitioner Family; Referring Provider Internal Medicine; Visit Provider Internal Medicine
DX: E11.9 Type 2 diabetes mellitus without complications (principal); I10 Essential (primary) hypertension; E78.5 Hyperlipidemia, unspecified; E03.9 Hypothyroidism, unspecified
CPT/HCPCS: 36415; 80053; 85025

== ENCOUNTER → 2023-02-04 | Outpatient (REF) | payer MEDICARE, MEDICAID, SELFPAY ==
[2023-02-04 09:19] LABS: Absolute Neutrophil Count 2.9 X10^3/uL (2.0-7.7); Basophil# 0.03 X10^3/uL; Basophil% 0.5 % (0-1); Eosinophil# 0.49 X10^3/uL; Eosinophils% 8.7 % (0-5); Hematocrit 27.4 % (37-47); Hemoglobin 8.8 g/dL (12.0-15.0); Lymphocyte % 31.9 % (19-41); Mean Corp Hgb Conc 32.1 g/dL (32-36); Mean Corpuscular Hgb 28.8 pg (27.0-32.0); Mean Corpuscular Volume 89.5 fL (81-99); Monocyte# 0.35 X10^3/uL; Monocyte% 6.2 % (0-10); NRBC Flagged by Analyzer 0 % (0-5); Neutrophil # 2.91 X10^3/uL (2.7-7.7); Neutrophil % 51.6 % (47-70); Platelet Count 198 K/mm3 (150-450); RBC Distribution Width CV 14.3 % (11.6-14.6); RBC Distribution Width SD 46.6 fl (35.1-43.9); Red Blood Count 3.06 M/mm3 (4.2-5.4); White Blood Count 5.6 K/mm3 (4.4-11.0)
[2023-02-04 09:37] LABS: EST Glomerular Filtration Rate 38 mL/min (>60); Est Glom Filt Rate - Afr Amer 46 mL/min (>60)
== END ==
LOC: OLS.SANC 05:00
PROVIDERS: PCP Nurse Practitioner Family; Visit Provider Internal Medicine
DX: E11.9 Type 2 diabetes mellitus without complications (principal); I10 Essential (primary) hypertension; E78.5 Hyperlipidemia, unspecified; E03.9 Hypothyroidism, unspecified; G62.9 Polyneuropathy, unspecified; Z79.899 Other long term (current) drug therapy
CPT/HCPCS: 36415; 82565; 85025

== ENCOUNTER → 2023-02-06 | Outpatient (REF) | payer MEDICARE, MEDICAID, SELFPAY ==
[2023-02-06 09:05] LABS: Hematocrit 28.4 % (37-47); Mean Corp Hgb Conc 31.7 g/dL (32-36); Mean Corpuscular Hgb 28.7 pg (27.0-32.0); Mean Corpuscular Volume 90.4 fL (81-99); Platelet Count 197 K/mm3 (150-450); RBC Distribution Width CV 14.2 % (11.6-14.6); RBC Distribution Width SD 46.5 fl (35.1-43.9); Red Blood Count 3.14 M/mm3 (4.2-5.4); White Blood Count 5.9 K/mm3 (4.4-11.0)
[2023-02-06 09:20] LABS: Anion Gap 6 (5-15); BUN 17 mg/dL (7-18); BUN/Creat Ratio 12.7 RATIO (10-20); Calcium,Total 8.1 mg/dL (8.5-10.1); Chloride 112 mmol/L (98-107); Creatinine, Serum 1.34 mg/dL (0.55-1.02); EST Glomerular Filtration Rate 43 mL/min (>60); Est Glom Filt Rate - Afr Amer 52 mL/min (>60); Glucose 118 mg/dL (74-106); Sodium Level 143 mmol/L (136-145)
== END ==
LOC: OLS.SANC 05:00
PROVIDERS: PCP Nurse Practitioner Family; Visit Provider Internal Medicine
DX: E11.9 Type 2 diabetes mellitus without complications (principal); I10 Essential (primary) hypertension; Z79.899 Other long term (current) drug therapy
CPT/HCPCS: 36415; 80048; 85027

== ENCOUNTER → 2023-02-18 | Outpatient (REF) | payer MEDICARE, MEDICAID, SELFPAY ==
[2023-02-18 09:49] LABS: Absolute Lymphocyte Count 1.19 X10^3/uL (0.83-4.51); Absolute Neutrophil Count 3.2 X10^3/uL (2.0-7.7); Basophil# 0.02 X10^3/uL; Basophil% 0.4 % (0-1); Eosinophil# 0.49 X10^3/uL; Hematocrit 30.8 % (37-47); Hemoglobin 9.5 g/dL (12.0-15.0); Lymphocyte # 1.19 X10^3/ul (0.83-4.51); Lymphocyte % 21.8 % (19-41); Mean Corp Hgb Conc 30.8 g/dL (32-36); Mean Corpuscular Volume 90.9 fL (81-99); Mean Platelet Vol. 10.6 fl (6.2-12.0); Monocyte# 0.51 X10^3/uL; Monocyte% 9.3 % (0-10); NRBC Flagged by Analyzer 0 % (0-5); Neutrophil # 3.22 X10^3/uL (2.7-7.7); Neutrophil % 58.8 % (47-70); Platelet Count 154 K/mm3 (150-450); RBC Distribution Width CV 13.9 % (11.6-14.6); RBC Distribution Width SD 45.9 fl (35.1-43.9); Red Blood Count 3.39 M/mm3 (4.2-5.4); White Blood Count 5.5 K/mm3 (4.4-11.0)
[2023-02-18 10:00] LABS: ALB/GLOB Ratio 0.9 RATIO (0.9-2.4); AST(SGOT) 20 U/L (15-37); Alanine Aminotransfer ALT/SGPT 9 U/L (13-56); Albumin, Serum 3.1 g/dL (3.2-5.0); Alkaline Phosphatase 70 U/L (45-117); Anion Gap -2 (5-15); BUN 25 mg/dL (7-18); BUN/Creat Ratio 14.3 RATIO (10-20); Calcium,Total 8.5 mg/dL (8.5-10.1); Chloride 110 mmol/L (98-107); Creatinine, Serum 1.75 mg/dL (0.55-1.02); EST Glomerular Filtration Rate 32 mL/min (>60); Est Glom Filt Rate - Afr Amer 38 mL/min (>60); Globulin 3.3 g/dL (2.2-4.2); Glucose 154 mg/dL (74-106); Potassium 4.5 mmol/L (3.5-5.1); Protein, Total 6.4 g/dL (6.4-8.2); Sodium Level 136 mmol/L (136-145)
== END ==
LOC: OLS.SANC 05:00
PROVIDERS: PCP Nurse Practitioner Family; Visit Provider Internal Medicine
DX: E11.9 Type 2 diabetes mellitus without complications (principal); I10 Essential (primary) hypertension; E78.5 Hyperlipidemia, unspecified; E03.9 Hypothyroidism, unspecified
CPT/HCPCS: 36415; 80053; 85025

== ENCOUNTER → 2023-02-25 | Outpatient (REF) | payer MEDICARE, MEDICAID, SELFPAY ==
[2023-02-25 09:02] LABS: Absolute Neutrophil Count 3.3 X10^3/uL (2.0-7.7); Basophil# 0.04 X10^3/uL; Basophil% 0.6 % (0-1); Eosinophil# 0.58 X10^3/uL; Eosinophils% 9.3 % (0-5); Hematocrit 32.7 % (37-47); Hemoglobin 10.3 g/dL (12.0-15.0); Lymphocyte % 28.7 % (19-41); Mean Corp Hgb Conc 31.5 g/dL (32-36); Mean Corpuscular Hgb 28.2 pg (27.0-32.0); Mean Corpuscular Volume 89.6 fL (81-99); Mean Platelet Vol. 10.2 fl (6.2-12.0); Monocyte# 0.54 X10^3/uL; Monocyte% 8.6 % (0-10); NRBC Flagged by Analyzer 0 % (0-5); Neutrophil # 3.25 X10^3/uL (2.7-7.7); Neutrophil % 51.8 % (47-70); Platelet Count 161 K/mm3 (150-450); RBC Distribution Width CV 13.9 % (11.6-14.6); RBC Distribution Width SD 45.9 fl (35.1-43.9); Red Blood Count 3.65 M/mm3 (4.2-5.4); White Blood Count 6.3 K/mm3 (4.4-11.0)
[2023-02-25 09:08] LABS: Anion Gap 6 (5-15); BUN 29 mg/dL (7-18); BUN/Creat Ratio 18.6 RATIO (10-20); Calcium,Total 8.5 mg/dL (8.5-10.1); Chloride 109 mmol/L (98-107); Creatinine, Serum 1.56 mg/dL (0.55-1.02); EST Glomerular Filtration Rate 36 mL/min (>60); Est Glom Filt Rate - Afr Amer 44 mL/min (>60); Glucose 177 mg/dL (74-106); Potassium 4.5 mmol/L (3.5-5.1); Sodium Level 140 mmol/L (136-145)
== END ==
LOC: OLS.SANC 05:00
PROVIDERS: PCP Nurse Practitioner Family; Visit Provider Internal Medicine
DX: E11.9 Type 2 diabetes mellitus without complications (principal); E78.5 Hyperlipidemia, unspecified
CPT/HCPCS: 36415; 80048; 85025

== ENCOUNTER → 2023-03-04 | Outpatient (REF) | payer MEDICARE, MEDICAID, SELFPAY ==
[2023-03-04 09:43] LABS: Absolute Lymphocyte Count 1.58 X10^3/uL (0.83-4.51); Absolute Neutrophil Count 4.1 X10^3/uL (2.0-7.7); Basophil# 0.04 X10^3/uL; Basophil% 0.6 % (0-1); Eosinophil# 0.34 X10^3/uL; Eosinophils% 5.1 % (0-5); Hematocrit 34.3 % (37-47); Hemoglobin 10.8 g/dL (12.0-15.0); Lymphocyte # 1.58 X10^3/ul (0.83-4.51); Lymphocyte % 23.6 % (19-41); Mean Corp Hgb Conc 31.5 g/dL (32-36); Mean Corpuscular Hgb 27.9 pg (27.0-32.0); Mean Corpuscular Volume 88.6 fL (81-99); Mean Platelet Vol. 10.3 fl (6.2-12.0); Monocyte# 0.56 X10^3/uL; Monocyte% 8.4 % (0-10); NRBC Flagged by Analyzer 0 % (0-5); Neutrophil # 4.13 X10^3/uL (2.7-7.7); Neutrophil % 61.6 % (47-70); Platelet Count 181 K/mm3 (150-450); RBC Distribution Width CV 13.7 % (11.6-14.6); RBC Distribution Width SD 44.5 fl (35.1-43.9); Red Blood Count 3.87 M/mm3 (4.2-5.4); White Blood Count 6.7 K/mm3 (4.4-11.0)
[2023-03-04 10:11] LABS: Creatinine, Serum 1.74 mg/dL (0.55-1.02); EST Glomerular Filtration Rate 32 mL/min (>60); Est Glom Filt Rate - Afr Amer 39 mL/min (>60)
== END ==
LOC: OLS.SANC 05:00
PROVIDERS: PCP Nurse Practitioner Family; Visit Provider Internal Medicine
DX: D64.9 Anemia, unspecified (principal); E11.9 Type 2 diabetes mellitus without complications; E78.5 Hyperlipidemia, unspecified; E03.9 Hypothyroidism, unspecified; Z79.2 Long term (current) use of antibiotics
CPT/HCPCS: 36415; 82565; 85025

== ENCOUNTER → 2023-08-19 | Outpatient (CLI) | payer MEDICARE, MEDICAID, SELFPAY ==
[2023-08-19 16:36] LABS: Amphetamine Urine VISTA NEGATIVE (<1000 ng/mL); Barbiturate Urine VISTA NEGATIVE (< 200 ng/mL); Benzodiazepine Urine VISTA NEGATIVE (< 200 ng/mL); Cocaine Urine VISTA NEGATIVE (< 300 ng/mL); Ecstacy Urine VISTA POSITIVE (< 500 ng/mL); Methadone Urine VISTA NEGATIVE (< 300 ng/mL); PCP Urine VISTA NEGATIVE (< 25 ng/mL); THC Urine VISTA NEGATIVE (< 50 ng/mL); Vista UDS pH Range 8
== END | disposition home or self-care (01) ==
PROVIDERS: PCP Nurse Practitioner Family; Referring Provider Anesthesiology Pain Medicine; Visit Provider Anesthesiology Pain Medicine
DX: F11.20 Opioid dependence, uncomplicated (principal)
CPT/HCPCS: 80307